=== PATIENT | male | born 1970 | race Caucasian/White ===

== ENCOUNTER 2016-09-13 16:35 | Inpatient (IN) | payer MEDICAID ==
--- NOTE | 2016-09-13 17:00 | ER Document Report ---
ED Medical Screen (RME) - General Stated Complaint: ABDOMINAL PAIN Time seen by provider: 17:00 Mode of Arrival: Ambulatory Information source: Patient Notes: 45-year-old male with a history of diverticulosis, diverticulitis with abscess, a history of percutaneous drainage in May with history of renal failure is here with acute similar abdominal pain for 3 days. He started on a liquid diet to try to relieve the mild pain but it is gotten severe.. He can't stand it anymore and is concerned there is another abscess, He was told that if it persists and keeps coming back to have to have abdominal surgery. I have consulted with the supervisory physician per [facility] Guidelines. Dr. Frazier for CT I have greeted and performed a rapid initial assessment of this patient. A comprehensive ED assessment, evaluation of the patient, analysis of test results , and completion of the medical decision making process will be conducted by additional ED providers. TRAVEL OUTSIDE OF THE [place] IN LAST 30 DAYS: No - Related Data Allergies/Adverse Reactions: amlodipine Allergy (Verified 06/06/16 17:08) tramadol HCl [From Ultram] Allergy (Verified 06/06/16 11:35) Past Medical History - Past Medical History Cardiac Medical History: Reports: Hx Hypertension GI Medical History: Reports: Hx Diverticulitis Musculoskeltal Medical History: Reports Hx Arthritis - Left hip was replaced due to degenerative joint disease in 2013 Psychiatric Medical History: Denies: Hx Depression Past Surgical History: Reports: Hx Orthopedic Surgery - Left hip replaced, Other - Colonoscopy - Immunizations Hx Diphtheria, Pertussis, Tetanus Vaccination: Yes Physical Exam - Vital signs Vitals: Temp Pulse Resp BP Pulse Ox 98.4 F 110 H 26 H 158/99 H 95 09/13/16 17:02 09/13/16 17:02 09/13/16 17:02 09/13/16 17:02 09/13/16 17:02 Course - Vital Signs Vital signs: Temp Pulse Resp BP Pulse Ox 98.4 F 110 H 26 H 158/99 H 95 09/13/16 17:02 09/13/16 17:02 09/13/16 17:02 09/13/16 17:02 09/13/16 17:02
[2016-09-13] MEDS ORDERED: MORPHINE SULFATE 10 MG/ML INJ IV ONE (17:03)
[2016-09-13] MEDS ORDERED: ONDANSETRON HCL INJ/PF 4 MG/2 ML SDV IV ONE (17:03)
[2016-09-13 18:03] LABS: ABSOLUTE BASOPHILS # (AUTO) 0.1 10^3/uL (0.0-0.2); ABSOLUTE LYMPHOCYTES (AUTO) 1.9 10^3/uL (0.5-4.7); ABSOLUTE MONOCYTES (AUTO) 1.5 10^3/uL (0.1-1.4); ABSOLUTE NEUT (AUTO) 13.5 10^3/uL (1.7-8.2); BASOPHILS % (AUTO) 0.7 % (0-2); EOSINOPHILS % (AUTO) 0.2 % (0-6); HEMOGLOBIN 15.7 g/dL (13.5-17.0); HGB HCT DIFFERENCE 2.1; LYMPHOCYTES % (AUTO) 10.9 % (13-45); MEAN CORPUSCULAR VOLUME 97 fl (80-97); MONOCYTES % (AUTO) 8.9 % (3-13); RED BLOOD COUNT 4.63 10^6/uL (4.35-5.55); SEGMENTED NEUTROPHILS % (AUTO) 79.3 % (42-78); WHITE BLOOD COUNT 17.1 10^3/uL (4.0-10.5)
[2016-09-13 18:16] LABS: ALANINE AMINOTRANSFERASE 60 U/L (21-72); ALKALINE PHOSPHATASE 102 U/L (38-126); ANION GAP 10 (5-19); ASPARTATE AMINO TRANSFERASE 41 U/L (17-59); BILIRUBIN,TOTAL 0.7 mg/dL (0.2-1.3); BLOOD UREA NITROGEN 14 mg/dL (7-20); CALCIUM 9.6 mg/dL (8.4-10.2); CARBON DIOXIDE 33 mmol/L (22-30); CHLORIDE 89 mmol/L (98-107); CREATININE RESULT 1.36 mg/dL (0.52-1.25); GLUCOSE 110 mg/dL (75-110); LIPASE 122.3 U/L (23-300); POTASSIUM 5.2 mmol/L (3.6-5.0)
[2016-09-13] MEDS ORDERED: NORMAL SALINE 1000 ML 1,000 ML IV ONE (18:17)
[2016-09-13] MEDS ORDERED: METRONIDAZOLE 500 MG/NS RTU 100 ML IV ONE (18:18)
[2016-09-13] MEDS ORDERED: LEVOFLOXACIN 750 MG/D5W RTU 150 ML IV ONE (18:18)
--- NOTE | 2016-09-13 18:44 | ER Document Report ---
ED General - General Chief Complaint: Abdominal Pain Stated Complaint: ABDOMINAL PAIN Mode of Arrival: Ambulatory Notes: Patient is a 45-year-old male with past medical history of recurrent sigmoid diverticulitis who presents with acute onset of left lower quadrant abdominal pain earlier this morning. He does describe the pain as a severe, constant pain. Nothing improves or worsens the pain. He notes an associated constipation. States this feels identical to his prior presentations of diverticulitis. He has not seen his primary care physician. He denies any associated vomiting but states he has been quite nauseated. TRAVEL OUTSIDE OF THE [place] IN LAST 30 DAYS: No - Related Data Allergies/Adverse Reactions: amlodipine Allergy (Verified 06/06/16 17:08) tramadol HCl [From Ultram] Allergy (Verified 06/06/16 11:35) Home Medications: Current Home Medications Hydrochlorothiazide [Hydrochlorothiazide] 25 mg PO DAILY 09/13/16 [History] Past Medical History - General Information source: Patient - Social History Smoking Status: Never Smoker Chew tobacco use (# tins/day): No Frequency of alcohol use: Occasional Drug Abuse: None Lives with: Spouse/Significant other Family History: Reviewed & Not Pertinent, Other - Crohn's disease. Colon cancer. Patient has suicidal ideation: No Patient has homicidal ideation: No - Past Medical History Cardiac Medical History: Reports: Hx Hypertension Renal/ Medical History: Denies: Hx Peritoneal Dialysis GI Medical History: Reports: Hx Diverticulitis Musculoskeltal Medical History: Reports Hx Arthritis - Left hip was replaced due to degenerative joint disease in 2013 Psychiatric Medical History: Denies: Hx Depression Past Surgical History: Reports: Hx Orthopedic Surgery - Left hip replaced, Other - Colonoscopy - Immunizations Hx Diphtheria, Pertussis, Tetanus Vaccination: Yes Review of Systems - Review of Systems Notes: Constitutional: Negative for fever. HENT: Negative for sore throat. Eyes: Negative for visual changes. Cardiovascular: Negative for chest pain. Respiratory: Negative for shortness of breath. Gastrointestinal: Positive for abdominal pain and constipation Genitourinary: Negative for dysuria. Musculoskeletal: Negative for back pain. Skin: Negative for rash. Neurological: Negative for headaches, weakness or numbness. 10 point ROS negative except as marked above and in HPI. Physical Exam - Vital signs Vitals: Temp Pulse Resp BP Pulse Ox 98.4 F 110 H 26 H 158/99 H 95 09/13/16 17:02 09/13/16 17:02 09/13/16 17:02 09/13/16 17:02 09/13/16 17:02 Interpretation: Hypertensive, Tachycardic, Tachypneic Notes: PHYSICAL EXAMINATION: GENERAL: Appears uncomfortable but in no acute distress HEAD: Atraumatic, normocephalic. EYES: Pupils equal round and reactive to light, extraocular movements intact, sclera anicteric, conjunctiva are normal. ENT: nares patent, oropharynx clear without exudates. Moist mucous membranes. NECK: Normal range of motion, supple without lymphadenopathy LUNGS: Breath sounds clear to auscultation bilaterally and equal. No wheezes rales or rhonchi. HEART: Regular tachycardia without murmurs ABDOMEN: Soft, focal left lower quadrant tenderness with voluntary guarding but no rebound. Bowel sounds are present EXTREMITIES: Normal range of motion, no pitting or edema. No cyanosis. NEUROLOGICAL: No focal neurological deficits. Moves all extremities spontaneously and on command. PSYCH: Normal mood, normal affect. SKIN: Warm, Dry, normal turgor, no rashes or lesions noted. Course - Re-evaluation Re-evalutation: 09/13/16 18:43 Patient presents with acute onset of left lower quadrant abdominal pain, consistent with his prior presentation of acute diverticulitis. CT scan does show a severe sigmoid colitis with a possible developing fluid collection although no drainable collection at this time. His laboratories do show leukocytosis. Exam reveals focal left lower quadrant abdominal tenderness without rebound. Patient does have some voluntary guarding. Initial vitals or tachycardia he does appear clinically dehydrated on exam. He has been started on IV fluids, IV levofloxacin, and IV metronidazole. Given that there is no surgical management at this time will admit to the hospitalist service for IV antibiotics and clinical monitoring. 09/13/16 19:33 Patient's pain is improved after receiving IV morphine. His heart rate has now normalized to 96. I discussed this case with our hospitalist Dr. Hunter Levin who is agreeable to admission at this time. - Vital Signs Vital signs: Temp Pulse Resp BP Pulse Ox 98.5 F 105 H 18 140/87 H 97 09/14/16 00:00 09/14/16 00:00 09/14/16 00:00 09/14/16 00:00 09/14/16 00:00 - Laboratory Result Diagrams: 09/13/16 17:43 09/13/16 17:43 Laboratory results interpreted by me: 09/13/16 02 17:43 17:43 WBC 17.1 H MCH 34.0 H Seg Neutrophils % 79.3 H Lymphocytes % 10.9 L Absolute Neutrophils 13.5 H Absolute Monocytes 1.5 H Sodium 132.0 L Potassium 5.2 H Chloride 89 L Carbon Dioxide 33 H Creatinine 1.36 H Est GFR (Non-Af Amer) 57 L - Diagnostic Test Radiology reviewed: Reports reviewed Discharge - Discharge Clinical Impression: Colitis Abdominal pain Qualifiers: Abdominal location: left lower quadrant Qualified Code(s): R10.32 - Left lower quadrant pain Disposition: ADMITTED INPATIENT Admitting Provider: [facility] Admitted: Telemetry
[2016-09-13] MEDS ORDERED: IPRATROPIUM/ALBUTEROL 0.5-2.5 MG/3 ML AMPUL NEB PRN (19:36)
[2016-09-13] MEDS ORDERED: ONDANSETRON HCL INJ/PF 4 MG/2 ML SDV IV PRN (19:36)
[2016-09-13] MEDS ORDERED: MAGNESIUM HYDROXIDE SUSP 30 ML UDCUP PO PRN (19:36)
[2016-09-13] MEDS ORDERED: ACETAMINOPHEN 325 MG TABLET PO PRN (19:36)
[2016-09-13] MEDS ORDERED: LEVOFLOXACIN 750 MG/D5W RTU 750 MG/150 ML RTUPB IV ONE (20:00)
[2016-09-13] MEDS ORDERED: METRONIDAZOLE 500 MG TABLET PO ONE (20:00)
[2016-09-13] MEDS: HYDROMORPHONE HCL INJ/PF 2 MG/ML AMPULE IV PRN ×2 (20:57→23:23)
[2016-09-13] MEDS: NORMAL SALINE 1000 ML 1,000 ML IV SCH (23:18)
[2016-09-13] MEDS: HEPARIN SOD (PORCINE) 5,000 UNIT/ML 1 ML SYRINGE SUBCUT SCH (23:19)
[2016-09-13] MEDS: METRONIDAZOLE 500 MG TABLET PO SCH (23:19)
[2016-09-13] MEDS ORDERED: ENALAPRILAT DIHYDRATE INJ/PF 1.25 MG/1 ML SDV IV PRN (23:24)
--- NOTE | 2016-09-14 03:58 | PDOC H&P ---
History of Present Illness Admission Date/PCP: 09/13/16 19:37 Patient complains of: Abdominal pain and constipation History of Present Illness: PIPE RESENDIZ IV is a 45 year old male with a past medical history of hypertension, obesity and recurrent diverticulitis. Who has been in his usual state of health until approximately 3 days ago noting to have constipation associated with abdominal pain and left lower quadrant which has remained persistent despite a clear liquid diet prompting him to seek evaluation emergency room where his found to have abdominal distention, leukocytosis and diverticulitis by CT without drainable abscess. Recent admission for the same in May 2016 was complicated by abscess with fistula requiring percutaneous drain. He had planned an elective partial colectomy but was lost to follow-up. Patient currently denies chest pain shortness of breath nausea vomiting. Past Medical History Cardiac Medical History: Reports: Hypertension GI Medical History: Reports: Diverticulitis Musculoskeltal Medical History: Reports: Arthritis - Left hip was replaced due to degenerative joint disease in 2013 Psychiatric Medical History: Denies: Depression Past Surgical History Past Surgical History: Reports: Orthopedic Surgery - Left hip replaced, Other - Colonoscopy Social History Information Source: Patient Lives with: Spouse/Significant other Smoking Status: Never Smoker Number of Years Smokin Last Time Smoked: 22 Frequency of Alcohol Use: Occasional Hx Recreational Drug Use: Yes Drugs: Marijuana Hx Prescription Drug Abuse: No - Advance Directive Resuscitation Status: Full Code Family History Family History: Other - Crohn's disease. Colon cancer. Parental Family History Reviewed: Yes Children Family History Reviewed: Yes Sibling(s) Family History Reviewed.: Yes Medication/Allergy Home Medications: Hydrochlorothiazide [Hydrochlorothiazide] 25 mg PO DAILY 09/13/16 Allergies/Adverse Reactions: amlodipine Allergy (Verified 06/06/16 17:08) tramadol HCl [From Ultram] Allergy (Verified 06/06/16 11:35) Review of Systems Constitutional: ABSENT: chills, fever(s), headache(s), weight gain, weight loss Eyes: ABSENT: visual disturbances Ears: ABSENT: hearing changes Cardiovascular: ABSENT: chest pain, dyspnea on exertion, edema, orthropnea, palpitations Respiratory: ABSENT: cough, hemoptysis Gastrointestinal: ABSENT: abdominal pain, constipation, diarrhea, hematemesis, hematochezia, nausea, vomiting Genitourinary: ABSENT: dysuria, hematuria Musculoskeletal: ABSENT: joint swelling Integumentary: ABSENT: rash, wounds Neurological: ABSENT: abnormal gait, abnormal speech, confusion, dizziness, focal weakness, syncope Psychiatric: ABSENT: anxiety, depression, homidical ideation, suicidal ideation Endocrine: ABSENT: cold intolerance, heat intolerance, polydipsia, polyuria Hematologic/Lymphatic: ABSENT: easy bleeding, easy bruising Physical Exam Vital Signs: Temp Pulse Resp BP Pulse Ox 98.5 F 101 H 18 140/87 H 97 09/14/16 00:00 09/14/16 02:00 09/14/16 00:00 09/14/16 00:00 09/14/16 00:00 Intake & Output 09/12/16 09/13/16 09/14/16 11:59 11:59 11:59 Weight 122.4 kg General appearance: PRESENT: cooperative, mild distress, obese Head exam: PRESENT: atraumatic, normocephalic Eye exam: PRESENT: conjunctiva pink, EOMI, PERRLA. ABSENT: scleral icterus Ear exam: PRESENT: normal external ear exam Mouth exam: PRESENT: moist, tongue midline Neck exam: ABSENT: carotid bruit, JVD, lymphadenopathy, thyromegaly Respiratory exam: PRESENT: clear to auscultation blair. ABSENT: rales, rhonchi, wheezes Cardiovascular exam: PRESENT: RRR. ABSENT: diastolic murmur, rubs, systolic murmur Pulses: PRESENT: normal dorsalis pedis pul Vascular exam: PRESENT: normal capillary refill GI/Abdominal exam: PRESENT: distended, firm, hyperactive bowel sounds, soft, tenderness. ABSENT: ascites, guarding, mass, Gallagher's sign, organolmegaly, rebound Rectal exam: PRESENT: deferred Extremities exam: PRESENT: full ROM. ABSENT: calf tenderness, clubbing, pedal edema Neurological exam: PRESENT: alert, awake, oriented to person, oriented to place , oriented to time, oriented to situation, CN II-XII grossly intact. ABSENT: motor sensory deficit Psychiatric exam: PRESENT: appropriate affect, normal mood. ABSENT: homicidal ideation, suicidal ideation Skin exam: PRESENT: dry, intact, warm. ABSENT: cyanosis, rash Results Impressions: Abdomen/Pelvis CT 09/13/16 17:04 IMPRESSION: 1. Marked sigmoid colitis. Differential includes infectious and inflammatory etiologies predominantly in a patient of this age. Diverticulitis is possible, however it is hard to define any discrete diverticula through the area. Associated mesenteric changes without definite drainable abscess currently. Assessment & Plan - Diagnosis (1) Diverticulitis Qualifiers: Diverticulitis site: large intestine Diverticulitis bleeding: without bleeding Diverticulitis complication: without perforation or abscess Qualified Code(s): K57.32 - Diverticulitis of large intestine without perforation or abscess without bleeding Is this a current diagnosis for this admission?: YesPlan: Admitted to monitored bed empiric antibiotics of Flagyl and Levaquin IV fluid challenge symptomatic management bowel rest and surgical consult given frequent recurrence. (2) Abdominal pain Qualifiers: Abdominal location: left lower quadrant Qualified Code(s): R10.32 - Left lower quadrant pain Is this a current diagnosis for this admission?: YesPlan: Secondary to #1 symptomatically management correction of the underlying cause (3) Morbid obesity with BMI of 45.0-49.9, adult Plan: Dietitian consult - Time Time Spent: 30 to 50 Minutes
[2016-09-14 04:54] LABS: ABSOLUTE BASOPHILS # (AUTO) 0.1 10^3/uL (0.0-0.2); ABSOLUTE EOSINOPHILS # (AUTO) 0.1 10^3/uL (0.0-0.6); ABSOLUTE LYMPHOCYTES (AUTO) 1.2 10^3/uL (0.5-4.7); ABSOLUTE MONOCYTES (AUTO) 1.1 10^3/uL (0.1-1.4); ABSOLUTE NEUT (AUTO) 13.2 10^3/uL (1.7-8.2); BASOPHILS % (AUTO) 0.4 % (0-2); EOSINOPHILS % (AUTO) 0.3 % (0-6); HEMATOCRIT 39.3 % (37.9-51.0); HGB HCT DIFFERENCE 1.2; LYMPHOCYTES % (AUTO) 7.8 % (13-45); MEAN CORPUSCULAR HEMOGLOBIN 33.7 pg (27.0-33.4); MEAN CORPUSCULAR HGB CONC 34.5 g/dL (32.0-36.0); MEAN CORPUSCULAR VOLUME 98 fl (80-97); MONOCYTES % (AUTO) 6.9 % (3-13); RED BLOOD COUNT 4.01 10^6/uL (4.35-5.55); RED CELL DISTRIBUTION WIDTH 13.8 % (11.5-14.0); SEGMENTED NEUTROPHILS % (AUTO) 84.6 % (42-78); WHITE BLOOD COUNT 15.6 10^3/uL (4.0-10.5)
[2016-09-14 05:08] LABS: ANION GAP 8 (5-19); BLOOD UREA NITROGEN 12 mg/dL (7-20); CALCIUM 8.4 mg/dL (8.4-10.2); CARBON DIOXIDE 28 mmol/L (22-30); CHLORIDE 94 mmol/L (98-107); CREATININE RESULT 1.19 mg/dL (0.52-1.25); GLUCOSE 123 mg/dL (75-110); POTASSIUM 4.6 mmol/L (3.6-5.0); SODIUM 129.9 mmol/L (137-145)
[2016-09-14] MEDS: METRONIDAZOLE 500 MG TABLET PO SCH ×3 (05:36→18:39)
[2016-09-14] MEDS: HYDROMORPHONE HCL INJ/PF 2 MG/ML AMPULE IV PRN ×5 (05:36→23:03)
[2016-09-14] MEDS: HEPARIN SOD (PORCINE) 5,000 UNIT/ML 1 ML SYRINGE SUBCUT SCH ×3 (05:37→22:51)
[2016-09-14] MEDS: NORMAL SALINE 1000 ML 1,000 ML IV SCH (05:37)
[2016-09-14 06:52] LABS: HEMOGLOBIN 13.5 g/dL (13.5-17.0)
[2016-09-14] MEDS: LEVOFLOXACIN 750 MG/D5W RTU 750 MG/150 ML RTUPB IV SCH (09:42)
--- NOTE | 2016-09-14 12:18 | PDOC PROGRESS REPORT ---
Subjective Progress Note for:: 09/14/16 Subjective:: Patient is feeling a little better. His flareup in 1 year. He has been hospitalized at least 4 times since 2012 for diverticular disease of the sigmoid colon with abscess area and this represents complicated sigmoid diverticulitis. In the past month patient underwent a with polypectomy [address] Catarino jay I patient's verbal report. There was scar tissue in sigmoid colon. Physical Exam Vital Signs: Temp Pulse Resp BP Pulse Ox 98.5 F 99 14 133/86 H 97 09/14/16 05:14 09/14/16 07:00 09/14/16 05:14 09/14/16 05:14 09/14/16 05:14 Intake & Output 09/13/16 09/14/16 09/15/16 06:59 06:59 06:59 Intake Total 1090 Output Total 700 Balance 390 Weight 122.4 kg General appearance: PRESENT: no acute distress GI/Abdominal exam: PRESENT: other - A right lower quadrant with mild guarding Results Laboratory Results: 09/14/16 04:31 09/14/16 04:31 09/14/16 09/14/16 04:31 04:31 WBC 15.6 H RBC 4.01 L Hgb 13.5 D Hct 39.3 MCV 98 H MCH 33.7 H MCHC 34.5 RDW 13.8 Plt Count 303 Seg Neutrophils % 84.6 H Lymphocytes % 7.8 L Monocytes % 6.9 Eosinophils % 0.3 Basophils % 0.4 Absolute Neutrophils 13.2 H Absolute Lymphocytes 1.2 Absolute Monocytes 1.1 Absolute Eosinophils 0.1 Absolute Basophils 0.1 Sodium 129.9 L Potassium 4.6 Chloride 94 L Carbon Dioxide 28 Anion Gap 8 BUN 12 Creatinine 1.19 Est GFR ( Amer) > 60 Est GFR (Non-Af Amer) > 60 Glucose 123 H Calcium 8.4 Impressions: Abdomen/Pelvis CT 09/13/16 17:04 IMPRESSION: 1. Marked sigmoid colitis. Differential includes infectious and inflammatory etiologies predominantly in a patient of this age. Diverticulitis is possible, however it is hard to define any discrete diverticula through the area. Associated mesenteric changes without definite drainable abscess currently. Assessment & Plan - Diagnosis (1) Diverticular disease of intestine with perforation and abscess Is this a current diagnosis for this admission?: YesPlan: 1. Clinical stabilization in patient with recurrent, complicated sigmoid diverticulitis. 2. Recommend continue intravenous antibiotics, and bowel rest 3. Patient deserves interval ignored colectomy, ideally one stage procedure, with primary anastomosis. The ideal timing would be this current flareup subside. Hopefully we can discharge patient home , keeping him on clear liquids until a surgery date is established. 4. Explained the above the patient. I believe he understands and agrees proceed.
--- NOTE | 2016-09-14 15:25 | PDOC PROGRESS REPORT ---
Subjective Progress Note for:: 09/14/16 Subjective:: Patient is seen on morning rounds. He is presently resting comfortably in bed. He states when the pain medicine starts to our office pain returns. Is mostly across his lower abdomen on both sides. He denies any fever or chills presently. He denies any headache, chest pain, or dizziness. He has a shortness of breath, dyspnea or cough. He denies any other complaints at the present time. He states this is his second admission for diverticulitis. He states he is ready to do something about it at this time. His last colonoscopy was 2 months ago. He is to seen by Dr. Cowan, general surgeon, was recommended surgery after this bout of diverticulitis has resolved. Mr. Avelar states he is agreeable to this. Physical Exam Vital Signs: Temp Pulse Resp BP Pulse Ox 98.5 F 107 H 14 133/86 H 97 09/14/16 05:14 09/14/16 14:00 09/14/16 05:14 09/14/16 05:14 09/14/16 05:14 Intake & Output 09/13/16 09/14/16 09/15/16 06:59 06:59 06:59 Intake Total 1090 800 Output Total 700 600 Balance 390 200 Weight 122.4 kg General appearance: PRESENT: no acute distress, morbidly obese, well-developed, well-nourished Head exam: PRESENT: atraumatic, normocephalic Eye exam: PRESENT: conjunctiva pink, EOMI, PERRLA. ABSENT: scleral icterus Ear exam: PRESENT: normal external ear exam Mouth exam: PRESENT: moist, tongue midline Neck exam: ABSENT: carotid bruit, JVD, lymphadenopathy, thyromegaly Respiratory exam: PRESENT: clear to auscultation blair. ABSENT: rales, rhonchi, wheezes Cardiovascular exam: PRESENT: RRR. ABSENT: diastolic murmur, rubs, systolic murmur Pulses: PRESENT: normal dorsalis pedis pul Vascular exam: PRESENT: normal capillary refill GI/Abdominal exam: PRESENT: hyperactive bowel sounds, soft, tenderness Rectal exam: PRESENT: deferred Extremities exam: PRESENT: full ROM. ABSENT: calf tenderness, clubbing, pedal edema Neurological exam: PRESENT: alert, awake, oriented to person, oriented to place , oriented to time, oriented to situation, CN II-XII grossly intact. ABSENT: motor sensory deficit Psychiatric exam: PRESENT: appropriate affect, normal mood. ABSENT: homicidal ideation, suicidal ideation Skin exam: PRESENT: dry, intact, warm. ABSENT: cyanosis, rash Results Laboratory Results: 09/14/16 04:31 09/14/16 04:31 09/14/16 09/14/16 04:31 04:31 WBC 15.6 H RBC 4.01 L Hgb 13.5 D Hct 39.3 MCV 98 H MCH 33.7 H MCHC 34.5 RDW 13.8 Plt Count 303 Seg Neutrophils % 84.6 H Lymphocytes % 7.8 L Monocytes % 6.9 Eosinophils % 0.3 Basophils % 0.4 Absolute Neutrophils 13.2 H Absolute Lymphocytes 1.2 Absolute Monocytes 1.1 Absolute Eosinophils 0.1 Absolute Basophils 0.1 Sodium 129.9 L Potassium 4.6 Chloride 94 L Carbon Dioxide 28 Anion Gap 8 BUN 12 Creatinine 1.19 Est GFR ( Amer) > 60 Est GFR (Non-Af Amer) > 60 Glucose 123 H Calcium 8.4 Impressions: Abdomen/Pelvis CT 09/13/16 17:04 IMPRESSION: 1. Marked sigmoid colitis. Differential includes infectious and inflammatory etiologies predominantly in a patient of this age. Diverticulitis is possible, however it is hard to define any discrete diverticula through the area. Associated mesenteric changes without definite drainable abscess currently. Assessment & Plan - Diagnosis (1) Diverticulitis Qualifiers: Diverticulitis site: large intestine Diverticulitis bleeding: without bleeding Diverticulitis complication: without perforation or abscess Qualified Code(s): K57.32 - Diverticulitis of large intestine without perforation or abscess without bleeding Is this a current diagnosis for this admission?: YesPlan: Continue broad-spectrum antibiotics and pain medicine. Will keep nothing by mouth except for ice chips for now. (2) Abdominal pain Qualifiers: Abdominal location: left lower quadrant Qualified Code(s): R10.32 - Left lower quadrant pain Is this a current diagnosis for this admission?: YesPlan: Continue when necessary Dilaudid. IV fluids and bowel rest. (3) Hypertension Qualifiers: Hypertension type: essential hypertension Qualified Code(s): I10 - Essential (primary) hypertension Is this a current diagnosis for this admission?: YesPlan: Presently normotensive on current medications. (4) Morbid obesity with BMI of 45.0-49.9, adult Is this a current diagnosis for this admission?: YesPlan: Counseled on need for weight reduction - Time Time Spent with patient: 25-34 minutes Critical Time spent with patient: 15-24 minutes Medications reviewed and adjusted accordingly: Yes Anticipated discharge: Home - Inpatient Certification Based on my medical assessment, after consideration of the patient's comorbidities, presenting symptoms, or acuity I expect that the services needed warrant INPATIENT care.: Yes I certify that my determination is in accordance with my understanding of Medicare's requirements for reasonable and necessary INPATIENT services [42 CFR 412.3e].: Yes
[2016-09-14] MEDS ORDERED: MAGNESIUM HYDROXIDE SUSP 30 ML UDCUP PO ONE (19:45)
[2016-09-14] MEDS ORDERED: BISACODYL 10 MG SUPP.RECT PR ONE (20:00)
[2016-09-15] MEDS: HYDROMORPHONE HCL INJ/PF 2 MG/ML AMPULE IV PRN ×3 (01:25→09:10)
[2016-09-15] MEDS: HEPARIN SOD (PORCINE) 5,000 UNIT/ML 1 ML SYRINGE SUBCUT SCH (05:51)
[2016-09-15] MEDS: METRONIDAZOLE 500 MG TABLET PO SCH ×2 (05:55)
[2016-09-15 06:09] LABS: ABSOLUTE BASOPHILS # (AUTO) 0.1 10^3/uL (0.0-0.2); ABSOLUTE MONOCYTES (AUTO) 0.8 10^3/uL (0.1-1.4); ABSOLUTE NEUT (AUTO) 17.6 10^3/uL (1.7-8.2); BASOPHILS % (AUTO) 0.3 % (0-2); EOSINOPHILS % (AUTO) 0.2 % (0-6); HEMATOCRIT 40.9 % (37.9-51.0); HEMOGLOBIN 13.6 g/dL (13.5-17.0); HGB HCT DIFFERENCE -0.1; LYMPHOCYTES % (AUTO) 5.1 % (13-45); MEAN CORPUSCULAR HEMOGLOBIN 33.1 pg (27.0-33.4); MEAN CORPUSCULAR HGB CONC 33.3 g/dL (32.0-36.0); MEAN CORPUSCULAR VOLUME 100 fl (80-97); RED BLOOD COUNT 4.11 10^6/uL (4.35-5.55); RED CELL DISTRIBUTION WIDTH 13.7 % (11.5-14.0); SEGMENTED NEUTROPHILS % (AUTO) 90.4 % (42-78); WHITE BLOOD COUNT 19.5 10^3/uL (4.0-10.5)
[2016-09-15 06:28] LABS: ANION GAP 11 (5-19); BLOOD UREA NITROGEN 11 mg/dL (7-20); CALCIUM 8.7 mg/dL (8.4-10.2); CARBON DIOXIDE 24 mmol/L (22-30); CHLORIDE 96 mmol/L (98-107); CREATININE RESULT 1.27 mg/dL (0.52-1.25); GLUCOSE 101 mg/dL (75-110); POTASSIUM 4.9 mmol/L (3.6-5.0); SODIUM 130.7 mmol/L (137-145)
[2016-09-15] MEDS: LEVOFLOXACIN 750 MG/D5W RTU 750 MG/150 ML RTUPB IV SCH (09:10)
[2016-09-15] MEDS ORDERED: LIDOCAINE 2% INJ-PF (20 MG/ML) 10 ML AMPUL ONE (09:22)
[2016-09-15] MEDS ORDERED: METOCLOPRAMIDE HCL INJ/PF 10 MG/2 ML SDV ONE (09:22)
[2016-09-15] MEDS ORDERED: GLYCOPYRROLATE INJ 0.4 MG/2 ML VIAL ONE (09:22)
[2016-09-15] MEDS ORDERED: ONDANSETRON HCL INJ/PF 4 MG/2 ML SDV ONE (09:22)
[2016-09-15] MEDS ORDERED: SUCCINYLCHOLINE CHLORIDE INJ 200 MG/10 ML VIAL ONE (09:22)
[2016-09-15] MEDS ORDERED: PHENYLEPHRINE HCL INJ/PF 10 MG/1 ML SDV ONE (09:22)
[2016-09-15] MEDS ORDERED: NORMAL SALINE 1000 ML 1,000 ML IV PRN ×2 (09:47→12:56)
--- NOTE | 2016-09-15 11:38 | PDOC PROGRESS REPORT ---
Subjective Progress Note for:: 09/15/16 Subjective:: Patient is complaining of more abdominal pain. He is having more tachycardia, low-grade fever. He is still on intravenous antibiotics and IV fluids. He is voiding. He has the sensation of needing to pass gas. Physical Exam Vital Signs: Temp Pulse Resp BP Pulse Ox 98.4 F 115 H 19 113/78 96 09/15/16 07:47 09/15/16 07:47 09/15/16 07:47 09/15/16 07:47 09/15/16 07:47 Intake & Output 09/14/16 09/15/16 09/16/16 06:59 06:59 06:59 Intake Total 1090 2750 Output Total 700 600 Balance 390 2150 Weight 122.4 kg 122.4 kg General appearance: PRESENT: mild distress GI/Abdominal exam: PRESENT: tenderness - The abdomen is more distended, and diffusely tender with to moderate tympany. There is guarding particularly in the lower quadrants with localized pain to the suprapubic area. Results Laboratory Results: 09/15/16 05:50 09/15/16 05:50 09/15/16 09/15/16 05:50 05:50 WBC 19.5 H RBC 4.11 L Hgb 13.6 Hct 40.9 MCV 100 H MCH 33.1 MCHC 33.3 RDW 13.7 Plt Count 334 Seg Neutrophils % 90.4 H Lymphocytes % 5.1 L Monocytes % 4.0 Eosinophils % 0.2 Basophils % 0.3 Absolute Neutrophils 17.6 H Absolute Lymphocytes 1.0 Absolute Monocytes 0.8 Absolute Eosinophils 0.0 Absolute Basophils 0.1 Sodium 130.7 L Potassium 4.9 Chloride 96 L Carbon Dioxide 24 Anion Gap 11 BUN 11 Creatinine 1.27 H Est GFR ( Amer) > 60 Est GFR (Non-Af Amer) > 60 Glucose 101 Calcium 8.7 Impressions: Abdomen/Pelvis CT 09/13/16 17:04 IMPRESSION: 1. Marked sigmoid colitis. Differential includes infectious and inflammatory etiologies predominantly in a patient of this age. Diverticulitis is possible, however it is hard to define any discrete diverticula through the area. Associated mesenteric changes without definite drainable abscess currently. Assessment & Plan - Diagnosis (1) Diverticular disease of intestine with perforation and abscess Is this a current diagnosis for this admission?: YesPlan: 1. The patient's clinical condition has deteriorated. He is failing medical management, and at this time has peritoneal signs. Believe the patient needs to be explored using an open approach, exploratory laparotomy, probable sigmoid colectomy, possible colostomy. Patient understands the need for emergent surgery. Please contact his family. He understands he will be ill after this and may require intensive care unit. 2. We'll keep the patient nothing by mouth, increase IV fluids, and plan for surgery later today
[2016-09-15] MEDS ORDERED: BUPIVACAINE INJ/PF LIPOSOME/PF 266 MG/20 ML SDV ONE (11:41)
[2016-09-15] MEDS ORDERED: BUPIVACAINE HCL 0.25% /EPINEPHRINE INJ/PF 30 ML SDV ONE (11:41)
[2016-09-15] MEDS ORDERED: METRONIDAZOLE 500 MG/NS RTU 100 ML IV ONE (12:00)
[2016-09-15] MEDS ORDERED: MIDAZOLAM 2 MG/2 ML INJ ONE (12:08)
[2016-09-15] MEDS ORDERED: FENTANYL CITRATE INJ/PF 250 MCG/5 ML AMPULE ONE (12:08)
[2016-09-15] MEDS ORDERED: PROPOFOL INJ 200 MG/20 ML VIAL IV ONE (12:09)
[2016-09-15] MEDS ORDERED: ACETAMINOPHEN 100 ML IV ONE (12:09)
[2016-09-15] MEDS ORDERED: MORPHINE SULFATE 10 MG/ML INJ ONE ×2 (12:09→14:22)
--- NOTE | 2016-09-15 13:08 | PDOC PROGRESS REPORT ---
Subjective Progress Note for:: 09/15/16 Subjective:: Patient is seen on morning rounds. He is having more pain in the lower abdomen, particularly left lower abdominal quadrant and his abdomen is more distended. He is passing gas, but has not had a bowel movement in 6 days. He denies any nausea or vomiting. He denies any chest pain, shortness of breath or dyspnea. He denies any musculoskeletal complaints. Physical Exam Vital Signs: Temp Pulse Resp BP Pulse Ox 98.4 F 113 H 19 113/78 95 09/15/16 12:28 09/15/16 12:28 09/15/16 12:28 09/15/16 12:28 09/15/16 12:28 Intake & Output 09/14/16 09/15/16 09/16/16 06:59 06:59 06:59 Intake Total 1090 2750 Output Total 700 600 Balance 390 2150 Weight 122.4 kg 122.4 kg General appearance: PRESENT: no acute distress, well-developed, well-nourished Head exam: PRESENT: atraumatic, normocephalic Eye exam: PRESENT: conjunctiva pink, EOMI, PERRLA. ABSENT: scleral icterus Ear exam: PRESENT: normal external ear exam Mouth exam: PRESENT: moist, tongue midline Neck exam: ABSENT: carotid bruit, JVD, lymphadenopathy, thyromegaly Respiratory exam: PRESENT: clear to auscultation blair. ABSENT: rales, rhonchi, wheezes Cardiovascular exam: PRESENT: RRR. ABSENT: diastolic murmur, rubs, systolic murmur Pulses: PRESENT: normal dorsalis pedis pul Vascular exam: PRESENT: normal capillary refill GI/Abdominal exam: PRESENT: normal bowel sounds, soft. ABSENT: distended, guarding, mass, organolmegaly, rebound, tenderness Rectal exam: PRESENT: deferred Extremities exam: PRESENT: full ROM. ABSENT: calf tenderness, clubbing, pedal edema Neurological exam: PRESENT: alert, awake, oriented to person, oriented to place , oriented to time, oriented to situation, CN II-XII grossly intact. ABSENT: motor sensory deficit Psychiatric exam: PRESENT: anxious Skin exam: PRESENT: dry, intact, warm. ABSENT: cyanosis, rash Results Laboratory Results: 09/15/16 05:50 09/15/16 05:50 09/15/16 09/15/16 05:50 05:50 WBC 19.5 H RBC 4.11 L Hgb 13.6 Hct 40.9 MCV 100 H MCH 33.1 MCHC 33.3 RDW 13.7 Plt Count 334 Seg Neutrophils % 90.4 H Lymphocytes % 5.1 L Monocytes % 4.0 Eosinophils % 0.2 Basophils % 0.3 Absolute Neutrophils 17.6 H Absolute Lymphocytes 1.0 Absolute Monocytes 0.8 Absolute Eosinophils 0.0 Absolute Basophils 0.1 Sodium 130.7 L Potassium 4.9 Chloride 96 L Carbon Dioxide 24 Anion Gap 11 BUN 11 Creatinine 1.27 H Est GFR ( Amer) > 60 Est GFR (Non-Af Amer) > 60 Glucose 101 Calcium 8.7 Impressions: Abdomen/Pelvis CT 09/13/16 17:04 IMPRESSION: 1. Marked sigmoid colitis. Differential includes infectious and inflammatory etiologies predominantly in a patient of this age. Diverticulitis is possible, however it is hard to define any discrete diverticula through the area. Associated mesenteric changes without definite drainable abscess currently. Assessment & Plan - Diagnosis (1) Diverticulitis Qualifiers: Diverticulitis site: large intestine Diverticulitis bleeding: without bleeding Diverticulitis complication: without perforation or abscess Qualified Code(s): K57.32 - Diverticulitis of large intestine without perforation or abscess without bleeding Is this a current diagnosis for this admission?: YesPlan: Continue broad-spectrum antibiotics and pain medicine. Change Flagyl to IV Will keep nothing by mouth. Await surgeon's input. (2) Abdominal pain Qualifiers: Abdominal location: left lower quadrant Qualified Code(s): R10.32 - Left lower quadrant pain Is this a current diagnosis for this admission?: YesPlan: Continue when necessary Dilaudid. IV fluids and bowel rest. (3) Hypertension Qualifiers: Hypertension type: essential hypertension Qualified Code(s): I10 - Essential (primary) hypertension Is this a current diagnosis for this admission?: YesPlan: Presently normotensive. Will hold HCTZ (4) Morbid obesity with BMI of 45.0-49.9, adult Is this a current diagnosis for this admission?: YesPlan: Counseled on need for weight reduction - Time Time Spent with patient: 25-34 minutes Critical Time spent with patient: 15-24 minutes
[2016-09-15] MEDS ORDERED: DIPHENHYDRAMINE HCL 50 MG/ML VIAL IV PRN (14:37)
[2016-09-15] MEDS ORDERED: MEPERIDINE HCL/PF INJ 25 MG/1 ML DISP.SYRIN IV PRN (14:37)
[2016-09-15] MEDS ORDERED: FENTANYL CITRATE INJ/PF 100 MCG/2 ML AMPUL IV PRN ×3 (14:37)
[2016-09-15] MEDS ORDERED: PROMETHAZINE HCL INJ 25 MG/1 ML VIAL IV PRN ×2 (14:37)
[2016-09-15] MEDS ORDERED: OXYCODONE-ACETAMINOPHEN 5-325 MG TABLET PO PRN ×2 (14:37)
[2016-09-15] MEDS ORDERED: MORPHINE SULFATE 10 MG/ML INJ IV PRN (14:37)
--- NOTE | 2016-09-15 15:55 | Operative Report ---
Operative Report DATE OF SURGERY: 09/15/16 PREOPERATIVE DIAGNOSIS: Peritonitis due to perforation of obstructing sigmoid colon diverticular disease POSTOPERATIVE DIAGNOSIS: Same with purlulent peritonitis OPERATION: 1. Focused ultrasound of the left neck and ultrasound directed insertion of triple-lumen central venous access catheter. 2. Exploratory laparotomy washout of peritoneal cavity. 3. Standard left hemicolectomy incorporating distal sigmoid colon and upper rectum. 4. Diverting end versus colostomy. 5. Mobilization of splenic flexure. 6. Drainage of pelvis. 7. Extremely difficult modifier SURGEON: ROBERTO COWAN [employer] PROJECT MANAGER: TRACI ROSENBERG ANESTHESIA: GA TISSUE REMOVED OR ALTERED: Extended left colon all the way down to the upper rectum COMPLICATIONS: None ESTIMATED BLOOD LOSS: 600 mL INTRAOPERATIVE FINDINGS: See below PROCEDURE: The patient was seen in the preoperative holding area where he was consulted on the planned procedure. His was present at bedside and she in conjunction with the both agreed to proceed with the planned exploration, colectomy , possible colostomy as discussed by Dr. Cowan. She was taken to the operating room were general anesthesia was induced. A Sierra catheter was inserted. Placed with the legs in the stirrups position, bed extended. He called our attention to the left neck. The left neck was prepped and draped in sterile fashion. Using the Seldinger technique, with ultrasound as a guide, a triple-lumen central venous access catheter was threaded into the left internal jugular vein without difficulty. There was excellent blood flow through all 3 l lumens ; Catheters flushed with heparinized saline and secured to skin with 2-0 silk suture 2 Biopatch applied and sterile dressing applied. The abdomen was prepped and draped sterile fashion. A timeout was conducted. Abdomen was opened in a standard midline incision above and below the umbilicus. Sharp entry in the peritoneal cavity revealed a significant amount of purulent peritoneal fluid. Proximately 20 minutes irrigating out and suctioning out all of the peritoneal fluid which we can access which was significant again it was several liters worth of contaminated intraperitoneal fluid. She has significant third spacing, and inflammatory peel between the and the deep pelvis. Nasogastric tube was confirmed to be in good position. The falciform ligament was not taken. It was left in situ. Bookwalter retractor was established. The findings were significant for a massive clinically Biobonded rectosigmoid colon stuck to the deep pelvis. The left colon was dilated as was the transverse colon consistent with obstruction. We began mobilizing the left colon along the white line of Toldt. The level of dissection was taken cephalad to the splenic flexure which was taken down under direct visualization and tension with LigaSure and electrocautery. A suitable site for transection of the transverse colon which was less dilated than the obstructed left colon. Reason for taking the colon at this level with the ease the facilitation of the dissection. The gastrocolic omentum was taken off of the transverse colon to the left of the middle colic pedicle. The transverse colon was divided with a single firing of the JACOB 55 stapler. We then sewed down the distal transverse meso colon as well as the left mesocolon under direct visualization using a combination of blunt and electrocautery and LigaSure dissection. Inflammatory process started at the sigmoid colon and extended down into the true pelvis. The of the dissection of the sigmoid colon laterally was done bluntly. The retroperitoneum was fibrotic and we did not attempt to find the ureter as the colon swept off of the fibrotic rather smoothly. At no time did the patient have any hematuria. He was oliguric. The remaining pedicles of the left mesial colon were taken down. We now divided the left colon to sigmoid colon so as to facilitate further dissection involving removal of the true rectosigmoid colon. Again this was done in order to get into the peritoneal cavity which was distended as a result of edema, and dilated colon and small bowel. The distal left colon was divided with the JACOB 55 stapler and passed off to pathology as specimen one. Now spent the next hour and a half removing the rectosigmoid colon. This was using blunt dissection, suction dissection as well as LigaSure device. Again we stayed right on the colonic mass which was very thickened fibrotic and chronically diseased. At no point did I feel we were dissecting into tumor. Eventually we able to take down the rectosigmoid mesial colon, and other lateral attachments until we had the specimen suspended by the upper rectum. See the tenia running together confirming the upper rectum. A suitable site for transection of the upper rectum was chosen, and using a single firing of the contour alert, the upper rectum was divided. The rectum at this point was fairly smooth and minimally edematous diseased. Rectum was passed off to pathology after photographing it along with the left colon. A 2-0 Prolene sutures placed in the staple line of the Latham's stump wrap we now irrigated peritoneal cavity out multiple times with roughly 4 L warm saline. We checked for bleeding and there was none. Further mobilization of the transverse colon taking off the omentum in preparation for the colostomy was performed. A large Maxwell drain was placed in the pelvis and brought out through the anterior abdominal wall in the left side. The colostomy by bringing the fascia together transiently, eating a circular hole in the skin just above the umbilicus into the left of midline. Plug of fatty tissue removed electrocautery. Fascia was divided longitudinally and the rectus muscle split longitudinally. There was no bleeding. The transverse colon was brought up as a colostomy without tension. Again the colon was dilated because of the obstruction. It was no perforation. Midline wound was closed with 2 double-stranded #1 PDS sutures. Ostomy was now matured by opening up portion of the staple line, and we with 4-0 Vicryl suture. I was careful to digitalize the ostomy and it was patent pink healthy not under tension and the fascial defect was felt to be of appropriate size. The appliance was applied. Midline wound approximated with domenic and gauze placed in between the domenic. As of the technical difficulty of this operation, prolonged time required to perform it, the difficult extreme modifiers used. The patient was taken to the intensive care unit in guarded condition, intubated The physician doctor's assistant, Ms. Rosenberg, provided assistance during this case by: Assisting retracting tissue, instillation of local anesthesia and closure of skin incisions.
[2016-09-15] MEDS ORDERED: PHARMACY COMMUNICATION ORDER MC NR (16:30)
[2016-09-15] MEDS ORDERED: ACETAMINOPHEN 650 MG SUPP.RECT PR PRN (16:39)
[2016-09-15] MEDS: PROPOFOL 100 ML IV PRN ×4 (16:50→22:16)
[2016-09-15 17:32] LABS: ARTERIAL BLOOD BASE EXCESS -4.8 mmol/L
[2016-09-15] MEDS: NORMAL SALINE 1000 ML 1,000 ML IV PRN (17:49)
[2016-09-15] MEDS: IMIPENEM/CILASTATIN SODIUM 500 MG in NORMAL SALINE 100 ML IV SCH ×2 (17:51→23:02)
[2016-09-15] MEDS ORDERED: NOREPINEPHRINE BITARTRATE INJ/PF 4 MG/4 ML SDV IV ONE (17:54)
[2016-09-15] MEDS ORDERED: METRONIDAZOLE 500 MG/NS RTU 100 ML IV SCH ×2 (18:00)
[2016-09-15] MEDS ORDERED: HALOPERIDOL LACTATE INJ 5 MG/1 ML VIAL IV PRN (18:30)
[2016-09-15] MEDS ORDERED: MIDAZOLAM HCL 100 ML IV PRN (18:57)
[2016-09-15] MEDS ORDERED: NORMAL SALINE INJ/PF 0.9% 10 ML SDV IV PRN (18:58)
[2016-09-15] MEDS ORDERED: DEXTROSE 5%-WATER 250 ML with NOREPINEPHRINE BITARTRATE 4 MG IV PRN ×2 (18:58)
[2016-09-15] MEDS ORDERED: DEXTROSE 5%-WATER 250 ML with PHENYLEPHRINE HCL 40 MG IV PRN ×2 (18:59)
[2016-09-15 19:21] LABS: HEMATOCRIT 38.8 % (37.9-51.0); HEMOGLOBIN 12.8 g/dL (13.5-17.0); HGB HCT DIFFERENCE -0.4; MEAN CORPUSCULAR HEMOGLOBIN 33.1 pg (27.0-33.4); MEAN CORPUSCULAR VOLUME 100 fl (80-97); RED BLOOD COUNT 3.87 10^6/uL (4.35-5.55); RED CELL DISTRIBUTION WIDTH 13.9 % (11.5-14.0)
[2016-09-15 19:33] LABS: ANION GAP 8 (5-19); BLOOD UREA NITROGEN 9 mg/dL (7-20); CALCIUM 7.3 mg/dL (8.4-10.2); CARBON DIOXIDE 22 mmol/L (22-30); CHLORIDE 100 mmol/L (98-107); CREATININE RESULT 1.13 mg/dL (0.52-1.25); GLUCOSE 107 mg/dL (75-110); POTASSIUM 5.5 mmol/L (3.6-5.0); SODIUM 129.7 mmol/L (137-145)
[2016-09-15 19:43] LABS: BAND NEUTROPHILS % (MANUAL) 11 % (3-5); BASOPHILS % (MANUAL) 0 % (0-2); EOSINOPHILS % (MANUAL) 0 % (0-6); LYMPHOCYTES % (MANUAL) 3 % (13-45); TOTAL CELLS COUNTED 100
[2016-09-15 19:51] LABS: PLATELET CLUMPS PRESENT; POLYCHROMASIA SLIGHT; TOXIC GRANULATION SLIGHT
[2016-09-15] MEDS: FENTANYL CITRATE INJ/PF 100 MCG/2 ML AMPUL IV PRN (19:58)
[2016-09-15] MEDS ORDERED: NORMAL SALINE 1000 ML 2,000 ML IV ONE (20:30)
[2016-09-15] MEDS: IPRATROPIUM/ALBUTEROL 0.5-2.5 MG/3 ML AMPUL NEB SCH (20:40)
[2016-09-15 20:42] LABS: FOLATE 7.57 ng/mL (>2.76)
[2016-09-15] MEDS: ALBUMIN HUMAN 50 ML IV SCH ×4 (20:46→23:48)
[2016-09-15] MEDS ORDERED: FENTANYL 25 MCG/HR PATCH.TD72 TD SCH (21:00)
[2016-09-15] MEDS: PANTOPRAZOLE SODIUM 40 MG VIAL IV SCH (21:00)
[2016-09-15] MEDS: MIDAZOLAM HCL 100 ML IV PRN (21:01)
[2016-09-15] MEDS ORDERED: LUBIPROSTONE 24 MCG CAPSULE PO SCH (22:00)
--- NOTE | 2016-09-15 22:11 | PDOC PROGRESS REPORT ---
Subjective Progress Note for:: 09/15/16 Subjective:: Patient underwent emergent partial colectomy of the rectum and sigmoid today for peritonitis due to perforation of the obstructing sigmoid colon diverticular disease. Patient was found to have purulent Peritonitis surgically. Patient was returned to the ICU intubated. Physical Exam Vital Signs: Temp Pulse Resp BP Pulse Ox 98.8 F 82 16 97/81 L 100 09/15/16 20:00 09/15/16 20:40 09/15/16 20:40 09/15/16 19:37 09/15/16 20:40 Intake & Output 09/14/16 09/15/16 09/16/16 06:59 06:59 06:59 Intake Total 1090 2750 88857 Output Total 700 600 12135 Balance 390 2150 5400 Weight 122.4 kg 122.4 kg 136.6 kg Exam: General: Intubated, paralyzed HEENT: AT/NC, PERRL, oropharynx reveals ET tube, pink, no scleral icterus, no conjunctival injection Neck: No JVD, trachea midline Chest: Clear to auscultation bilaterally, no wheezes rhonchi or rales CV: Regular rate and rhythm, normal S1 and S2, no murmur, rub, or gallop Abdomen: Firm, midline incision, fresh ostomy left lower quadrant, Extremities: No cyanosis, clubbing or edema Results Laboratory Results: 09/15/16 18:49 09/15/16 18:49 09/15/16 09/15/16 09/15/16 05:50 05:50 17:05 WBC 19.5 H RBC 4.11 L Hgb 13.6 Hct 40.9 MCV 100 H MCH 33.1 MCHC 33.3 RDW 13.7 Plt Count 334 Seg Neutrophils % 90.4 H Lymphocytes % 5.1 L Monocytes % 4.0 Eosinophils % 0.2 Basophils % 0.3 Absolute Neutrophils 17.6 H Absolute Lymphocytes 1.0 Absolute Monocytes 0.8 Absolute Eosinophils 0.0 Absolute Basophils 0.1 Retic Count (auto) Absolute Retic Carbonic Acid 1.80 H HCO3/H2CO3 Ratio 13:1 ABG pH 7.22 L ABG pCO2 59.8 H ABG pO2 72.1 L ABG HCO3 23.9 ABG O2 Saturation 91.0 L ABG Base Excess -4.8 FiO2 40% Sodium 130.7 L Potassium 4.9 Chloride 96 L Carbon Dioxide 24 Anion Gap 11 BUN 11 Creatinine 1.27 H Est GFR ( Amer) > 60 Est GFR (Non-Af Amer) > 60 Glucose 101 Calcium 8.7 Magnesium Iron TIBC % Saturation Ferritin Vitamin B12 Folate Blood Type Antibody Screen 09/15/16 09/15/16 09/15/16 17:36 18:49 18:49 WBC 24.0 H RBC 3.87 L Hgb 12.8 L Hct 38.8 MCV 100 H MCH 33.1 MCHC 33.0 RDW 13.9 Plt Count 403 Seg Neutrophils % Not Reportable Lymphocytes % Not Reportable Monocytes % Not Reportable Eosinophils % Not Reportable Basophils % Not Reportable Absolute Neutrophils Not Reportable Absolute Lymphocytes Not Reportable Absolute Monocytes Not Reportable Absolute Eosinophils Not Reportable Absolute Basophils Not Reportable Retic Count (auto) 1.92 Absolute Retic 0.074 Carbonic Acid HCO3/H2CO3 Ratio ABG pH ABG pCO2 ABG pO2 ABG HCO3 ABG O2 Saturation ABG Base Excess FiO2 Sodium 129.7 L Potassium 5.5 H Chloride 100 Carbon Dioxide 22 Anion Gap 8 BUN 9 Creatinine 1.13 Est GFR ( Amer) > 60 Est GFR (Non-Af Amer) > 60 Glucose 107 Calcium 7.3 L Magnesium 1.8 Iron 12.6 L TIBC 192 L % Saturation 7 Ferritin 235.00 Vitamin B12 382.0 Folate 7.57 Blood Type Antibody Screen 09/15/16 19:13 WBC RBC Hgb Hct MCV MCH MCHC RDW Plt Count Seg Neutrophils % Lymphocytes % Monocytes % Eosinophils % Basophils % Absolute Neutrophils Absolute Lymphocytes Absolute Monocytes Absolute Eosinophils Absolute Basophils Retic Count (auto) Absolute Retic Carbonic Acid HCO3/H2CO3 Ratio ABG pH ABG pCO2 ABG pO2 ABG HCO3 ABG O2 Saturation ABG Base Excess FiO2 Sodium Potassium Chloride Carbon Dioxide Anion Gap BUN Creatinine Est GFR ( Amer) Est GFR (Non-Af Amer) Glucose Calcium Magnesium Iron TIBC % Saturation Ferritin Vitamin B12 Folate Blood Type A POSITIVE Antibody Screen NEGATIVE Impressions: Abdomen/Pelvis CT 09/13/16 17:04 IMPRESSION: 1. Marked sigmoid colitis. Differential includes infectious and inflammatory etiologies predominantly in a patient of this age. Diverticulitis is possible, however it is hard to define any discrete diverticula through the area. Associated mesenteric changes without definite drainable abscess currently. Chest X-Ray 09/15/16 00:00 IMPRESSION: SATISFACTORY PLACEMENT LINES/TUBES. NO ACUTE RADIOGRAPHIC FINDING IN THE CHEST. Assessment & Plan - Diagnosis (1) Septic shock Is this a current diagnosis for this admission?: YesPlan: Have given patient additional 2 L bolus. Patient required 6 L of IV fluid in the in the OR. Have initiated patient on Levophed and attempt to maintain map greater than 65. CVP has been ordered every 4. Patient is making adequate urine output. Will also give albumin. Will add Rob-Synephrine if unable to maintain map greater than 65. Patient currently on imipenem for his purulent peritonitis. (2) Anemia Qualifiers: Anemia type: unspecified type Qualified Code(s): D64.9 - Anemia, unspecified Is this a current diagnosis for this admission?: YesPlan: Obtain iron studies and B-12 and type and screen patient. (3) Peritonitis Is this a current diagnosis for this admission?: Yes (4) Hyponatremia Is this a current diagnosis for this admission?: YesPlan: Likely secondary to intravascular volume depletion plus minus pain (5) Acute respiratory failure following trauma and surgery Is this a current diagnosis for this admission?: YesPlan: We'll consult pulmonary medicine for ventilator management. Will obtain a stat ABG and adjust patient's ventilator settings. Add nebulized treatments. (6) Diverticular disease of intestine with perforation and abscess Is this a current diagnosis for this admission?: YesPlan: Concern for possible underlying inflammatory bowel disease. Patient is anemic, has had transaminitis previously, and very early joint replacement. Will send an IBD panel. (7) Morbid obesity with BMI of 45.0-49.9, adult Is this a current diagnosis for this admission?: Yes (8) Sigmoid diverticulitis Is this a current diagnosis for this admission?: Yes - Time Critical Time spent with patient: 35 or more minutes Medications reviewed and adjusted accordingly: Yes
[2016-09-15] MEDS ORDERED: CALCIUM GLUCONATE 1000 MG/10 ML INJ IV ONE (22:15)
[2016-09-16] MEDS: PROPOFOL 100 ML IV PRN ×9 (00:31→22:08)
[2016-09-16] MEDS: FENTANYL CITRATE INJ/PF 100 MCG/2 ML AMPUL IV PRN ×4 (01:40→17:20)
[2016-09-16] MEDS: NORMAL SALINE 1000 ML 1,000 ML IV PRN ×4 (01:41→17:24)
[2016-09-16] MEDS: IPRATROPIUM/ALBUTEROL 0.5-2.5 MG/3 ML AMPUL NEB SCH ×4 (02:32→19:45)
[2016-09-16] MEDS ORDERED: DEXTROSE 5%-WATER 250 ML with NOREPINEPHRINE BITARTRATE 4 MG IV PRN ×2 (03:22)
[2016-09-16] MEDS ORDERED: MIDAZOLAM HCL 100 ML IV PRN (03:24)
[2016-09-16] MEDS: IMIPENEM/CILASTATIN SODIUM 500 MG in NORMAL SALINE 100 ML IV SCH ×4 (05:11→23:55)
[2016-09-16 06:28] LABS: ARTERIAL BLOOD BASE EXCESS -6.8 mmol/L; ARTERIAL BLOOD O2 SATURATION 96.5 % (94-98); HEMATOCRIT 30.7 % (37.9-51.0); HGB HCT DIFFERENCE 1.1; MEAN CORPUSCULAR HGB CONC 34.5 g/dL (32.0-36.0); MEAN CORPUSCULAR VOLUME 99 fl (80-97); RED BLOOD COUNT 3.11 10^6/uL (4.35-5.55); RED CELL DISTRIBUTION WIDTH 13.7 % (11.5-14.0); WHITE BLOOD COUNT 16.5 10^3/uL (4.0-10.5)
[2016-09-16 06:34] LABS: PROTHROMBIN TIME 16.7 SEC (11.4-15.4)
[2016-09-16 06:35] LABS: PARTIAL THROMBOPLASTIN TIME 32.3 SEC (23.5-35.8)
[2016-09-16 06:37] LABS: HEMOGLOBIN 10.6 g/dL (13.5-17.0)
[2016-09-16 06:54] LABS: BLOOD UREA NITROGEN 7 mg/dL (7-20); CREATININE RESULT 1.05 mg/dL (0.52-1.25); GLUCOSE 131 mg/dL (75-110); MAGNESIUM 1.5 mg/dL (1.6-2.3); PHOSPHORUS 2.6 mg/dL (2.5-4.5); TRIGLYCERIDES 228 mg/dL (<150)
[2016-09-16 07:01] LABS: PREALBUMIN 5.3 mg/dL (17.6-36.0)
[2016-09-16 07:14] LABS: ANION GAP 5 (5-19); CARBON DIOXIDE 22 mmol/L (22-30); CHLORIDE 103 mmol/L (98-107); POTASSIUM 4.7 mmol/L (3.6-5.0); SODIUM 129.5 mmol/L (137-145)
[2016-09-16 07:17] LABS: BAND NEUTROPHILS % (MANUAL) 4 % (3-5); BASOPHILS % (MANUAL) 0 % (0-2); EOSINOPHILS % (MANUAL) 0 % (0-6); LYMPHOCYTES % (MANUAL) 5 % (13-45); POLYCHROMASIA SLIGHT; TOTAL CELLS COUNTED 100; TOXIC GRANULATION SLIGHT
[2016-09-16 07:19] LABS: CALCIUM 6.9 mg/dL (8.4-10.2)
[2016-09-16] MEDS ORDERED: MAGNESIUM SULFATE/D5W 100 ML IV ONE (08:30)
[2016-09-16] MEDS ORDERED: FUROSEMIDE INJ/PF 20 MG/2 ML SDV IV PRN (08:39)
[2016-09-16] MEDS ORDERED: HYDROMORPHONE HCL INJ/PF 2 MG/ML AMPULE IV PRN (08:44)
[2016-09-16] MEDS: PANTOPRAZOLE SODIUM 40 MG VIAL IV SCH ×2 (09:05→22:08)
[2016-09-16] MEDS: ALBUMIN HUMAN 50 ML IV SCH ×4 (09:28→12:47)
--- NOTE | 2016-09-16 10:13 | PDOC PROGRESS REPORT ---
Subjective Subjective:: Patient is intubated and sedated. Nursing denies nausea, vomiting, flatus, BM. Patient is on Levophed, weaned down to a rate of 2mcg/min. Physical Exam Vital Signs: Temp Pulse Resp BP Pulse Ox 99.0 F 98 15 112/70 98 09/16/16 08:00 09/16/16 08:00 09/16/16 08:00 09/16/16 08:00 09/16/16 08:00 Intake & Output 09/15/16 09/16/16 09/17/16 06:59 06:59 06:59 Intake Total 2750 14697 Output Total 600 49650 60 Balance 2150 9220 -60 Weight 122.4 kg 137.3 kg General appearance: PRESENT: other - Intubated sedated, ET tube, NG tube. Head exam: PRESENT: normocephalic Respiratory exam: PRESENT: clear to auscultation blair Cardiovascular exam: PRESENT: RRR GI/Abdominal exam: PRESENT: distended - Mild distention, soft, tenderness - Nontender to palpation, but intubated and sedated., other - Midline incision with domenic. Ostomy healthy pink. No gas or flatus. NG tube with scant gastric. NAE drain with serosanguineous.. ABSENT: firm, guarding, rebound, rigid Neurological exam: PRESENT: other - Intubated, sedated Skin exam: ABSENT: jaundice Results Laboratory Results: 09/16/16 06:17 09/16/16 06:17 09/15/16 09/15/16 09/15/16 17:05 17:36 18:49 WBC 24.0 H RBC 3.87 L Hgb 12.8 L Hct 38.8 MCV 100 H MCH 33.1 MCHC 33.0 RDW 13.9 Plt Count 403 Seg Neutrophils % Not Reportable Lymphocytes % Not Reportable Monocytes % Not Reportable Eosinophils % Not Reportable Basophils % Not Reportable Absolute Neutrophils Not Reportable Absolute Lymphocytes Not Reportable Absolute Monocytes Not Reportable Absolute Eosinophils Not Reportable Absolute Basophils Not Reportable Retic Count (auto) 1.92 Absolute Retic 0.074 Carbonic Acid 1.80 H HCO3/H2CO3 Ratio 13:1 ABG pH 7.22 L ABG pCO2 59.8 H ABG pO2 72.1 L ABG HCO3 23.9 ABG O2 Saturation 91.0 L ABG Base Excess -4.8 FiO2 40% Sodium Potassium Chloride Carbon Dioxide Anion Gap BUN Creatinine Est GFR ( Amer) Est GFR (Non-Af Amer) Glucose Calcium Phosphorus Magnesium 1.8 Iron TIBC % Saturation Ferritin Albumin Prealbumin Triglycerides Vitamin B12 Folate Blood Type Antibody Screen 09/15/16 09/15/16 09/16/16 18:49 19:13 06:17 WBC RBC Hgb Hct MCV MCH MCHC RDW Plt Count Seg Neutrophils % Lymphocytes % Monocytes % Eosinophils % Basophils % Absolute Neutrophils Absolute Lymphocytes Absolute Monocytes Absolute Eosinophils Absolute Basophils Retic Count (auto) Absolute Retic Carbonic Acid 1.01 L HCO3/H2CO3 Ratio 17:1 ABG pH 7.35 ABG pCO2 33.5 L ABG pO2 89.5 ABG HCO3 18.0 L ABG O2 Saturation 96.5 ABG Base Excess -6.8 FiO2 30% Sodium 129.7 L Potassium 5.5 H Chloride 100 Carbon Dioxide 22 Anion Gap 8 BUN 9 Creatinine 1.13 Est GFR ( Amer) > 60 Est GFR (Non-Af Amer) > 60 Glucose 107 Calcium 7.3 L Phosphorus Magnesium Iron 12.6 L TIBC 192 L % Saturation 7 Ferritin 235.00 Albumin Prealbumin Triglycerides Vitamin B12 382.0 Folate 7.57 Blood Type A POSITIVE Antibody Screen NEGATIVE 09/16/16 09/16/16 09/16/16 06:17 06:17 06:17 WBC 16.5 H RBC 3.11 L Hgb 10.6 L D Hct 30.7 L MCV 99 H MCH 34.0 H MCHC 34.5 RDW 13.7 Plt Count 321 Seg Neutrophils % Not Reportable Lymphocytes % Not Reportable Monocytes % Not Reportable Eosinophils % Not Reportable Basophils % Not Reportable Absolute Neutrophils Not Reportable Absolute Lymphocytes Not Reportable Absolute Monocytes Not Reportable Absolute Eosinophils Not Reportable Absolute Basophils Not Reportable Retic Count (auto) Absolute Retic Carbonic Acid HCO3/H2CO3 Ratio ABG pH ABG pCO2 ABG pO2 ABG HCO3 ABG O2 Saturation ABG Base Excess FiO2 Sodium 129.5 L Potassium 4.7 Chloride 103 Carbon Dioxide 22 Anion Gap 5 BUN 7 Creatinine 1.05 Est GFR ( Amer) > 60 Est GFR (Non-Af Amer) > 60 Glucose 131 H Calcium 6.9 L* Phosphorus 2.6 Magnesium 1.5 L Iron TIBC % Saturation Ferritin Albumin 1.7 L Prealbumin 5.3 L Triglycerides 228 H Vitamin B12 Folate Blood Type Antibody Screen Impressions: Abdomen/Pelvis CT 09/13/16 17:04 IMPRESSION: 1. Marked sigmoid colitis. Differential includes infectious and inflammatory etiologies predominantly in a patient of this age. Diverticulitis is possible, however it is hard to define any discrete diverticula through the area. Associated mesenteric changes without definite drainable abscess currently. Chest X-Ray 09/16/16 06:00 IMPRESSION: No significant interval change. Visualized lung craven remain clear. Other findings as noted above Assessment & Plan - Diagnosis (1) Acute respiratory failure following trauma and surgery Is this a current diagnosis for this admission?: Yes (2) Peritonitis Is this a current diagnosis for this admission?: Yes (3) Diverticular disease of intestine with perforation and abscess Is this a current diagnosis for this admission?: YesPlan: Reviewed chest x-ray images and report. Defer to pulmonology and hospitalist for vent management. Lungs are clear, chest x-ray looks okay. Still on a very small dose of pressor, hopefully wean today, defer to pulmonary/ critical care and hospitalist. Agree with continuing heparin, SCDs, IV antibiotics, IV Protonix. Continue NG tube to low intermittent suction. Continue NAE drains to closed bulb suction. Ordered 1 g magnesium rider. Labs in a.m. (4) Morbid obesity with BMI of 45.0-49.9, adult Is this a current diagnosis for this admission?: Yes (5) Hypertension Qualifiers: Hypertension type: essential hypertension Qualified Code(s): I10 - Essential (primary) hypertension Is this a current diagnosis for this admission?: Yes
--- NOTE | 2016-09-16 11:44 | PDOC CONSULTATION ---
Consultation Consult Date: 09/16/16 Attending physician:: RUPERTO BERNARDO Consult reason:: resp failure/sepsis History of Present Illness Admission Date/PCP: 09/13/16 19:37 History of Present Illness: All information from chart as patient intubatedPIPE RESENDIZ IV is a 45 year old male with a past medical history of hypertension, obesity and recurrent diverticulitis. Who has been in his usual state of health until approximately 3 days ago noting to have constipation associated with abdominal pain and left lower quadrant which has remained persistent despite a clear liquid diet prompting him to seek evaluation emergency room where his found to have abdominal distention, leukocytosis and diverticulitis by CT without drainable abscess. Recent admission for the same in May 2016 was complicated by abscess with fistula requiring percutaneous drain. He had planned an elective partial colectomy but was lost to follow-up. Patient currently denies chest pain shortness of breath nausea vomiting.He was evaluated by surgery and subsequently underwent surgical interventions.He is currently intubated,with vaspressor agent and antibiotics. Past Medical History Cardiac Medical History: Reports: Hypertension GI Medical History: Reports: Diverticulitis Musculoskeltal Medical History: Reports: Arthritis - Left hip was replaced due to degenerative joint disease in 2013 Psychiatric Medical History: Denies: Depression Past Surgical History Past Surgical History: Reports: Orthopedic Surgery - Left hip replaced, Other - Colonoscopy Social History Information Source[facility] Lives with: Spouse/Significant other Smoking Status: Former Smoker Number of Years Smokin Last Time Smoked: 22 Frequency of Alcohol Use: Occasional Hx Recreational Drug Use: Yes Drugs: Marijuana Hx Prescription Drug Abuse: No - Advance Directive Resuscitation Status: Full Code Family History Family History: Other - Crohn's disease. Colon cancer. Parental Family History Reviewed: No Children Family History Reviewed: No Sibling(s) Family History Reviewed.: Yes - chron's dx Medication/Allergy Home Medications: Hydrochlorothiazide [Hydrodiuril 25 mg Tablet] 25 mg PO DAILY 09/14/16 Allergies/Adverse Reactions: amlodipine Allergy (Verified 06/06/16 17:08) tramadol HCl [From Ultram] Allergy (Verified 06/06/16 11:35) Review of Systems ROS unobtainable: Due to endotracheal tube Physical Exam Vital Signs: Temp Pulse Resp BP Pulse Ox 99.0 F 98 15 112/70 98 09/16/16 08:00 09/16/16 08:00 09/16/16 08:00 09/16/16 08:00 09/16/16 08:00 Intake & Output 09/15/16 09/16/16 09/17/16 06:59 06:59 06:59 Intake Total 2750 22968 Output Total 600 22072 60 Balance 2150 9220 -60 Weight 122.4 kg 137.3 kg General appearance: PRESENT: no acute distress, disheveled, well-developed, well -nourished Head exam: PRESENT: atraumatic, normocephalic Eye exam: PRESENT: conjunctiva pale Mouth exam: PRESENT: moist, neck supple, tongue midline, other - ET tube in place Neck exam: ABSENT: carotid bruit, JVD, lymphadenopathy, thyromegaly Respiratory exam: PRESENT: decreased breath sounds, prolonged expiratory phas, rhonchi, symmetrical, unlabored Cardiovascular exam: PRESENT: RRR, +S1, +S2 Pulses: PRESENT: normal radial pulses GI/Abdominal exam: PRESENT: other - Status post surgery Rectal exam: PRESENT: deferred Gentrourinary exam: PRESENT: indwelling catheter Skin exam: PRESENT: dry, intact, warm Results Laboratory Results: 09/16/16 06:17 09/16/16 06:17 09/15/16 09/15/16 09/15/16 17:05 17:36 18:49 WBC 24.0 H RBC 3.87 L Hgb 12.8 L Hct 38.8 MCV 100 H MCH 33.1 MCHC 33.0 RDW 13.9 Plt Count 403 Seg Neutrophils % Not Reportable Lymphocytes % Not Reportable Monocytes % Not Reportable Eosinophils % Not Reportable Basophils % Not Reportable Absolute Neutrophils Not Reportable Absolute Lymphocytes Not Reportable Absolute Monocytes Not Reportable Absolute Eosinophils Not Reportable Absolute Basophils Not Reportable Retic Count (auto) 1.92 Absolute Retic 0.074 Carbonic Acid 1.80 H HCO3/H2CO3 Ratio 13:1 ABG pH 7.22 L ABG pCO2 59.8 H ABG pO2 72.1 L ABG HCO3 23.9 ABG O2 Saturation 91.0 L ABG Base Excess -4.8 FiO2 40% Sodium Potassium Chloride Carbon Dioxide Anion Gap BUN Creatinine Est GFR ( Amer) Est GFR (Non-Af Amer) Glucose Calcium Phosphorus Magnesium 1.8 Iron TIBC % Saturation Ferritin Albumin Prealbumin Triglycerides Vitamin B12 Folate Blood Type Antibody Screen 09/15/16 09/15/16 09/16/16 18:49 19:13 06:17 WBC RBC Hgb Hct MCV MCH MCHC RDW Plt Count Seg Neutrophils % Lymphocytes % Monocytes % Eosinophils % Basophils % Absolute Neutrophils Absolute Lymphocytes Absolute Monocytes Absolute Eosinophils Absolute Basophils Retic Count (auto) Absolute Retic Carbonic Acid 1.01 L HCO3/H2CO3 Ratio 17:1 ABG pH 7.35 ABG pCO2 33.5 L ABG pO2 89.5 ABG HCO3 18.0 L ABG O2 Saturation 96.5 ABG Base Excess -6.8 FiO2 30% Sodium 129.7 L Potassium 5.5 H Chloride 100 Carbon Dioxide 22 Anion Gap 8 BUN 9 Creatinine 1.13 Est GFR ( Amer) > 60 Est GFR (Non-Af Amer) > 60 Glucose 107 Calcium 7.3 L Phosphorus Magnesium Iron 12.6 L TIBC 192 L % Saturation 7 Ferritin 235.00 Albumin Prealbumin Triglycerides Vitamin B12 382.0 Folate 7.57 Blood Type A POSITIVE Antibody Screen NEGATIVE 09/16/16 09/16/16 09/16/16 06:17 06:17 06:17 WBC 16.5 H RBC 3.11 L Hgb 10.6 L D Hct 30.7 L MCV 99 H MCH 34.0 H MCHC 34.5 RDW 13.7 Plt Count 321 Seg Neutrophils % Not Reportable Lymphocytes % Not Reportable Monocytes % Not Reportable Eosinophils % Not Reportable Basophils % Not Reportable Absolute Neutrophils Not Reportable Absolute Lymphocytes Not Reportable Absolute Monocytes Not Reportable Absolute Eosinophils Not Reportable Absolute Basophils Not Reportable Retic Count (auto) Absolute Retic Carbonic Acid HCO3/H2CO3 Ratio ABG pH ABG pCO2 ABG pO2 ABG HCO3 ABG O2 Saturation ABG Base Excess FiO2 Sodium 129.5 L Potassium 4.7 Chloride 103 Carbon Dioxide 22 Anion Gap 5 BUN 7 Creatinine 1.05 Est GFR ( Amer) > 60 Est GFR (Non-Af Amer) > 60 Glucose 131 H Calcium 6.9 L* Phosphorus 2.6 Magnesium 1.5 L Iron TIBC % Saturation Ferritin Albumin 1.7 L Prealbumin 5.3 L Triglycerides 228 H Vitamin B12 Folate Blood Type Antibody Screen Impressions: Abdomen/Pelvis CT 09/13/16 17:04 IMPRESSION: 1. Marked sigmoid colitis. Differential includes infectious and inflammatory etiologies predominantly in a patient of this age. Diverticulitis is possible, however it is hard to define any discrete diverticula through the area. Associated mesenteric changes without definite drainable abscess currently. Chest X-Ray 09/16/16 06:00 IMPRESSION: No significant interval change. Visualized lung craven remain clear. Other findings as noted above Assessment & Plan - Diagnosis (1) Acute respiratory failure following trauma and surgery Is this a current diagnosis for this admission?: YesPlan: Labs- All tests 24 hr 09/15/16 09/16/16 17:05 06:17 ABG pH 7.22 L 7.35 ABG pCO2 59.8 H 33.5 L ABG pO2 72.1 L 89.5 FiO2 40% 30% Chest x-ray appears to be normal continue supportive care (2) Hyponatremia Is this a current diagnosis for this admission?: YesPlan: Patient is not receiving any free water hopefully this will correct will follow closely (3) Septic shock Is this a current diagnosis for this admission?: YesPlan: Currently using vasopressor agent - Time Critical Time spent with patient: 35 or more minutes - 55 minutes
[2016-09-16 13:14] LABS: ARTERIAL BLOOD O2 SATURATION 95.8 % (94-98)
[2016-09-16] MEDS: HEPARIN SOD (PORCINE) 5,000 UNIT/ML 1 ML SYRINGE SUBCUT SCH ×2 (13:16→22:09)
[2016-09-16] MEDS: MIDAZOLAM HCL 100 ML IV PRN (14:24)
[2016-09-16 15:02] LABS: PATH REVIEW PATHOLOGIST REVIEWED
--- NOTE | 2016-09-16 15:04 | PDOC PROGRESS REPORT ---
Subjective Progress Note for:: 09/16/16 Subjective:: The patient was seen earlier today on rounds. The patient was seen in the company of his mother and sister. The patient's urine output is fallen off a little this morning. The patient has had good pressure and is now down to 2 mics of Levophed. Mildly tachycardic. Does not appear to be in pain. The patient is currently on pressure support 14 with a PEEP of a FiO2 of 30. Physical Exam Vital Signs: Temp Pulse Resp BP Pulse Ox 100.1 F 108 H 26 H 122/56 L 92 09/16/16 12:00 09/16/16 14:00 09/16/16 14:00 09/16/16 14:38 09/16/16 14:38 Intake & Output 09/14/16 09/15/16 09/16/16 23:59 23:59 23:59 Intake Total 3840 85465 4620 Output Total 1300 04898 660 Balance 2540 5075 3960 Weight 122.4 kg 136.6 kg 137.3 kg General appearance: PRESENT: no acute distress, well-developed, other - Evidence of mild third spacing edema Head exam: PRESENT: atraumatic, normocephalic Eye exam: PRESENT: conjunctiva pink, EOMI, PERRLA. ABSENT: scleral icterus Ear exam: PRESENT: normal external ear exam Mouth exam: PRESENT: moist, other - ET tube in place with Kwan Neck exam: ABSENT: carotid bruit, JVD, lymphadenopathy, thyromegaly, tracheal deviation Respiratory exam: PRESENT: decreased breath sounds, symmetrical, other - Mechanical. ABSENT: rales, rhonchi, tachypnea, unlabored, wheezes Cardiovascular exam: PRESENT: RRR. ABSENT: diastolic murmur, rubs, systolic murmur Pulses: PRESENT: normal dorsalis pedis pul Vascular exam: PRESENT: normal capillary refill GI/Abdominal exam: PRESENT: hypoactive bowel sounds, other - Postsurgical. ABSENT: distended, organolmegaly, tenderness Rectal exam: PRESENT: deferred Extremities exam: ABSENT: calf tenderness, clubbing Neurological exam: PRESENT: other - Intubated, sedated Psychiatric exam: ABSENT: homicidal ideation, suicidal ideation Skin exam: PRESENT: dry, intact, warm. ABSENT: cyanosis, rash Results Laboratory Results: 09/16/16 06:17 09/16/16 06:17 09/15/16 09/15/16 09/15/16 17:05 17:36 18:49 WBC 24.0 H RBC 3.87 L Hgb 12.8 L Hct 38.8 MCV 100 H MCH 33.1 MCHC 33.0 RDW 13.9 Plt Count 403 Seg Neutrophils % Not Reportable Lymphocytes % Not Reportable Monocytes % Not Reportable Eosinophils % Not Reportable Basophils % Not Reportable Absolute Neutrophils Not Reportable Absolute Lymphocytes Not Reportable Absolute Monocytes Not Reportable Absolute Eosinophils Not Reportable Absolute Basophils Not Reportable Retic Count (auto) 1.92 Absolute Retic 0.074 Carbonic Acid 1.80 H HCO3/H2CO3 Ratio 13:1 ABG pH 7.22 L ABG pCO2 59.8 H ABG pO2 72.1 L ABG HCO3 23.9 ABG O2 Saturation 91.0 L ABG Base Excess -4.8 FiO2 40% Sodium Potassium Chloride Carbon Dioxide Anion Gap BUN Creatinine Est GFR ( Amer) Est GFR (Non-Af Amer) Glucose Calcium Phosphorus Magnesium 1.8 Iron TIBC % Saturation Ferritin Albumin Prealbumin Triglycerides Vitamin B12 Folate Blood Type Antibody Screen 09/15/16 09/15/16 09/16/16 18:49 19:13 06:17 WBC RBC Hgb Hct MCV MCH MCHC RDW Plt Count Seg Neutrophils % Lymphocytes % Monocytes % Eosinophils % Basophils % Absolute Neutrophils Absolute Lymphocytes Absolute Monocytes Absolute Eosinophils Absolute Basophils Retic Count (auto) Absolute Retic Carbonic Acid 1.01 L HCO3/H2CO3 Ratio 17:1 ABG pH 7.35 ABG pCO2 33.5 L ABG pO2 89.5 ABG HCO3 18.0 L ABG O2 Saturation 96.5 ABG Base Excess -6.8 FiO2 30% Sodium 129.7 L Potassium 5.5 H Chloride 100 Carbon Dioxide 22 Anion Gap 8 BUN 9 Creatinine 1.13 Est GFR ( Amer) > 60 Est GFR (Non-Af Amer) > 60 Glucose 107 Calcium 7.3 L Phosphorus Magnesium Iron 12.6 L TIBC 192 L % Saturation 7 Ferritin 235.00 Albumin Prealbumin Triglycerides Vitamin B12 382.0 Folate 7.57 Blood Type A POSITIVE Antibody Screen NEGATIVE 09/16/16 09/16/16 09/16/16 06:17 06:17 06:17 WBC 16.5 H RBC 3.11 L Hgb 10.6 L D Hct 30.7 L MCV 99 H MCH 34.0 H MCHC 34.5 RDW 13.7 Plt Count 321 Seg Neutrophils % Not Reportable Lymphocytes % Not Reportable Monocytes % Not Reportable Eosinophils % Not Reportable Basophils % Not Reportable Absolute Neutrophils Not Reportable Absolute Lymphocytes Not Reportable Absolute Monocytes Not Reportable Absolute Eosinophils Not Reportable Absolute Basophils Not Reportable Retic Count (auto) Absolute Retic Carbonic Acid HCO3/H2CO3 Ratio ABG pH ABG pCO2 ABG pO2 ABG HCO3 ABG O2 Saturation ABG Base Excess FiO2 Sodium 129.5 L Potassium 4.7 Chloride 103 Carbon Dioxide 22 Anion Gap 5 BUN 7 Creatinine 1.05 Est GFR ( Amer) > 60 Est GFR (Non-Af Amer) > 60 Glucose 131 H Calcium 6.9 L* Phosphorus 2.6 Magnesium 1.5 L Iron TIBC % Saturation Ferritin Albumin 1.7 L Prealbumin 5.3 L Triglycerides 228 H Vitamin B12 Folate Blood Type Antibody Screen 09/16/16 13:01 WBC RBC Hgb Hct MCV MCH MCHC RDW Plt Count Seg Neutrophils % Lymphocytes % Monocytes % Eosinophils % Basophils % Absolute Neutrophils Absolute Lymphocytes Absolute Monocytes Absolute Eosinophils Absolute Basophils Retic Count (auto) Absolute Retic Carbonic Acid 1.08 HCO3/H2CO3 Ratio 20:1 ABG pH 7.41 ABG pCO2 35.9 ABG pO2 78.2 L ABG HCO3 22.2 ABG O2 Saturation 95.8 ABG Base Excess -2.0 FiO2 30% Sodium Potassium Chloride Carbon Dioxide Anion Gap BUN Creatinine Est GFR ( Amer) Est GFR (Non-Af Amer) Glucose Calcium Phosphorus Magnesium Iron TIBC % Saturation Ferritin Albumin Prealbumin Triglycerides Vitamin B12 Folate Blood Type Antibody Screen Impressions: Abdomen/Pelvis CT 09/13/16 17:04 IMPRESSION: 1. Marked sigmoid colitis. Differential includes infectious and inflammatory etiologies predominantly in a patient of this age. Diverticulitis is possible, however it is hard to define any discrete diverticula through the area. Associated mesenteric changes without definite drainable abscess currently. Chest X-Ray 09/16/16 06:00 IMPRESSION: No significant interval change. Visualized lung craven remain clear. Other findings as noted above Assessment & Plan - Diagnosis (1) Diverticular disease of intestine with perforation and abscess Is this a current diagnosis for this admission?: YesPlan: Will continue antibiotic coverage. Do appreciate surgery's input with this. Will await ileostomy output. 09/13/16 19:36 Physician [CONS] Routine 09/15/16 18:00 Imipenem/Cilastatin Sodium [Primaxin Inj 500 mg Vial] 500 mg Normal Saline [ NaCl 0.9% 100 ml IV Soln] 100 ml IV Q6 09/16/16 06:00 INFLAMMATORY BOWEL DISEASE-IBD IN AM (1) (2) Peritonitis Is this a current diagnosis for this admission?: Yes (3) Septic shock Is this a current diagnosis for this admission?: YesPlan: The patient is only on 2 mics of Levophed at the moment. Will continue to monitor closely. (4) Acute respiratory failure following trauma and surgery Is this a current diagnosis for this admission?: YesPlan: Do appreciate pulmonology's input with this. (5) Hyponatremia Is this a current diagnosis for this admission?: YesPlan: The patient appears third spaced most likely from hypoalbuminemia. Will give albumin and Lasix follow. Will back off his IV fluids (6) Hypertension Qualifiers: Hypertension type: essential hypertension Qualified Code(s): I10 - Essential (primary) hypertension Is this a current diagnosis for this admission?: YesPlan: Currently hypotensive. (7) Malnutrition Is this a current diagnosis for this admission?: YesPlan: The patient's albumin is very low. Will replace electrolytes as needed. (8) Iron deficiency anemia Qualifiers: Iron deficiency anemia type: unspecified iron deficiency Qualified Code(s): D50.9 - Iron deficiency anemia, unspecified Is this a current diagnosis for this admission?: YesPlan: This appears to be ongoing. Will monitor hemoglobin. Currently awaiting serologies for inflammatory bowel disease. (9) Diverticulitis Qualifiers: Diverticulitis site: large intestine Diverticulitis bleeding: without bleeding Diverticulitis complication: without perforation or abscess Qualified Code(s): K57.32 - Diverticulitis of large intestine without perforation or abscess without bleeding Is this a current diagnosis for this admission?: Yes (10) Morbid obesity with BMI of 45.0-49.9, adult Is this a current diagnosis for this admission?: Yes - Time Critical Time spent with patient: 35 or more minutes Medications reviewed and adjusted accordingly: Yes Within: within 72 hours Disposition: The patient is a full code. Pending patient's symptomatology and diagnostic findings will reevaluate in the a.m.
[2016-09-17] MEDS: MIDAZOLAM HCL 100 ML IV PRN (00:07)
[2016-09-17] MEDS: PROPOFOL 100 ML IV PRN ×4 (00:07→07:58)
[2016-09-17] MEDS: IPRATROPIUM/ALBUTEROL 0.5-2.5 MG/3 ML AMPUL NEB SCH ×4 (02:16→20:01)
[2016-09-17] MEDS: FENTANYL CITRATE INJ/PF 100 MCG/2 ML AMPUL IV PRN ×3 (02:35→12:54)
[2016-09-17] MEDS: NORMAL SALINE 1000 ML 1,000 ML IV PRN ×3 (03:42→22:44)
[2016-09-17] MEDS: IMIPENEM/CILASTATIN SODIUM 500 MG in NORMAL SALINE 100 ML IV SCH (05:19)
[2016-09-17] MEDS: HEPARIN SOD (PORCINE) 5,000 UNIT/ML 1 ML SYRINGE SUBCUT SCH ×3 (05:20→22:22)
[2016-09-17 06:22] LABS: ABSOLUTE BASOPHILS # (AUTO) 0.1 10^3/uL (0.0-0.2); ABSOLUTE EOSINOPHILS # (AUTO) 0.2 10^3/uL (0.0-0.6); ABSOLUTE NEUT (AUTO) 11.1 10^3/uL (1.7-8.2); BASOPHILS % (AUTO) 0.6 % (0-2); EOSINOPHILS % (AUTO) 1.8 % (0-6); HEMATOCRIT 26.9 % (37.9-51.0); HEMOGLOBIN 9.1 g/dL (13.5-17.0); HGB HCT DIFFERENCE 0.4; LYMPHOCYTES % (AUTO) 7.4 % (13-45); MEAN CORPUSCULAR HEMOGLOBIN 33.4 pg (27.0-33.4); MEAN CORPUSCULAR HGB CONC 33.7 g/dL (32.0-36.0); MEAN CORPUSCULAR VOLUME 99 fl (80-97); MONOCYTES % (AUTO) 7.2 % (3-13); RED BLOOD COUNT 2.72 10^6/uL (4.35-5.55); RED CELL DISTRIBUTION WIDTH 13.7 % (11.5-14.0); WHITE BLOOD COUNT 13.4 10^3/uL (4.0-10.5)
[2016-09-17 06:23] LABS: ARTERIAL BLOOD BASE EXCESS -1.1 mmol/L; ARTERIAL BLOOD O2 SATURATION 96.7 % (94-98)
[2016-09-17 06:41] LABS: ALANINE AMINOTRANSFERASE 27 U/L (21-72); ALBUMIN 2.3 g/dL (3.5-5.0); ALKALINE PHOSPHATASE 44 U/L (38-126); ANION GAP 7 (5-19); ASPARTATE AMINO TRANSFERASE 25 U/L (17-59); BILIRUBIN,TOTAL 0.4 mg/dL (0.2-1.3); BLOOD UREA NITROGEN 6 mg/dL (7-20); CALCIUM 7.6 mg/dL (8.4-10.2); CARBON DIOXIDE 23 mmol/L (22-30); CHLORIDE 103 mmol/L (98-107); CREATININE RESULT 1.04 mg/dL (0.52-1.25); GLUCOSE 106 mg/dL (75-110); PHOSPHORUS 2.5 mg/dL (2.5-4.5); POTASSIUM 3.9 mmol/L (3.6-5.0); TOTAL PROTEIN 4.2 g/dL (6.3-8.2)
[2016-09-17] MEDS ORDERED: DEXAMETHASONE SOD PHOS INJ 10 MG/1 ML VIAL IV PRN (10:03)
[2016-09-17] MEDS: PANTOPRAZOLE SODIUM 40 MG VIAL IV SCH ×2 (10:12→22:22)
[2016-09-17] MEDS ORDERED: ALBUTEROL SULFATE 0.083% NEB 2.5 MG/3 ML AMPUL NEB ONE (11:07)
--- NOTE | 2016-09-17 11:29 | PDOC PROGRESS REPORT ---
Subjective Progress Note for:: 09/17/16 Subjective:: Intubated but arousable responds to commands Physical Exam Vital Signs: Temp Pulse Resp BP Pulse Ox 98.6 F 88 16 91/61 L 98 09/17/16 08:00 09/17/16 02:16 09/17/16 02:16 09/17/16 05:54 09/17/16 06:00 Intake & Output 09/16/16 09/17/16 09/18/16 06:59 06:59 06:59 Intake Total 69556 4370 Output Total 93056 1970 300 Balance 9220 2400 -300 Weight 137.3 kg 137.8 kg General appearance: PRESENT: no acute distress, disheveled, obese Head exam: PRESENT: atraumatic, normocephalic Eye exam: PRESENT: conjunctiva pale, EOMI Mouth exam: PRESENT: moist, neck supple, tongue midline, other - ET tube in place Neck exam: ABSENT: carotid bruit, JVD, lymphadenopathy, thyromegaly Respiratory exam: PRESENT: decreased breath sounds, prolonged expiratory phas, rhonchi, symmetrical, unlabored, wheezes Cardiovascular exam: PRESENT: RRR, +S1, +S2 Pulses: PRESENT: normal radial pulses GI/Abdominal exam: PRESENT: other - Scant bowel sounds status post surgery dressing dry and intact Rectal exam: PRESENT: deferred Gentrourinary exam: PRESENT: indwelling catheter Neurological exam: PRESENT: awake Skin exam: PRESENT: dry, intact, warm Results Laboratory Results: 09/17/16 06:10 09/17/16 06:10 09/15/16 09/15/16 09/16/16 17:36 18:49 13:01 WBC 24.0 H RBC 3.87 L Hgb 12.8 L Hct 38.8 MCV 100 H MCH 33.1 MCHC 33.0 RDW 13.9 Plt Count 403 Seg Neutrophils % Lymphocytes % Monocytes % Eosinophils % Basophils % Absolute Neutrophils Absolute Lymphocytes Absolute Monocytes Absolute Eosinophils Absolute Basophils Retic Count (auto) 1.92 Absolute Retic 0.074 Carbonic Acid 1.08 HCO3/H2CO3 Ratio 20:1 ABG pH 7.41 ABG pCO2 35.9 ABG pO2 78.2 L ABG HCO3 22.2 ABG O2 Saturation 95.8 ABG Base Excess -2.0 FiO2 30% Sodium Potassium Chloride Carbon Dioxide Anion Gap BUN Creatinine Est GFR ( Amer) Est GFR (Non-Af Amer) Glucose Calcium Phosphorus Magnesium Transferrin 142 L Total Bilirubin AST ALT Alkaline Phosphatase Total Protein Albumin 09/17/16 09/17/16 09/17/16 06:10 06:10 06:10 WBC 13.4 H RBC 2.72 L Hgb 9.1 L Hct 26.9 L MCV 99 H MCH 33.4 MCHC 33.7 RDW 13.7 Plt Count 322 Seg Neutrophils % 83.0 H Lymphocytes % 7.4 L Monocytes % 7.2 Eosinophils % 1.8 Basophils % 0.6 Absolute Neutrophils 11.1 H Absolute Lymphocytes 1.0 Absolute Monocytes 1.0 Absolute Eosinophils 0.2 Absolute Basophils 0.1 Retic Count (auto) Absolute Retic Carbonic Acid 1.14 HCO3/H2CO3 Ratio 20:1 ABG pH 7.41 ABG pCO2 37.8 ABG pO2 86.2 ABG HCO3 23.4 ABG O2 Saturation 96.7 ABG Base Excess -1.1 FiO2 30% Sodium 133.0 L Potassium 3.9 Chloride 103 Carbon Dioxide 23 Anion Gap 7 BUN 6 L Creatinine 1.04 Est GFR ( Amer) > 60 Est GFR (Non-Af Amer) > 60 Glucose 106 Calcium 7.6 L Phosphorus 2.5 Magnesium 2.0 Transferrin Total Bilirubin 0.4 AST 25 ALT 27 Alkaline Phosphatase 44 Total Protein 4.2 L Albumin 2.3 L Impressions: Abdomen/Pelvis CT 09/13/16 17:04 IMPRESSION: 1. Marked sigmoid colitis. Differential includes infectious and inflammatory etiologies predominantly in a patient of this age. Diverticulitis is possible, however it is hard to define any discrete diverticula through the area. Associated mesenteric changes without definite drainable abscess currently. Chest X-Ray 09/16/16 06:00 IMPRESSION: No significant interval change. Visualized lung rcaven remain clear. Other findings as noted above Assessment & Plan - Diagnosis (1) Acute respiratory failure following trauma and surgery Is this a current diagnosis for this admission?: YesPlan: Minute volume, FiO2, respiratory rate, airway pressures suggest successful extubation will proceed with extubation (2) Hyponatremia Is this a current diagnosis for this admission?: YesPlan: Improving (3) Septic shock Is this a current diagnosis for this admission?: YesPlan: Longer requiring vasopressor agents - Time Time Spent with patient: 35 or more minutes - 50 minutes extubation
[2016-09-17] MEDS ORDERED: AMINO ACIDS 5%/D25W 1,000 ML IV PRN (11:55)
[2016-09-17] MEDS ORDERED: DEXTROSE 10%-WATER 1,000 ML IV PRN (11:55)
[2016-09-17] MEDS ORDERED: DEXTROSE 50%-WATER SYRINGE 25 GM/50 ML DOSE IV PRN (11:55)
[2016-09-17] MEDS ORDERED: DEXTROSE 50%-WATER SYRINGE 12.5 GM/25 ML DOSE IV PRN (11:55)
[2016-09-17] MEDS ORDERED: DEXTROSE 40% GEL 15 GM TUBE PO PRN (11:55)
[2016-09-17] MEDS ORDERED: GLUCAGON,HUMAN RECOMB 1 MG INJ IM PRN (11:55)
[2016-09-17] MEDS ORDERED: DEXTROSE 40% GEL 15 GM TUBE X 2 PO PRN (11:55)
[2016-09-17] MEDS ORDERED: INSULIN REG, HUMAN 100 UNIT/ML 3 ML VIAL (PYX) SUBCUT PRN (11:55)
--- NOTE | 2016-09-17 12:42 | PDOC PROGRESS REPORT ---
Subjective Subjective:: Patient was seen at around 11:30 AM. He had been extubated about an hour since then. He was breathing normally, talking and even singing with 100% oxygen saturations, although he was reporting he was having trouble breathing. Good urine output. significant other is present at bedside. She reports that he does not have diagnosed sleep apnea but he does snore. Denies nausea, vomiting. No stool or flatus in the ostomy bag. Physical Exam Vital Signs: Temp Pulse Resp BP Pulse Ox 98.6 F 108 H 18 115/80 100 09/17/16 10:00 09/17/16 11:17 09/17/16 11:17 09/17/16 10:00 09/17/16 11:17 Intake & Output 09/16/16 09/17/16 09/18/16 06:59 06:59 06:59 Intake Total 51669 4370 Output Total 42323 1970 500 Balance 9220 2400 -500 Weight 137.3 kg 137.8 kg General appearance: PRESENT: no acute distress, morbidly obese Head exam: PRESENT: normocephalic Eye exam: PRESENT: EOMI Mouth exam: PRESENT: tongue midline GI/Abdominal exam: PRESENT: distended, soft. ABSENT: guarding, rebound, tenderness - Old dressing is removed. Packing is removed. Dressing is placed. Drains with serosanguineous. Neurological exam: PRESENT: alert, oriented to situation Skin exam: ABSENT: jaundice Results Laboratory Results: 09/17/16 06:10 09/17/16 06:10 09/15/16 09/15/16 09/16/16 17:36 18:49 13:01 WBC 24.0 H RBC 3.87 L Hgb 12.8 L Hct 38.8 MCV 100 H MCH 33.1 MCHC 33.0 RDW 13.9 Plt Count 403 Seg Neutrophils % Lymphocytes % Monocytes % Eosinophils % Basophils % Absolute Neutrophils Absolute Lymphocytes Absolute Monocytes Absolute Eosinophils Absolute Basophils Retic Count (auto) 1.92 Absolute Retic 0.074 Carbonic Acid 1.08 HCO3/H2CO3 Ratio 20:1 ABG pH 7.41 ABG pCO2 35.9 ABG pO2 78.2 L ABG HCO3 22.2 ABG O2 Saturation 95.8 ABG Base Excess -2.0 FiO2 30% Sodium Potassium Chloride Carbon Dioxide Anion Gap BUN Creatinine Est GFR ( Amer) Est GFR (Non-Af Amer) Glucose Calcium Phosphorus Magnesium Transferrin 142 L Total Bilirubin AST ALT Alkaline Phosphatase Total Protein Albumin 09/17/16 09/17/16 09/17/16 06:10 06:10 06:10 WBC 13.4 H RBC 2.72 L Hgb 9.1 L Hct 26.9 L MCV 99 H MCH 33.4 MCHC 33.7 RDW 13.7 Plt Count 322 Seg Neutrophils % 83.0 H Lymphocytes % 7.4 L Monocytes % 7.2 Eosinophils % 1.8 Basophils % 0.6 Absolute Neutrophils 11.1 H Absolute Lymphocytes 1.0 Absolute Monocytes 1.0 Absolute Eosinophils 0.2 Absolute Basophils 0.1 Retic Count (auto) Absolute Retic Carbonic Acid 1.14 HCO3/H2CO3 Ratio 20:1 ABG pH 7.41 ABG pCO2 37.8 ABG pO2 86.2 ABG HCO3 23.4 ABG O2 Saturation 96.7 ABG Base Excess -1.1 FiO2 30% Sodium 133.0 L Potassium 3.9 Chloride 103 Carbon Dioxide 23 Anion Gap 7 BUN 6 L Creatinine 1.04 Est GFR ( Amer) > 60 Est GFR (Non-Af Amer) > 60 Glucose 106 Calcium 7.6 L Phosphorus 2.5 Magnesium 2.0 Transferrin Total Bilirubin 0.4 AST 25 ALT 27 Alkaline Phosphatase 44 Total Protein 4.2 L Albumin 2.3 L Impressions: Abdomen/Pelvis CT 09/13/16 17:04 IMPRESSION: 1. Marked sigmoid colitis. Differential includes infectious and inflammatory etiologies predominantly in a patient of this age. Diverticulitis is possible, however it is hard to define any discrete diverticula through the area. Associated mesenteric changes without definite drainable abscess currently. Chest X-Ray 09/16/16 06:00 IMPRESSION: No significant interval change. Visualized lung craven remain clear. Other findings as noted above Assessment & Plan - Diagnosis (1) Acute respiratory failure following trauma and surgery Is this a current diagnosis for this admission?: Yes (2) Peritonitis Is this a current diagnosis for this admission?: Yes (3) Diverticular disease of intestine with perforation and abscess Is this a current diagnosis for this admission?: YesPlan: Just weaned off and. Seems to be going well. Continuing heparin, SCDs, IV antibiotics, IV Protonix. No bowel function yet. Ostomy is healthy, but only has bowel sweat in bag. Continue NG tube to low intermittent suction. Continue NAE drains to closed bulb suction. (4) Morbid obesity with BMI of 45.0-49.9, adult Is this a current diagnosis for this admission?: Yes (5) Hypertension Qualifiers: Hypertension type: essential hypertension Qualified Code(s): I10 - Essential (primary) hypertension Is this a current diagnosis for this admission?: Yes
[2016-09-17] MEDS: PIPERACILLIN SODIUM/TAZOBACTAM 4.5 GM in NORMAL SALINE 100 ML IV SCH ×3 (12:54→23:25)
[2016-09-17] MEDS ORDERED: LORAZEPAM INJ 2 MG/1 ML VIAL IV PRN (14:00)
[2016-09-17] MEDS ORDERED: IPRATROPIUM/ALBUTEROL 0.5-2.5 MG/3 ML AMPUL NEB SCH (14:00)
[2016-09-17] MEDS ORDERED: LORAZEPAM INJ 2 MG/1 ML VIAL IV ONE (14:00)
[2016-09-17] MEDS: HYDROMORPHONE HCL INJ/PF 2 MG/ML AMPULE IV PRN ×3 (14:16→20:17)
--- NOTE | 2016-09-17 16:34 | PDOC PROGRESS REPORT ---
Subjective Progress Note for:: 09/17/16 Subjective:: The patient was seen earlier today on rounds. The patient was seen in conjunction with pulmonology.. The patient's urine output is fallen off a little this morning. The patient has been off Levophed for about 16 hours. Mildly tachycardic. Does not appear to be in pain. The patient did well on pressure support. The patient was extubated and has tolerated it without issue. Given the patient's poor albumin and limited intake in recent bowel surgery will proceed with TPN and lipids. Physical Exam Vital Signs: Temp Pulse Resp BP Pulse Ox 98.2 F 103 H 18 161/80 H 90 L 09/17/16 16:00 09/17/16 16:00 09/17/16 16:00 09/17/16 16:00 09/17/16 16:00 Intake & Output 09/15/16 09/16/16 09/17/16 23:59 23:59 23:59 Intake Total 21540 6890 2100 Output Total 95656 1735 2775 Balance 5075 5155 -675 Weight 136.6 kg 137.3 kg 137.8 kg General appearance: PRESENT: no acute distress, well-developed, other - Evidence of mild third spacing edema Head exam: PRESENT: atraumatic, normocephalic Eye exam: PRESENT: conjunctiva pink, EOMI, PERRLA. ABSENT: scleral icterus Ear exam: PRESENT: normal external ear exam Mouth exam: PRESENT: moist, other - ET tube in place with Kwan Neck exam: ABSENT: carotid bruit, JVD, lymphadenopathy, thyromegaly, tracheal deviation Respiratory exam: PRESENT: decreased breath sounds, symmetrical, other - Mechanical. ABSENT: rales, rhonchi, tachypnea, unlabored, wheezes Cardiovascular exam: PRESENT: RRR. ABSENT: diastolic murmur, rubs, systolic murmur Pulses: PRESENT: normal dorsalis pedis pul Vascular exam: PRESENT: normal capillary refill GI/Abdominal exam: PRESENT: hypoactive bowel sounds, other - Postsurgical. ABSENT: distended, organolmegaly, tenderness Rectal exam: PRESENT: deferred Extremities exam: ABSENT: calf tenderness, clubbing Neurological exam: PRESENT: other - Intubated, sedated Psychiatric exam: ABSENT: homicidal ideation, suicidal ideation Skin exam: PRESENT: dry, intact, warm. ABSENT: cyanosis, rash Results Laboratory Results: 09/17/16 06:10 09/17/16 06:10 09/15/16 09/17/16 09/17/16 17:36 06:10 06:10 WBC 13.4 H RBC 2.72 L Hgb 9.1 L Hct 26.9 L MCV 99 H MCH 33.4 MCHC 33.7 RDW 13.7 Plt Count 322 Seg Neutrophils % 83.0 H Lymphocytes % 7.4 L Monocytes % 7.2 Eosinophils % 1.8 Basophils % 0.6 Absolute Neutrophils 11.1 H Absolute Lymphocytes 1.0 Absolute Monocytes 1.0 Absolute Eosinophils 0.2 Absolute Basophils 0.1 Carbonic Acid 1.14 HCO3/H2CO3 Ratio 20:1 ABG pH 7.41 ABG pCO2 37.8 ABG pO2 86.2 ABG HCO3 23.4 ABG O2 Saturation 96.7 ABG Base Excess -1.1 FiO2 30% Sodium Potassium Chloride Carbon Dioxide Anion Gap BUN Creatinine Est GFR ( Amer) Est GFR (Non-Af Amer) Glucose Calcium Phosphorus Magnesium Transferrin 142 L Total Bilirubin AST ALT Alkaline Phosphatase Total Protein Albumin 09/17/16 06:10 WBC RBC Hgb Hct MCV MCH MCHC RDW Plt Count Seg Neutrophils % Lymphocytes % Monocytes % Eosinophils % Basophils % Absolute Neutrophils Absolute Lymphocytes Absolute Monocytes Absolute Eosinophils Absolute Basophils Carbonic Acid HCO3/H2CO3 Ratio ABG pH ABG pCO2 ABG pO2 ABG HCO3 ABG O2 Saturation ABG Base Excess FiO2 Sodium 133.0 L Potassium 3.9 Chloride 103 Carbon Dioxide 23 Anion Gap 7 BUN 6 L Creatinine 1.04 Est GFR ( Amer) > 60 Est GFR (Non-Af Amer) > 60 Glucose 106 Calcium 7.6 L Phosphorus 2.5 Magnesium 2.0 Transferrin Total Bilirubin 0.4 AST 25 ALT 27 Alkaline Phosphatase 44 Total Protein 4.2 L Albumin 2.3 L 09/15/16 22:53 Tracheal Aspirate Gram Stain - Final Impressions: Abdomen/Pelvis CT 09/13/16 17:04 IMPRESSION: 1. Marked sigmoid colitis. Differential includes infectious and inflammatory etiologies predominantly in a patient of this age. Diverticulitis is possible, however it is hard to define any discrete diverticula through the area. Associated mesenteric changes without definite drainable abscess currently. Chest X-Ray 09/16/16 06:00 IMPRESSION: No significant interval change. Visualized lung craven remain clear. Other findings as noted above Assessment & Plan - Diagnosis (1) Diverticular disease of intestine with perforation and abscess Is this a current diagnosis for this admission?: YesPlan: Will continue antibiotic coverage. Do appreciate surgery's input with this. Will await ileostomy output. Did transition coverage to Zosyn. 09/13/16 19:36 Physician [CONS] Routine 09/16/16 06:00 INFLAMMATORY BOWEL DISEASE-IBD IN AM (1) (2) Peritonitis Is this a current diagnosis for this admission?: Yes (3) Septic shock Is this a current diagnosis for this admission?: YesPlan: Much improved white count is down no evidence of bandemia patient is no longer requiring pressors. (4) Acute respiratory failure following trauma and surgery Is this a current diagnosis for this admission?: YesPlan: Do appreciate pulmonology's input with this. Is now extubated (5) Hyponatremia Is this a current diagnosis for this admission?: YesPlan: Slowly improving (6) Hypertension Qualifiers: Hypertension type: essential hypertension Qualified Code(s): I10 - Essential (primary) hypertension Is this a current diagnosis for this admission?: YesPlan: BPs are much improved (7) Malnutrition Is this a current diagnosis for this admission?: YesPlan: The patient's albumin is very low. Will replace electrolytes as needed. Will proceed with TPN and lipids (8) Iron deficiency anemia Qualifiers: Iron deficiency anemia type: unspecified iron deficiency Qualified Code(s): D50.9 - Iron deficiency anemia, unspecified Is this a current diagnosis for this admission?: YesPlan: This appears to be ongoing. Will monitor hemoglobin. Currently awaiting serologies for inflammatory bowel disease. (9) Diverticulitis Qualifiers: Diverticulitis site: large intestine Diverticulitis bleeding: without bleeding Diverticulitis complication: without perforation or abscess Qualified Code(s): K57.32 - Diverticulitis of large intestine without perforation or abscess without bleeding Is this a current diagnosis for this admission?: Yes (10) Morbid obesity with BMI of 45.0-49.9, adult Is this a current diagnosis for this admission?: Yes - Time Critical Time spent with patient: 25-34 minutes Medications reviewed and adjusted accordingly: Yes
[2016-09-17] MEDS: AMINO ACIDS 5%/D25W 1,000 ML IV PRN (17:57)
[2016-09-17] MEDS ORDERED: DEXTROSE 25% IV PRN (18:00)
[2016-09-17] MEDS ORDERED: AMINO ACIDS IV PRN (18:00)
[2016-09-17] MEDS ORDERED: FAT EMULSIONS 250 ML IV SCH (18:00)
[2016-09-18] MEDS: IPRATROPIUM/ALBUTEROL 0.5-2.5 MG/3 ML AMPUL NEB SCH ×4 (01:50→19:50)
[2016-09-18] MEDS: HYDROMORPHONE HCL INJ/PF 2 MG/ML AMPULE IV PRN ×4 (04:08→16:46)
[2016-09-18 05:09] LABS: ABSOLUTE BASOPHILS # (AUTO) 0.1 10^3/uL (0.0-0.2); ABSOLUTE LYMPHOCYTES (AUTO) 0.9 10^3/uL (0.5-4.7); ABSOLUTE NEUT (AUTO) 14.9 10^3/uL (1.7-8.2); ARTERIAL BLOOD O2 SATURATION 95.3 % (94-98); BASOPHILS % (AUTO) 0.3 % (0-2); HEMATOCRIT 28.8 % (37.9-51.0); HEMOGLOBIN 9.9 g/dL (13.5-17.0); HGB HCT DIFFERENCE 0.9; LYMPHOCYTES % (AUTO) 5.5 % (13-45); MEAN CORPUSCULAR HEMOGLOBIN 34.1 pg (27.0-33.4); MEAN CORPUSCULAR HGB CONC 34.4 g/dL (32.0-36.0); MEAN CORPUSCULAR VOLUME 99 fl (80-97); MONOCYTES % (AUTO) 5.8 % (3-13); RED BLOOD COUNT 2.91 10^6/uL (4.35-5.55); RED CELL DISTRIBUTION WIDTH 14.2 % (11.5-14.0); SEGMENTED NEUTROPHILS % (AUTO) 88.4 % (42-78); WHITE BLOOD COUNT 16.9 10^3/uL (4.0-10.5)
[2016-09-18 05:21] LABS: ALANINE AMINOTRANSFERASE 23 U/L (21-72); ALBUMIN 2.8 g/dL (3.5-5.0); ALKALINE PHOSPHATASE 59 U/L (38-126); ANION GAP 9 (5-19); ASPARTATE AMINO TRANSFERASE 29 U/L (17-59); BILIRUBIN,TOTAL 0.4 mg/dL (0.2-1.3); BLOOD UREA NITROGEN 10 mg/dL (7-20); CALCIUM 8.2 mg/dL (8.4-10.2); CARBON DIOXIDE 25 mmol/L (22-30); CHLORIDE 107 mmol/L (98-107); GLUCOSE 174 mg/dL (75-110); MAGNESIUM 2.4 mg/dL (1.6-2.3); PHOSPHORUS 2.1 mg/dL (2.5-4.5); POTASSIUM 4.4 mmol/L (3.6-5.0); SODIUM 140.7 mmol/L (137-145); TOTAL PROTEIN 5.2 g/dL (6.3-8.2); TRIGLYCERIDES 191 mg/dL (<150)
[2016-09-18 05:30] LABS: PREALBUMIN 5.8 mg/dL (17.6-36.0)
[2016-09-18] MEDS: HEPARIN SOD (PORCINE) 5,000 UNIT/ML 1 ML SYRINGE SUBCUT SCH ×3 (05:41→21:08)
[2016-09-18] MEDS: PIPERACILLIN SODIUM/TAZOBACTAM 4.5 GM in NORMAL SALINE 100 ML IV SCH ×4 (05:41→23:45)
--- NOTE | 2016-09-18 09:09 | PDOC PROGRESS REPORT ---
Subjective Progress Note for:: 09/18/16 Subjective:: stable letharic Physical Exam Vital Signs: Temp Pulse Resp BP Pulse Ox 98.2 F 91 18 147/97 H 93 09/18/16 04:00 09/18/16 08:00 09/18/16 08:00 09/18/16 06:03 09/18/16 08:00 Intake & Output 09/17/16 09/18/16 09/19/16 06:59 06:59 06:59 Intake Total 4370 3663 Output Total 1970 3585 Balance 2400 78 Weight 137.8 kg 140.8 kg General appearance: PRESENT: no acute distress, disheveled, obese Head exam: PRESENT: normocephalic Eye exam: PRESENT: conjunctiva pale, EOMI Mouth exam: PRESENT: moist, neck supple, tongue midline Neck exam: ABSENT: carotid bruit, JVD, lymphadenopathy, thyromegaly Respiratory exam: PRESENT: decreased breath sounds, prolonged expiratory phas, rhonchi, symmetrical, unlabored Cardiovascular exam: PRESENT: RRR, +S1 Musculoskeletal exam: PRESENT: normal inspection Neurological exam: PRESENT: awake Skin exam: PRESENT: dry, intact, warm Results Laboratory Results: 09/18/16 05:00 09/18/16 05:00 09/18/16 09/18/16 09/18/16 05:00 05:00 05:00 WBC 16.9 H RBC 2.91 L Hgb 9.9 L Hct 28.8 L MCV 99 H MCH 34.1 H MCHC 34.4 RDW 14.2 H Plt Count 381 Seg Neutrophils % 88.4 H Lymphocytes % 5.5 L Monocytes % 5.8 Eosinophils % 0.0 Basophils % 0.3 Absolute Neutrophils 14.9 H Absolute Lymphocytes 0.9 Absolute Monocytes 1.0 Absolute Eosinophils 0.0 Absolute Basophils 0.1 Carbonic Acid 1.35 HCO3/H2CO3 Ratio 19:1 ABG pH 7.39 ABG pCO2 45.0 ABG pO2 78.0 L ABG HCO3 26.3 H ABG O2 Saturation 95.3 ABG Base Excess 1.0 FiO2 2 L Sodium 140.7 Potassium 4.4 Chloride 107 Carbon Dioxide 25 Anion Gap 9 BUN 10 Creatinine 0.90 Est GFR ( Amer) > 60 Est GFR (Non-Af Amer) > 60 Glucose 174 H Calcium 8.2 L Phosphorus 2.1 L Magnesium 2.4 H Total Bilirubin 0.4 AST 29 ALT 23 Alkaline Phosphatase 59 Total Protein 5.2 L Albumin 2.8 L Prealbumin 5.8 L Triglycerides 191 H 09/15/16 22:53 Tracheal Aspirate Gram Stain - Final 09/15/16 22:53 Tracheal Aspirate Sputum Culture - Final NORMAL TERRENCE Impressions: Abdomen/Pelvis CT 09/13/16 17:04 IMPRESSION: 1. Marked sigmoid colitis. Differential includes infectious and inflammatory etiologies predominantly in a patient of this age. Diverticulitis is possible, however it is hard to define any discrete diverticula through the area. Associated mesenteric changes without definite drainable abscess currently. Chest X-Ray 09/18/16 06:00 IMPRESSION: Stable chest status post extubation. Assessment & Plan - Diagnosis (1) Acute respiratory failure following trauma and surgery Is this a current diagnosis for this admission?: YesPlan: 24 s/p extubation stable (2) Hyponatremia Is this a current diagnosis for this admission?: No (3) Septic shock Is this a current diagnosis for this admission?: YesPlan: Longer requiring vasopressor agents - Time Critical Time spent with patient: 35 or more minutes
[2016-09-18] MEDS: PANTOPRAZOLE SODIUM 40 MG VIAL IV SCH (10:25)
[2016-09-18] MEDS: NORMAL SALINE 1000 ML 1,000 ML IV PRN (14:21)
[2016-09-18] MEDS ORDERED: NORMAL SALINE 1000 ML 1,000 ML IV PRN (15:38)
--- NOTE | 2016-09-18 15:40 | PDOC PROGRESS REPORT ---
Subjective Progress Note for:: 09/18/16 Subjective:: The patient was seen earlier today on rounds. The patient was extubated yesterday has tolerated this well. The patient's initial agitation has resolved. The patient's only complaint is his Sierra catheter and his thirst. There've been no reported episodes of vomiting nor diarrhea. No tremors. The patient has had good urine output. Currently awaiting surgery's input. Physical Exam Vital Signs: Temp Pulse Resp BP Pulse Ox 98.8 F 94 16 162/99 H 92 09/18/16 12:00 09/18/16 14:00 09/18/16 14:00 09/18/16 14:00 09/18/16 14:00 Intake & Output 09/16/16 09/17/16 09/18/16 23:59 23:59 23:59 Intake Total 6890 3590 2173 Output Total 1735 3795 1300 Balance 5155 -205 873 Weight 137.3 kg 137.8 kg 140.8 kg General appearance: PRESENT: no acute distress, cooperative, obese, well- developed Head exam: PRESENT: atraumatic, normocephalic Eye exam: PRESENT: conjunctiva pink, EOMI, PERRLA. ABSENT: scleral icterus Ear exam: PRESENT: normal external ear exam Mouth exam: PRESENT: moist, tongue midline Neck exam: ABSENT: carotid bruit, JVD, lymphadenopathy, thyromegaly Respiratory exam: PRESENT: clear to auscultation blair. ABSENT: rales, rhonchi, wheezes Cardiovascular exam: PRESENT: RRR. ABSENT: diastolic murmur, rubs, systolic murmur Pulses: PRESENT: normal dorsalis pedis pul Vascular exam: PRESENT: normal capillary refill GI/Abdominal exam: PRESENT: firm, soft, other - Postsurgical. ABSENT: distended , guarding, mass, organolmegaly, rebound, tenderness Rectal exam: PRESENT: deferred Extremities exam: PRESENT: full ROM. ABSENT: calf tenderness, clubbing, pedal edema Neurological exam: PRESENT: alert - A little delayed, awake, oriented to person , oriented to place, oriented to time, oriented to situation, CN II-XII grossly intact. ABSENT: motor sensory deficit Psychiatric exam: PRESENT: normal mood, unusual affect. ABSENT: homicidal ideation, suicidal ideation Skin exam: PRESENT: dry, intact, warm. ABSENT: cyanosis, rash Results Laboratory Results: 09/18/16 05:00 09/18/16 05:00 09/18/16 09/18/16 09/18/16 05:00 05:00 05:00 WBC 16.9 H RBC 2.91 L Hgb 9.9 L Hct 28.8 L MCV 99 H MCH 34.1 H MCHC 34.4 RDW 14.2 H Plt Count 381 Seg Neutrophils % 88.4 H Lymphocytes % 5.5 L Monocytes % 5.8 Eosinophils % 0.0 Basophils % 0.3 Absolute Neutrophils 14.9 H Absolute Lymphocytes 0.9 Absolute Monocytes 1.0 Absolute Eosinophils 0.0 Absolute Basophils 0.1 Carbonic Acid 1.35 HCO3/H2CO3 Ratio 19:1 ABG pH 7.39 ABG pCO2 45.0 ABG pO2 78.0 L ABG HCO3 26.3 H ABG O2 Saturation 95.3 ABG Base Excess 1.0 FiO2 2 L Sodium 140.7 Potassium 4.4 Chloride 107 Carbon Dioxide 25 Anion Gap 9 BUN 10 Creatinine 0.90 Est GFR ( Amer) > 60 Est GFR (Non-Af Amer) > 60 Glucose 174 H Calcium 8.2 L Phosphorus 2.1 L Magnesium 2.4 H Total Bilirubin 0.4 AST 29 ALT 23 Alkaline Phosphatase 59 Total Protein 5.2 L Albumin 2.8 L Prealbumin 5.8 L Triglycerides 191 H 09/15/16 22:53 Tracheal Aspirate Gram Stain - Final 09/15/16 22:53 Tracheal Aspirate Sputum Culture - Final NORMAL TERRENCE Impressions: Abdomen/Pelvis CT 09/13/16 17:04 IMPRESSION: 1. Marked sigmoid colitis. Differential includes infectious and inflammatory etiologies predominantly in a patient of this age. Diverticulitis is possible, however it is hard to define any discrete diverticula through the area. Associated mesenteric changes without definite drainable abscess currently. Chest X-Ray 09/18/16 06:00 IMPRESSION: Stable chest status post extubation. Assessment & Plan - Diagnosis (1) Diverticular disease of intestine with perforation and abscess Is this a current diagnosis for this admission?: YesPlan: Will continue antibiotic coverage. Do appreciate surgery's input with this. Ralls test her ileostomy output. Did transition coverage to Zosyn. 09/13/16 19:36 Physician [CONS] Routine 09/16/16 06:00 INFLAMMATORY BOWEL DISEASE-IBD IN AM (1) (2) Peritonitis Is this a current diagnosis for this admission?: Yes (3) Septic shock Is this a current diagnosis for this admission?: YesPlan: Much improved white count is down no evidence of bandemia patient is no longer requiring pressors. (4) Acute respiratory failure following trauma and surgery Is this a current diagnosis for this admission?: YesPlan: Do appreciate pulmonology's input with this. Is now extubated (5) Hyponatremia Is this a current diagnosis for this admission?: NoPlan: Slowly improving (6) Hypertension Qualifiers: Hypertension type: essential hypertension Qualified Code(s): I10 - Essential (primary) hypertension Is this a current diagnosis for this admission?: YesPlan: BPs are much improved (7) Malnutrition Is this a current diagnosis for this admission?: YesPlan: The patient's albumin is very low. Will replace electrolytes as needed. Continue TPN and lipids (8) Iron deficiency anemia Qualifiers: Iron deficiency anemia type: unspecified iron deficiency Qualified Code(s): D50.9 - Iron deficiency anemia, unspecified Is this a current diagnosis for this admission?: YesPlan: This appears to be ongoing. Will monitor hemoglobin. Current serologies are negative however reliability of this could be question. Patient will need to follow-up with GI in outpatient basis do recommend Promeths serologies. (9) Diverticulitis Qualifiers: Diverticulitis site: large intestine Diverticulitis bleeding: without bleeding Diverticulitis complication: without perforation or abscess Qualified Code(s): K57.32 - Diverticulitis of large intestine without perforation or abscess without bleeding Is this a current diagnosis for this admission?: Yes (10) Morbid obesity with BMI of 45.0-49.9, adult Is this a current diagnosis for this admission?: Yes - Time Time Spent with patient: 25-34 minutes Medications reviewed and adjusted accordingly: Yes Disposition: The patient can be downgraded to IMCU bed was clear by surgery.
[2016-09-18] MEDS: ONDANSETRON HCL INJ/PF 4 MG/2 ML SDV IV PRN ×2 (16:50→23:55)
--- NOTE | 2016-09-18 18:00 | PDOC PROGRESS REPORT ---
Subjective Progress Note for:: 09/18/16 Subjective:: Tolerated extubation; pain controlled; off pressors; still in ICU, Physical Exam Vital Signs: Temp Pulse Resp BP Pulse Ox 97.6 F 93 16 138/89 H 97 09/18/16 16:00 09/18/16 16:00 09/18/16 16:00 09/18/16 16:00 09/18/16 16:00 Intake & Output 09/17/16 09/18/16 09/19/16 06:59 06:59 06:59 Intake Total 4370 3663 Output Total 1970 3585 925 Balance 2400 78 -925 Weight 137.8 kg 140.8 kg General appearance: PRESENT: mild distress GI/Abdominal exam: PRESENT: other - dressing covered; minimal drainage; Ostomy pink, some edema; digitalized with lubricated index finger thru fascia into peritoneal cavity; Results Laboratory Results: 09/18/16 05:00 09/18/16 05:00 09/18/16 09/18/16 09/18/16 05:00 05:00 05:00 WBC 16.9 H RBC 2.91 L Hgb 9.9 L Hct 28.8 L MCV 99 H MCH 34.1 H MCHC 34.4 RDW 14.2 H Plt Count 381 Seg Neutrophils % 88.4 H Lymphocytes % 5.5 L Monocytes % 5.8 Eosinophils % 0.0 Basophils % 0.3 Absolute Neutrophils 14.9 H Absolute Lymphocytes 0.9 Absolute Monocytes 1.0 Absolute Eosinophils 0.0 Absolute Basophils 0.1 Carbonic Acid 1.35 HCO3/H2CO3 Ratio 19:1 ABG pH 7.39 ABG pCO2 45.0 ABG pO2 78.0 L ABG HCO3 26.3 H ABG O2 Saturation 95.3 ABG Base Excess 1.0 FiO2 2 L Sodium 140.7 Potassium 4.4 Chloride 107 Carbon Dioxide 25 Anion Gap 9 BUN 10 Creatinine 0.90 Est GFR ( Amer) > 60 Est GFR (Non-Af Amer) > 60 Glucose 174 H Calcium 8.2 L Phosphorus 2.1 L Magnesium 2.4 H Total Bilirubin 0.4 AST 29 ALT 23 Alkaline Phosphatase 59 Total Protein 5.2 L Albumin 2.8 L Prealbumin 5.8 L Triglycerides 191 H 09/15/16 22:53 Tracheal Aspirate Gram Stain - Final 09/15/16 22:53 Tracheal Aspirate Sputum Culture - Final NORMAL TERRENCE Impressions: Abdomen/Pelvis CT 09/13/16 17:04 IMPRESSION: 1. Marked sigmoid colitis. Differential includes infectious and inflammatory etiologies predominantly in a patient of this age. Diverticulitis is possible, however it is hard to define any discrete diverticula through the area. Associated mesenteric changes without definite drainable abscess currently. Chest X-Ray 09/18/16 06:00 IMPRESSION: Stable chest status post extubation. Assessment & Plan - Diagnosis (1) Diverticular disease of intestine with perforation and abscess Is this a current diagnosis for this admission?: YesPlan: 1. Doing well 5 days post ex lap, colectomy, colostomy 2. Plan: Start Ice chips OOB to chair with PT eval. and treat D/C wong in am Reansfer to floor in am Continue IV ABX; possibly d/c drainin am
--- NOTE | 2016-09-18 18:43 | Progress Note ---
Provider Note Provider Note: I was notified by nursing staff the patient has become acutely encephalopathic and hypoxic. He was extubated yesterday after postoperative respiratory failure. Patient is noted to have increasing leukocytosis over the past 48 hours. I will obtain a stat ABG, head CT, CTA of chest, urinalysis, blood culture. Continue Zosyn.
[2016-09-18 19:49] LABS: ARTERIAL BLOOD BASE EXCESS 2.6 mmol/L; ARTERIAL BLOOD O2 SATURATION 92.9 % (94-98)
[2016-09-18] MEDS: AMINO ACIDS 5%/D25W 1,000 ML IV PRN (19:54)
[2016-09-18 20:41] LABS: APPEARANCE,URINE CLEAR; BILIRUBIN,URINE NEGATIVE (NEGATIVE); GLUCOSE, URINE NEGATIVE (NEGATIVE); KETONES,URINE NEGATIVE (NEGATIVE); LEUKOCYTE ESTERASE,URINE NEGATIVE (NEGATIVE); NITRITE,URINE NEGATIVE (NEGATIVE); PROTEIN,URINE NEGATIVE (NEGATIVE); URINE SPECIFIC GRAVITY 1.013; UROBILINOGEN,URINE NEGATIVE mg/dL (<2.0)
[2016-09-18] MEDS: FENTANYL CITRATE INJ/PF 100 MCG/2 ML AMPUL IV PRN (23:45)
[2016-09-19] MEDS ORDERED: VANCOMYCIN HCL 0 MG in DEXTROSE 5%-WATER 250 ML IV NR (00:15)
[2016-09-19] MEDS ORDERED: AZTREONAM 2 GM in DEXTROSE 5%-WATER 100 ML IV SCH (01:00)
[2016-09-19] MEDS ORDERED: AZTREONAM INJ 1 GM VIAL IV SCH (01:00)
[2016-09-19] MEDS ORDERED: VANCOMYCIN HCL INJ 1000 MG VIAL ONE (01:33)
[2016-09-19] MEDS ORDERED: VANCOMYCIN HCL INJ 1000 MG VIAL IV SCH (02:00)
[2016-09-19] MEDS ORDERED: VANCOMYCIN HCL 2,000 MG in DEXTROSE 5%-WATER 500 ML IV ONE (02:00)
[2016-09-19] MEDS: IPRATROPIUM/ALBUTEROL 0.5-2.5 MG/3 ML AMPUL NEB SCH ×2 (02:10→08:27)
[2016-09-19] MEDS: HYDROMORPHONE HCL INJ/PF 2 MG/ML AMPULE IV PRN ×2 (02:11→04:30)
[2016-09-19] MEDS ORDERED: AZTREONAM INJ 1 GM VIAL ONE ×2 (03:28→03:37)
[2016-09-19] MEDS: PIPERACILLIN SODIUM/TAZOBACTAM 4.5 GM in NORMAL SALINE 100 ML IV SCH ×3 (05:07→18:44)
[2016-09-19] MEDS: HEPARIN SOD (PORCINE) 5,000 UNIT/ML 1 ML SYRINGE SUBCUT SCH ×3 (05:08→22:34)
[2016-09-19 06:05] LABS: ALBUMIN 2.8 g/dL (3.5-5.0); ALKALINE PHOSPHATASE 68 U/L (38-126); ASPARTATE AMINO TRANSFERASE 47 U/L (17-59); BILIRUBIN,TOTAL 0.4 mg/dL (0.2-1.3); BLOOD UREA NITROGEN 14 mg/dL (7-20); CALCIUM 8.4 mg/dL (8.4-10.2); CARBON DIOXIDE 28 mmol/L (22-30); CHLORIDE 102 mmol/L (98-107); CREATININE RESULT 0.92 mg/dL (0.52-1.25); GLUCOSE 175 mg/dL (75-110); PHOSPHORUS 2.3 mg/dL (2.5-4.5); POTASSIUM 4.1 mmol/L (3.6-5.0); TOTAL PROTEIN 5.3 g/dL (6.3-8.2)
[2016-09-19 06:06] LABS: ALANINE AMINOTRANSFERASE 27 U/L (21-72); ANION GAP 7 (5-19)
[2016-09-19 06:07] LABS: HEMATOCRIT 28.7 % (37.9-51.0); HEMOGLOBIN 9.8 g/dL (13.5-17.0); HGB HCT DIFFERENCE 0.7; MEAN CORPUSCULAR HEMOGLOBIN 33.6 pg (27.0-33.4); MEAN CORPUSCULAR HGB CONC 34.2 g/dL (32.0-36.0); MEAN CORPUSCULAR VOLUME 99 fl (80-97); RED BLOOD COUNT 2.92 10^6/uL (4.35-5.55); RED CELL DISTRIBUTION WIDTH 14.2 % (11.5-14.0); WHITE BLOOD COUNT 17.2 10^3/uL (4.0-10.5)
[2016-09-19 06:12] LABS: PREALBUMIN 11.3 mg/dL (17.6-36.0)
[2016-09-19 06:20] LABS: BASOPHILS % (MANUAL) 0 % (0-2); EOSINOPHILS % (MANUAL) 0 % (0-6); LYMPHOCYTES % (MANUAL) 12 % (13-45); TOTAL CELLS COUNTED 100
[2016-09-19 06:21] LABS: TOXIC GRANULATION SLIGHT; TOXIC VACUOLATION PRESENT
[2016-09-19 06:22] LABS: ANISOCYTOSIS SLIGHT
[2016-09-19] MEDS: KETOROLAC TROMETHAMINE INJ/PF 30 MG/1 ML SDV IV PRN ×3 (08:02→22:35)
[2016-09-19] MEDS ORDERED: ALBUTEROL SULFATE 0.083% NEB 2.5 MG/3 ML AMPUL NEB PRN (09:07)
--- NOTE | 2016-09-19 10:25 | PDOC PROGRESS REPORT ---
Subjective Progress Note for:: 09/19/16 Physical Exam Vital Signs: Temp Pulse Resp BP Pulse Ox 98.0 F 99 18 147/106 H 99 09/19/16 08:00 09/19/16 09:08 09/19/16 09:08 09/19/16 08:00 09/19/16 09:08 Intake & Output 09/18/16 09/19/16 09/20/16 06:59 06:59 06:59 Intake Total 3663 3501 Output Total 3585 3415 240 Balance 78 86 -240 Weight 140.8 kg 141.1 kg GI/Abdominal exam: PRESENT: other - soft abdomen krunal drain serous Results Laboratory Results: 09/19/16 05:37 09/19/16 05:37 09/18/16 09/18/16 09/19/16 19:35 20:21 05:37 WBC RBC Hgb Hct MCV MCH MCHC RDW Plt Count Seg Neutrophils % Lymphocytes % Monocytes % Eosinophils % Basophils % Absolute Neutrophils Absolute Lymphocytes Absolute Monocytes Absolute Eosinophils Absolute Basophils Carbonic Acid 1.29 HCO3/H2CO3 Ratio 21:1 ABG pH 7.42 ABG pCO2 42.9 ABG pO2 64.2 L ABG HCO3 27.4 H ABG O2 Saturation 92.9 L ABG Base Excess 2.6 FiO2 2L Sodium 137.0 Potassium 4.1 Chloride 102 Carbon Dioxide 28 Anion Gap 7 BUN 14 Creatinine 0.92 Est GFR ( Amer) > 60 Est GFR (Non-Af Amer) > 60 Glucose 175 H Calcium 8.4 Phosphorus 2.3 L Total Bilirubin 0.4 AST 47 ALT 27 Alkaline Phosphatase 68 Total Protein 5.3 L Albumin 2.8 L Prealbumin 11.3 L Urine Color YELLOW Urine Appearance CLEAR Urine pH 6.0 Ur Specific [place] 1.013 Urine Protein NEGATIVE Urine Glucose (UA) NEGATIVE Urine Ketones NEGATIVE Urine Blood NEGATIVE Urine Nitrite NEGATIVE Ur Leukocyte Esterase NEGATIVE Urine WBC (Auto) 0 Urine RBC (Auto) 0 09/19/16 05:37 WBC 17.2 H RBC 2.92 L Hgb 9.8 L Hct 28.7 L MCV 99 H MCH 33.6 H MCHC 34.2 RDW 14.2 H Plt Count 489 H Seg Neutrophils % Not Reportable Lymphocytes % Not Reportable Monocytes % Not Reportable Eosinophils % Not Reportable Basophils % Not Reportable Absolute Neutrophils Not Reportable Absolute Lymphocytes Not Reportable Absolute Monocytes Not Reportable Absolute Eosinophils Not Reportable Absolute Basophils Not Reportable Carbonic Acid HCO3/H2CO3 Ratio ABG pH ABG pCO2 ABG pO2 ABG HCO3 ABG O2 Saturation ABG Base Excess FiO2 Sodium Potassium Chloride Carbon Dioxide Anion Gap BUN Creatinine Est GFR ( Amer) Est GFR (Non-Af Amer) Glucose Calcium Phosphorus Total Bilirubin AST ALT Alkaline Phosphatase Total Protein Albumin Prealbumin Urine Color Urine Appearance Urine pH Ur Specific [place] Urine Protein Urine Glucose (UA) Urine Ketones Urine Blood Urine Nitrite Ur Leukocyte Esterase Urine WBC (Auto) Urine RBC (Auto) 09/13/16 21:20 Blood Blood Culture - Final NO GROWTH IN 5 DAYS 09/15/16 22:53 Tracheal Aspirate Gram Stain - Final 09/15/16 22:53 Tracheal Aspirate Sputum Culture - Final NORMAL TERRENCE Impressions: Abdomen/Pelvis CT 09/13/16 17:04 IMPRESSION: 1. Marked sigmoid colitis. Differential includes infectious and inflammatory etiologies predominantly in a patient of this age. Diverticulitis is possible, however it is hard to define any discrete diverticula through the area. Associated mesenteric changes without definite drainable abscess currently. Chest/Abdomen CTA 09/18/16 00:00 IMPRESSION: Consolidation is present in both lower lobes, greater on the right. Small pleural effusions are present bilaterally, left greater than right. NO PULMONARY EMBOLI. Small amounts of free air and mesenteric stranding are noted in the upper abdomen, correlate with surgical history. Head CT 09/18/16 00:00 IMPRESSION: No acute intracranial findings. Chest X-Ray 09/18/16 06:00 IMPRESSION: Stable chest status post extubation. Assessment & Plan - Plan Summary Plan Summary: s/p colectomy with colostomy Transfer to floor Ambulate po clear liquids
[2016-09-19] MEDS: VANCOMYCIN HCL 1,500 MG in DEXTROSE 5%-WATER 250 ML IV SCH ×2 (11:17→18:44)
[2016-09-19 13:08] LABS: ANION GAP 10 (5-19); BLOOD UREA NITROGEN 14 mg/dL (7-20); CALCIUM 8.4 mg/dL (8.4-10.2); CARBON DIOXIDE 26 mmol/L (22-30); CHLORIDE 101 mmol/L (98-107); CREATININE RESULT 0.95 mg/dL (0.52-1.25); GLUCOSE 118 mg/dL (75-110); SODIUM 136.7 mmol/L (137-145)
[2016-09-19] MEDS ORDERED: NORMAL SALINE FOR INHALATION 5 ML VIAL.NEB ONE (14:00)
[2016-09-19 14:33] LABS: HEMATOCRIT 28.4 % (37.9-51.0); HEMOGLOBIN 9.9 g/dL (13.5-17.0); HGB HCT DIFFERENCE 1.3; MEAN CORPUSCULAR HEMOGLOBIN 34.3 pg (27.0-33.4); MEAN CORPUSCULAR HGB CONC 34.8 g/dL (32.0-36.0); MEAN CORPUSCULAR VOLUME 99 fl (80-97); RED BLOOD COUNT 2.88 10^6/uL (4.35-5.55); RED CELL DISTRIBUTION WIDTH 14.3 % (11.5-14.0); WHITE BLOOD COUNT 15.9 10^3/uL (4.0-10.5)
[2016-09-19 14:53] LABS: BASOPHILS % (MANUAL) 0 % (0-2); EOSINOPHILS % (MANUAL) 1 % (0-6); HYPOCHROMASIA SLIGHT; LYMPHOCYTES % (MANUAL) 11 % (13-45); NUCLEATED RED BLOOD CELLS 1 /100 WBC (0); POLYCHROMASIA SLIGHT; TOTAL CELLS COUNTED 100; TOXIC GRANULATION 1+
[2016-09-19] MEDS ORDERED: HYDRALAZINE HCL INJ/PF 20 MG/1 ML SDV IV PRN (15:20)
--- NOTE | 2016-09-19 15:45 | PDOC PROGRESS REPORT ---
Subjective Progress Note for:: 09/19/16 Subjective:: The patient was seen earlier today on rounds. The patient was extubated on and had been tolerating this well. However on the evening of 2016 the patient became hypoxic encephalopathic and tachypnea. After evaluation appear the patient does have a bilateral lower lobe pneumonia consistent with VAP. Vancomycin was added in addition to nebs and incentive spirometry and flutter valve. The patient's initial agitation has resolved and today the patient appears to be in a cognitive baseline. The patient's Sierra has been discontinued. There've been no reported episodes of vomiting. No tremors. The patient has had good urine output. The patient has been cleared for downgraded by surgery. Physical Exam Vital Signs: Temp Pulse Resp BP Pulse Ox 98.3 F 94 20 170/112 H 96 09/19/16 12:00 09/19/16 12:00 09/19/16 12:00 09/19/16 13:59 09/19/16 13:59 Intake & Output 09/17/16 09/18/16 09/19/16 23:59 23:59 23:59 Intake Total 3590 4084 1710 Output Total 3795 2805 2520 Balance -205 1279 -810 Weight 137.8 kg 140.8 kg 141.1 kg General appearance: PRESENT: no acute distress, cooperative, obese, well- developed Head exam: PRESENT: atraumatic, normocephalic Eye exam: PRESENT: conjunctiva pink, EOMI, PERRLA. ABSENT: scleral icterus Ear exam: PRESENT: normal external ear exam Mouth exam: PRESENT: moist, tongue midline Neck exam: ABSENT: carotid bruit, JVD, lymphadenopathy, thyromegaly Respiratory exam: PRESENT: clear to auscultation blair. ABSENT: rales, rhonchi, wheezes Cardiovascular exam: PRESENT: RRR. ABSENT: diastolic murmur, rubs, systolic murmur Pulses: PRESENT: normal dorsalis pedis pul Vascular exam: PRESENT: normal capillary refill GI/Abdominal exam: PRESENT: firm, soft, other - Postsurgical. ABSENT: distended , guarding, mass, organolmegaly, rebound, tenderness Rectal exam: PRESENT: deferred Extremities exam: PRESENT: full ROM. ABSENT: calf tenderness, clubbing, pedal edema Neurological exam: PRESENT: alert - A little delayed, awake, oriented to person , oriented to place, oriented to time, oriented to situation, CN II-XII grossly intact. ABSENT: motor sensory deficit Psychiatric exam: PRESENT: normal mood, unusual affect. ABSENT: homicidal ideation, suicidal ideation Skin exam: PRESENT: dry, intact, warm. ABSENT: cyanosis, rash Results Laboratory Results: 09/19/16 14:00 09/19/16 11:20 09/18/16 09/18/16 09/19/16 19:35 20:21 05:37 WBC RBC Hgb Hct MCV MCH MCHC RDW Plt Count Seg Neutrophils % Lymphocytes % Monocytes % Eosinophils % Basophils % Absolute Neutrophils Absolute Lymphocytes Absolute Monocytes Absolute Eosinophils Absolute Basophils Carbonic Acid 1.29 HCO3/H2CO3 Ratio 21:1 ABG pH 7.42 ABG pCO2 42.9 ABG pO2 64.2 L ABG HCO3 27.4 H ABG O2 Saturation 92.9 L ABG Base Excess 2.6 FiO2 2L Sodium 137.0 Potassium 4.1 Chloride 102 Carbon Dioxide 28 Anion Gap 7 BUN 14 Creatinine 0.92 Est GFR ( Amer) > 60 Est GFR (Non-Af Amer) > 60 Glucose 175 H Calcium 8.4 Phosphorus 2.3 L Total Bilirubin 0.4 AST 47 ALT 27 Alkaline Phosphatase 68 Total Protein 5.3 L Albumin 2.8 L Prealbumin 11.3 L Urine Color YELLOW Urine Appearance CLEAR Urine pH 6.0 Ur Specific [place] 1.013 Urine Protein NEGATIVE Urine Glucose (UA) NEGATIVE Urine Ketones NEGATIVE Urine Blood NEGATIVE Urine Nitrite NEGATIVE Ur Leukocyte Esterase NEGATIVE Urine WBC (Auto) 0 Urine RBC (Auto) 0 09/19/16 09/19/16 09/19/16 05:37 11:20 14:00 WBC 17.2 H 15.9 H RBC 2.92 L 2.88 L Hgb 9.8 L 9.9 L Hct 28.7 L 28.4 L MCV 99 H 99 H MCH 33.6 H 34.3 H MCHC 34.2 34.8 RDW 14.2 H 14.3 H Plt Count 489 H 486 H Seg Neutrophils % Not Reportable Not Reportable Lymphocytes % Not Reportable Not Reportable Monocytes % Not Reportable Not Reportable Eosinophils % Not Reportable Not Reportable Basophils % Not Reportable Not Reportable Absolute Neutrophils Not Reportable Not Reportable Absolute Lymphocytes Not Reportable Not Reportable Absolute Monocytes Not Reportable Not Reportable Absolute Eosinophils Not Reportable Not Reportable Absolute Basophils Not Reportable Not Reportable Carbonic Acid HCO3/H2CO3 Ratio ABG pH ABG pCO2 ABG pO2 ABG HCO3 ABG O2 Saturation ABG Base Excess FiO2 Sodium 136.7 L Potassium 4.0 Chloride 101 Carbon Dioxide 26 Anion Gap 10 BUN 14 Creatinine 0.95 Est GFR ( Amer) > 60 Est GFR (Non-Af Amer) > 60 Glucose 118 H Calcium 8.4 Phosphorus Total Bilirubin AST ALT Alkaline Phosphatase Total Protein Albumin Prealbumin Urine Color Urine Appearance Urine pH Ur Specific [place] Urine Protein Urine Glucose (UA) Urine Ketones Urine Blood Urine Nitrite Ur Leukocyte Esterase Urine WBC (Auto) Urine RBC (Auto) 09/13/16 21:20 Blood Blood Culture - Final NO GROWTH IN 5 DAYS Impressions: Abdomen/Pelvis CT 09/13/16 17:04 IMPRESSION: 1. Marked sigmoid colitis. Differential includes infectious and inflammatory etiologies predominantly in a patient of this age. Diverticulitis is possible, however it is hard to define any discrete diverticula through the area. Associated mesenteric changes without definite drainable abscess currently. Chest/Abdomen CTA 09/18/16 00:00 IMPRESSION: Consolidation is present in both lower lobes, greater on the right. Small pleural effusions are present bilaterally, left greater than right. NO PULMONARY EMBOLI. Small amounts of free air and mesenteric stranding are noted in the upper abdomen, correlate with surgical history. Head CT 09/18/16 00:00 IMPRESSION: No acute intracranial findings. Chest X-Ray 09/18/16 06:00 IMPRESSION: Stable chest status post extubation. Assessment & Plan - Diagnosis (1) Diverticular disease of intestine with perforation and abscess Is this a current diagnosis for this admission?: YesPlan: Do appreciate surgery's input with this. Will monitor ostomy output. Will continue Zosyn. (2) Peritonitis Is this a current diagnosis for this admission?: Yes (3) Septic shock Is this a current diagnosis for this admission?: YesPlan: The patient is no longer requiring pressors no evidence of bandemia white count waxes and wanes. (4) Acute respiratory failure following trauma and surgery Is this a current diagnosis for this admission?: YesPlan: Do appreciate pulmonary's input with this. The patient is now estimated. (5) Hyponatremia Is this a current diagnosis for this admission?: NoPlan: Improved (6) Hypertension Qualifiers: Hypertension type: essential hypertension Qualified Code(s): I10 - Essential (primary) hypertension Is this a current diagnosis for this admission?: YesPlan: Even the patient's nothing by mouth status will add IV blood pressure medications. (7) Malnutrition Is this a current diagnosis for this admission?: YesPlan: The patient's albumin is very low. Will replace electrolytes as needed. Continue TPN and lipids (8) Iron deficiency anemia Qualifiers: Iron deficiency anemia type: unspecified iron deficiency Qualified Code(s): D50.9 - Iron deficiency anemia, unspecified Is this a current diagnosis for this admission?: YesPlan: This appears to be ongoing. Will monitor hemoglobin. Current serologies are negative however reliability of this could be question. Patient will need to follow-up with GI in outpatient basis do recommend [facility] serologies. (9) Diverticulitis Qualifiers: Diverticulitis site: large intestine Diverticulitis bleeding: without bleeding Diverticulitis complication: without perforation or abscess Qualified Code(s): K57.32 - Diverticulitis of large intestine without perforation or abscess without bleeding Is this a current diagnosis for this admission?: Yes (10) Morbid obesity with BMI of 45.0-49.9, adult Is this a current diagnosis for this admission?: Yes - Time Time Spent with patient: 25-34 minutes Medications reviewed and adjusted accordingly: Yes
[2016-09-20] MEDS: AMINO ACIDS 5%/D25W 1,000 ML IV PRN ×2 (00:19→23:59)
[2016-09-20] MEDS: NORMAL SALINE 1000 ML 1,000 ML IV PRN (00:24)
[2016-09-20] MEDS: PIPERACILLIN SODIUM/TAZOBACTAM 4.5 GM in NORMAL SALINE 100 ML IV SCH ×4 (00:31→17:29)
[2016-09-20] MEDS: VANCOMYCIN HCL 1,500 MG in DEXTROSE 5%-WATER 250 ML IV SCH ×2 (03:16→11:22)
[2016-09-20] MEDS: KETOROLAC TROMETHAMINE INJ/PF 30 MG/1 ML SDV IV PRN ×4 (04:25→23:56)
[2016-09-20] MEDS: HEPARIN SOD (PORCINE) 5,000 UNIT/ML 1 ML SYRINGE SUBCUT SCH ×3 (06:17→21:57)
[2016-09-20 07:15] LABS: ARTERIAL BLOOD BASE EXCESS 4.7 mmol/L; ARTERIAL BLOOD O2 SATURATION 96.5 % (94-98)
--- NOTE | 2016-09-20 09:11 | PDOC PROGRESS REPORT ---
Subjective Progress Note for:: 09/20/16 Subjective:: The patient was seen earlier today on rounds. Denies any nausea, vomiting, shortness of breath, or chest pain. The patient overall is feeling better everyday and pain is improved. The patient was extubated on 09/17/2016 and had been tolerating this well. However on the evening of 09/18/2016 the patient became hypoxic encephalopathic and tachypnea. After evaluation appear the patient does have a bilateral lower lobe pneumonia consistent with VAP. Vancomycin was added in addition to nebs and incentive spirometry and flutter valve. The patient's initial agitation has resolved and the patient appears to be in a cognitive baseline. The patient 's Sierra has been discontinued. There've been no reported episodes of vomiting. No tremors. The patient has had good urine output. Physical Exam Vital Signs: Temp Pulse Resp BP Pulse Ox 97.9 F 87 14 153/90 H 96 09/20/16 07:23 09/20/16 07:23 09/20/16 07:23 09/20/16 07:23 09/20/16 07:23 Intake & Output 09/18/16 09/19/16 09/20/16 23:59 23:59 23:59 Intake Total 4084 3554 915 Output Total 2805 5580 1505 Balance 1279 -2025 -590 Weight 140.8 kg 141.1 kg General appearance: PRESENT: no acute distress, cooperative, obese, well- developed Head exam: PRESENT: atraumatic, normocephalic Eye exam: PRESENT: conjunctiva pink, EOMI, PERRLA. ABSENT: scleral icterus Ear exam: PRESENT: normal external ear exam Mouth exam: PRESENT: moist, tongue midline Neck exam: ABSENT: carotid bruit, JVD, lymphadenopathy, thyromegaly Respiratory exam: PRESENT: clear to auscultation blair. ABSENT: rales, rhonchi, wheezes Cardiovascular exam: PRESENT: RRR. ABSENT: diastolic murmur, rubs, systolic murmur Pulses: PRESENT: normal dorsalis pedis pul Vascular exam: PRESENT: normal capillary refill GI/Abdominal exam: PRESENT: firm, soft, other - Postsurgical. ABSENT: distended , guarding, mass, organolmegaly, rebound, tenderness Rectal exam: PRESENT: deferred Extremities exam: PRESENT: full ROM. ABSENT: calf tenderness, clubbing, pedal edema Neurological exam: PRESENT: alert - A little delayed, awake, oriented to person , oriented to place, oriented to time, oriented to situation, CN II-XII grossly intact. ABSENT: motor sensory deficit Psychiatric exam: PRESENT: normal mood, unusual affect. ABSENT: homicidal ideation, suicidal ideation Skin exam: PRESENT: dry, intact, warm. ABSENT: cyanosis, rash Results Laboratory Results: 09/19/16 14:00 09/19/16 11:20 09/19/16 09/19/16 09/20/16 11:20 14:00 05:35 WBC 15.9 H RBC 2.88 L Hgb 9.9 L Hct 28.4 L MCV 99 H MCH 34.3 H MCHC 34.8 RDW 14.3 H Plt Count 486 H Seg Neutrophils % Not Reportable Lymphocytes % Not Reportable Monocytes % Not Reportable Eosinophils % Not Reportable Basophils % Not Reportable Absolute Neutrophils Not Reportable Absolute Lymphocytes Not Reportable Absolute Monocytes Not Reportable Absolute Eosinophils Not Reportable Absolute Basophils Not Reportable Carbonic Acid 1.20 HCO3/H2CO3 Ratio 23:1 ABG pH 7.47 H ABG pCO2 39.9 ABG pO2 80.2 ABG HCO3 28.6 H ABG O2 Saturation 96.5 ABG Base Excess 4.7 FiO2 2L Sodium 136.7 L Potassium 4.0 Chloride 101 Carbon Dioxide 26 Anion Gap 10 BUN 14 Creatinine 0.95 Est GFR ( Amer) > 60 Est GFR (Non-Af Amer) > 60 Glucose 118 H Calcium 8.4 Impressions: Abdomen/Pelvis CT 09/13/16 17:04 IMPRESSION: 1. Marked sigmoid colitis. Differential includes infectious and inflammatory etiologies predominantly in a patient of this age. Diverticulitis is possible, however it is hard to define any discrete diverticula through the area. Associated mesenteric changes without definite drainable abscess currently. Chest/Abdomen CTA 09/18/16 00:00 IMPRESSION: Consolidation is present in both lower lobes, greater on the right. Small pleural effusions are present bilaterally, left greater than right. NO PULMONARY EMBOLI. Small amounts of free air and mesenteric stranding are noted in the upper abdomen, correlate with surgical history. Head CT 09/18/16 00:00 IMPRESSION: No acute intracranial findings. Assessment & Plan - Diagnosis (1) Diverticular disease of intestine with perforation and abscess Is this a current diagnosis for this admission?: YesPlan: Do appreciate surgery's input with this. Will monitor ostomy output. Will continue Zosyn. (2) Peritonitis Is this a current diagnosis for this admission?: Yes (3) Septic shock Is this a current diagnosis for this admission?: YesPlan: The patient is no longer requiring pressors no evidence of bandemia white count waxes and wanes. (4) Acute respiratory failure following trauma and surgery Is this a current diagnosis for this admission?: YesPlan: Do appreciate pulmonary's input with this. The patient is now on room air (5) Hyponatremia Is this a current diagnosis for this admission?: NoPlan: Improved (6) Hypertension Qualifiers: Hypertension type: essential hypertension Qualified Code(s): I10 - Essential (primary) hypertension Is this a current diagnosis for this admission?: YesPlan: Even the patient's nothing by mouth status will continue IV blood pressure medications. (7) Malnutrition Is this a current diagnosis for this admission?: YesPlan: The patient's albumin is very low. Will replace electrolytes as needed. Continue TPN and lipids (8) Iron deficiency anemia Qualifiers: Iron deficiency anemia type: unspecified iron deficiency Qualified Code(s): D50.9 - Iron deficiency anemia, unspecified Is this a current diagnosis for this admission?: YesPlan: This appears to be ongoing. Will monitor hemoglobin. Current serologies are negative however reliability of this could be question. Patient will need to follow-up with GI in outpatient basis do recommend [facility] serologies. (9) Diverticulitis Qualifiers: Diverticulitis site: large intestine Diverticulitis bleeding: without bleeding Diverticulitis complication: without perforation or abscess Qualified Code(s): K57.32 - Diverticulitis of large intestine without perforation or abscess without bleeding Is this a current diagnosis for this admission?: Yes (10) Morbid obesity with BMI of 45.0-49.9, adult Is this a current diagnosis for this admission?: Yes - Time Time Spent with patient: 25-34 minutes Medications reviewed and adjusted accordingly: Yes
[2016-09-20 11:13] LABS: PHOSPHORUS 3.8 mg/dL (2.5-4.5)
[2016-09-20 11:20] LABS: PREALBUMIN 15.9 mg/dL (17.6-36.0)
[2016-09-20 12:51] LABS: ABSOLUTE BASOPHILS # (AUTO) 0.1 10^3/uL (0.0-0.2); ABSOLUTE EOSINOPHILS # (AUTO) 0.5 10^3/uL (0.0-0.6); ABSOLUTE LYMPHOCYTES (AUTO) 1.4 10^3/uL (0.5-4.7); ABSOLUTE MONOCYTES (AUTO) 1.1 10^3/uL (0.1-1.4); ABSOLUTE NEUT (AUTO) 11.4 10^3/uL (1.7-8.2); EOSINOPHILS % (AUTO) 3.6 % (0-6); HEMOGLOBIN 10.4 g/dL (13.5-17.0); HGB HCT DIFFERENCE 1.2; LYMPHOCYTES % (AUTO) 9.8 % (13-45); MEAN CORPUSCULAR HEMOGLOBIN 33.9 pg (27.0-33.4); MEAN CORPUSCULAR HGB CONC 34.7 g/dL (32.0-36.0); MEAN CORPUSCULAR VOLUME 98 fl (80-97); MONOCYTES % (AUTO) 7.4 % (3-13); RED BLOOD COUNT 3.07 10^6/uL (4.35-5.55); RED CELL DISTRIBUTION WIDTH 14.1 % (11.5-14.0); SEGMENTED NEUTROPHILS % (AUTO) 78.2 % (42-78); WHITE BLOOD COUNT 14.5 10^3/uL (4.0-10.5)
--- NOTE | 2016-09-20 13:16 | PDOC PROGRESS REPORT ---
Subjective Progress Note for:: 09/20/16 Physical Exam Vital Signs: Temp Pulse Resp BP Pulse Ox 98 F 88 20 172/93 H 94 09/20/16 11:57 09/20/16 12:59 09/20/16 12:59 09/20/16 11:57 09/20/16 12:59 Intake & Output 09/19/16 09/20/16 09/21/16 06:59 06:59 06:59 Intake Total 3501 6569 Output Total 3417 5836 80 Balance 86 -3016 -80 Weight 141.1 kg 130.2 kg Results Laboratory Results: 09/20/16 12:35 09/19/16 11:20 09/19/16 09/19/16 09/20/16 11:20 14:00 05:35 WBC 15.9 H RBC 2.88 L Hgb 9.9 L Hct 28.4 L MCV 99 H MCH 34.3 H MCHC 34.8 RDW 14.3 H Plt Count 486 H Seg Neutrophils % Not Reportable Lymphocytes % Not Reportable Monocytes % Not Reportable Eosinophils % Not Reportable Basophils % Not Reportable Absolute Neutrophils Not Reportable Absolute Lymphocytes Not Reportable Absolute Monocytes Not Reportable Absolute Eosinophils Not Reportable Absolute Basophils Not Reportable Carbonic Acid 1.20 HCO3/H2CO3 Ratio 23:1 ABG pH 7.47 H ABG pCO2 39.9 ABG pO2 80.2 ABG HCO3 28.6 H ABG O2 Saturation 96.5 ABG Base Excess 4.7 FiO2 2L Sodium 136.7 L Potassium 4.0 Chloride 101 Carbon Dioxide 26 Anion Gap 10 BUN 14 Creatinine 0.95 Est GFR ( Amer) > 60 Est GFR (Non-Af Amer) > 60 Glucose 118 H Calcium 8.4 Phosphorus Prealbumin 09/20/16 09/20/16 10:05 12:35 WBC 14.5 H RBC 3.07 L Hgb 10.4 L Hct 30.0 L MCV 98 H MCH 33.9 H MCHC 34.7 RDW 14.1 H Plt Count 537 H Seg Neutrophils % 78.2 H Lymphocytes % 9.8 L Monocytes % 7.4 Eosinophils % 3.6 Basophils % 1.0 Absolute Neutrophils 11.4 H Absolute Lymphocytes 1.4 Absolute Monocytes 1.1 Absolute Eosinophils 0.5 Absolute Basophils 0.1 Carbonic Acid HCO3/H2CO3 Ratio ABG pH ABG pCO2 ABG pO2 ABG HCO3 ABG O2 Saturation ABG Base Excess FiO2 Sodium Potassium Chloride Carbon Dioxide Anion Gap BUN Creatinine Est GFR ( Amer) Est GFR (Non-Af Amer) Glucose Calcium Phosphorus 3.8 Prealbumin 15.9 L 09/18/16 20:21 Catheterized Urine Urine Culture - Final NO GROWTH 2 DAYS Impressions: Abdomen/Pelvis CT 09/13/16 17:04 IMPRESSION: 1. Marked sigmoid colitis. Differential includes infectious and inflammatory etiologies predominantly in a patient of this age. Diverticulitis is possible, however it is hard to define any discrete diverticula through the area. Associated mesenteric changes without definite drainable abscess currently. Chest/Abdomen CTA 09/18/16 00:00 IMPRESSION: Consolidation is present in both lower lobes, greater on the right. Small pleural effusions are present bilaterally, left greater than right. NO PULMONARY EMBOLI. Small amounts of free air and mesenteric stranding are noted in the upper abdomen, correlate with surgical history. Head CT 09/18/16 00:00 IMPRESSION: No acute intracranial findings. Chest X-Ray 09/20/16 06:00 IMPRESSION: Stable chest. No significant change. Assessment & Plan - Plan Summary Plan Summary: Stable Weaning plan.
[2016-09-20] MEDS: ONDANSETRON HCL INJ/PF 4 MG/2 ML SDV IV PRN (17:29)
[2016-09-21] MEDS: ONDANSETRON HCL INJ/PF 4 MG/2 ML SDV IV PRN ×2 (00:13→06:38)
[2016-09-21] MEDS: PIPERACILLIN SODIUM/TAZOBACTAM 4.5 GM in NORMAL SALINE 100 ML IV SCH ×4 (00:18→17:05)
[2016-09-21] MEDS: NORMAL SALINE 1000 ML 1,000 ML IV PRN (05:00)
[2016-09-21] MEDS: HEPARIN SOD (PORCINE) 5,000 UNIT/ML 1 ML SYRINGE SUBCUT SCH ×3 (06:00→22:09)
[2016-09-21] MEDS: KETOROLAC TROMETHAMINE INJ/PF 30 MG/1 ML SDV IV PRN ×2 (06:39→17:05)
[2016-09-21 06:58] LABS: ABSOLUTE BASOPHILS # (AUTO) 0.1 10^3/uL (0.0-0.2); ABSOLUTE EOSINOPHILS # (AUTO) 0.7 10^3/uL (0.0-0.6); ABSOLUTE LYMPHOCYTES (AUTO) 1.7 10^3/uL (0.5-4.7); ABSOLUTE MONOCYTES (AUTO) 1.3 10^3/uL (0.1-1.4); ABSOLUTE NEUT (AUTO) 12.4 10^3/uL (1.7-8.2); BASOPHILS % (AUTO) 0.5 % (0-2); EOSINOPHILS % (AUTO) 4.3 % (0-6); HEMATOCRIT 30.4 % (37.9-51.0); HEMOGLOBIN 10.3 g/dL (13.5-17.0); HGB HCT DIFFERENCE 0.5; LYMPHOCYTES % (AUTO) 10.4 % (13-45); MEAN CORPUSCULAR HGB CONC 33.9 g/dL (32.0-36.0); MEAN CORPUSCULAR VOLUME 97 fl (80-97); MONOCYTES % (AUTO) 7.8 % (3-13); RED BLOOD COUNT 3.12 10^6/uL (4.35-5.55); RED CELL DISTRIBUTION WIDTH 14.3 % (11.5-14.0)
[2016-09-21 07:08] LABS: ANION GAP 10 (5-19); BLOOD UREA NITROGEN 17 mg/dL (7-20); CALCIUM 8.8 mg/dL (8.4-10.2); CARBON DIOXIDE 29 mmol/L (22-30); CHLORIDE 101 mmol/L (98-107); CREATININE RESULT 1.23 mg/dL (0.52-1.25); GLUCOSE 116 mg/dL (75-110); POTASSIUM 4.3 mmol/L (3.6-5.0)
--- NOTE | 2016-09-21 08:24 | PDOC PROGRESS REPORT ---
Subjective Progress Note for:: 09/21/16 Subjective:: The patient was seen earlier today on rounds. Denies any nausea, vomiting, shortness of breath, or chest pain. The patient is now producing sputum. The patient overall is feeling better everyday and pain is improved. The patient was extubated on 09/17/2016 and had been tolerating this well. However on the evening of 09/18/2016 the patient became hypoxic encephalopathic and tachypnea. After evaluation appear the patient does have a bilateral lower lobe pneumonia consistent with VAP. Vancomycin was added in addition to nebs and incentive spirometry and flutter valve. The patient's initial agitation has resolved and the patient appears to be in a cognitive baseline. The patient 's [place] has been discontinued. There've been no reported episodes of vomiting. No tremors. The patient has had good urine output. Physical Exam Vital Signs: Temp Pulse Resp BP Pulse Ox 97.8 F 84 18 146/92 H 98 09/21/16 04:00 09/21/16 07:00 09/21/16 04:00 09/21/16 04:00 09/21/16 04:00 Intake & Output 09/19/16 09/20/16 09/21/16 23:59 23:59 23:59 Intake Total 3554 4641 1440 Output Total 5580 2505 550 Balance -2025 2135 890 Weight 141.1 kg 130.2 kg 132.2 kg General appearance: PRESENT: no acute distress, cooperative, obese, well- developed Head exam: PRESENT: atraumatic, normocephalic Eye exam: PRESENT: conjunctiva pink, EOMI, PERRLA. ABSENT: scleral icterus Ear exam: PRESENT: normal external ear exam Mouth exam: PRESENT: moist, tongue midline Neck exam: ABSENT: carotid bruit, JVD, lymphadenopathy, thyromegaly Respiratory exam: PRESENT: clear to auscultation blair. ABSENT: rales, rhonchi, wheezes Cardiovascular exam: PRESENT: RRR. ABSENT: diastolic murmur, rubs, systolic murmur Pulses: PRESENT: normal dorsalis pedis pul Vascular exam: PRESENT: normal capillary refill GI/Abdominal exam: PRESENT: firm, soft, other - Postsurgical. ABSENT: distended , guarding, mass, organolmegaly, rebound, tenderness Rectal exam: PRESENT: deferred Extremities exam: PRESENT: full ROM. ABSENT: calf tenderness, clubbing, pedal edema Neurological exam: PRESENT: alert - A little delayed, awake, oriented to person , oriented to place, oriented to time, oriented to situation, CN II-XII grossly intact. ABSENT: motor sensory deficit Psychiatric exam: PRESENT: normal mood, unusual affect. ABSENT: homicidal ideation, suicidal ideation Skin exam: PRESENT: dry, intact, warm. ABSENT: cyanosis, rash Results Laboratory Results: 09/21/16 06:40 09/21/16 06:40 09/20/16 09/20/16 09/21/16 10:05 12:35 06:40 WBC 14.5 H 16.0 H RBC 3.07 L 3.12 L Hgb 10.4 L 10.3 L Hct 30.0 L 30.4 L MCV 98 H 97 MCH 33.9 H 33.0 MCHC 34.7 33.9 RDW 14.1 H 14.3 H Plt Count 537 H 629 H Seg Neutrophils % 78.2 H 77.0 Lymphocytes % 9.8 L 10.4 L Monocytes % 7.4 7.8 Eosinophils % 3.6 4.3 Basophils % 1.0 0.5 Absolute Neutrophils 11.4 H 12.4 H Absolute Lymphocytes 1.4 1.7 Absolute Monocytes 1.1 1.3 Absolute Eosinophils 0.5 0.7 H Absolute Basophils 0.1 0.1 Sodium Potassium Chloride Carbon Dioxide Anion Gap BUN Creatinine Est GFR ( Amer) Est GFR (Non-Af Amer) Glucose Calcium Phosphorus 3.8 Prealbumin 15.9 L 09/21/16 06:40 WBC RBC Hgb Hct MCV MCH MCHC RDW Plt Count Seg Neutrophils % Lymphocytes % Monocytes % Eosinophils % Basophils % Absolute Neutrophils Absolute Lymphocytes Absolute Monocytes Absolute Eosinophils Absolute Basophils Sodium 140.0 Potassium 4.3 Chloride 101 Carbon Dioxide 29 Anion Gap 10 BUN 17 Creatinine 1.23 Est GFR ( Amer) > 60 Est GFR (Non-Af Amer) > 60 Glucose 116 H Calcium 8.8 Phosphorus Prealbumin 09/15/16 21:15 Blood Blood Culture - Final NO GROWTH IN 5 DAYS 09/15/16 18:49 Blood Blood Culture - Final NO GROWTH IN 5 DAYS 09/18/16 20:21 Catheterized Urine Urine Culture - Final NO GROWTH 2 DAYS Impressions: Abdomen/Pelvis CT 09/13/16 17:04 IMPRESSION: 1. Marked sigmoid colitis. Differential includes infectious and inflammatory etiologies predominantly in a patient of this age. Diverticulitis is possible, however it is hard to define any discrete diverticula through the area. Associated mesenteric changes without definite drainable abscess currently. Chest/Abdomen CTA 09/18/16 00:00 IMPRESSION: Consolidation is present in both lower lobes, greater on the right. Small pleural effusions are present bilaterally, left greater than right. NO PULMONARY EMBOLI. Small amounts of free air and mesenteric stranding are noted in the upper abdomen, correlate with surgical history. Head CT 09/18/16 00:00 IMPRESSION: No acute intracranial findings. Chest X-Ray 09/20/16 06:00 IMPRESSION: Stable chest. No significant change. Assessment & Plan - Diagnosis (1) Diverticular disease of intestine with perforation and abscess Is this a current diagnosis for this admission?: YesPlan: Do appreciate surgery's input with this. Will monitor ostomy output. Will continue Zosyn. (2) Peritonitis Is this a current diagnosis for this admission?: YesPlan: Advance diet per surgery (3) Septic shock Is this a current diagnosis for this admission?: YesPlan: The patient is no longer requiring pressors no evidence of bandemia white count waxes and wanes. (4) Ventilator associated pneumonia Is this a current diagnosis for this admission?: YesPlan: Will continue broad spectrum coverage and flutter. Will repeat chest x-ray and follow. (5) Acute respiratory failure following trauma and surgery Is this a current diagnosis for this admission?: YesPlan: Do appreciate pulmonary's input with this. The patient is now on room air (6) Hyponatremia Is this a current diagnosis for this admission?: No (7) Hypertension Qualifiers: Hypertension type: essential hypertension Qualified Code(s): I10 - Essential (primary) hypertension Is this a current diagnosis for this admission?: Yes (8) Malnutrition Is this a current diagnosis for this admission?: Yes (9) Iron deficiency anemia Qualifiers: Iron deficiency anemia type: unspecified iron deficiency Qualified Code(s): D50.9 - Iron deficiency anemia, unspecified Is this a current diagnosis for this admission?: Yes (10) Diverticulitis Qualifiers: Diverticulitis site: large intestine Diverticulitis bleeding: without bleeding Diverticulitis complication: without perforation or abscess Qualified Code(s): K57.32 - Diverticulitis of large intestine without perforation or abscess without bleeding Is this a current diagnosis for this admission?: Yes (11) Morbid obesity with BMI of 45.0-49.9, adult Is this a current diagnosis for this admission?: Yes - Time Time Spent with patient: 25-34 minutes Medications reviewed and adjusted accordingly: Yes
[2016-09-21] MEDS: VANCOMYCIN HCL 1,500 MG in DEXTROSE 5%-WATER 250 ML IV SCH ×2 (09:54→22:09)
--- NOTE | 2016-09-21 14:10 | PDOC PROGRESS REPORT ---
Subjective Progress Note for:: 09/21/16 Subjective:: Pain minimal Physical Exam Vital Signs: Temp Pulse Resp BP Pulse Ox 97.8 F 81 16 174/97 H 96 09/21/16 11:28 09/21/16 12:31 09/21/16 12:31 09/21/16 11:28 09/21/16 12:31 Intake & Output 09/20/16 09/21/16 09/22/16 06:59 06:59 06:59 Intake Total 2879 5166 Output Total 5883 1630 Balance -3016 3536 Weight 130.2 kg 132.2 kg GI/Abdominal exam: PRESENT: other - Abdomen - soft colostomy - functioning well wound is clean Results Laboratory Results: 09/21/16 06:40 09/21/16 06:40 09/21/16 09/21/16 06:40 06:40 WBC 16.0 H RBC 3.12 L Hgb 10.3 L Hct 30.4 L MCV 97 MCH 33.0 MCHC 33.9 RDW 14.3 H Plt Count 629 H Seg Neutrophils % 77.0 Lymphocytes % 10.4 L Monocytes % 7.8 Eosinophils % 4.3 Basophils % 0.5 Absolute Neutrophils 12.4 H Absolute Lymphocytes 1.7 Absolute Monocytes 1.3 Absolute Eosinophils 0.7 H Absolute Basophils 0.1 Sodium 140.0 Potassium 4.3 Chloride 101 Carbon Dioxide 29 Anion Gap 10 BUN 17 Creatinine 1.23 Est GFR ( Amer) > 60 Est GFR (Non-Af Amer) > 60 Glucose 116 H Calcium 8.8 09/15/16 21:15 Blood Blood Culture - Final NO GROWTH IN 5 DAYS 09/15/16 18:49 Blood Blood Culture - Final NO GROWTH IN 5 DAYS 09/18/16 20:21 Catheterized Urine Urine Culture - Final NO GROWTH 2 DAYS Impressions: Abdomen/Pelvis CT 09/13/16 17:04 IMPRESSION: 1. Marked sigmoid colitis. Differential includes infectious and inflammatory etiologies predominantly in a patient of this age. Diverticulitis is possible, however it is hard to define any discrete diverticula through the area. Associated mesenteric changes without definite drainable abscess currently. Chest/Abdomen CTA 09/18/16 00:00 IMPRESSION: Consolidation is present in both lower lobes, greater on the right. Small pleural effusions are present bilaterally, left greater than right. NO PULMONARY EMBOLI. Small amounts of free air and mesenteric stranding are noted in the upper abdomen, correlate with surgical history. Head CT 09/18/16 00:00 IMPRESSION: No acute intracranial findings. Chest X-Ray 09/21/16 00:00 IMPRESSION: NO SIGNIFICANT RADIOGRAPHIC FINDING IN THE CHEST. Assessment & Plan - Plan Summary Plan Summary: s/p left colon resection with Hartmanns / colostomy for perf diverticulitis Ileus resoving Advance diet Possible DC tomorrow.
[2016-09-22] MEDS: PIPERACILLIN SODIUM/TAZOBACTAM 4.5 GM in NORMAL SALINE 100 ML IV SCH ×4 (00:15→17:03)
[2016-09-22] MEDS: ONDANSETRON HCL INJ/PF 4 MG/2 ML SDV IV PRN (00:15)
[2016-09-22] MEDS: KETOROLAC TROMETHAMINE INJ/PF 30 MG/1 ML SDV IV PRN (00:15)
[2016-09-22] MEDS: HEPARIN SOD (PORCINE) 5,000 UNIT/ML 1 ML SYRINGE SUBCUT SCH ×3 (05:42→22:42)
[2016-09-22 06:49] LABS: ABSOLUTE BASOPHILS # (AUTO) 0.1 10^3/uL (0.0-0.2); ABSOLUTE EOSINOPHILS # (AUTO) 0.7 10^3/uL (0.0-0.6); ABSOLUTE LYMPHOCYTES (AUTO) 1.6 10^3/uL (0.5-4.7); ABSOLUTE MONOCYTES (AUTO) 0.9 10^3/uL (0.1-1.4); ABSOLUTE NEUT (AUTO) 10.3 10^3/uL (1.7-8.2); BASOPHILS % (AUTO) 0.8 % (0-2); EOSINOPHILS % (AUTO) 4.9 % (0-6); HEMATOCRIT 29.8 % (37.9-51.0); HEMOGLOBIN 10.4 g/dL (13.5-17.0); HGB HCT DIFFERENCE 1.4; LYMPHOCYTES % (AUTO) 11.8 % (13-45); MEAN CORPUSCULAR HEMOGLOBIN 34.1 pg (27.0-33.4); MEAN CORPUSCULAR HGB CONC 34.8 g/dL (32.0-36.0); MEAN CORPUSCULAR VOLUME 98 fl (80-97); MONOCYTES % (AUTO) 6.8 % (3-13); RED BLOOD COUNT 3.04 10^6/uL (4.35-5.55); RED CELL DISTRIBUTION WIDTH 14.3 % (11.5-14.0); SEGMENTED NEUTROPHILS % (AUTO) 75.7 % (42-78); WHITE BLOOD COUNT 13.6 10^3/uL (4.0-10.5)
[2016-09-22 07:19] LABS: ALANINE AMINOTRANSFERASE 42 U/L (21-72); ALBUMIN 2.9 g/dL (3.5-5.0); ALKALINE PHOSPHATASE 86 U/L (38-126); ANION GAP 9 (5-19); ASPARTATE AMINO TRANSFERASE 54 U/L (17-59); BILIRUBIN,TOTAL 0.4 mg/dL (0.2-1.3); BLOOD UREA NITROGEN 19 mg/dL (7-20); CALCIUM 8.5 mg/dL (8.4-10.2); CARBON DIOXIDE 26 mmol/L (22-30); CHLORIDE 102 mmol/L (98-107); CREATININE RESULT 1.52 mg/dL (0.52-1.25); GLUCOSE 79 mg/dL (75-110); POTASSIUM 4.7 mmol/L (3.6-5.0); SODIUM 137.1 mmol/L (137-145); TOTAL PROTEIN 5.7 g/dL (6.3-8.2)
[2016-09-22 08:02] LABS: PROTHROMBIN TIME 13.4 SEC (11.4-15.4)
[2016-09-22] MEDS ORDERED: ALBUTEROL SULFATE 0.083% NEB 2.5 MG/3 ML AMPUL NEB PRN (08:43)
[2016-09-22] MEDS ORDERED: NORMAL SALINE 1000 ML 1,000 ML IV PRN (08:45)
--- NOTE | 2016-09-22 09:24 | PDOC PROGRESS REPORT ---
Subjective Progress Note for:: 09/22/16 Subjective:: The patient was seen earlier today on rounds. Denies any nausea, vomiting, shortness of breath, or chest pain. The patient is out of bed to the bedside chair. He has ambulated in the ball. Diet was advanced at he has tolerated eggs thus far. The patient overall is feeling better everyday and pain is improved. The patient was extubated on 09/17/2016 and had been tolerating this well. However on the evening of 09/18/2016 the patient became hypoxic encephalopathic and tachypnea. After evaluation appear the patient does have a bilateral lower lobe pneumonia consistent with VAP. Vancomycin was added in addition to nebs and incentive spirometry and flutter valve. The patient's initial agitation has resolved and the patient appears to be in a cognitive baseline. The patient 's [place] has been discontinued. There've been no reported episodes of vomiting. No tremors. The patient has had good urine output. Repeat chest x- ray shows improvement. Creatinine has risen therefore will hold VAnc and obtain trough. Will hydrate. Physical Exam Vital Signs: Temp Pulse Resp BP Pulse Ox 97.9 F 84 16 137/87 H 97 09/22/16 07:08 09/22/16 07:08 09/22/16 07:08 09/22/16 07:08 09/22/16 07:08 Intake & Output 09/20/16 09/21/16 09/22/16 23:59 23:59 23:59 Intake Total 4641 3840 992 Output Total 2505 2505 810 Balance 2136 1335 182 Weight 130.2 kg 132.2 kg 125.7 kg General appearance: PRESENT: no acute distress, cooperative, obese, well- developed Head exam: PRESENT: atraumatic, normocephalic Eye exam: PRESENT: conjunctiva pink, EOMI, PERRLA. ABSENT: scleral icterus Ear exam: PRESENT: normal external ear exam Mouth exam: PRESENT: moist, tongue midline Neck exam: ABSENT: carotid bruit, JVD, lymphadenopathy, thyromegaly Respiratory exam: PRESENT: clear to auscultation blair. ABSENT: rales, rhonchi, wheezes Cardiovascular exam: PRESENT: RRR. ABSENT: diastolic murmur, rubs, systolic murmur Pulses: PRESENT: normal dorsalis pedis pul Vascular exam: PRESENT: normal capillary refill GI/Abdominal exam: PRESENT: firm, soft, other - Postsurgical. ABSENT: distended , guarding, mass, organolmegaly, rebound, tenderness Rectal exam: PRESENT: deferred Extremities exam: PRESENT: full ROM. ABSENT: calf tenderness, clubbing, pedal edema Neurological exam: PRESENT: alert - A little delayed, awake, oriented to person , oriented to place, oriented to time, oriented to situation, CN II-XII grossly intact. ABSENT: motor sensory deficit Psychiatric exam: PRESENT: normal mood, unusual affect. ABSENT: homicidal ideation, suicidal ideation Skin exam: PRESENT: dry, intact, warm. ABSENT: cyanosis, rash Results Laboratory Results: 09/22/16 05:50 09/22/16 05:57 09/22/16 09/22/16 09/22/16 05:50 05:57 05:57 WBC 13.6 H RBC 3.04 L Hgb 10.4 L Hct 29.8 L MCV 98 H MCH 34.1 H MCHC 34.8 RDW 14.3 H Plt Count 604 H Seg Neutrophils % 75.7 Lymphocytes % 11.8 L Monocytes % 6.8 Eosinophils % 4.9 Basophils % 0.8 Absolute Neutrophils 10.3 H Absolute Lymphocytes 1.6 Absolute Monocytes 0.9 Absolute Eosinophils 0.7 H Absolute Basophils 0.1 Sodium 137.1 Potassium 4.7 Chloride 102 Carbon Dioxide 26 Anion Gap 9 BUN 19 Creatinine 1.52 H Est GFR ( Amer) > 60 Est GFR (Non-Af Amer) 50 L Glucose 79 Calcium 8.5 Magnesium 2.2 Total Bilirubin 0.4 AST 54 ALT 42 Alkaline Phosphatase 86 Total Protein 5.7 L Albumin 2.9 L Impressions: Abdomen/Pelvis CT 09/13/16 17:04 IMPRESSION: 1. Marked sigmoid colitis. Differential includes infectious and inflammatory etiologies predominantly in a patient of this age. Diverticulitis is possible, however it is hard to define any discrete diverticula through the area. Associated mesenteric changes without definite drainable abscess currently. Chest/Abdomen CTA 09/18/16 00:00 IMPRESSION: Consolidation is present in both lower lobes, greater on the right. Small pleural effusions are present bilaterally, left greater than right. NO PULMONARY EMBOLI. Small amounts of free air and mesenteric stranding are noted in the upper abdomen, correlate with surgical history. Head CT 09/18/16 00:00 IMPRESSION: No acute intracranial findings. Chest X-Ray 09/21/16 00:00 IMPRESSION: NO SIGNIFICANT RADIOGRAPHIC FINDING IN THE CHEST. Assessment & Plan - Diagnosis (1) Diverticular disease of intestine with perforation and abscess Is this a current diagnosis for this admission?: YesPlan: Do appreciate surgery's input with this. Will monitor ostomy output. Will continue Zosyn. Diet advanced per surgery. (2) Peritonitis Is this a current diagnosis for this admission?: YesPlan: Advance diet per surgery (3) Septic shock Is this a current diagnosis for this admission?: YesPlan: Resolved. (4) Ventilator associated pneumonia Is this a current diagnosis for this admission?: YesPlan: Repeat chest Xray is improved. Continue pulmonary toilet. On Zosyn. Will obtain Vanc trough and will hold for now due to elevated Cr. (5) Acute respiratory failure following trauma and surgery Is this a current diagnosis for this admission?: YesPlan: Do appreciate pulmonary's input with this. The patient is now on room air (6) Hyponatremia Is this a current diagnosis for this admission?: NoPlan: Improved (7) Hypertension Qualifiers: Hypertension type: essential hypertension Qualified Code(s): I10 - Essential (primary) hypertension Is this a current diagnosis for this admission?: YesPlan: Will transition to oral meds. (8) Malnutrition Is this a current diagnosis for this admission?: YesPlan: Discontinue TPN/Lipids and advance diet as tolerated. (9) Iron deficiency anemia Qualifiers: Iron deficiency anemia type: unspecified iron deficiency Qualified Code(s): D50.9 - Iron deficiency anemia, unspecified Is this a current diagnosis for this admission?: YesPlan: This appears to be ongoing. Will monitor hemoglobin. Current serologies are negative however reliability of this could be question. Patient will need to follow-up with GI in outpatient basis do recommend [facility] serologies. (10) Diverticulitis Qualifiers: Diverticulitis site: large intestine Diverticulitis bleeding: without bleeding Diverticulitis complication: without perforation or abscess Qualified Code(s): K57.32 - Diverticulitis of large intestine without perforation or abscess without bleeding Is this a current diagnosis for this admission?: YesPlan: Will consult nutrition. (11) Morbid obesity with BMI of 45.0-49.9, adult Is this a current diagnosis for this admission?: Yes - Time Time Spent with patient: 35 or more minutes Medications reviewed and adjusted accordingly: Yes Anticipated discharge: Home Within: within 24 hours, within 48 hours
[2016-09-22] MEDS: HYDROCODONE/ACETAMINOPHEN 7.5-325 MG TABLET PO PRN ×2 (09:30→18:35)
[2016-09-22] MEDS: ATENOLOL 50 MG TABLET PO SCH ×2 (09:58→22:42)
[2016-09-22] MEDS ORDERED: FAT EMULSIONS 250 ML IV SCH (10:00)
--- NOTE | 2016-09-22 11:15 | PDOC PROGRESS REPORT ---
Subjective Subjective:: No nausea or vomiting. Tolerating diet. Stool in bag. Physical Exam Vital Signs: Temp Pulse Resp BP Pulse Ox 97.9 F 84 16 137/87 H 97 09/22/16 07:08 09/22/16 07:08 09/22/16 07:08 09/22/16 07:08 09/22/16 07:08 Intake & Output 09/21/16 09/22/16 09/23/16 06:59 06:59 06:59 Intake Total 5131 3392 Output Total 1636 3132 Balance 3536 627 Weight 132.2 kg 125.7 kg General appearance: PRESENT: no acute distress Head exam: PRESENT: normocephalic Eye exam: PRESENT: EOMI GI/Abdominal exam: PRESENT: soft, other - Ostomy healthy pink with stool in the bag. NAE with serosanguineous. Midline incision loosely closed with domenic. Dressing changed. No evidence of infection.. ABSENT: distended, tenderness Neurological exam: PRESENT: alert, oriented to situation Psychiatric exam: PRESENT: appropriate affect, normal mood Skin exam: ABSENT: jaundice Results Laboratory Results: 09/22/16 05:50 09/22/16 05:57 09/22/16 09/22/16 09/22/16 05:50 05:57 05:57 WBC 13.6 H RBC 3.04 L Hgb 10.4 L Hct 29.8 L MCV 98 H MCH 34.1 H MCHC 34.8 RDW 14.3 H Plt Count 604 H Seg Neutrophils % 75.7 Lymphocytes % 11.8 L Monocytes % 6.8 Eosinophils % 4.9 Basophils % 0.8 Absolute Neutrophils 10.3 H Absolute Lymphocytes 1.6 Absolute Monocytes 0.9 Absolute Eosinophils 0.7 H Absolute Basophils 0.1 Sodium 137.1 Potassium 4.7 Chloride 102 Carbon Dioxide 26 Anion Gap 9 BUN 19 Creatinine 1.52 H Est GFR ( Amer) > 60 Est GFR (Non-Af Amer) 50 L Glucose 79 Calcium 8.5 Magnesium 2.2 Total Bilirubin 0.4 AST 54 ALT 42 Alkaline Phosphatase 86 Total Protein 5.7 L Albumin 2.9 L Impressions: Abdomen/Pelvis CT 09/13/16 17:04 IMPRESSION: 1. Marked sigmoid colitis. Differential includes infectious and inflammatory etiologies predominantly in a patient of this age. Diverticulitis is possible, however it is hard to define any discrete diverticula through the area. Associated mesenteric changes without definite drainable abscess currently. Chest/Abdomen CTA 09/18/16 00:00 IMPRESSION: Consolidation is present in both lower lobes, greater on the right. Small pleural effusions are present bilaterally, left greater than right. NO PULMONARY EMBOLI. Small amounts of free air and mesenteric stranding are noted in the upper abdomen, correlate with surgical history. Head CT 09/18/16 00:00 IMPRESSION: No acute intracranial findings. Chest X-Ray 09/21/16 00:00 IMPRESSION: NO SIGNIFICANT RADIOGRAPHIC FINDING IN THE CHEST. Assessment & Plan - Diagnosis (1) Acute respiratory failure following trauma and surgery Is this a current diagnosis for this admission?: Yes (2) Peritonitis Is this a current diagnosis for this admission?: Yes (3) Diverticular disease of intestine with perforation and abscess Is this a current diagnosis for this admission?: YesPlan: Just started soft diet this morning, seems to be doing okay with it. Needs ostomy teaching and home health care for ostomy supplies and care. (4) Morbid obesity with BMI of 45.0-49.9, adult Is this a current diagnosis for this admission?: Yes (5) Hypertension Qualifiers: Hypertension type: essential hypertension Qualified Code(s): I10 - Essential (primary) hypertension Is this a current diagnosis for this admission?: Yes
[2016-09-22] MEDS: ONDANSETRON 4 MG TAB.RAPDIS PO PRN (18:34)
[2016-09-23] MEDS: PIPERACILLIN SODIUM/TAZOBACTAM 4.5 GM in NORMAL SALINE 100 ML IV SCH ×3 (00:08→12:03)
[2016-09-23] MEDS: HYDROCODONE/ACETAMINOPHEN 7.5-325 MG TABLET PO PRN ×2 (00:08→10:28)
[2016-09-23] MEDS: HEPARIN SOD (PORCINE) 5,000 UNIT/ML 1 ML SYRINGE SUBCUT SCH ×2 (05:37→13:56)
[2016-09-23 07:21] LABS: HEMATOCRIT 29.6 % (37.9-51.0); HEMOGLOBIN 10.2 g/dL (13.5-17.0); MEAN CORPUSCULAR HEMOGLOBIN 33.6 pg (27.0-33.4); MEAN CORPUSCULAR HGB CONC 34.6 g/dL (32.0-36.0); MEAN CORPUSCULAR VOLUME 97 fl (80-97); RED BLOOD COUNT 3.04 10^6/uL (4.35-5.55); WHITE BLOOD COUNT 15.8 10^3/uL (4.0-10.5)
[2016-09-23 07:39] LABS: ANION GAP 13 (5-19); BLOOD UREA NITROGEN 20 mg/dL (7-20); CALCIUM 8.8 mg/dL (8.4-10.2); CARBON DIOXIDE 21 mmol/L (22-30); CHLORIDE 103 mmol/L (98-107); CREATININE RESULT 1.52 mg/dL (0.52-1.25); GLUCOSE 59 mg/dL (75-110); MAGNESIUM 2.3 mg/dL (1.6-2.3); POTASSIUM 4.9 mmol/L (3.6-5.0); SODIUM 136.8 mmol/L (137-145)
[2016-09-23] MEDS: ATENOLOL 50 MG TABLET PO SCH (10:26)
[2016-09-23] MEDS: ONDANSETRON 4 MG TAB.RAPDIS PO PRN (10:29)
[2016-09-23 12:25] VITALS: BP 142/91
--- NOTE | 2016-09-23 13:23 | DISCHARGE SUMMARY E ---
Discharge Summary NAME: PIPE RESENDIZ : 1970 AGE: 45Y ADMITTED: 09/13/2016 DISCHARGED: 09/23/2016 HOSPITAL COURSE: The patient is status post sigmoid colectomy with diverting colostomy. He is ready for discharge and is being seen concomitantly by the nurse practitioner at the medicine service. He is alert and appropriate, tolerating a regular diet. He has had instruction regarding his ostomy management. His wound is clean. I have examined the wound and Steri-Strips were removed and domeinc remained in place. There is no evidence of purulent drainage. He has a Quan-Zapien drain in place, which I suggest should remain there for several more days and can be removed in outpatient followup. He will wash his wound frequently with soap and water and keep it covered with dry gauze. Otherwise, he *------* contact the surgery service at any time should he have any questions or problems and will be seen in followup in approximately [address] Cowan. DICTATING PHYSICIAN: LORELEI CROOKS M.D. [id number] PHY#: [id number] ID: [id number] JOB#: [id number] ACCT: [id number] cc:Gabrielle CANTU M.D. >
--- NOTE | 2016-09-23 16:23 | PDOC DISCHARGE SUMMARY ---
General - Admit/Disc Date/PCP Admission Date/Primary Care Provider: 09/13/16 19:37 Discharge Date: 09/23/16 - Discharge Diagnosis (1) Diverticulitis Is this a current diagnosis for this admission?: YesSummary: Patient underwent emergent exploratory laparotomy and O2/[address] Cowan where he was found to have peritonitis requiring washout and then a left hemicolectomy with diverting colostomy (2) Abdominal pain Is this a current diagnosis for this admission?: YesSummary: Result (3) Hypertension Is this a current diagnosis for this admission?: Yes (4) Morbid obesity with BMI of 45.0-49.9, adult Is this a current diagnosis for this admission?: Yes (5) Diverticular disease of intestine with perforation and abscess Is this a current diagnosis for this admission?: YesSummary: Patient is now 8 days postop. He has local superficial dehiscence of the incision domenic are intact. He'll follow-up in the surgery clinic. (6) Hyponatremia Is this a current diagnosis for this admission?: NoSummary: Resolved secondary to dehydration and HCTZ (7) Morbid exogenous obesity Is this a current diagnosis for this admission?: YesSummary: BMI 44 discussed need for dietary modifications and exercise (8) Essential (primary) hypertension Is this a current diagnosis for this admission?: YesSummary: Continue current meds at discharge - Additional Information Resuscitation Status: Full Code Discharge Diet: Regular Discharge Activity: Activity As Tolerated, Balance Activity w/Rest, Slowly Increase Activity Home Medications: Atenolol [Tenormin 50 mg Tablet] 25 mg PO Q12 #60 tablet 09/23/16 Hydrocodone/Acetaminophen [[place] 7.5-325 mg Tablet] 1 tab PO Q4HP PRN #30 tablet 09/23/16 History of Present Illness History of Present Illness: PIPE RESENDIZ IV is a 45 year old male with past medical history of hypertension, morbid obesity and recurrent diverticulitis. He had been in his usual state of health until approximately 3 days prior to admission when he was noting increased abdominal pain in the left lower quadrant and constipation. Patient presented to [facility] on 09/13 with increasing pain in the left lower quadrant. He had a recent admission in May which was complicated by abscess with fistula of diverticulitis requiring a percutaneous drain. He had plan on elective partial colectomy as an outpatient but was lost to follow-up due to loss of his healthcare insurance. Hospital Course Hospital Course: Patient was referred to the hospitalist service he was started on IV antibiotics and pain medication. General surgery was consulted. Dr. Cowan saw the patient in consult. Following day patient was seen on rounds, have abdominal distention and increasing pain. Surgery was notified, Dr. Cowan saw the patient and felt patient needs to be taken urgently to the operating room. Patient agrees. He was taken to the or and underwent an emergent exploratory laparotomy with washout of peritoneal abscess and a left hemicolectomy with diverting colostomy by Dr. Cowan. He was transferred to the intensive care unit from the OR he was maintained on ventilator overnight. Dr. Almodovar was consult and for ventilator management. Patient was finally able to be extubated 2 days later. He was transferred back to telemetry unit where he gradually increased his activity. His colostomy began functioning and he had progression of his diet. He did have some minor local wound dehiscence of superficial fat wound care is managed by the surgerialist. Today his pain has been well controlled. He and his been educated on colostomy care by the nursing staff. He has been weaned off oxygen. His vitals are stable. His pain is been well controlled. He is tolerating a regular diet. He is seen by Dr. Pandya from general surgery today. Encouraged patient to shower 2 times daily at home and cover the wound with dry sterile dressings. He'll follow-up with Dr. Cowan in the surgery clinic within 1 week. Physical Exam Vital Signs: Temp Pulse Resp BP Pulse Ox 98.0 F 72 18 142/91 H 100 09/23/16 13:54 09/23/16 13:54 09/23/16 13:54 09/23/16 13:54 09/23/16 13:54 Intake & Output 09/22/16 09/23/16 09/24/16 06:59 06:59 06:59 Intake Total 3392 3362 Output Total 2765 2250 90 Balance 627 1112 -90 Weight 125.7 kg General appearance: PRESENT: no acute distress, morbidly obese, well-developed Head exam: PRESENT: atraumatic, normocephalic Eye exam: PRESENT: conjunctiva pink, EOMI, PERRLA. ABSENT: scleral icterus Ear exam: PRESENT: normal external ear exam Mouth exam: PRESENT: moist, tongue midline Neck exam: ABSENT: carotid bruit, JVD, lymphadenopathy, thyromegaly Respiratory exam: PRESENT: clear to auscultation blair. ABSENT: rales, rhonchi, wheezes Cardiovascular exam: PRESENT: RRR. ABSENT: diastolic murmur, rubs, systolic murmur Pulses: PRESENT: normal dorsalis pedis pul Vascular exam: PRESENT: normal capillary refill GI/Abdominal exam: PRESENT: soft, tenderness, other - Colostomy patent, abdominal incision midline with small superficial dehiscence between domenic of the superficial fat. Wound is otherwise clean and granulating well. Rectal exam: PRESENT: deferred Extremities exam: PRESENT: calf tenderness Neurological exam: PRESENT: alert, awake, oriented to person, oriented to place , oriented to time, oriented to situation, CN II-XII grossly intact. ABSENT: motor sensory deficit Psychiatric exam: PRESENT: appropriate affect, normal mood. ABSENT: homicidal ideation, suicidal ideation Skin exam: PRESENT: dry, intact, warm. ABSENT: cyanosis, rash Results Laboratory Results: 09/23/16 06:24 09/23/16 06:24 09/23/16 09/23/16 06:24 06:24 WBC 15.8 H RBC 3.04 L Hgb 10.2 L Hct 29.6 L MCV 97 MCH 33.6 H MCHC 34.6 RDW 14.0 Plt Count 687 H Sodium 136.8 L Potassium 4.9 Chloride 103 Carbon Dioxide 21 L Anion Gap 13 BUN 20 Creatinine 1.52 H Est GFR ( Amer) > 60 Est GFR (Non-Af Amer) 50 L Glucose 59 L Calcium 8.8 Magnesium 2.3 09/18/16 20:05 Blood Blood Culture - Final Staphylococcus Epidermidis Impressions: Abdomen/Pelvis CT 09/13/16 17:04 IMPRESSION: 1. Marked sigmoid colitis. Differential includes infectious and inflammatory etiologies predominantly in a patient of this age. Diverticulitis is possible, however it is hard to define any discrete diverticula through the area. Associated mesenteric changes without definite drainable abscess currently. Chest/Abdomen CTA 09/18/16 00:00 IMPRESSION: Consolidation is present in both lower lobes, greater on the right. Small pleural effusions are present bilaterally, left greater than right. NO PULMONARY EMBOLI. Small amounts of free air and mesenteric stranding are noted in the upper abdomen, correlate with surgical history. Head CT 09/18/16 00:00 IMPRESSION: No acute intracranial findings. Chest X-Ray 09/21/16 00:00 IMPRESSION: NO SIGNIFICANT RADIOGRAPHIC FINDING IN THE CHEST. Qualifiers PATEINT BEING DISCHARGED WITH ANY OF THE FOLLOWING DIAGNOSIS?: No Plan Discharge Plan: Discharge home with Time Spent: Less than 30 Minutes
== END 2016-09-23 14:52 | disposition home or self-care (01) | DRG 329 ==
LOC: ER 16:35 → EH 19:37 → 5 22:05 → ICU 09-15 16:05 → 5 09-19 23:42
PROVIDERS: ADMIT Internal Medicine; ATTEND Internal Medicine
PROC: 0D1L0Z4 Bypass Transverse Colon to Cutaneous, Open Approach (ICD-10-PCS; 2016-09-15)
PROC: 0W9F30Z Drainage of Abdominal Wall with Drainage Device, Percutaneous Approach (ICD-10-PCS; 2016-09-15)
PROC: 3E1M38Z Irrigation of Peritoneal Cavity using Irrigating Substance, Percutaneous Approach (ICD-10-PCS; 2016-09-15)
PROC: 02HV33Z Insertion of Infusion Device into Superior Vena Cava, Percutaneous Approach (ICD-10-PCS; 2016-09-15)
PROC: B548ZZA Ultrasonography of Superior Vena Cava, Guidance (ICD-10-PCS; 2016-09-15)
PROC: 5A1945Z Respiratory Ventilation, 24-96 Consecutive Hours (ICD-10-PCS; 2016-09-15)
PROC: 0DTG0ZZ Resection of Left Large Intestine, Open Approach (ICD-10-PCS; principal; 2016-09-15 12:15)
DX: K57.20 Diverticulitis of large intestine with perforation and abscess without bleeding (principal); A41.9 Sepsis, unspecified organism; R65.21 Severe sepsis with septic shock; J95.821 Acute postprocedural respiratory failure; G93.40 Encephalopathy, unspecified; E87.1 Hypo-osmolality and hyponatremia; E46 Unspecified protein-calorie malnutrition; T81.31XA Disruption of external operation (surgical) wound, not elsewhere classified, initial encounter; J95.851 Ventilator associated pneumonia; Z68.41 Body mass index [BMI] 40.0-44.9, adult; Y83.8 Other surgical procedures as the cause of abnormal reaction of the patient, or of later complication, without mention of misadventure at the time of the procedure; I10 Essential (primary) hypertension; K59.00 Constipation, unspecified; Z96.642 Presence of left artificial hip joint; E66.01 Morbid (severe) obesity due to excess calories; D50.9 Iron deficiency anemia, unspecified; Z86.010 Personal history of colon polyps; Z80.0 Family history of malignant neoplasm of digestive organs; Z87.891 Personal history of nicotine dependence; Z79.899 Other long term (current) drug therapy
CPT/HCPCS: 00790; 36415; 36600; 70450; 71010; 71020; 71275; 74176; 80048; 80053; 80202; 81001; 82040; 82607; 82728; 82746; 82803; 82962; 83540; 83550; 83605; 83690; 83735; 84100; 84134; 84466; 84478; 85025; 85027; 85045; 85610; 85730; 86256; 86592; 86850; 86900; 86901; 87040; 87070; 87077; 87086; 87186; 87205; 88307; 94002; 94003; 94667; 94668; 94799; 96374; 96375; 99285; C9290; J0131; J0330; J0360; J0610; J0743; J1100; J1170; J1630; J1642; J1644; J1885; J1940; J1956; J2060; J2250; J2270; J2370; J2405; J2543; J2704; J2765; J3010; J3370; J3475; J3490; J7030; J7060; J7620; P9047; S0119; S0164

== ENCOUNTER 2016-11-03 11:42 | Emergency (ER) | payer MEDICAID ==
[2016-11-03] MEDS ORDERED: IPRATROPIUM/ALBUTEROL 0.5-2.5 MG/3 ML AMPUL NEB ONE (12:02)
--- NOTE | 2016-11-03 12:04 | ER Document Report ---
ED Respiratory Problem - General Mode of Arrival: Medic Information source: Patient TRAVEL OUTSIDE OF THE [place] IN LAST 30 DAYS: No - HPI Patient complains to provider of: Short of breath Onset: This morning Context: Recent surgery - Partial Colonic Resection 6 weeks ago secondary to diverticulitis Associated symptoms: Other - see notes above <MINNIE ALLEN - Last Filed: 11/03/16 12:16> <JOSE RICHARD - Last Filed: 11/03/16 18:58> - General Chief Complaint: Shortness Of Breath Stated Complaint: SHORTNESS OF BREATH Notes: 45 year old male with history of a recent colonic resection (6 weeks ago) secondary to diverticulitis presents to the ED via EMS complaining of shortness of breath that started this morning at 0100. Patient reports he woke up with shortness of breath, but reports that it wasn't as bad as it currently is. Patient states that he was having to breath "twice" in rapid succession in order to catch his breath at 0100, but states that it has gotten progressively worse since. Patient reports a mild cough and explains that he is trying to control because of the recent abdominal surgery. Patient denies any calf swelling or tenderness. (MINNIE ALLNE) - Related Data Allergies/Adverse Reactions: amlodipine Allergy (Verified 06/06/16 17:08) hydromorphone [From Dilaudid] Allergy (Verified 11/03/16 13:06) tramadol [From Ultram] Allergy (Verified 11/03/16 13:06) tramadol HCl [From Ultram] Allergy (Verified 06/06/16 11:35) Home Medications: Current Home Medications Atenolol [Tenormin 50 mg Tablet] 50 mg PO Q12 11/03/16 [History] Past Medical History - General Information source: Patient - Social History Smoking Status: Unknown if Ever Smoked Family History: Other - Crohn's disease. Colon cancer. - Past Medical History Cardiac Medical History: Reports: Hx Hypertension Pulmonary Medical History: Renal/ Medical History: Denies: Hx Peritoneal Dialysis GI Medical History: Reports: Hx Diverticulitis Musculoskeltal Medical History: Reports Hx Arthritis - Left hip was replaced due to degenerative joint disease in 2013 Psychiatric Medical History: Denies: Hx Depression Traumatic Medical History: Past Surgical History: Reports: Hx Abdominal Surgery - partial resection of colon; September 2016, Hx Orthopedic Surgery - Left hip replaced, Other - Colonoscopy - Immunizations Hx Diphtheria, Pertussis, Tetanus Vaccination: Yes <MINNIE ALLEN - Last Filed: 11/03/16 12:16> Review of Systems - Review of Systems Constitutional: No symptoms reported EENT: No symptoms reported Cardiovascular: No symptoms reported Respiratory: See HPI, Cough, Short of breath Gastrointestinal: No symptoms reported Genitourinary: No symptoms reported Male Genitourinary: No symptoms reported Musculoskeletal: No symptoms reported. denies: Leg swelling - denies calf swelling or tenderness Skin: No symptoms reported Hematologic/Lymphatic: No symptoms reported Neurological/Psychological: No symptoms reported -: Yes All other systems reviewed and negative <MINNIE ALLEN - Last Filed: 11/03/16 12:16> Physical Exam <MINNIE ALLEN - Last Filed: 11/03/16 12:16> - Vital signs Interpretation: Hypertensive, Tachypneic <JOSE RICHARD - Last Filed: 11/03/16 18:58> - Vital signs Vitals: Resp 24 H 11/03/16 12:18 - Notes Notes: Physical Exam: GENERAL: VS as per nursing doc. Well-appearing, well-nourished and in mild respiratory distress with tachypnea noted, rate 24 HEAD: Atraumatic, normocephalic. EYES: Pupils equal round and reactive to light, extraocular movements intact, sclera anicteric, no conjunctival injection or discharge. ENT: Nares patent, oropharynx clear without exudates. Moist mucous membranes. NECK: Normal range of motion, supple without lymphadenopathy. No JVD. No Carotid Bruits. LUNGS: Breath sounds clear to auscultation bilaterally and equal but diminished significantly. No wheezes rales or rhonchi. HEART: Normal S1S2. Regular rate and rhythm without murmurs. Equal peripheral pulses. ABDOMEN: Soft, non-tender. Colostomy noted left lower quadrant. Well-healing midline incision with some granulated areas but no evidence of infection EXTREMITIES: Normal range of motion. No calf tenderness. Negative Homans. No edema. NEUROLOGICAL: Cranial nerves grossly intact. Normal speech. Normal sensory and motor exams. PSYCH: Normal mood, normal affect. SKIN: Warm, dry, no cyanosis, no splinter hemorrhages. Cap refill < 2 sec. (JOSE RICHARD) Course <MINNIE ALLEN - Last Filed: 11/03/16 12:16> - Laboratory Result Diagrams: 11/03/16 12:46 11/03/16 12:46 - EKG Interpretation by Me EKG shows normal: Sinus rhythm Rate: Normal Rhythm: NSR <JOSE RICHARD - Last Filed: 11/03/16 18:58> - Re-evaluation Re-evalutation: 11/03/16 16:40 Patient is feeling much better overall. He feels the breathing treatment helped him significantly. On recheck still not very good air movement but no wheezing. He is now speaking in long sentences which she was unable to do previously. ABG is still pending. CT scan of the chest was negative for PE. 11/03/16 18:53 On reexam the patient states he feels at baseline. He has been up. Clinically he acts like he has bronchospasm though I'm not noticing the wheezing. As he has improved back to baseline without other cause, we will give him an albuterol MDI here and have him use at home as well as a course of steroids to start tomorrow. He understands warning signs to watch for. Blood pressure is elevated but poorly controlled at home. He reports 180 systolic is not uncommon but I have recommended he get follow-up with his primary care physician for further treatment. (JOSE RICHARD) - Vital Signs Vital signs: Temp Pulse Resp BP Pulse Ox 18 180/98 H 98 11/03/16 17:01 11/03/16 17:01 11/03/16 17:01 - Laboratory Laboratory results interpreted by me: 11/03/16 11/03/16 12:46 12:46 RBC 3.64 L Hgb 12.2 L Hct 36.1 L MCV 99 H RDW 15.9 H Potassium 5.2 H BUN 21 H AST 63 H - EKG Interpretation by Me Additional EKG results interpreted by me: 11/03/16 12:15 No evidence of ischemia, normal QRS (JOSE RICHARD) Discharge <MINNIE ALLEN - Last Filed: 11/03/16 12:16> <JOSE RICHARD - Last Filed: 11/03/16 18:58> - Discharge Clinical Impression: Dyspnea Condition: Good Disposition: HOME, SELF-CARE Instructions: Dyspnea, Nonspecific ([facility]) Additional Instructions: Use the inhaler, albuterol MDI 2 puffs every 6 hours while awake, then as needed after improving. Start the steroid, prednisone tomorrow and complete the course. Please follow-up with your care physician regarding the elevated blood pressure to get better control. Prescriptions: Prednisone [Deltasone 20 mg Tablet] 2 tab PO DAILY 5 Days Forms: Elevated Blood Pressure Scribe Attestation: 11/03/16 18:56 I personally performed the services described in the documentation, reviewed and edited the documentation which was dictated to the scribe in my presence, and it accurately records my words and actions. (JOSE RICHARD) Scribe Documentation - Scribe Written by Se:: Se Villaseñor, 11/03/2016 1231 acting as scribe for :: Fortunato <MINNIE ALLEN - Last Filed: 11/03/16 12:16>
[2016-11-03 12:58] LABS: ABSOLUTE BASOPHILS # (AUTO) 0.1 10^3/uL (0.0-0.2); ABSOLUTE EOSINOPHILS # (AUTO) 0.3 10^3/uL (0.0-0.6); ABSOLUTE LYMPHOCYTES (AUTO) 1.4 10^3/uL (0.5-4.7); ABSOLUTE MONOCYTES (AUTO) 0.7 10^3/uL (0.1-1.4); ABSOLUTE NEUT (AUTO) 6.8 10^3/uL (1.7-8.2); BASOPHILS % (AUTO) 1.3 % (0-2); EOSINOPHILS % (AUTO) 2.8 % (0-6); HEMATOCRIT 36.1 % (37.9-51.0); HEMOGLOBIN 12.2 g/dL (13.5-17.0); HGB HCT DIFFERENCE 0.5; MEAN CORPUSCULAR HEMOGLOBIN 33.4 pg (27.0-33.4); MEAN CORPUSCULAR HGB CONC 33.7 g/dL (32.0-36.0); MEAN CORPUSCULAR VOLUME 99 fl (80-97); MONOCYTES % (AUTO) 7.1 % (3-13); RED BLOOD COUNT 3.64 10^6/uL (4.35-5.55); RED CELL DISTRIBUTION WIDTH 15.9 % (11.5-14.0); SEGMENTED NEUTROPHILS % (AUTO) 73.8 % (42-78); WHITE BLOOD COUNT 9.2 10^3/uL (4.0-10.5)
[2016-11-03 13:24] LABS: ALANINE AMINOTRANSFERASE 51 U/L (21-72); ALBUMIN 4.7 g/dL (3.5-5.0); ALKALINE PHOSPHATASE 102 U/L (38-126); ANION GAP 12 (5-19); ASPARTATE AMINO TRANSFERASE 63 U/L (17-59); BILIRUBIN,DIRECT 0.3 mg/dL (0.0-0.4); BILIRUBIN,TOTAL 0.6 mg/dL (0.2-1.3); BLOOD UREA NITROGEN 21 mg/dL (7-20); CALCIUM 9.9 mg/dL (8.4-10.2); CARBON DIOXIDE 27 mmol/L (22-30); CHLORIDE 104 mmol/L (98-107); CREATININE RESULT 1.01 mg/dL (0.52-1.25); GLUCOSE 101 mg/dL (75-110); POTASSIUM 5.2 mmol/L (3.6-5.0); SODIUM 142.7 mmol/L (137-145); TOTAL PROTEIN 7.9 g/dL (6.3-8.2)
--- NOTE | 2016-11-03 13:27 | EKG REPORT ---
SEVERITY:- NORMAL ECG - SINUS RHYTHM : Confirmed by: Misbah Underwood MD 03-Nov-2016 13:26:39
[2016-11-03] MEDS ORDERED: METHYLPREDNISOLONE INJ 125 MG/2 ML SDV IV ONE (16:41)
[2016-11-03] MEDS ORDERED: ALBUTEROL SULFATE HFA (90 MCG/PUFF) 8 GM MDI (1 MDI/ER DISP) IH ONE (19:02)
[2016-11-03 19:24] VITALS: BP 198/90
== END 2016-11-03 19:00 | disposition home or self-care (01) ==
LOC: ER 11:42
DX: R06.00 Dyspnea, unspecified (principal); R06.02 Shortness of breath; Z79.899 Other long term (current) drug therapy
CPT/HCPCS: 93005; 99285; 36415; 85025; 80053; 84484; 71010; 71275; 93010; 36600; J2930; J3490; J7620

== ENCOUNTER 2017-02-18 11:22 | Day surgery (SDC) | payer MEDICAID ==
[2017-02-11 09:49] LABS: HEMATOCRIT 43.7 % (37.9-51.0); HEMOGLOBIN 14.6 g/dL (13.5-17.0); HGB HCT DIFFERENCE 0.1; MEAN CORPUSCULAR HEMOGLOBIN 32.3 pg (27.0-33.4); MEAN CORPUSCULAR HGB CONC 33.5 g/dL (32.0-36.0); MEAN CORPUSCULAR VOLUME 96 fl (80-97); RED BLOOD COUNT 4.54 10^6/uL (4.35-5.55); RED CELL DISTRIBUTION WIDTH 15.6 % (11.5-14.0); WHITE BLOOD COUNT 6.5 10^3/uL (4.0-10.5)
[2017-02-11 10:30] LABS: ANION GAP 15 (5-19); BLOOD UREA NITROGEN 22 mg/dL (7-20); CALCIUM 9.4 mg/dL (8.4-10.2); CARBON DIOXIDE 24 mmol/L (22-30); CHLORIDE 102 mmol/L (98-107); CREATININE RESULT 1.29 mg/dL (0.52-1.25); GLUCOSE 103 mg/dL (75-110); POTASSIUM 5.4 mmol/L (3.6-5.0); SODIUM 141.3 mmol/L (137-145)
--- NOTE | 2017-02-11 12:03 | EKG REPORT ---
SEVERITY:- NORMAL ECG - SINUS RHYTHM : Confirmed by: Mirtha Paniagua MD 11-Feb-2017 12:03:03
[~2017-02-18 11:22] MED LIST: ACETAMINOPHEN 325 MG TABLET PO PRN; LACTATED RINGERS 1000 ML IV PRN; LIDOCAINE 0.5% INJ-PF (5 MG/ML) 50 ML SDV SUBCUT PRN
[2017-02-18] MEDS ORDERED: MIDAZOLAM 2 MG/2 ML INJ ONE (13:39)
[2017-02-18] MEDS ORDERED: PROPOFOL INJ 200 MG/20 ML VIAL IV ONE ×2 (13:40→15:05)
[2017-02-18] MEDS ORDERED: MORPHINE SULFATE 10 MG/ML INJ IV PRN (15:15)
[2017-02-18] MEDS ORDERED: DIPHENHYDRAMINE HCL 50 MG/ML VIAL IV PRN (15:15)
[2017-02-18] MEDS ORDERED: ONDANSETRON HCL INJ/PF 4 MG/2 ML SDV IV PRN (15:15)
[2017-02-18] MEDS ORDERED: PROMETHAZINE HCL INJ 25 MG/1 ML VIAL IV PRN ×2 (15:15)
[2017-02-18] MEDS ORDERED: OXYCODONE-ACETAMINOPHEN 5-325 MG TABLET PO PRN ×2 (15:15)
[2017-02-18] MEDS ORDERED: MEPERIDINE HCL/PF INJ 25 MG/1 ML DISP.SYRIN IV PRN (15:15)
[2017-02-18] MEDS ORDERED: FENTANYL CITRATE INJ/PF 100 MCG/2 ML AMPUL IV PRN ×3 (15:15)
--- NOTE | 2017-02-18 15:18 | Operative Report ---
Operative Report DATE OF SURGERY: 02/18/17 PREOPERATIVE DIAGNOSIS: Status post sigmoid colectomy, colostomy, and Latham's procedure for complicated diverticulitis POSTOPERATIVE DIAGNOSIS: Same with internal hemorrhoids;. Mild diversion proctitis OPERATION: 1. Colonoscopy through descending colostomy to cecum. 2. Flexible endoscopic evaluation of the Marlyn stump-anorectal canal TISSUE REMOVED OR ALTERED: None COMPLICATIONS: None ESTIMATED BLOOD LOSS: None INTRAOPERATIVE FINDINGS: See below PROCEDURE: Obtaining informed consent the patient was taken from the preoperative holding area to the main endoscopy suite where monitoring devices were attached to the patient. Plan and surgical timeout were conducted The patient was placed in the supine position. Appropriate level of sedation achieved. Appliance bag removed from descending colostomy. The colostomy was pink, and visualized with index finger and found to have no evidence of stenosis although there was a sharp curve to the colon just at the level of the fascia. The flexible pediatric colonoscope was advanced all the way to the cecum. Remarkably this is a very short: With only about 50 cm of the colonoscope advanced to achieve visualization of the appendiceal orifice, and achieved transillumination anterior abdominal wall in the right lower quadrant confirming cecal intubation. The bowel prep was fair. There was still a moderate amount of liquid yellow stool The scope was withdrawn to lengthen the colon checked the mucosa carefully. There is no evidence of tumor stricture bleeding or polyp. In addition there was no evidence of residual diverticular disease. The scope was withdrawn to the ostomy and the ostomy appliance bag reestablished We now placed the patient in the left lateral decubitus position. Rectal exam was performed. There was no visible or palpable anorectal pathology The flexible adult colonoscope was advanced through the anorectal canal to the staple line which is approximately 21 cm from anal verge. Staple line was intact. There was some inspissated mucus but otherwise no findings. The scope was withdrawn to the anus. No other pathology seen. Patient tolerated procedure well. Patient will be an appropriate candidate for surveillance colonoscopy in 10 years. Arrangements will be made for planned colostomy takedown in the future.
[2017-02-18 17:13] VITALS: BP 160/87
== END 2017-02-18 17:00 | disposition home or self-care (01) ==
LOC: END 11:22
PROVIDERS: ATTEND Surgery
PROC: 0DJD8ZZ Inspection of Lower Intestinal Tract, Via Natural or Artificial Opening Endoscopic (ICD-10-PCS; principal; 2017-02-18 13:30)
DX: K57.32 Diverticulitis of large intestine without perforation or abscess without bleeding (principal); K64.8 Other hemorrhoids; M19.90 Unspecified osteoarthritis, unspecified site; I10 Essential (primary) hypertension; K62.89 Other specified diseases of anus and rectum; E66.9 Obesity, unspecified; Z87.891 Personal history of nicotine dependence; Z88.5 Allergy status to narcotic agent; Z79.1 Long term (current) use of non-steroidal anti-inflammatories (NSAID)
CPT/HCPCS: 45378; 44388; 93005; 36415 ×2; 84132; 85027; 80048; 93010; J2250; J2704; 810

== ENCOUNTER 2018-03-10 13:21 | Emergency (ER) | payer SELFPAY ==
[2018-03-10] MEDS ORDERED: ONDANSETRON HCL INJ/PF 4 MG/2 ML SDV IV ONE (13:34)
[2018-03-10] MEDS ORDERED: NORMAL SALINE 1000 ML 1,000 ML IV ONE (13:34)
[2018-03-10] MEDS ORDERED: IPRATROPIUM/ALBUTEROL 0.5-2.5 MG/3 ML AMPUL NEB ONE (13:36)
--- NOTE | 2018-03-10 13:37 | ER Document Report ---
ED Medical Screen (RME) - General Chief Complaint: Abdominal Pain Stated Complaint: ABDOMINAL PAIN Time Seen by Provider: 03/10/18 13:33 Notes: 47 years old male with a history of left sided colostomy bag, due to diverticulitis as well as colon resection in the past. Was having some upper respiratory tract infection was coughing and wheezing on and off and develop sharp pain over the mid abdominal region and therefore presented to the ED. No fever but chilling on and off. Denies any nausea vomiting diarrhea. Denies any dysuria or frequency but small amount of urine. On examination obesity colostomy back in position but swelling around the colostomy bag noted. Lungs-expiratory rhonchi as well the lower lung base. TRAVEL OUTSIDE OF THE [place] IN LAST 30 DAYS: No - Related Data Allergies/Adverse Reactions: amlodipine Allergy (Verified 02/18/17 11:46) hydromorphone [From Dilaudid] Allergy (Verified 02/18/17 11:46) tramadol [From Ultram] Allergy (Verified 02/18/17 11:46) tramadol HCl [From Ultram] Allergy (Verified 02/18/17 11:46) Past Medical History - Past Medical History Cardiac Medical History: Reports: Hx Hypertension Denies: Hx Coronary Artery Disease, Hx Heart Attack Pulmonary Medical History: Denies: Hx Asthma, Hx Bronchitis, Hx COPD, Hx Pneumonia Neurological Medical History: Reports: Hx Seizures - x1 at age 19. Denies: Hx Cerebrovascular Accident Renal/ Medical History: Denies: Hx Peritoneal Dialysis GI Medical History: Reports: Hx Diverticulitis Musculoskeltal Medical History: Reports Hx Arthritis - DJD Psychiatric Medical History: Denies: Hx Depression Traumatic Medical History: Past Surgical History: Reports: Hx Abdominal Surgery - partial resection of colon; September 2016, Hx Orthopedic Surgery - Left hip replaced, Other - Colonoscopy - Immunizations Hx Diphtheria, Pertussis, Tetanus Vaccination: - UNSURE Physical Exam - Vital signs Vitals: Temp Pulse Resp BP Pulse Ox 98.6 F 107 H 18 187/110 H 94 03/10/18 13:26 03/10/18 13:26 03/10/18 13:26 03/10/18 13:03/10/18 13:26 Course - Vital Signs Vital signs: Temp Pulse Resp BP Pulse Ox 98.6 F 107 H 18 187/110 H 94 03/10/18 13:26 03/10/18 13:26 03/10/18 13:26 03/10/18 13:26 03/10/18 13:26
[2018-03-10] MEDS ORDERED: FENTANYL CITRATE INJ/PF 100 MCG/2 ML AMPUL IV ONE ×2 (14:03→14:45)
[2018-03-10 14:46] LABS: ABSOLUTE BASOPHILS # (AUTO) 0.1 10^3/uL (0.0-0.2); ABSOLUTE EOSINOPHILS # (AUTO) 0.1 10^3/uL (0.0-0.6); ABSOLUTE LYMPHOCYTES (AUTO) 1.6 10^3/uL (0.5-4.7); ABSOLUTE MONOCYTES (AUTO) 0.7 10^3/uL (0.1-1.4); ABSOLUTE NEUT (AUTO) 7.8 10^3/uL (1.7-8.2); BASOPHILS % (AUTO) 0.7 % (0-2); EOSINOPHILS % (AUTO) 1.4 % (0-6); HEMATOCRIT 45.7 % (37.9-51.0); HEMOGLOBIN 15.9 g/dL (13.5-17.0); LYMPHOCYTES % (AUTO) 15.8 % (13-45); MEAN CORPUSCULAR HEMOGLOBIN 35.5 pg (27.0-33.4); MEAN CORPUSCULAR HGB CONC 34.9 g/dL (32.0-36.0); MEAN CORPUSCULAR VOLUME 102 fl (80-97); MONOCYTES % (AUTO) 6.5 % (3-13); PLATELET COUNT 251 10^3/uL (150-450); RED BLOOD COUNT 4.49 10^6/uL (4.35-5.55); RED CELL DISTRIBUTION WIDTH 15.7 % (11.5-14.0); SEGMENTED NEUTROPHILS % (AUTO) 75.6 % (42-78); TOTAL CELLS COUNTED % (AUTO) 100 %; WHITE BLOOD COUNT 10.3 10^3/uL (4.0-10.5)
[2018-03-10] MEDS ORDERED: FENTANYL CITRATE INJ/PF 100 MCG/2 ML AMPUL ONE (14:58)
[2018-03-10 15:20] LABS: ALANINE AMINOTRANSFERASE 36 U/L (21-72); ALBUMIN 4.4 g/dL (3.5-5.0); ALKALINE PHOSPHATASE 94 U/L (38-126); ANION GAP 16 (5-19); ASPARTATE AMINO TRANSFERASE 109 U/L (17-59); BILIRUBIN,DIRECT 0.5 mg/dL (0.0-0.4); BILIRUBIN,TOTAL 0.5 mg/dL (0.2-1.3); BLOOD UREA NITROGEN 10 mg/dL (7-20); CALCIUM 9.1 mg/dL (8.4-10.2); CARBON DIOXIDE 29 mmol/L (22-30); CHLORIDE 92 mmol/L (98-107); GLUCOSE 90 mg/dL (75-110); LIPASE 435.6 U/L (23-300); SODIUM 137.4 mmol/L (137-145); TOTAL PROTEIN 8.5 g/dL (6.3-8.2)
[2018-03-10 15:51] LABS: APPEARANCE,URINE SLIGHTLY-CLOUDY; BILIRUBIN,URINE NEGATIVE (NEGATIVE); COLOR,URINE YELLOW; GLUCOSE, URINE NEGATIVE (NEGATIVE); KETONES,URINE NEGATIVE (NEGATIVE); LEUKOCYTE ESTERASE,URINE NEGATIVE (NEGATIVE); NITRITE,URINE NEGATIVE (NEGATIVE); PROTEIN,URINE 100 mg/dL (NEGATIVE); URINE SPECIFIC GRAVITY 1.013
[2018-03-10] MEDS ORDERED: MORPHINE SULFATE 10 MG/ML INJ IV ONE (16:27)
--- NOTE | 2018-03-10 16:33 | ER Document Report ---
ED GI/ - General Chief Complaint: Abdominal Pain Stated Complaint: ABDOMINAL PAIN Time Seen by Provider: 03/10/18 13:33 Notes: Patient is complaining of severe abdominal pains. It began about 3 days ago in the suprapubic region of the abdomen. Patient has had a history of diverticulitis about a year and a half ago requiring surgery and the pain on that occasion was in the same location as this pain today. Patient has a colostomy. He says he noticed it enlarging about a month ago and saw his primary care physician who told him it looked like he was beginning to develop a hernia. Patient says that he coughed yesterday and felt a "pop" in the mid abdomen region and since then, his pain is increased significantly and the size of the colostomy site has enlarged as well. Patient says he is vomited each morning for the last 3 days. Has also noticed he is having urinary frequency at night for the last 3 nights. TRAVEL OUTSIDE OF THE [place] IN LAST 30 DAYS: No - Related Data Allergies/Adverse Reactions: amlodipine Allergy (Verified 02/18/17 11:46) hydromorphone [From Dilaudid] Allergy (Verified 02/18/17 11:46) tramadol [From Ultram] Allergy (Verified 02/18/17 11:46) tramadol HCl [From Ultram] Allergy (Verified 02/18/17 11:46) Past Medical History - Social History Smoking Status: Current Every Day Smoker Family History: Reviewed & Not Pertinent, Other - Crohn's disease. Colon cancer. Patient has suicidal ideation: No Patient has homicidal ideation: No - Past Medical History Cardiac Medical History: Reports: Hx Hypertension Pulmonary Medical History: Neurological Medical History: Reports: Hx Seizures - x1 at age 19 Endocrine Medical History: Denies: Hx Diabetes Mellitus Type 1, Hx Diabetes Mellitus Type 2 GI Medical History: Reports: Hx Diverticulitis Musculoskeletal Medical History: Reports Hx Arthritis - DJD Traumatic Medical History: Past Surgical History: Reports: Hx Abdominal Surgery - partial resection of colon; September 2016, colostomy, Hx Orthopedic Surgery - Left hip replaced, Other - Colonoscopy - Immunizations Hx Diphtheria, Pertussis, Tetanus Vaccination: - UNSURE Review of Systems - Review of Systems Notes: REVIEW OF SYSTEMS: CONSTITUTIONAL : Denies fever. EENT: Denies eye, ear, nose or mouth or throat pain or other symptoms. CARDIOVASCULAR: Denies chest pain. RESPIRATORY: Denies cough, chest congestion, or shortness of breath. GASTROINTESTINAL: See HPI. GENITOURINARY: Has urinary frequency but denies difficulty or painful urinating , blood in urine. MUSCULOSKELETAL: Denies back or neck pain. Denies joint pain or swelling. SKIN: Denies rash or skin lesions. NEUROLOGICAL: Denies LOC or altered mental status. Denies headache. Denies sensory loss or motor deficits. ALL OTHER SYSTEMS REVIEWED AND NEGATIVE. Physical Exam - Vital signs Vitals: Temp Pulse Resp BP Pulse Ox 98.6 F 107 H 18 187/110 H 94 03/10/18 13:26 03/10/18 13:26 03/10/18 13:26 03/10/18 13:26 03/10/18 13:26 Interpretation: Hypertensive - Mild, Tachycardic - Notes Notes: PHYSICAL EXAMINATION: GENERAL: Well-appearing, appears to be in pain. HEAD: Atraumatic, normocephalic. EYES: Pupils equal round and reactive to light, extraocular movements intact. ENT: oropharynx clear without exudates. Moist mucous membranes. NECK: Normal range of motion, supple. LUNGS: Breath sounds clear and equal bilaterally. HEART: Regular rate and rhythm without murmurs. ABDOMEN: Colostomy in the left lower quadrant of the abdomen which appears to be functioning normally. Patient's obesity makes it difficult to properly evaluate and assess the intra-abdominal situation. BACK: No tenderness throughout entire back. EXTREMITIES: Normal range of motion without pain. NEUROLOGICAL: Normal speech, normal gait. Normal sensory, motor, and reflex exams. Awake, alert, and oriented x3. Cranial nerves normal. PSYCH: Normal mood, normal affect. SKIN: Warm, dry, no rashes. Course - Re-evaluation Re-evalutation: 03/10/18 18:43 Dr. Claudio, surgeon production planning supervisor, was contacted and asked to evaluate the patient. He did come and examined the patient and reviewed the CT scan and said the patient has a parastomal hernia that does not require any surgical intervention at this time. He recommended the patient follow-up in their office to schedule for a reversing procedure of his colostomy. - Vital Signs Vital signs: Temp Pulse Resp BP Pulse Ox 98.8 F 107 H 18 156/115 H 94 03/10/18 18:27 03/10/18 13:26 03/10/18 18:27 03/10/18 18:27 03/10/18 18:27 - Laboratory Result Diagrams: 03/10/18 14:02 03/10/18 14:02 Laboratory results interpreted by me: 03/10/18 03/10/18 03/10/18 14:02 14:02 15:25 MCV 102 H MCH 35.5 H RDW 15.7 H Chloride 92 L Direct Bilirubin 0.5 H AST 109 H Total Protein 8.5 H Lipase 435.6 H Urine Protein 100 H Urine Urobilinogen 2.0 H - Diagnostic Test Radiology reviewed: Image reviewed, Reports reviewed - CT scan of the abdomen reveals no acute process or obstruction or blockage. Patient has gas pattern suggestive of hernia in the parastomal area. Discharge - Discharge Clinical Impression: Parastomal hernia Qualifiers: Obstruction and gangrene presence: without obstruction or gangrene Qualified Code(s): K43.5 - Parastomal hernia without obstruction or gangrene Condition: Stable Additional Instructions: Hernia You have a hernia. A hernia forms at a weak spot in the abdominal wall. Bowel slips out of the abdominal cavity into the weak spot. Hernias tend to occur in the groin (especially in males), the fold of the thigh, the naval, or at a surgical scar. Surgical repair of the defect is usually necessary. The problem tends to get worse. It's important that you follow up as recommended. For now, you should avoid straining, heavy lifting, and vigorous exercise. Complications occur if the hernia becomes tightly stuck. You should come back immediately if the area becomes increasingly painful, swollen, or discolored, or if you develop abdominal pain and vomiting. ABDOMINAL PAIN: There are many causes of abdominal pain. Pain can mean a serious problem requiring surgery (such as appendicitis). It can also be an innocent problem that goes away on its own (such as a viral infection). Often, time must pass to determine the cause of pain. The physician does not feel that hospitalization is necessary, at present. Things may change within the next 24 hours. Call the doctor or come back for re- examination if any problems occur, such as: (1) Pain that becomes more severe, steady, or becomes concentrated in one specific area. Also, pain that is more severe with movement or coughing. (2) Vomiting that persists or becomes more frequent. (3) Blood in the vomitus, urine, or bowel movements. Blood in the stool may have a tarry or black appearance. (4) Shaking chills or fever greater than 100 degrees F. (5) The abdomen becomes more distended or swollen. (6) Bowel movements cease. (7) Failure to improve as expected. NORMAL EXAM AND WORKUP: At this time, except for a hernia around your colostomy, your examination and workup show no significant abnormality. No significant abnormal physical findings are noted. All laboratory, EKG, and imaging (x-ray, CT scans, ultrasound) studies that were ordered show no significant abnormality. Although your examination and all studies that were ordered showed no significant abnormal finding, there are no examinations and no studies that are 100% accurate. There is always the possibility that some abnormality could exist and not be detected with physical examination or within the limits and capabilities of laboratory and other studies. You should return or follow up as you were instructed on your visit today for further evaluation if your symptoms do not resolve. PAIN MEDICATION INJECTION: You have received an injection of a pain medication. You should experience significant pain relief within 45 minutes. This drug is a narcotic - - it will impair your judgement, slow your reaction time and make you sleepy ( as well as relieve your pain). Narcotics also can cause nausea. You should not drive, work with machinery, or perform any task requiring mental alertness until all effects of the medication are gone -- six to eight hours. Do not take any alcohol, or sedatives, and do not take any other medication without checking with your physician. ANTINAUSEA MEDICATION: You have been given a medication to suppress nausea and vomiting. This type of medication can be given as a shot, pill, or suppository. It will usually last for many hours. Pills and shots usually last six to eight hours, suppositories last about 12 hours. For the typical illness, only one or two doses of the medication may be necessary. Mild lightheadedness may occur. This type of medicine can cause drowsiness. Do not drive or operate dangerous machinery while under its influence. Do not mix with alcohol. See your doctor at once if you have muscle spasms or tightness, or uncontrollable motions (particularly of the neck, mouth, or jaw). Persistent vomiting or severe lightheadedness should also be evaluated by the physician. ORAL NARCOTIC MEDICATION: You have been given a prescription for pain control. This medication is a narcotic. It's best taken with food, as nausea can result if taken on an empty stomach. Don't operate machinery or drive within six hours of taking this medication. Do not combine this medicine with alcohol, or with any medication which can cause sedation (such as cold tablets or sleeping pills) unless you get permission from the physician. Narcotics tend to cause constipation. If possible, drink plenty of fluids and eat a diet high in fiber and fruits. FOLLOW-UP CARE: If you have been referred to a physician for follow-up care, call the physician s office for an appointment as you were instructed or within the next two days. If you experience worsening or a significant change in your symptoms, notify the physician immediately or return to the Emergency Department at any time for re-evaluation. Follow-up at the surgeon's office to see if you can schedule to have your hernia repaired and your colostomy reversed. Prescriptions: Hydromorphone HCl [Dilaudid 2 mg Tablet] 2 mg PO Q4HP PRN #20 tablet PRN Reason:
--- NOTE | 2018-03-10 16:41 | RADIOLOGY REPORT (SQ) ---
EXAM DESCRIPTION: CT ABD/PELVIS WITH IV ONLY COMPLETED DATE/TIME: 03/10/2018 4:27 pm REASON FOR STUDY: Acute abdominal pain COMPARISON: 2015. TECHNIQUE: CT scan of the abdomen and pelvis performed using helical scanning technique with dynamic intravenous contrast injection. No oral contrast. Images reviewed with lung, soft tissue, and bone windows. Reconstructed coronal and sagittal MPR images reviewed. Delayed images for evaluation of the urinary system also acquired. All images stored on PACS. All CT scanners at this facility use dose modulation, iterative reconstruction, and/or weight based d osing when appropriate to reduce radiation dose to as low as reasonably achievable (ALARA). [facility]: Dose Right [facility]: CareDose [facility]: Dose Right [facility]: Teradose 4D [facility]: Cardiovascular Systems CONTRAST TYPE AND DOSE: contrast/concentration: Isovue 350.00 mg/ml; Total Contrast Delivered: 100.0 ml; Total Saline Delivered: 50.0 ml RENAL FUNCTION: Creatinine 1.1 RADIATION DOSE: CT Rad equipment meets quality standard of care and radiation dose reduction techniq ues were employed. CTDIvol: 20.8 - 21.1 mGy. DLP: 2198 mGy-cm.. LIMITATIONS: None. FINDINGS: LOWER CHEST: No significant findings. No nodules or infiltrates. LIVER: Diffuse steatosis. SPLEEN: Normal size. No focal lesions. PANCREAS: No masses. No significant calcifications. No adjacent inflammation or peripancreatic fluid collections. Pancreatic duct not dilated. GALLBLADDER: No identified stones by CT criteria. No inflammatory changes to suggest cholecystitis. ADRENAL GLANDS: No significant masses or asymmetry. RIGHT KIDNEY AND URETER: No solid masses. No significant calcification. No hydronephrosis or hydroure ter. LEFT KIDNEY AND URETER: No solid masses. No significant calcification. No hydronephrosis or hydrouret er. AORTA AND VESSELS: No aneurysm. No dissection. Renal arteries, SMA, celiac without stenosis. RETROPERITONEUM: No retroperitoneal adenopathy, hemorrhage or masses. BOWEL AND PERITONEAL CAVITY: Status post distal colectomy with left lower quadrant ostomy. Numerous small bowel loops are herniated through the ostomy defect. No mechanical bowel obstruction or inflam matory changes. No visualize rectal mass. No ascites or abnormal gas. . APPENDIX: Normal. PELVIS: Mildly limited by streak artifact related to a left hip replacement. No gross mass or fluid. Relatively empty bladder. ABDOMINAL WALL: As above. Small fat containing supraumbilical hernia also noted. No drainable fluid collections or soft tissue mass in the abdominal wall. BONES: No significant or acute findings. OTHER: No other significant finding. IMPRESSION: 1. No acute or suspicious abdominopelvic abnormality appreciated. Postoperative changes as discussed. TECHNICAL DOCUMENTATION: JOB ID: [id number] Quality ID # [id number]: Final reports with documentation of one or more dose reduction techniques (e.g., Au tomated exposure control, adjustment of the mA and/or kV according to patient size, use of iterative reconstruction technique) 2010 [employer]- All Rights Reserved Reading location - IP/workstation name: [email or web address]
--- NOTE | 2018-03-10 17:42 | PDOC CONSULTATION ---
Consultation Consult Date: 03/10/18 Consult reason:: Parastomal hernia History of Present Illness History of Present Illness: PIPE RESENDIZ IV is a 47 year old male seen in consultation at the request of the emergency room physicians. There is a 47-year-old male who is approximately 1 year status post Latham's procedure for perforated diverticulitis. The patient reports increasing amounts of pain and bulging around his colostomy site. The patient denies nausea, vomiting, fevers, chills , dizziness, orthostasis, chest pain, shortness of breath. Pain is sharp and stabbing. It is situated around his colostomy site and is midline scar. He does report a bulge that is worsening. Nothing makes his pain better. Movement and lifting make his pain worse. Past Medical History Cardiac Medical History: Reports: Hypertension Denies: Coronary Artery Disease, Myocardial Infarction Pulmonary Medical History: Denies: Asthma, Bronchitis, Chronic Obstructive Pulmonary Disease (COPD), Pneumonia Neurological Medical History: Reports: Seizures - x1 at age 19 Endocrine Medical History: Denies: Diabetes Mellitus Type 1, Diabetes Mellitus Type 2 GI Medical History: Reports: Diverticulitis Musculoskeltal Medical History: Reports: Arthritis - DJD Psychiatric Medical History: Denies: Depression Hematology: Denies: Anemia Past Surgical History Past Surgical History: Reports: Orthopedic Surgery - Left hip replaced, Other - Colonoscopy, Latham's procedure Social History Smoking Status: Current Every Day Smoker Frequency of Alcohol Use: Occasional Hx Recreational Drug Use: Yes Drugs: Marijuana Hx Prescription Drug Abuse: No Family History Family History: Reviewed & Not Pertinent, Other - Crohn's disease. Colon cancer. Parental Family History Reviewed: Yes Children Family History Reviewed: Yes Sibling(s) Family History Reviewed.: Yes Medication/Allergy Home Medications: Atenolol [Tenormin 50 mg Tablet] 50 mg PO Q12 11/03/16 Allergies/Adverse Reactions: amlodipine Allergy (Verified 02/18/17 11:46) hydromorphone [From Dilaudid] Allergy (Verified 02/18/17 11:46) tramadol [From Ultram] Allergy (Verified 02/18/17 11:46) tramadol HCl [From Ultram] Allergy (Verified 02/18/17 11:46) Review of Systems Constitutional: ABSENT: anorexia, chills, fatigue, fever(s), headache(s) Eyes: ABSENT: visual disturbances Ears: ABSENT: hearing changes Nose, Mouth, and Throat: ABSENT: sore throat Cardiovascular: ABSENT: chest pain, dyspnea on exertion Respiratory: ABSENT: cough, dyspnea Gastrointestinal: PRESENT: abdominal pain. ABSENT: constipation, diarrhea, heartburn, melena, nausea Musculoskeletal: ABSENT: back pain, deformity Integumentary: PRESENT: rash - Parastomal Neurological: ABSENT: abnormal movements, abnormal speech, confusion, convulsions, dizziness, memory loss, numbness Psychiatric: PRESENT: anxiety, depression. ABSENT: hallucinations Endocrine: ABSENT: cold intolerance, heat intolerance Hematologic/Lymphatic: ABSENT: easy bleeding, easy bruising Physical Exam Vital Signs: Temp Pulse Resp BP Pulse Ox 98.6 F 107 H 18 187/110 H 94 03/10/18 13:26 03/10/18 13:26 03/10/18 13:26 03/10/18 13:26 03/10/18 13:26 Intake & Output 03/09/18 03/10/18 03/11/18 06:59 06:59 06:59 Weight 121 kg General appearance: PRESENT: no acute distress Head exam: PRESENT: atraumatic, normocephalic Eye exam: PRESENT: EOMI, PERRLA. ABSENT: scleral icterus Mouth exam: ABSENT: neck supple Neck exam: ABSENT: lymphadenopathy, meningismus, tenderness, thyromegaly, tracheal deviation Respiratory exam: PRESENT: clear to auscultation blair. ABSENT: chest wall tenderness, rales, rhonchi Cardiovascular exam: PRESENT: RRR Pulses: PRESENT: normal radial pulses Vascular exam: PRESENT: normal capillary refill. ABSENT: pallor GI/Abdominal exam: PRESENT: hernia - Parastomal, soft, tenderness - Mild. ABSENT: guarding Rectal exam: PRESENT: deferred Extremities exam: ABSENT: clubbing Musculoskeletal exam: ABSENT: deformity, tenderness Neurological exam: PRESENT: alert, awake, oriented to person, oriented to place , oriented to time, oriented to situation, CN II-XII grossly intact. ABSENT: motor sensory deficit Psychiatric exam: PRESENT: anxious Focused psych exam: ABSENT: delusional Skin exam: ABSENT: cyanosis, erythema, jaundice Results Laboratory Results: 03/10/18 14:02 03/10/18 14:02 03/10/18 03/10/18 03/10/18 14:02 14:02 15:25 WBC 10.3 RBC 4.49 Hgb 15.9 Hct 45.7 MCV 102 H MCH 35.5 H MCHC 34.9 RDW 15.7 H Plt Count 251 Seg Neutrophils % 75.6 Lymphocytes % 15.8 Monocytes % 6.5 Eosinophils % 1.4 Basophils % 0.7 Absolute Neutrophils 7.8 Absolute Lymphocytes 1.6 Absolute Monocytes 0.7 Absolute Eosinophils 0.1 Absolute Basophils 0.1 Sodium 137.4 Potassium 4.0 Chloride 92 L Carbon Dioxide 29 Anion Gap 16 BUN 10 Creatinine 1.10 Est GFR ( Amer) > 60 Est GFR (Non-Af Amer) > 60 Glucose 90 Calcium 9.1 Total Bilirubin 0.5 AST 109 H ALT 36 Alkaline Phosphatase 94 Total Protein 8.5 H Albumin 4.4 Lipase 435.6 H Urine Color YELLOW Urine Appearance SLIGHTLY-CLOUDY Urine pH 6.0 Ur Specific [place] 1.013 Urine Protein 100 H Urine Glucose (UA) NEGATIVE Urine Ketones NEGATIVE Urine Blood NEGATIVE Urine Nitrite NEGATIVE Ur Leukocyte Esterase NEGATIVE Urine WBC (Auto) 1 Urine RBC (Auto) 0 Impressions: Abdomen/Pelvis CT 03/10/18 13:34 IMPRESSION: 1. No acute or suspicious abdominopelvic abnormality appreciated. Postoperative changes as discussed. Assessment & Plan - Diagnosis (1) Parastomal hernia Qualifiers: Obstruction and gangrene presence: without obstruction or gangrene Qualified Code(s): K43.5 - Parastomal hernia without obstruction or gangrene Is this a current diagnosis for this admission?: Yes - Plan Summary Plan Summary: There is a 47-year-old male 1 year status post Latham's procedure. The patient has an enlarging parastomal hernia. It has been present for many months. The patient reports that it is enlarging, and his pain is worsening. The patient underwent colonoscopy last year by Dr. Cowan. I will have the patient return to the office, so that colostomy reversal with parastomal hernia repair can be scheduled. The patient has no evidence of acute abdomen, obstruction, or strangulation. I recommend outpatient follow-up for the patient. The patient is in agreement with the treatment plan. Disposition per the emergency room physician.
[2018-03-10 18:28] VITALS: BP 156/115
== END 2018-03-10 19:16 | disposition home or self-care (01) ==
LOC: ER 13:21
DX: K43.5 Parastomal hernia without obstruction or gangrene (principal); R10.9 Unspecified abdominal pain; R05 Cough; R35.0 Frequency of micturition; R00.0 Tachycardia, unspecified; I10 Essential (primary) hypertension; Z93.3 Colostomy status; F17.200 Nicotine dependence, unspecified, uncomplicated
CPT/HCPCS: 99285; 96374; 96375; 36415; 83690; 85025; 80053; 81001; 74177; J3010; J2270; J2405; J7030

== ENCOUNTER 2018-05-31 12:47 | Emergency (ER) | payer SELFPAY ==
[2018-05-31] MEDS ORDERED: ONDANSETRON HCL INJ/PF 4 MG/2 ML SDV IV ONE (13:38)
[2018-05-31] MEDS ORDERED: NORMAL SALINE 1000 ML 1,000 ML IV ONE ×3 (13:38→16:07)
--- NOTE | 2018-05-31 13:40 | ER Document Report ---
ED Medical Screen (RME) - General Chief Complaint: Abdominal Pain Stated Complaint: ABDOMINAL PAIN Time Seen by Provider: 05/31/18 13:36 Mode of Arrival: Wheelchair Information source: Patient Notes: Patient is a 47-year-old male who presents to the emergency permit with chief complaint of abdominal pain. Patient reports over the last 4 days he has been having increasing pain to his abdomen, he describes it as a generalized pain. He has associated nausea with vomiting. He reports that he has had bright red blood in his vomit. He states that he has an ostomy that was placed [address] Cowan. Patient reports that he currently has multiple hernias in his abdomen he states these are getting worse. He reports 2 days ago he went on a drinking binge and drank between 1 and 2 pints of liquor, he states he has had bright red blood in his ostomy. Patient also reports increased in his fatigue lately and dizziness. Exam: Abdomen large, round, tender, ostomy noted to left lower quadrant. I have greeted and performed a rapid initial assessment of this patient. A comprehensive ED assessment and evaluation of the patient, analysis of test results and completion of the medical decision making process will be conducted by additional ED providers. Dictation of this chart was performed using voice recognition software; therefore, there may be some unintended grammatical errors. TRAVEL OUTSIDE OF THE [place] IN LAST 30 DAYS: No - Related Data Allergies/Adverse Reactions: amlodipine Allergy (Verified 05/31/18 12:48) hydromorphone [From Dilaudid] Allergy (Verified 05/31/18 12:48) tramadol [From Ultram] Allergy (Verified 05/31/18 12:48) tramadol HCl [From Ultram] Allergy (Verified 05/31/18 12:48) Past Medical History - Past Medical History Cardiac Medical History: Reports: Hx Hypertension Denies: Hx Coronary Artery Disease, Hx Heart Attack Pulmonary Medical History: Denies: Hx Asthma, Hx Bronchitis, Hx COPD, Hx Pneumonia Neurological Medical History: Reports: Hx Seizures - x1 at age 19. Denies: Hx Cerebrovascular Accident Endocrine Medical History: Denies: Hx Diabetes Mellitus Type 1, Hx Diabetes Mellitus Type 2 Renal/ Medical History: Denies: Hx Peritoneal Dialysis GI Medical History: Reports: Hx Diverticulitis Musculoskeltal Medical History: Reports Hx Arthritis - DJD Psychiatric Medical History: Denies: Hx Depression Traumatic Medical History: Past Surgical History: Reports: Hx Abdominal Surgery - partial resection of colon; September 2016, colostomy, Hx Orthopedic Surgery - Left hip replaced, Other - Colonoscopy - Immunizations Hx Diphtheria, Pertussis, Tetanus Vaccination: - UNSURE Physical Exam - Vital signs Vitals: Temp Pulse Resp BP Pulse Ox 97.8 F 105 H 18 147/86 H 96 05/31/18 12:49 05/31/18 12:49 05/31/18 12:49 05/31/18 12:49 05/31/18 12:49 Course - Vital Signs Vital signs: Temp Pulse Resp BP Pulse Ox 97.8 F 105 H 18 147/86 H 96 05/31/18 12:49 05/31/18 12:49 05/31/18 12:49 05/31/18 12:49 05/31/18 12:49
[2018-05-31] MEDS ORDERED: DICYCLOMINE HCL INJ 20 MG/2 ML AMPULE IM ONE (14:59)
[2018-05-31] MEDS ORDERED: MORPHINE SULFATE 10 MG/ML INJ IV ONE ×2 (14:59→17:45)
[2018-05-31] MEDS ORDERED: PANTOPRAZOLE SODIUM 40 MG VIAL IV ONE (15:01)
--- NOTE | 2018-05-31 15:24 | ER Document Report ---
ED General - General Chief Complaint: Abdominal Pain Stated Complaint: ABDOMINAL PAIN Time Seen by Provider: 05/31/18 13:36 Mode of Arrival: Wheelchair TRAVEL OUTSIDE OF THE [place] IN LAST 30 DAYS: No - HPI Patient complains to provider of: Abdominal pain Notes: Patient coming in for evaluation of abdominal pain. Patient states abdominal pain ongoing for the last 4 days. Patient was seen by triage provider note is provided below Patient is a 47-year-old male who presents to the emergency permit with chief complaint of abdominal pain. Patient reports over the last 4 days he has been having increasing pain to his abdomen, he describes it as a generalized pain. He has associated nausea with vomiting. He reports that he has had bright red blood in his vomit. He states that he has an ostomy that was placed [address] Cowan. Patient reports that he currently has multiple hernias in his abdomen he states these are getting worse. He reports 2 days ago he went on a drinking binge and drank between 1 and 2 pints of liquor, he states he has had bright red blood in his ostomy. Patient also reports increased in his fatigue lately and dizziness. Patient states he recently has been binge drinking because of social events states that him and his have complicated relationship increase in stress patient states his been drinking between 1-2 pints of liquor. Patient also states during this time having abdominal pain is unable to eat any food. Patient states once he takes to 3 bites of food he feels very sick to the stomach nauseous however does state that he has been able to drink his alcohol. Patient has a history of diverticulitis requiring diverting colostomy due to the diverticulitis infection. Patient states the does not have any follow-up with primary care physician does not see the surgical care clinic. Patient states he did have possibly some blood in the ostomy this morning also along with one time of vomiting small amount of blood. Patient does have a history of hernias along the ostomy sites and surgical sites patient denies any decrease in his ostomy output. Patient otherwise is resting comfortably talking complete sentences. No signs of any obvious distress. - Related Data Allergies/Adverse Reactions: amlodipine Allergy (Verified 05/31/18 12:48) hydromorphone [From Dilaudid] Allergy (Verified 05/31/18 12:48) tramadol [From Ultram] Allergy (Verified 05/31/18 12:48) tramadol HCl [From Ultram] Allergy (Verified 05/31/18 12:48) Past Medical History - General Information source: Patient - Social History Smoking Status: Former Smoker Frequency of alcohol use: Heavy Drug Abuse: None Family History: Reviewed & Not Pertinent, Other - Crohn's disease. Colon cancer. Patient has suicidal ideation: No Patient has homicidal ideation: No - Past Medical History Cardiac Medical History: Reports: Hx Hypertension Denies: Hx Coronary Artery Disease, Hx Heart Attack Pulmonary Medical History: Denies: Hx Asthma, Hx Bronchitis, Hx COPD, Hx Pneumonia Neurological Medical History: Reports: Hx Seizures - x1 at age 19. Denies: Hx Cerebrovascular Accident Endocrine Medical History: Denies: Hx Diabetes Mellitus Type 1, Hx Diabetes Mellitus Type 2 Renal/ Medical History: Denies: Hx Peritoneal Dialysis GI Medical History: Reports: Hx Diverticulitis Musculoskeletal Medical History: Reports Hx Arthritis - DJD Psychiatric Medical History: Denies: Hx Depression Traumatic Medical History: Past Surgical History: Reports: Hx Abdominal Surgery - partial resection of colon; September 2016, colostomy, Hx Orthopedic Surgery - Left hip replaced, Other - Colonoscopy - Immunizations Hx Diphtheria, Pertussis, Tetanus Vaccination: - UNSURE Review of Systems - Review of Systems Constitutional: No symptoms reported EENT: No symptoms reported Cardiovascular: No symptoms reported Respiratory: No symptoms reported Gastrointestinal: Abdominal pain Genitourinary: No symptoms reported Male Genitourinary: No symptoms reported Musculoskeletal: No symptoms reported Skin: No symptoms reported Hematologic/Lymphatic: No symptoms reported Neurological/Psychological: No symptoms reported -: Yes All other systems reviewed and negative Physical Exam - Vital signs Vitals: Temp Pulse Resp BP Pulse Ox 97.8 F 105 H 18 147/86 H 96 05/31/18 12:49 05/31/18 12:49 05/31/18 12:49 05/31/18 12:49 05/31/18 12:49 Interpretation: Normal - General General appearance: Appears well, Alert - HEENT Head: Normocephalic, Atraumatic Eyes: Normal Pupils: PERRL - Respiratory Respiratory status: No respiratory distress Chest status: Nontender Breath sounds: Normal Chest palpation: Normal - Cardiovascular Rhythm: Regular Heart sounds: Normal auscultation Murmur: No - Abdominal Inspection: Obese. No: Normal - Multiple surgical scars are healing along with a small abrasion to the right side of the umbilicus Distension: No distension Bowel sounds: Normal Tenderness: Tender - Diffuse tenderness with moderate pain around palpation of the ostomy site colostomy bag is in place there was to be some leaking of stool which is light brown around the ostomy wafer. Organomegaly: No organomegaly - Back Back: Normal, Nontender - Extremities General upper extremity: Normal inspection, Nontender, Normal color, Normal ROM , Normal temperature General lower extremity: Normal inspection, Nontender, Normal color, Normal ROM , Normal temperature, Normal weight bearing. No: Jacki's sign - Neurological Neuro grossly intact: Yes Cognition: Normal Orientation: AAOx4 [place] Coma Scale Eye Opening: Spontaneous [place] Coma Scale Verbal: Oriented [place] Coma Scale Motor: Obeys Commands [place] Coma Scale Total: 15 Speech: Normal Motor strength normal: LUE, RUE, LLE, RLE Sensory: Normal - Psychological Associated symptoms: Normal affect, Normal mood - Skin Skin Temperature: Warm Skin Moisture: Dry Skin Color: Normal Course - Re-evaluation Re-evalutation: 06/01/18 00:11 Hyponatremia this is been present in the patient in the past. More likely related to his recent alcohol drinking. Patient's abdominal CAT scan shows a hernia around the stomach site containing loops of bowel with no signs of obstruction. No signs of acute inflammation of the pancreas on the CAT scan despite slight elevation in the patient's lipase. Patient able tolerate p.o. here. Patient was evaluated by social sciences professor and multiple resources given to the patient is a does not have at this time are appropriate follow-up care since having his ostomy placed. No new acute criteria at this time that I see the meet admission patient tolerating p.o. pain was to be otherwise controlled. Patient will be discharged home follow-up with resources - Vital Signs Vital signs: Temp Pulse Resp BP Pulse Ox 97.8 F 105 H 10 L 132/91 H 92 05/31/18 12:49 05/31/18 12:49 05/31/18 19:01 05/31/18 19:00 05/31/18 19:01 - Laboratory Result Diagrams: 05/31/18 15:09 05/31/18 15:09 Laboratory results interpreted by me: 05/31/18 05/31/18 05/31/18 15:09 15:09 17:11 WBC 11.2 H RBC 3.53 L Hgb 12.7 L Hct 36.1 L MCV 102 H MCH 35.9 H RDW 15.0 H Seg Neutrophils % 78.6 H Lymphocytes % 11.7 L Absolute Neutrophils 8.8 H Sodium 129.3 L Chloride 80 L Carbon Dioxide 34 H Creatinine 1.30 H Est GFR (Non-Af Amer) 59 L Glucose 113 H Calcium 11.2 H Direct Bilirubin 0.5 H AST 100 H Alkaline Phosphatase 154 H Lipase 993.1 H Urine Protein 100 H Urine Ketones 20 H Urine Bilirubin MODERATE H Urine Urobilinogen 4.0 H Discharge - Discharge Clinical Impression: Hernia at colostomy site, Nausea Abdominal pain Qualifiers: Abdominal location: generalized Qualified Code(s): R10.84 - Generalized abdominal pain Disposition: HOME, SELF-CARE Instructions: Abdominal Pain ([facility]), Gastritis ([facility]) Additional Instructions: CAT scan today of your abdomen does not show any signs of any surgical pathology. The do contain bowel within the hernia sac around the colostomy site however this is chronic and there is no signs of obstruction. Your laboratory studies do show signs of increased alcohol use more likely some of the pain that you are experiencing is related to alcoholic gastritis. I would highly recommend sticking to a clear liquid diet for the next 24 hours then advancing to starchy foods. It is very important that you wean yourself from your alcohol consumption. I would also recommend taking the Prilosec as prescribed he may take the Ultram as needed for pain and the Reglan as needed for any nausea. Please follow-up with the resources that social sciences professor gave you return to the ER for any worsening of symptoms. Prescriptions: Metoclopramide HCl [Reglan] 5 mg PO Q6 #30 tablet Morphine Sulfate [Morphine Ir 15 Mg Tablet] 15 mg PO TID #15 tablet Omeprazole 20 mg PO DAILY #30 capsule.
[2018-05-31 15:51] LABS: ALANINE AMINOTRANSFERASE 61 U/L (21-72); ALBUMIN 3.6 g/dL (3.5-5.0); ALKALINE PHOSPHATASE 154 U/L (38-126); ANION GAP 15 (5-19); ASPARTATE AMINO TRANSFERASE 100 U/L (17-59); BILIRUBIN,DIRECT 0.5 mg/dL (0.0-0.4); BILIRUBIN,TOTAL 0.9 mg/dL (0.2-1.3); BLOOD UREA NITROGEN 18 mg/dL (7-20); CALCIUM 11.2 mg/dL (8.4-10.2); CARBON DIOXIDE 34 mmol/L (22-30); CHLORIDE 80 mmol/L (98-107); GLUCOSE 113 mg/dL (75-110); LIPASE 993.1 U/L (23-300); POTASSIUM 3.7 mmol/L (3.6-5.0); SODIUM 129.3 mmol/L (137-145); TOTAL PROTEIN 6.8 g/dL (6.3-8.2)
[2018-05-31 15:58] LABS: ABSOLUTE BASOPHILS # (AUTO) 0.1 10^3/uL (0.0-0.2); ABSOLUTE EOSINOPHILS # (AUTO) 0.1 10^3/uL (0.0-0.6); ABSOLUTE LYMPHOCYTES (AUTO) 1.3 10^3/uL (0.5-4.7); ABSOLUTE MONOCYTES (AUTO) 0.9 10^3/uL (0.1-1.4); ABSOLUTE NEUT (AUTO) 8.8 10^3/uL (1.7-8.2); BASOPHILS % (AUTO) 0.8 % (0-2); EOSINOPHILS % (AUTO) 1.2 % (0-6); HEMATOCRIT 36.1 % (37.9-51.0); HEMOGLOBIN 12.7 g/dL (13.5-17.0); LYMPHOCYTES % (AUTO) 11.7 % (13-45); MEAN CORPUSCULAR HEMOGLOBIN 35.9 pg (27.0-33.4); MEAN CORPUSCULAR HGB CONC 35.1 g/dL (32.0-36.0); MEAN CORPUSCULAR VOLUME 102 fl (80-97); MONOCYTES % (AUTO) 7.7 % (3-13); PLATELET COUNT 230 10^3/uL (150-450); RED BLOOD COUNT 3.53 10^6/uL (4.35-5.55); SEGMENTED NEUTROPHILS % (AUTO) 78.6 % (42-78); TOTAL CELLS COUNTED % (AUTO) 100 %; WHITE BLOOD COUNT 11.2 10^3/uL (4.0-10.5)
--- NOTE | 2018-05-31 17:25 | RADIOLOGY REPORT (SQ) ---
EXAM DESCRIPTION: CT ABD/PELVIS WITH IV ONLY COMPLETED DATE/TIME: 05/31/2018 5:01 pm REASON FOR STUDY: abd pain COMPARISON: 09/13/2016 TECHNIQUE: CT scan of the abdomen and pelvis performed using helical scanning technique with dynamic intravenous contrast injection. No oral contrast. Images reviewed with lung, soft tissue, and bone windows. Reconstructed coronal and sagittal MPR images reviewed. Delayed images for evaluation of the urinary system also acquired. All images stored on PACS. All CT scanners at this facility use dose modulation, iterative reconstruction, and/or weight based d osing when appropriate to reduce radiation dose to as low as reasonably achievable (ALARA). [facility]: Dose Right [facility]: CareDose [facility]: Dose Right [facility]: Teradose 4D [facility]: [employer] CONTRAST TYPE AND DOSE: contrast/concentration: Isovue 350.00 mg/ml; Total Contrast Delivered: 100.0 ml; Total Saline Delivered: 72.0 ml RENAL FUNCTION: Creatinine 1.3 RADIATION DOSE: CT Rad equipment meets quality standard of care and radiation dose reduction techniq ues were employed. CTDIvol: 20.8 - 21.1 mGy. DLP: 3630 mGy-cm.. LIMITATIONS: None. FINDINGS: LOWER CHEST: No significant findings. No nodules or infiltrates. LIVER: Enlarged liver with marked fatty infiltration. SPLEEN: Normal size. No focal lesions. PANCREAS: No masses. No significant calcifications. No adjacent inflammation or peripancreatic fluid collections. Pancreatic duct not dilated. GALLBLADDER: No identified stones by CT criteria. No inflammatory changes to suggest cholecystitis. ADRENAL GLANDS: No significant masses or asymmetry. RIGHT KIDNEY AND URETER: No solid masses. No significant calcifications. No hydronephrosis or hyd roureter. LEFT KIDNEY AND URETER: No solid masses. No significant calcifications. No hydronephrosis or hydr oureter. AORTA AND VESSELS: No aneurysm. No dissection. Renal arteries, SMA, celiac without stenosis. RETROPERITONEUM: No retroperitoneal adenopathy, hemorrhage or masses. BOWEL AND PERITONEAL CAVITY: No masses or inflammatory changes. No free fluid or peritoneal masses. APPENDIX: Not visualized. PELVIS: No mass. No free fluid. Normal bladder. ABDOMINAL WALL: No masses. No hernias. BONES: No significant or acute findings. OTHER: No other significant finding. IMPRESSION: Marked fatty infiltration of the liver. Left lower quadrant abdominal wall hernia containing nonobstructed bowel. TECHNICAL DOCUMENTATION: JOB ID: [id number] Quality ID # [id number]: Final reports with documentation of one or more dose reduction techniques (e.g., Au tomated exposure control, adjustment of the mA and/or kV according to patient size, use of iterative reconstruction technique) 2010 [employer]- All Rights Reserved Reading location - IP/workstation name: [email or web address]
[2018-05-31 17:45] LABS: APPEARANCE,URINE CLOUDY; BILIRUBIN,URINE MODERATE (NEGATIVE); COLOR,URINE AMBER; GLUCOSE, URINE NEGATIVE (NEGATIVE); KETONES,URINE 20 mg/dL (NEGATIVE); LEUKOCYTE ESTERASE,URINE NEGATIVE (NEGATIVE); NITRITE,URINE NEGATIVE (NEGATIVE); PROTEIN,URINE 100 mg/dL (NEGATIVE); URINE SPECIFIC GRAVITY 1.023
[2018-05-31] MEDS ORDERED: METOCLOPRAMIDE HCL INJ/PF 10 MG/2 ML SDV IV ONE (17:45)
[2018-05-31 17:58] LABS: URINE AMPHETAMINES SCREEN NEGATIVE; URINE BARBITURATES SCREEN NEGATIVE; URINE BENZODIAZEPINES SCREEN NEGATIVE; URINE COCAINE SCREEN NEGATIVE; URINE MARIJUANA (THC) SCREEN UNCONFIRMED POSITIVE; URINE METHADONE SCREEN NEGATIVE; URINE PHENCYCLIDINE SCREEN NEGATIVE
[2018-05-31 19:19] VITALS: BP 132/91
== END 2018-05-31 19:28 | disposition home or self-care (01) ==
LOC: ER 12:47
DX: K43.5 Parastomal hernia without obstruction or gangrene (principal); R10.84 Generalized abdominal pain; R11.2 Nausea with vomiting, unspecified; R53.83 Other fatigue; R42 Dizziness and giddiness; Z87.891 Personal history of nicotine dependence; I10 Essential (primary) hypertension
CPT/HCPCS: 96376; 99284; 96372; 96361; 96374; 96375; 86900; 86901; 36415; 86850; 80307 ×2; 83605; 83690; 85025; 80053; 81001; 74177; J0500; J2765; J2270; S0164; J2405; J7030

== ENCOUNTER 2018-06-11 14:15 | Emergency (ER) | payer SELFPAY ==
--- NOTE | 2018-06-11 16:00 | RADIOLOGY REPORT (SQ) ---
EXAM DESCRIPTION: ACUTE ABDOMEN SERIES COMPLETED DATE/TIME: 06/11/2018 3:36 pm REASON FOR STUDY: abdominal pain, query obstructive pattern COMPARISON: None. NUMBER OF VIEWS: Three views. TECHNIQUE: Frontal chest, supine abdomen and upright/decubitus abdomen radiographic images acquired. LIMITATIONS: None. FINDINGS: CHEST: Lungs clear of infiltrates. FREE AIR: None. No abnormal gas collections. BOWEL GAS PATTERN: Nonobstructive pattern. No dilated loops or air fluid levels. CALCIFICATIONS: No suspicious calcifications. HARDWARE: None in the abdomen. SOFT TISSUES: No gross mass or suggestion of organomegaly. BONES: No acute fracture. No worrisome bone lesions. OTHER: No other significant finding. IMPRESSION: NO RADIOGRAPHIC EVIDENCE FOR ACUTE ABDOMINAL DISEASE. TECHNICAL DOCUMENTATION: JOB ID: [id number] [employer]- All Rights Reserved Reading location - IP/workstation name: [email or web address]
[2018-06-11 16:07] LABS: ABSOLUTE BASOPHILS # (AUTO) 0.1 10^3/uL (0.0-0.2); ABSOLUTE EOSINOPHILS # (AUTO) 0.5 10^3/uL (0.0-0.6); ABSOLUTE LYMPHOCYTES (AUTO) 1.2 10^3/uL (0.5-4.7); ABSOLUTE MONOCYTES (AUTO) 1.1 10^3/uL (0.1-1.4); BASOPHILS % (AUTO) 0.8 % (0-2); EOSINOPHILS % (AUTO) 3.1 % (0-6); HEMOGLOBIN 11.7 g/dL (13.5-17.0); LYMPHOCYTES % (AUTO) 8.4 % (13-45); MEAN CORPUSCULAR HEMOGLOBIN 35.9 pg (27.0-33.4); MEAN CORPUSCULAR HGB CONC 34.5 g/dL (32.0-36.0); MEAN CORPUSCULAR VOLUME 104 fl (80-97); MONOCYTES % (AUTO) 7.2 % (3-13); PLATELET COUNT 210 10^3/uL (150-450); RED BLOOD COUNT 3.26 10^6/uL (4.35-5.55); RED CELL DISTRIBUTION WIDTH 15.7 % (11.5-14.0); SEGMENTED NEUTROPHILS % (AUTO) 80.5 % (42-78); TOTAL CELLS COUNTED % (AUTO) 100 %; WHITE BLOOD COUNT 14.9 10^3/uL (4.0-10.5)
[2018-06-11 16:10] LABS: APPEARANCE,URINE CLEAR; BILIRUBIN,URINE NEGATIVE (NEGATIVE); COLOR,URINE YELLOW; GLUCOSE, URINE NEGATIVE (NEGATIVE); KETONES,URINE NEGATIVE (NEGATIVE); LEUKOCYTE ESTERASE,URINE NEGATIVE (NEGATIVE); NITRITE,URINE NEGATIVE (NEGATIVE); PROTEIN,URINE NEGATIVE (NEGATIVE); URINE SPECIFIC GRAVITY 1.009; UROBILINOGEN,URINE NEGATIVE mg/dL (<2.0)
[2018-06-11] MEDS ORDERED: MORPHINE SULFATE 10 MG/ML INJ IV ONE (16:38)
[2018-06-11 16:46] LABS: ALANINE AMINOTRANSFERASE 33 U/L (21-72); ALBUMIN 3.3 g/dL (3.5-5.0); ALKALINE PHOSPHATASE 220 U/L (38-126); ANION GAP 8 (5-19); ASPARTATE AMINO TRANSFERASE 137 U/L (17-59); BILIRUBIN,DIRECT 0.6 mg/dL (0.0-0.4); BILIRUBIN,TOTAL 0.9 mg/dL (0.2-1.3); BLOOD UREA NITROGEN 13 mg/dL (7-20); CARBON DIOXIDE 37 mmol/L (22-30); CHLORIDE 87 mmol/L (98-107); GLUCOSE 96 mg/dL (75-110); POTASSIUM 3.6 mmol/L (3.6-5.0); SODIUM 132.4 mmol/L (137-145); TOTAL PROTEIN 6.7 g/dL (6.3-8.2)
[2018-06-11 16:58] LABS: NT PRO BNP 194 pg/mL (<125)
[2018-06-11 17:02] LABS: LIPASE 2660.8 U/L (23-300); TROPONIN I < 0.012 ng/mL
--- NOTE | 2018-06-11 18:49 | ER Document Report ---
ED General - General Chief Complaint: Abdominal Pain Stated Complaint: ABDOMINAL PAIN Time Seen by Provider: 06/11/18 14:31 Mode of Arrival: Ambulatory Information source: Patient, Relative TRAVEL OUTSIDE OF THE [place] IN LAST 30 DAYS: No - HPI Patient complains to provider of: Abdominal pain Onset: Other - 47-year-old man with a complex past medical history including complicated diverticulitis which involved a bowel resection and ostomy creation , he subsequently lost his insurance and was unable to obtain normal follow-up thereafter, he is been dealing with several hernias since that time which have worsened increasingly. He has been seen in the past by Dr. Cowan who noted that he would be able to undergo reanastomosis but that it would take time and that he would need to improve his physical health prior to. He notes that he has had persistent pain in his abdomen intermittently over the last several months at the sites of his hernias the most prominent one being at the site of his stoma. He is continued to have ostomy output however. He ran out of ostomy bags yesterday and was uncertain what to do so presented to the emergency room today. He denies fevers or chills, denies emesis, does endorse a slight change in his ostomy output consistency to a more runny. - Related Data Allergies/Adverse Reactions: amlodipine Allergy (Verified 05/31/18 12:48) hydromorphone [From Dilaudid] Allergy (Verified 05/31/18 12:48) tramadol [From Ultram] Allergy (Verified 05/31/18 12:48) tramadol HCl [From Ultram] Allergy (Verified 05/31/18 12:48) Past Medical History - General Information source: Patient, Parent, Relative - Social History Smoking Status: Current Every Day Smoker Frequency of alcohol use: Occasional Drug Abuse: None Family History: Reviewed & Not Pertinent, Other - Crohn's disease. Colon cancer. Patient has suicidal ideation: No Patient has homicidal ideation: No - Past Medical History Cardiac Medical History: Reports: Hx Hypertension Denies: Hx Coronary Artery Disease, Hx Heart Attack Pulmonary Medical History: Denies: Hx Asthma, Hx Bronchitis, Hx COPD, Hx Pneumonia Neurological Medical History: Reports: Hx Seizures - x1 at age 19. Denies: Hx Cerebrovascular Accident Endocrine Medical History: Denies: Hx Diabetes Mellitus Type 1, Hx Diabetes Mellitus Type 2 Renal/ Medical History: Denies: Hx Peritoneal Dialysis GI Medical History: Reports: Hx Diverticulitis Musculoskeletal Medical History: Reports Hx Arthritis - DJD Psychiatric Medical History: Denies: Hx Depression Traumatic Medical History: Past Surgical History: Reports: Hx Abdominal Surgery - partial resection of colon; September 2016, colostomy, Hx Orthopedic Surgery - Left hip replaced, Other - Colonoscopy - Immunizations Hx Diphtheria, Pertussis, Tetanus Vaccination: - UNSURE Review of Systems - Review of Systems -: Yes All other systems reviewed and negative Physical Exam - Vital signs Vitals: Resp Pulse Ox 14 99 06/11/18 14:25 06/11/18 14:25 - General General appearance: Appears well In distress: None - HEENT Head: Normocephalic Eyes: Normal Conjunctiva: Normal Cornea: Normal Extraocular movements intact: Yes Eyelashes: Normal Pupils: PERRL Anterior chamber: Normal Fundascopic: Normal Nerve palsy: Yes Visual craven normal: Yes - Respiratory Respiratory status: No respiratory distress Chest status: Nontender Breath sounds: Normal Chest palpation: Normal - Cardiovascular Rhythm: Regular Heart sounds: Normal auscultation Murmur: No - Abdominal Inspection: Obese, Other - There is a pink cyrus stoma in the left lower quadrant , a well-healed midline incision scar extending from just above the umbilicus to the belt line Distension: No distension Bowel sounds: Normal Tenderness: Nontender Organomegaly: No organomegaly - Back Back: Normal - Extremities General upper extremity: Normal inspection, Nontender, Normal ROM, Normal strength General lower extremity: Normal inspection, Nontender, Normal ROM, Normal strength - Neurological Neuro grossly intact: Yes Cognition: Normal Orientation: AAOx4 [place] Coma Scale Eye Opening: Spontaneous [place] Coma Scale Verbal: Oriented [place] Coma Scale Motor: Obeys Commands [place] Coma Scale Total: 15 Speech: Normal Cranial nerves: Normal Motor strength normal: LUE, RUE, LLE, RLE - Psychological Associated symptoms: Normal affect Course - Re-evaluation Re-evalutation: This 47-year-old man has a complaint of running out of ostomy bags in the setting of parastomal hernias and multiple abdominal wall hernias. He has had intermittent pain but nothing acutely changed recently. He has been unable to obtain follow-up with Dr. Cowan. On examination he is in no obvious distress and his abdominal examination is reassuring. He has no obvious tenderness though he does have multiple abdominal wall hernias the most prominent being a parastomal hernia on the left side. All hernias are reducible, the patient has been able to eat and drink recently. He adamantly denies any alcohol use of late and states that the last time that he was here there was a misunderstanding related to this. We will obtain broad labs of this gentleman including abdominal series. Abdominal x-ray does not demonstrate any acute obstructive process and the patient is able tolerate p.o. at this time he was given a single dose of narcotic pain medication in the emergency department. He does have an elevated lipase and a modestly elevated leukocytosis which is probably a result of demargination because of his emotional reaction lip of his father and in the room. I did speak to him about appropriate follow-up care, he has had what sounds like decreased p.o. intake of late because of his feeling of malaise. He does have an elevated lipase which is been elevated in the past though more prominent today. However the patient does have a benign abdominal exam and is able tolerate p.o. thus I believe fulminant pancreatitis is less likely. I spoke to Dr. Cowan on the phone in regard to this patient's care he notes that he would benefit likely from an abdominal binder to help with his hernias, he did offer to see this patient in clinic in the coming week and that he would help in obtaining follow-up appropriately for him. I spoke to the patient at length about this and his family are comfortable with this plan at this time he has been given a ostomy bag as he came in without went on, he also is going to have an extra one given to him in hand. He is been given strict return precautions however as he may have developing pancreatitis. He his and his father were in agreement the course of action at the time of discharge, he was well-appearing able tolerate p.o. with normal vital signs. His hernias remained reducible. He was in his abdominal binder at the time of discharge. - Vital Signs Vital signs: Temp Pulse Resp BP Pulse Ox 98.5 F 12 130/82 H 97 06/11/18 14:48 06/11/18 18:01 06/11/18 18:01 06/11/18 18:01 - Laboratory Result Diagrams: 06/11/18 15:53 06/11/18 15:53 Laboratory results interpreted by me: 06/11/18 06/11/18 06/11/18 15:53 15:53 15:53 WBC 14.9 H RBC 3.26 L Hgb 11.7 L Hct 34.0 L MCV 104 H MCH 35.9 H RDW 15.7 H Seg Neutrophils % 80.5 H Lymphocytes % 8.4 L Absolute Neutrophils 12.0 H Sodium 132.4 L Chloride 87 L Carbon Dioxide 37 H Creatinine 1.26 H Direct Bilirubin 0.6 H AST 137 H Alkaline Phosphatase 220 H NT-Pro-B Natriuret Pep 194 H Albumin 3.3 L Lipase 2660.8 H Discharge - Discharge Clinical Impression: Elevated lipase, Hernia Parastomal hernia Qualifiers: Obstruction and gangrene presence: without obstruction or gangrene Qualified Code(s): K43.5 - Parastomal hernia without obstruction or gangrene Condition: Good Disposition: HOME, SELF-CARE Instructions: Hernia ([facility]) Additional Instructions: You were seen today in the emergency department for your abdominal pain in your hernias. You had an evaluation including a physical exam, he had an ostomy bag replaced. You had labs drawn. If you have worsening abdominal pain or fever she should return immediately to the emergency room. It is possible that she could have a worsening problem related to your bowels. Use the abdominal binder that we have given to you to help hold your hernias in place. Schedule an appointment with Dr. Cowan next week. Use stool softeners including MiraLAX and Colace to help soften your stool. Make sure that you are drinking a lot of water to help hydrate yourself.
[2018-06-11 18:59] VITALS: BP 130/82
== END 2018-06-11 19:43 | disposition home or self-care (01) ==
LOC: ER 14:15
DX: K43.5 Parastomal hernia without obstruction or gangrene (principal); K43.9 Ventral hernia without obstruction or gangrene; R74.8 Abnormal levels of other serum enzymes; R19.4 Change in bowel habit; D72.829 Elevated white blood cell count, unspecified; R53.81 Other malaise; I10 Essential (primary) hypertension; F17.200 Nicotine dependence, unspecified, uncomplicated; Z87.19 Personal history of other diseases of the digestive system; Z93.3 Colostomy status; Z90.49 Acquired absence of other specified parts of digestive tract; Z88.8 Allergy status to other drugs, medicaments and biological substances; Z88.5 Allergy status to narcotic agent
CPT/HCPCS: 99284; 96374; 36415; 83690; 85025; 80053; 81001; 84484; 83880; 74022; J2270

== ENCOUNTER 2018-08-27 10:41 | Inpatient (IN) | payer MEDICAID ==
[2018-08-27] MEDS ORDERED: LIDOCAINE 1% INJ (10 MG/ML) 10 ML MDV INJ ONE (11:13)
[2018-08-27] MEDS ORDERED: ALBUTEROL SULFATE 0.083% NEB 2.5 MG/3 ML AMPUL NEB ONE ×2 (11:13→13:41)
[2018-08-27] MEDS ORDERED: MORPHINE SULFATE 10 MG/ML INJ IV ONE ×3 (11:18→21:00)
[2018-08-27] MEDS ORDERED: ONDANSETRON HCL INJ/PF 4 MG/2 ML SDV IV ONE (11:18)
[2018-08-27 11:32] LABS: ABSOLUTE BASOPHILS # (AUTO) 0.1 10^3/uL (0.0-0.2); ABSOLUTE MONOCYTES (AUTO) 1.9 10^3/uL (0.1-1.4); ABSOLUTE NEUT (AUTO) 17.5 10^3/uL (1.7-8.2); BASOPHILS % (AUTO) 0.5 % (0-2); EOSINOPHILS % (AUTO) 0.1 % (0-6); HEMATOCRIT 41.2 % (37.9-51.0); HEMOGLOBIN 13.9 g/dL (13.5-17.0); LYMPHOCYTES % (AUTO) 9.5 % (13-45); MEAN CORPUSCULAR HEMOGLOBIN 37.8 pg (27.0-33.4); MEAN CORPUSCULAR HGB CONC 33.7 g/dL (32.0-36.0); MEAN CORPUSCULAR VOLUME 112 fl (80-97); MONOCYTES % (AUTO) 8.7 % (3-13); PLATELET COUNT 345 10^3/uL (150-450); RED BLOOD COUNT 3.67 10^6/uL (4.35-5.55); RED CELL DISTRIBUTION WIDTH 15.5 % (11.5-14.0); SEGMENTED NEUTROPHILS % (AUTO) 81.2 % (42-78); TOTAL CELLS COUNTED % (AUTO) 100 %; WHITE BLOOD COUNT 21.5 10^3/uL (4.0-10.5)
--- NOTE | 2018-08-27 11:37 | RADIOLOGY REPORT (SQ) ---
EXAM DESCRIPTION: CHEST SINGLE VIEW COMPLETED DATE/TIME: 08/27/2018 11:26 am REASON FOR STUDY: Wheezes, cough, congestion COMPARISON: 09/21/2016 EXAM PARAMETERS: NUMBER OF VIEWS: One view. TECHNIQUE: Single frontal radiographic view of the chest acquired. RADIATION DOSE: NA LIMITATIONS: None. FINDINGS: LUNGS AND PLEURA: There is right basilar airspace disease consistent with pneumonia. Lung craven are otherwise clear. No pneumothorax or effusion. MEDIASTINUM AND HILAR STRUCTURES: No masses. Contour normal. HEART AND VASCULAR STRUCTURES: Heart normal in size. Normal vasculature. BONES: No acute findings. HARDWARE: None in the chest. OTHER: No other significant finding. IMPRESSION: Right lower lobe infiltrate consistent with pneumonia. TECHNICAL DOCUMENTATION: JOB ID: [id number] [employer]- All Rights Reserved Reading location - IP/workstation name: [email or web address]
[2018-08-27] MEDS ORDERED: LEVOFLOXACIN 750 MG/D5W RTU 750 MG/150 ML RTUPB IV ONE (12:04)
[2018-08-27 12:06] LABS: ANISOCYTOSIS SLIGHT; PLATELET COMMENT ADEQUATE; POLYCHROMASIA SLIGHT
--- NOTE | 2018-08-27 12:24 | EKG REPORT ---
SEVERITY:- ABNORMAL ECG - SINUS TACHYCARDIA BORDERLINE PROLONGED QT INTERVAL : Confirmed by: Misbah Underwood MD 27-Aug-2018 12:24:21
[2018-08-27 12:47] LABS: ALANINE AMINOTRANSFERASE 21 U/L (21-72); ALBUMIN 3.8 g/dL (3.5-5.0); ALKALINE PHOSPHATASE 202 U/L (38-126); ANION GAP 14 (5-19); ASPARTATE AMINO TRANSFERASE 55 U/L (17-59); BILIRUBIN,DIRECT 0.7 mg/dL (0.0-0.4); BILIRUBIN,TOTAL 0.8 mg/dL (0.2-1.3); BLOOD UREA NITROGEN 14 mg/dL (7-20); CALCIUM 9.1 mg/dL (8.4-10.2); CARBON DIOXIDE 27 mmol/L (22-30); CHLORIDE 96 mmol/L (98-107); GLUCOSE 127 mg/dL (75-110); POTASSIUM 4.3 mmol/L (3.6-5.0); SODIUM 137.2 mmol/L (137-145); TOTAL PROTEIN 7.2 g/dL (6.3-8.2)
[2018-08-27 12:53] LABS: CREATINE KINASE < 20 U/L (55-170)
[2018-08-27 12:57] LABS: VENOUS BLOOD BASE EXCESS 3.9 mmol/L; VENOUS BLOOD HCO3 30.3 mmol/L (20-32); VENOUS BLOOD PCO2 52.2 mmHg (35-63); VENOUS BLOOD PH 7.38 (7.30-7.42)
[2018-08-27 12:59] LABS: CREATINE KINASE MB 0.24 ng/mL (<4.55)
[2018-08-27 13:00] LABS: TROPONIN I < 0.012 ng/mL
[2018-08-27] MEDS ORDERED: BENZONATATE 100 MG CAPSULE PO ONE (13:41)
[2018-08-27 14:49] LABS: APPEARANCE,URINE SLIGHTLY-CLOUDY; BILIRUBIN,URINE SMALL (NEGATIVE); COLOR,URINE DARK YELLOW; GLUCOSE, URINE NEGATIVE (NEGATIVE); KETONES,URINE 20 mg/dL (NEGATIVE); LEUKOCYTE ESTERASE,URINE NEGATIVE (NEGATIVE); NITRITE,URINE NEGATIVE (NEGATIVE); PROTEIN,URINE 100 mg/dL (NEGATIVE); URINE SPECIFIC GRAVITY 1.026
--- NOTE | 2018-08-27 16:37 | ER Document Report ---
Entered by NATALIE PINO SCRIBE 08/27/18 1121 Acting as scribe for:GAMA NEWMAN MD ED General - General Chief Complaint: Breathing Difficulty Stated Complaint: DIFFICULTY BREATHING Time Seen by Provider: 08/27/18 11:02 Mode of Arrival: Ambulatory Information source: Patient Notes: Patient is a 47-year-old male with a colostomy bag and a history of diverticulit is presents to the emergency department complaining of shortness of breath onset this morning. Patient states he has had cold symptoms for approximately 4 days but this morning he developed shortness of breath, wheezing and a worsening cough. Patient states that his cough is productive with dark greenish brown sputum. Patient states he had 1 previous episode of wheezing a few years ago following surgery. Patient also complains of pain around his ostomy bag. Patient has a scheduled repair of his ostomy on 09/01/2018. Patient states that he did not receive the flu vaccine this year. TRAVEL OUTSIDE OF THE [place] IN LAST 30 DAYS: No - Related Data Allergies/Adverse Reactions: amlodipine Allergy (Verified 08/23/18 15:08) hydromorphone [From Dilaudid] Allergy (Verified 08/23/18 15:08) tramadol [From Ultram] Allergy (Verified 08/23/18 15:08) tramadol HCl [From Ultram] Allergy (Verified 08/23/18 15:08) Past Medical History - General Information source: Patient - Social History Smoking Status: Current Every Day Smoker Cigarette use (# per day): Yes Chew tobacco use (# tins/day): No Smoking Education Provided: No Family History: Reviewed & Not Pertinent, Other - Crohn's disease. Colon cancer. - Past Medical History Cardiac Medical History: Reports: Hx Hypertension Pulmonary Medical History: Neurological Medical History: Reports: Hx Seizures - x1 at age 19 GI Medical History: Reports: Hx Diverticulitis Musculoskeletal Medical History: Reports Hx Arthritis - DJD Traumatic Medical History: Past Surgical History: Reports: Hx Abdominal Surgery - partial resection of colon; September 2016, colostomy, Hx Bowel Surgery - COLOSTOMY, Hx Orthopedic Surgery - Left hip replaced, Other - Colonoscopy - Immunizations Hx Diphtheria, Pertussis, Tetanus Vaccination: - UNSURE Review of Systems - Review of Systems Constitutional: No symptoms reported EENT: No symptoms reported Cardiovascular: No symptoms reported Respiratory: See HPI, Cough, Short of breath Gastrointestinal: See HPI, Abdominal pain Genitourinary: No symptoms reported Male Genitourinary: No symptoms reported Musculoskeletal: No symptoms reported Skin: No symptoms reported Hematologic/Lymphatic: No symptoms reported Neurological/Psychological: No symptoms reported -: Yes All other systems reviewed and negative Physical Exam - Vital signs Vitals: Temp Resp Pulse Ox 98.7 F 18 94 08/27/18 10:47 08/27/18 10:47 08/27/18 10:47 - Notes Notes: GENERAL: Alert, interacts well. No acute distress. HEAD: Normocephalic, atraumatic. EYES: Pupils equal, round, and reactive to light. Extraocular movements intact. ENT: Oral mucosa moist, tongue midline. NECK: Full range of motion. Supple. Trachea midline. LUNGS: Inspiratory and expiratory wheezes. Rhonchi. Frequent coughing spasms. HEART: Regular rate and rhythm. No murmurs, gallops, or rubs. ABDOMEN: Soft, abdomen tender around the ostomy bag which is located in the LLQ. Distended. Bowel sounds present in all 4 quadrants. EXTREMITIES: Moves all 4 extremities spontaneously. No edema, radial and dorsalis pedis pulses 2/4 bilaterally. No cyanosis. NEUROLOGICAL: Alert and oriented x3. Normal speech. PSYCH: Normal affect, normal mood. SKIN: Warm, dry, normal turgor. No rashes or lesions noted. Course - Re-evaluation Re-evalutation: 08/27/18 14:12 After breathing treatments and magnesium, patient states his breathing is much better but he still does have diffuse wheezes and some rhonchi and frequent coughing. - Vital Signs Vital signs: Temp Pulse Resp BP Pulse Ox 98.7 F 13 168/94 H 94 08/27/18 10:47 08/27/18 12:01 08/27/18 12:01 08/27/18 12:01 - Laboratory Result Diagrams: 08/27/18 11:00 08/27/18 12:14 Laboratory results interpreted by me: 08/27/18 08/27/18 11:00 12:14 WBC 21.5 H RBC 3.67 L MCV 112 H MCH 37.8 H RDW 15.5 H Seg Neutrophils % 81.2 H Lymphocytes % 9.5 L Absolute Neutrophils 17.5 H Absolute Monocytes 1.9 H Chloride 96 L Glucose 127 H Direct Bilirubin 0.7 H Alkaline Phosphatase 202 H Creatine Kinase < 20 L - Diagnostic Test Radiology reviewed: Image reviewed, Reports reviewed - Right lower lobe infiltr ate - EKG Interpretation by Me EKG shows normal: Sinus rhythm, [place], ST-T Waves. 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 Ovalles Time consulted: 14:04 Consulted provider: will come to ER Critical Care Note - Critical Care Note Total time excluding time spent on procedures (mins): 40 Discharge - Discharge Clinical Impression: Hypoxemia, Bronchospasm with bronchitis, acute Pneumonia Qualifiers: Pneumonia type: due to unspecified organism Laterality: right Lung location: lower lobe of lung Qualified Code(s): J18.1 - Lobar pneumonia, unspecified organism Leukocytosis Qualifiers: Leukocytosis type: unspecified Qualified Code(s): D72.829 - Elevated white blood cell count, unspecified Condition: Stable Disposition: ADMITTED INPATIENT Admitting Provider: Hospitalist Unit Admitted: Telemetry Scribe Attestation: 08/27/18 12:08 I personally performed the services described in the documentation, reviewed and edited the documentation which was dictated to the scribe in my presence, and it accurately records my words and actions. I personally performed the services described in the documentation, reviewed and edited the documentation which was dictated to the scribe in my presence, and it accurately records my words and actions.
[2018-08-27] MEDS ORDERED: ACETAMINOPHEN 325 MG TABLET PO PRN (16:59)
[2018-08-27] MEDS ORDERED: NORMAL SALINE 1000 ML 1,000 ML IV PRN (16:59)
--- NOTE | 2018-08-27 17:15 | PDOC H&P ---
History of Present Illness Admission Date/PCP: none Patient complains of: shortness of breath History of Present Illness: PIPE RESENDIZ IV is a 47 year old male with PMH of diverticulitis s/p colectomy - presented to the Ed c/o SOB. states he hasn't been feeling well for a week or so and last night his breathing got really bad. states he woke up around 3 this morning and just couldn't breath and hence he had to come to the hospital. states he was having URI symptoms for a few days and thought it was just a cold and then this morning everything was worse. states he couldn't take a deep breath or do anything without getting dyspnea. states he has surgery scheduled next thursday to reverse his colostomy that he had placed about 2 years ago. denies chest pain, abdominal pain, n/v or dizziness. states he did smoke but quit >20 years ago. states he smoke 1ppd for 12 years. no one every told him that he has COPD. doesn't use any meds at home. states he drinks alcohol socially and denies illicit drugs. Past Medical History Cardiac Medical History: Reports: Hypertension Denies: Coronary Artery Disease, Myocardial Infarction Pulmonary Medical History: Denies: Asthma, Bronchitis, Chronic Obstructive Pulmonary Disease (COPD), Pneumonia Neurological Medical History: Reports: Seizures - x1 at age 19 Endocrine Medical History: Denies: Diabetes Mellitus Type 1, Diabetes Mellitus Type 2 GI Medical History: Reports: Diverticulitis Musculoskeltal Medical History: Reports: Arthritis - DJD Psychiatric Medical History: Denies: Dementia, Depression Hematology: Denies: Anemia Past Surgical History Past Surgical History: Reports: Orthopedic Surgery - Left hip replaced, Other - Colonoscopy Social History Smoking Status: Current Every Day Smoker Frequency of Alcohol Use: Occasional Hx Recreational Drug Use: No Drugs: Marijuana Hx Prescription Drug Abuse: No - Advance Directive Resuscitation Status: Full Code Family History Family History: Reviewed & Not Pertinent, Other - Crohn's disease. Colon cancer. Parental Family History Reviewed: Yes Children Family History Reviewed: Unknown Sibling(s) Family History Reviewed.: Unknown Medication/Allergy Home Medications: No Home Medications 08/23/18 Allergies/Adverse Reactions: amlodipine Allergy (Verified 08/23/18 15:08) hydromorphone [From Dilaudid] Allergy (Verified 08/23/18 15:08) tramadol [From Ultram] Allergy (Verified 08/23/18 15:08) tramadol HCl [From Ultram] Allergy (Verified 08/23/18 15:08) Review of Systems All systems: reviewed and no additional remarkable complaints except as stated Constitutional: PRESENT: chills. ABSENT: fever(s) Eyes: ABSENT: visual disturbances Ears: ABSENT: hearing changes Nose, Mouth, and Throat: ABSENT: headache(s), mouth pain Cardiovascular: ABSENT: chest pain, edema Respiratory: PRESENT: cough, dyspnea, sputum Gastrointestinal: ABSENT: abdominal pain, diarrhea, nausea, vomiting Integumentary: ABSENT: rash Neurological: ABSENT: focal weakness, syncope Hematologic/Lymphatic: ABSENT: easy bleeding Physical Exam Vital Signs: Temp Pulse Resp BP Pulse Ox 98.7 F 13 168/94 H 94 08/27/18 10:47 08/27/18 12:01 08/27/18 12:01 08/27/18 12:01 Intake & Output 08/26/18 08/27/18 08/28/18 06:59 06:59 06:59 Intake Total 150 Balance 150 Weight 245 lb General appearance: PRESENT: no acute distress, obese Head exam: PRESENT: atraumatic, normocephalic Eye exam: PRESENT: EOMI. ABSENT: conjunctival injection, scleral icterus Ear exam: PRESENT: normal external ear exam Mouth exam: PRESENT: dry mucosa, tongue midline Teeth exam: PRESENT: poor dentation Neck exam: ABSENT: tracheal deviation Respiratory exam: PRESENT: accessory muscle use, decreased breath sounds, rhonchi, symmetrical, wheezes. ABSENT: unlabored Cardiovascular exam: PRESENT: +S1, +S2 Pulses: PRESENT: +2 pedal pulses bilateral GI/Abdominal exam: PRESENT: normal bowel sounds, soft, other - colostomy bag noted. ABSENT: tenderness Extremities exam: ABSENT: joint swelling Neurological exam: PRESENT: alert, awake, oriented to person, oriented to place, oriented to time, oriented to situation, CN II-XII grossly intact Skin exam: PRESENT: dry, warm Results Laboratory Results: 08/27/18 11:00 08/27/18 12:14 08/27/18 08/27/18 08/27/18 11:00 11:00 11:00 WBC 21.5 H RBC 3.67 L Hgb 13.9 Hct 41.2 MCV 112 H MCH 37.8 H MCHC 33.7 RDW 15.5 H Plt Count 345 Seg Neutrophils % 81.2 H Lymphocytes % 9.5 L Monocytes % 8.7 Eosinophils % 0.1 Basophils % 0.5 Absolute Neutrophils 17.5 H Absolute Lymphocytes 2.0 Absolute Monocytes 1.9 H Absolute Eosinophils 0.0 Absolute Basophils 0.1 VBG pH 7.38 VBG pCO2 52.2 VBG HCO3 30.3 VBG Base Excess 3.9 Sodium Cancelled Potassium Cancelled Chloride Cancelled Carbon Dioxide Cancelled Anion Gap Cancelled BUN Cancelled Creatinine Cancelled Est GFR ( Amer) Cancelled Est GFR (Non-Af Amer) Cancelled Glucose Cancelled Lactic Acid Calcium Cancelled Total Bilirubin Cancelled AST Cancelled ALT Cancelled Alkaline Phosphatase Cancelled Total Protein Cancelled Albumin Cancelled Urine Color Urine Appearance Urine pH Ur Specific [place] Urine Protein Urine Glucose (UA) Urine Ketones Urine Blood Urine Nitrite Ur Leukocyte Esterase Urine WBC (Auto) Urine RBC (Auto) 08/27/18 08/27/18 08/27/18 11:44 12:14 14:21 WBC RBC Hgb Hct MCV MCH MCHC RDW Plt Count Seg Neutrophils % Lymphocytes % Monocytes % Eosinophils % Basophils % Absolute Neutrophils Absolute Lymphocytes Absolute Monocytes Absolute Eosinophils Absolute Basophils VBG pH VBG pCO2 VBG HCO3 VBG Base Excess Sodium 137.2 Potassium 4.3 Chloride 96 L Carbon Dioxide 27 Anion Gap 14 BUN 14 Creatinine 0.76 Est GFR ( Amer) > 60 Est GFR (Non-Af Amer) > 60 Glucose 127 H Lactic Acid 1.6 Calcium 9.1 Total Bilirubin 0.8 AST 55 ALT 21 Alkaline Phosphatase 202 H Total Protein 7.2 Albumin 3.8 Urine Color DARK YELLOW Urine Appearance SLIGHTLY-CLOUDY Urine pH 6.0 Ur Specific [place] 1.026 Urine Protein 100 H Urine Glucose (UA) NEGATIVE Urine Ketones 20 H Urine Blood NEGATIVE Urine Nitrite NEGATIVE Ur Leukocyte Esterase NEGATIVE Urine WBC (Auto) 1 Urine RBC (Auto) 20 08/27/18 08/27/18 08/27/18 11:00 11:00 12:14 Creatine Kinase Cancelled < 20 L CK-MB (CK-2) Cancelled Troponin I Cancelled 08/27/18 12:14 Creatine Kinase CK-MB (CK-2) 0.24 Troponin I < 0.012 Impressions: Chest X-Ray 08/27/18 11:13 IMPRESSION: Right lower lobe infiltrate consistent with pneumonia. Assessment & Plan - Diagnosis (1) Acute respiratory failure with hypoxia Is this a current diagnosis for this admission?: Yes (2) Sepsis Is this a current diagnosis for this admission?: Yes (3) Right lower lobe pneumonia Is this a current diagnosis for this admission?: Yes (4) History of diverticulitis Is this a current diagnosis for this admission?: Yes (5) H/O colectomy Is this a current diagnosis for this admission?: Yes (6) Dehydration Is this a current diagnosis for this admission?: Yes - Time Time Spent: Greater than 70 Minutes Anticipated discharge: Home with Homehealth - Inpatient Certification Medical Necessity: Need Close Monitoring Due to Risk of Patient Decompensation, Need For IV Fluids, Need For Continuous Telemetry Monitoring, Need for IV Antibiotics, Risk of Complication if Not Cared For in Hospital - Plan Summary Plan Summary: sepsis- 2/2 RLL pneumonia - likely CAP- will check Flu- c/w levaquin for now. neb treatments as needed and xopenex TID dehydration- poor oral intake last few days- will give some gentle hydration h/o colectomy- plan to have reversed on thursday but not sure if he will be able to keep his appointment. its with dr ames
[2018-08-27 19:22] LABS: A TYPE INFLUENZA AG NEGATIVE (NEGATIVE); B INFLUENZA AG NEGATIVE (NEGATIVE)
[2018-08-27] MEDS: LEVALBUTEROL HCL NEB 1.25 MG/3 ML AMPUL NEB SCH ×2 (19:43→23:27)
[2018-08-27] MEDS: GUAIFENESIN SYRP 200 MG/10 ML UDC PO PRN (20:08)
[2018-08-27] MEDS: FAMOTIDINE 20 MG TABLET PO SCH (21:03)
[2018-08-28] MEDS: LEVALBUTEROL HCL NEB 1.25 MG/3 ML AMPUL NEB SCH ×7 (01:49→23:58)
[2018-08-28 05:04] LABS: HEMATOCRIT 35.8 % (37.9-51.0); HEMOGLOBIN 12.4 g/dL (13.5-17.0); MEAN CORPUSCULAR HEMOGLOBIN 38.5 pg (27.0-33.4); MEAN CORPUSCULAR HGB CONC 34.6 g/dL (32.0-36.0); MEAN CORPUSCULAR VOLUME 111 fl (80-97); PLATELET COUNT 285 10^3/uL (150-450); RED BLOOD COUNT 3.21 10^6/uL (4.35-5.55); RED CELL DISTRIBUTION WIDTH 15.1 % (11.5-14.0)
[2018-08-28 05:27] LABS: ANION GAP 15 (5-19); BLOOD UREA NITROGEN 27 mg/dL (7-20); CALCIUM 8.8 mg/dL (8.4-10.2); CARBON DIOXIDE 26 mmol/L (22-30); CHLORIDE 93 mmol/L (98-107); GLUCOSE 147 mg/dL (75-110); POTASSIUM 4.4 mmol/L (3.6-5.0); SODIUM 133.5 mmol/L (137-145)
[2018-08-28 05:43] LABS: ABSOLUTE LYMPHOCYTES# (MANUAL) 1.5 10^3/uL (0.5-4.7); ABSOLUTE MONOCYTES # (MANUAL) 1.1 10^3/uL (0.1-1.4); ABSOLUTE NEUTROPHILS# (MANUAL) 18.5 10^3/uL (1.7-8.2); BASOPHILS % (MANUAL) 0 % (0-2); EOSINOPHILS % (MANUAL) 0 % (0-6); LYMPHOCYTES % (MANUAL) 7 % (13-45); MONOCYTES % (MANUAL) 5 % (3-13); POLYCHROMASIA 1+; SEGMENTED NEUTROPHILS % (MAN) 88 % (42-78); TOTAL CELLS COUNTED 100
[2018-08-28 05:44] LABS: ANISOCYTOSIS 1+; PLATELET COMMENT ADEQUATE
[2018-08-28] MEDS: KETOROLAC TROMETHAMINE INJ/PF 30 MG/1 ML SDV IV PRN ×2 (07:48→14:49)
--- NOTE | 2018-08-28 11:10 | PDOC PROGRESS REPORT ---
Subjective Progress Note for:: 08/28/18 Subjective:: spoke with him this morning- states he feels much better than yesterday. discussed about this ABx and changing it- he agrees. he has no acute complaints at this time. Reason For Visit: PNEUMONIA, SEPSIS Physical Exam Vital Signs: Temp Pulse Resp BP Pulse Ox 98.1 F 95 16 124/76 96 08/28/18 08:00 08/28/18 09:29 08/28/18 09:29 08/28/18 08:00 08/28/18 09:29 Intake & Output 08/27/18 08/28/18 08/29/18 06:59 06:59 06:59 Intake Total 1566 Output Total 420 Balance 1146 Weight 242 lb 8.136 oz General appearance: PRESENT: no acute distress Head exam: PRESENT: atraumatic, normocephalic Eye exam: PRESENT: EOMI. ABSENT: conjunctival injection, scleral icterus Ear exam: PRESENT: normal external ear exam Mouth exam: PRESENT: moist, tongue midline Neck exam: ABSENT: tracheal deviation Respiratory exam: PRESENT: decreased breath sounds - bilaterally as the bases, symmetrical, wheezes - inspiratory and expiratory Cardiovascular exam: PRESENT: +S1, +S2 Pulses: PRESENT: +2 pedal pulses bilateral GI/Abdominal exam: PRESENT: normal bowel sounds, soft. ABSENT: tenderness Extremities exam: ABSENT: pedal edema Neurological exam: PRESENT: alert, awake, oriented to person, oriented to place, oriented to time, oriented to situation, CN II-XII grossly intact Skin exam: PRESENT: dry, warm Results Laboratory Results: 08/28/18 03:55 08/28/18 03:55 08/27/18 08/27/18 08/27/18 11:00 11:00 11:00 WBC 21.5 H RBC 3.67 L Hgb 13.9 Hct 41.2 MCV 112 H MCH 37.8 H MCHC 33.7 RDW 15.5 H Plt Count 345 Seg Neutrophils % 81.2 H Lymphocytes % 9.5 L Monocytes % 8.7 Eosinophils % 0.1 Basophils % 0.5 Absolute Neutrophils 17.5 H Absolute Lymphocytes 2.0 Absolute Monocytes 1.9 H Absolute Eosinophils 0.0 Absolute Basophils 0.1 VBG pH 7.38 VBG pCO2 52.2 VBG HCO3 30.3 VBG Base Excess 3.9 Sodium Cancelled Potassium Cancelled Chloride Cancelled Carbon Dioxide Cancelled Anion Gap Cancelled BUN Cancelled Creatinine Cancelled Est GFR ( Amer) Cancelled Est GFR (Non-Af Amer) Cancelled Glucose Cancelled Lactic Acid Calcium Cancelled Total Bilirubin Cancelled AST Cancelled ALT Cancelled Alkaline Phosphatase Cancelled Total Protein Cancelled Albumin Cancelled Urine Color Urine Appearance Urine pH Ur Specific [place] Urine Protein Urine Glucose (UA) Urine Ketones Urine Blood Urine Nitrite Ur Leukocyte Esterase Urine WBC (Auto) Urine RBC (Auto) 08/27/18 08/27/18 08/27/18 11:44 12:14 14:21 WBC RBC Hgb Hct MCV MCH MCHC RDW Plt Count Seg Neutrophils % Lymphocytes % Monocytes % Eosinophils % Basophils % Absolute Neutrophils Absolute Lymphocytes Absolute Monocytes Absolute Eosinophils Absolute Basophils VBG pH VBG pCO2 VBG HCO3 VBG Base Excess Sodium 137.2 Potassium 4.3 Chloride 96 L Carbon Dioxide 27 Anion Gap 14 BUN 14 Creatinine 0.76 Est GFR ( Amer) > 60 Est GFR (Non-Af Amer) > 60 Glucose 127 H Lactic Acid 1.6 Calcium 9.1 Total Bilirubin 0.8 AST 55 ALT 21 Alkaline Phosphatase 202 H Total Protein 7.2 Albumin 3.8 Urine Color DARK YELLOW Urine Appearance SLIGHTLY-CLOUDY Urine pH 6.0 Ur Specific [place] 1.026 Urine Protein 100 H Urine Glucose (UA) NEGATIVE Urine Ketones 20 H Urine Blood NEGATIVE Urine Nitrite NEGATIVE Ur Leukocyte Esterase NEGATIVE Urine WBC (Auto) 1 Urine RBC (Auto) 20 08/28/18 08/28/18 03:55 03:55 WBC 21.0 H RBC 3.21 L Hgb 12.4 L Hct 35.8 L MCV 111 H MCH 38.5 H MCHC 34.6 RDW 15.1 H Plt Count 285 Seg Neutrophils % Not Reportable Lymphocytes % Not Reportable Monocytes % Not Reportable Eosinophils % Not Reportable Basophils % Not Reportable Absolute Neutrophils Not Reportable Absolute Lymphocytes Not Reportable Absolute Monocytes Not Reportable Absolute Eosinophils Not Reportable Absolute Basophils Not Reportable VBG pH VBG pCO2 VBG HCO3 VBG Base Excess Sodium 133.5 L Potassium 4.4 Chloride 93 L Carbon Dioxide 26 Anion Gap 15 BUN 27 H Creatinine 1.03 Est GFR ( Amer) > 60 Est GFR (Non-Af Amer) > 60 Glucose 147 H Lactic Acid Calcium 8.8 Total Bilirubin AST ALT Alkaline Phosphatase Total Protein Albumin Urine Color Urine Appearance Urine pH Ur Specific [place] Urine Protein Urine Glucose (UA) Urine Ketones Urine Blood Urine Nitrite Ur Leukocyte Esterase Urine WBC (Auto) Urine RBC (Auto) 08/27/18 08/27/18 08/27/18 11:00 11:00 12:14 Creatine Kinase Cancelled < 20 L CK-MB (CK-2) Cancelled Troponin I Cancelled 08/27/18 12:14 Creatine Kinase CK-MB (CK-2) 0.24 Troponin I < 0.012 Impressions: Chest X-Ray 08/27/18 11:13 IMPRESSION: Right lower lobe infiltrate consistent with pneumonia. Assessment & Plan - Diagnosis (1) Acute respiratory failure with hypoxia Is this a current diagnosis for this admission?: Yes (2) Sepsis Is this a current diagnosis for this admission?: Yes (3) Right lower lobe pneumonia Is this a current diagnosis for this admission?: Yes (4) History of diverticulitis Is this a current diagnosis for this admission?: Yes (5) H/O colectomy Is this a current diagnosis for this admission?: Yes (6) Dehydration Is this a current diagnosis for this admission?: Yes - Plan Summary Plan Summary: sepsis- 2/2 RLL pneumonia - likely CAP- on levaquin but WBC still elevated- will switch from levaquin to rocephin/azithro from today. Flu ordered but not done- will order AGAIN- neb treatments as needed and xopenex TID Acute respiratory failure w/ hypoxia- likely 2/2 PNA- will wean as tolerated to RA for SaO2 >92%. dehydration- poor oral intake last few days- c/w IV fluids h/o colectomy- plan to have reversed on thursday but not sure if he will be able to keep his appointment. its with dr ames
[2018-08-28] MEDS: FAMOTIDINE 20 MG TABLET PO SCH ×2 (11:27→21:09)
[2018-08-28] MEDS: ENOXAPARIN SODIUM INJ 40 MG/0.4 ML DISP.SYRIN SUBCUT SCH (11:28)
[2018-08-28] MEDS: GUAIFENESIN SYRP 200 MG/10 ML UDC PO PRN ×2 (11:32→22:47)
[2018-08-28] MEDS: NORMAL SALINE 1000 ML 1,000 ML IV PRN ×2 (11:37→23:15)
[2018-08-28] MEDS ORDERED: LEVOFLOXACIN 500 MG/D5W RTU 500 MG/100 ML RTUPB IV SCH (12:00)
[2018-08-28] MEDS ORDERED: NORMAL SALINE FOR INHALATION 5 ML VIAL.NEB ONE (12:42)
[2018-08-28] MEDS: AZITHROMYCIN 500 MG in DEXTROSE 5%-WATER 250 ML IV SCH (13:08)
[2018-08-28] MEDS: CEFTRIAXONE 1 GM/D5W RTU 1 GM/50 ML RTUPB IV SCH (14:42)
[2018-08-28 15:58] LABS: A TYPE INFLUENZA AG NEGATIVE (NEGATIVE); B INFLUENZA AG NEGATIVE (NEGATIVE)
[2018-08-28] MEDS: HYDROCODONE BIT/HOMATROPINE 5-1.5 MG TABLET PO PRN (21:42)
[2018-08-29 05:29] LABS: HEMATOCRIT 36.7 % (37.9-51.0); HEMOGLOBIN 12.6 g/dL (13.5-17.0); MEAN CORPUSCULAR HEMOGLOBIN 38.1 pg (27.0-33.4); MEAN CORPUSCULAR HGB CONC 34.3 g/dL (32.0-36.0); MEAN CORPUSCULAR VOLUME 111 fl (80-97); PLATELET COUNT 333 10^3/uL (150-450); RED CELL DISTRIBUTION WIDTH 15.1 % (11.5-14.0); WHITE BLOOD COUNT 20.1 10^3/uL (4.0-10.5)
[2018-08-29 06:05] LABS: ABSOLUTE LYMPHOCYTES# (MANUAL) 1.4 10^3/uL (0.5-4.7); ABSOLUTE MONOCYTES # (MANUAL) 1.4 10^3/uL (0.1-1.4); ABSOLUTE NEUTROPHILS# (MANUAL) 17.3 10^3/uL (1.7-8.2); BASOPHILS % (MANUAL) 0 % (0-2); EOSINOPHILS % (MANUAL) 0 % (0-6); LYMPHOCYTES % (MANUAL) 7 % (13-45); MONOCYTES % (MANUAL) 7 % (3-13); SEGMENTED NEUTROPHILS % (MAN) 86 % (42-78); TOTAL CELLS COUNTED 100
[2018-08-29 06:06] LABS: ANISOCYTOSIS 1+; PLATELET COMMENT ADEQUATE; POLYCHROMASIA 1+
[2018-08-29] MEDS: LEVALBUTEROL HCL NEB 1.25 MG/3 ML AMPUL NEB SCH ×2 (07:55→15:56)
[2018-08-29 09:13] LABS: ALANINE AMINOTRANSFERASE 34 U/L (21-72); ALBUMIN 3.2 g/dL (3.5-5.0); ALKALINE PHOSPHATASE 151 U/L (38-126); ANION GAP 12 (5-19); ASPARTATE AMINO TRANSFERASE 81 U/L (17-59); BILIRUBIN,DIRECT 0.3 mg/dL (0.0-0.4); BILIRUBIN,TOTAL 0.3 mg/dL (0.2-1.3); BLOOD UREA NITROGEN 37 mg/dL (7-20); CALCIUM 8.8 mg/dL (8.4-10.2); CARBON DIOXIDE 26 mmol/L (22-30); CHLORIDE 98 mmol/L (98-107); GLUCOSE 97 mg/dL (75-110); POTASSIUM 3.7 mmol/L (3.6-5.0); SODIUM 136.1 mmol/L (137-145); TOTAL PROTEIN 6.3 g/dL (6.3-8.2)
[2018-08-29] MEDS: NORMAL SALINE 1000 ML 1,000 ML IV PRN (09:20)
[2018-08-29] MEDS: FAMOTIDINE 20 MG TABLET PO SCH ×2 (09:21→21:22)
[2018-08-29] MEDS: CEFTRIAXONE 1 GM/D5W RTU 1 GM/50 ML RTUPB IV SCH (09:21)
[2018-08-29] MEDS: ENOXAPARIN SODIUM INJ 40 MG/0.4 ML DISP.SYRIN SUBCUT SCH (09:21)
[2018-08-29] MEDS: HYDROCODONE BIT/HOMATROPINE 5-1.5 MG TABLET PO PRN ×2 (09:27→18:41)
[2018-08-29] MEDS: AZITHROMYCIN 500 MG in DEXTROSE 5%-WATER 250 ML IV SCH (12:00)
[2018-08-29] MEDS: GUAIFENESIN SYRP 200 MG/10 ML UDC PO PRN ×3 (12:04→23:40)
--- NOTE | 2018-08-29 14:34 | PDOC PROGRESS REPORT ---
Subjective Progress Note for:: 08/29/18 Subjective:: Saw patient on rounds this afternoon. He is very sad and worried worried that his surgery will be canceled this Thursday due to his pneumonia. He tells me that he has been waiting for the surgery for 2 years and now he has this pneumonia and his surgeon might cancel it. I explained to him that it is important that he feels better before he goes to surgery and he understands this but is still sad. He states that his breathing is better but he still coughing. He denies chest pain, abdominal pain, nausea/vomiting or dizziness. Reason For Visit: PNEUMONIA, SEPSIS Physical Exam Vital Signs: Temp Pulse Resp BP Pulse Ox 97.9 F 85 19 156/86 H 98 08/29/18 12:04 08/29/18 12:04 08/29/18 12:04 08/29/18 12:04 08/29/18 12:04 Intake & Output 08/28/18 08/29/18 08/30/18 06:59 06:59 06:59 Intake Total 1566 4100 1300 Output Total 420 1420 Balance 1146 2680 1300 Weight 242 lb 8.136 oz 248 lb 7.375 oz General appearance: PRESENT: no acute distress Head exam: PRESENT: atraumatic, normocephalic Eye exam: PRESENT: EOMI. ABSENT: conjunctival injection, scleral icterus Ear exam: PRESENT: normal external ear exam Mouth exam: PRESENT: moist, tongue midline Neck exam: ABSENT: tracheal deviation Respiratory exam: PRESENT: decreased breath sounds - Bilaterally at the bases, rhonchi - Occasional, symmetrical, wheezes - Mostly inspiratory Cardiovascular exam: PRESENT: +S1, +S2 GI/Abdominal exam: PRESENT: normal bowel sounds, soft. ABSENT: tenderness Extremities exam: ABSENT: pedal edema Neurological exam: PRESENT: alert, awake, oriented to person, oriented to place, oriented to time, oriented to situation, CN II-XII grossly intact Skin exam: PRESENT: dry, warm Results Laboratory Results: 08/29/18 04:11 08/29/18 04:11 08/29/18 08/29/18 04:11 04:11 WBC 20.1 H RBC 3.30 L Hgb 12.6 L Hct 36.7 L MCV 111 H MCH 38.1 H MCHC 34.3 RDW 15.1 H Plt Count 333 Seg Neutrophils % Not Reportable Lymphocytes % Not Reportable Monocytes % Not Reportable Eosinophils % Not Reportable Basophils % Not Reportable Absolute Neutrophils Not Reportable Absolute Lymphocytes Not Reportable Absolute Monocytes Not Reportable Absolute Eosinophils Not Reportable Absolute Basophils Not Reportable Sodium 136.1 L Potassium 3.7 Chloride 98 Carbon Dioxide 26 Anion Gap 12 BUN 37 H Creatinine 1.26 H Est GFR ( Amer) > 60 Est GFR (Non-Af Amer) > 60 Glucose 97 Calcium 8.8 Total Bilirubin 0.3 AST 81 H ALT 34 Alkaline Phosphatase 151 H Total Protein 6.3 Albumin 3.2 L 08/27/18 08/27/18 08/27/18 11:00 11:00 12:14 Creatine Kinase Cancelled < 20 L CK-MB (CK-2) Cancelled Troponin I Cancelled 08/27/18 12:14 Creatine Kinase CK-MB (CK-2) 0.24 Troponin I < 0.012 Impressions: Chest X-Ray 08/27/18 11:13 IMPRESSION: Right lower lobe infiltrate consistent with pneumonia. Assessment & Plan - Diagnosis (1) Acute respiratory failure with hypoxia Is this a current diagnosis for this admission?: Yes (2) Sepsis Is this a current diagnosis for this admission?: Yes (3) Right lower lobe pneumonia Is this a current diagnosis for this admission?: Yes (4) History of diverticulitis Is this a current diagnosis for this admission?: Yes (5) H/O colectomy Is this a current diagnosis for this admission?: Yes (6) Dehydration Is this a current diagnosis for this admission?: Yes - Plan Summary Plan Summary: sepsis- 2/2 RLL pneumonia - likely CAP-antibiotics was switched from Levaquin to rocephin/azithro on 08/28/18. His WBC seems to be hanging in the 20,000 still without any change. Neb treatments as needed and xopenex TID. He still having a lot of cough-he is using Robitussin but is not helping-we will try Tussionex. Blood cultures are still pending. Will repeat chest x-ray for resolution in a few days Acute respiratory failure w/ hypoxia- likely 2/2 PNA-still requiring supplemental O2-will wean as tolerated to RA for SaO2 >92%. dehydration- poor oral intake last few days-I have stopped IV fluids at this time. I have encouraged p.o. intake. h/o colectomy- plan to have reversed on thursday but not sure if he will be ab le to keep his appointment. its with dr ames-he is depressed that he may not make a surgery-he has been waiting for the surgery for 2 years he tells me.
[2018-08-29] MEDS ORDERED: NA PHOS,M-B/NA PHOS,DI-BA (ADULT) 133 ML ENEMA PR ONE (16:00)
[2018-08-29] MEDS: KETOROLAC TROMETHAMINE INJ/PF 30 MG/1 ML SDV IV PRN (23:52)
[2018-08-30] MEDS: LEVALBUTEROL HCL NEB 1.25 MG/3 ML AMPUL NEB SCH ×4 (00:53→23:44)
[2018-08-30 05:29] LABS: ABSOLUTE BASOPHILS # (AUTO) 0.1 10^3/uL (0.0-0.2); ABSOLUTE EOSINOPHILS # (AUTO) 0.2 10^3/uL (0.0-0.6); ABSOLUTE LYMPHOCYTES (AUTO) 1.2 10^3/uL (0.5-4.7); ABSOLUTE MONOCYTES (AUTO) 1.3 10^3/uL (0.1-1.4); ABSOLUTE NEUT (AUTO) 12.1 10^3/uL (1.7-8.2); BASOPHILS % (AUTO) 0.4 % (0-2); EOSINOPHILS % (AUTO) 1.4 % (0-6); HEMATOCRIT 35.3 % (37.9-51.0); HEMOGLOBIN 12.1 g/dL (13.5-17.0); LYMPHOCYTES % (AUTO) 8.4 % (13-45); MEAN CORPUSCULAR HEMOGLOBIN 38.5 pg (27.0-33.4); MEAN CORPUSCULAR HGB CONC 34.3 g/dL (32.0-36.0); MEAN CORPUSCULAR VOLUME 112 fl (80-97); MONOCYTES % (AUTO) 8.9 % (3-13); PLATELET COUNT 286 10^3/uL (150-450); RED BLOOD COUNT 3.15 10^6/uL (4.35-5.55); RED CELL DISTRIBUTION WIDTH 15.1 % (11.5-14.0); SEGMENTED NEUTROPHILS % (AUTO) 80.9 % (42-78); TOTAL CELLS COUNTED % (AUTO) 100 %; WHITE BLOOD COUNT 14.9 10^3/uL (4.0-10.5)
[2018-08-30 05:54] LABS: ANION GAP 9 (5-19); BLOOD UREA NITROGEN 23 mg/dL (7-20); CALCIUM 8.8 mg/dL (8.4-10.2); CARBON DIOXIDE 29 mmol/L (22-30); CHLORIDE 100 mmol/L (98-107); GLUCOSE 122 mg/dL (75-110); POTASSIUM 4.4 mmol/L (3.6-5.0); SODIUM 137.8 mmol/L (137-145)
[2018-08-30] MEDS: ENOXAPARIN SODIUM INJ 40 MG/0.4 ML DISP.SYRIN SUBCUT SCH (09:50)
[2018-08-30] MEDS: CEFTRIAXONE 1 GM/D5W RTU 1 GM/50 ML RTUPB IV SCH (09:50)
[2018-08-30] MEDS: FAMOTIDINE 20 MG TABLET PO SCH ×2 (09:50→21:33)
[2018-08-30] MEDS: GUAIFENESIN SYRP 200 MG/10 ML UDC PO PRN ×2 (09:53→21:56)
[2018-08-30] MEDS: HYDROCODONE BIT/HOMATROPINE 5-1.5 MG TABLET PO PRN (09:53)
[2018-08-30] MEDS: AZITHROMYCIN 500 MG in DEXTROSE 5%-WATER 250 ML IV SCH (12:23)
--- NOTE | 2018-08-30 14:13 | PDOC PROGRESS REPORT ---
Subjective Progress Note for:: 08/30/18 Subjective:: spoke with patient this morning on rounds. he's doing well. he has no complaints at this time. states his cough is better but better. denies chest pain, abdominal pain, n/v or dizziness. still having some SOB with exertion Reason For Visit: PNEUMONIA, SEPSIS Physical Exam Vital Signs: Temp Pulse Resp BP Pulse Ox 98.1 F 82 18 163/89 H 96 08/30/18 07:29 08/30/18 08:20 08/30/18 08:20 08/30/18 07:29 08/30/18 08:20 Intake & Output 08/29/18 08/30/18 08/31/18 06:59 06:59 06:59 Intake Total 4100 4766 50 Output Total 1420 1200 Balance 2680 3566 50 Weight 248 lb 7.375 oz 246 lb 0.574 oz General appearance: PRESENT: no acute distress Head exam: PRESENT: atraumatic, normocephalic Eye exam: PRESENT: EOMI. ABSENT: conjunctival injection, scleral icterus Ear exam: PRESENT: normal external ear exam Mouth exam: PRESENT: moist, tongue midline Neck exam: ABSENT: tracheal deviation Respiratory exam: PRESENT: decreased breath sounds - bilatearl bases, rhonchi, symmetrical Pulses: PRESENT: +2 pedal pulses bilateral GI/Abdominal exam: PRESENT: normal bowel sounds, soft. ABSENT: tenderness Extremities exam: ABSENT: pedal edema Neurological exam: PRESENT: alert, awake, oriented to person, oriented to place, oriented to time, oriented to situation, CN II-XII grossly intact Skin exam: PRESENT: dry, warm Results Laboratory Results: 08/30/18 05:08 08/30/18 05:08 08/30/18 08/30/18 05:08 05:08 WBC 14.9 H RBC 3.15 L Hgb 12.1 L Hct 35.3 L MCV 112 H MCH 38.5 H MCHC 34.3 RDW 15.1 H Plt Count 286 Seg Neutrophils % 80.9 H Lymphocytes % 8.4 L Monocytes % 8.9 Eosinophils % 1.4 Basophils % 0.4 Absolute Neutrophils 12.1 H Absolute Lymphocytes 1.2 Absolute Monocytes 1.3 Absolute Eosinophils 0.2 Absolute Basophils 0.1 Sodium 137.8 Potassium 4.4 Chloride 100 Carbon Dioxide 29 Anion Gap 9 BUN 23 H Creatinine 1.01 Est GFR ( Amer) > 60 Est GFR (Non-Af Amer) > 60 Glucose 122 H Calcium 8.8 Magnesium 2.0 08/27/18 12:24 Sputum Gram Stain - Final 08/27/18 12:24 Sputum Sputum Culture - Final Haemophilus Influenzae Normal [place] 08/27/18 08/27/18 08/27/18 11:00 11:00 12:14 Creatine Kinase Cancelled < 20 L CK-MB (CK-2) Cancelled Troponin I Cancelled 08/27/18 12:14 Creatine Kinase CK-MB (CK-2) 0.24 Troponin I < 0.012 Impressions: Chest X-Ray 08/27/18 11:13 IMPRESSION: Right lower lobe infiltrate consistent with pneumonia. Assessment & Plan - Diagnosis (1) Acute respiratory failure with hypoxia Is this a current diagnosis for this admission?: Yes (2) Sepsis Is this a current diagnosis for this admission?: Yes (3) Right lower lobe pneumonia Is this a current diagnosis for this admission?: Yes (4) History of diverticulitis Is this a current diagnosis for this admission?: Yes (5) H/O colectomy Is this a current diagnosis for this admission?: Yes (6) Dehydration Is this a current diagnosis for this admission?: Yes - Plan Summary Plan Summary: sepsis- 2/2 RLL pneumonia - likely CAP-antibiotics was switched from Levaquin to rocephin/azithro on 08/28/18- continue for now. WBC finally trending down. Continue with neb treatments as needed and xopenex TID. I will add prednisone to help with any inflammation- 60mg daily burst dose for 5 days. He still having a lot of cough-he is using Robitussin but is not helping-we will try Tussionex. Blood cultures are still pending. Will repeat chest x-ray for resolution in a few days Acute respiratory failure w/ hypoxia- likely 2/2 PNA-still requiring supplemental O2-will wean as tolerated to RA for SaO2 >92%. he does have remote h/o tobacco - states he smoked 1ppd for 12 years but has quit many years now. ?COPD. dehydration- likelye 2/2 poor oral intake prior to admission -I have stopped IV fluids at this time. I have encouraged p.o. intake. h/o colectomy- he had reverse colectomy planned for 09/01/[address] colon- but he tells me it has been canceled. he's sad he wont get his surgery now. He has been waiting for the surgery for 2 years he tells me.
[2018-08-30] MEDS: PREDNISONE 20 MG TABLET PO SCH (15:12)
[2018-08-30] MEDS: KETOROLAC TROMETHAMINE INJ/PF 30 MG/1 ML SDV IV PRN (21:55)
[2018-08-31] MEDS: HYDRALAZINE HCL INJ/PF 20 MG/1 ML SDV IV PRN ×2 (01:24→17:20)
[2018-08-31] MEDS: GUAIFENESIN SYRP 200 MG/10 ML UDC PO PRN ×2 (03:52→23:56)
[2018-08-31] MEDS: KETOROLAC TROMETHAMINE INJ/PF 30 MG/1 ML SDV IV PRN ×3 (03:55→21:59)
[2018-08-31] MEDS ORDERED: HYDRALAZINE HCL 50 MG TABLET PO ONE (06:15)
[2018-08-31] MEDS: LEVALBUTEROL HCL NEB 1.25 MG/3 ML AMPUL NEB SCH ×3 (07:52→20:04)
[2018-08-31] MEDS: PREDNISONE 20 MG TABLET PO SCH (09:22)
[2018-08-31] MEDS: FAMOTIDINE 20 MG TABLET PO SCH ×2 (09:24→21:59)
[2018-08-31] MEDS: ENOXAPARIN SODIUM INJ 40 MG/0.4 ML DISP.SYRIN SUBCUT SCH (09:25)
[2018-08-31] MEDS: CEFTRIAXONE 1 GM/D5W RTU 1 GM/50 ML RTUPB IV SCH (09:25)
[2018-08-31] MEDS: AZITHROMYCIN 500 MG in DEXTROSE 5%-WATER 250 ML IV SCH (12:40)
[2018-08-31] MEDS ORDERED: LISINOPRIL 10 MG TABLET PO ONE (18:00)
[2018-08-31] MEDS ORDERED: LISINOPRIL 10 MG TABLET ONE (21:12)
[2018-08-31] MEDS: GUAIFENESIN 600 MG TABLET.SA PO SCH (21:59)
--- NOTE | 2018-08-31 23:14 | PDOC PROGRESS REPORT ---
Subjective Progress Note for:: 08/31/18 Subjective:: Still with some shortness of breath. Cough has improved somewhat. Reason For Visit: PNEUMONIA, SEPSIS Physical Exam Vital Signs: Temp Pulse Resp BP Pulse Ox 98.2 F 79 18 153/80 H 98 08/31/18 19:49 08/31/18 20:05 08/31/18 20:05 08/31/18 19:49 08/31/18 20:05 Intake & Output 08/30/18 08/31/18 09/01/18 06:59 06:59 06:59 Intake Total 4766 2903 1454 Output Total 1200 1250 1100 Balance 3566 1653 354 Weight 111.6 kg 112.6 kg General appearance: PRESENT: no acute distress, cooperative Respiratory exam: PRESENT: symmetrical, wheezes - Intermittent end expiratory wheezes. ABSENT: accessory muscle use, rales, rhonchi Cardiovascular exam: PRESENT: RRR, +S1, +S2 GI/Abdominal exam: PRESENT: normal bowel sounds, soft, other - Colostomy present. ABSENT: guarding, tenderness Extremities exam: ABSENT: pedal edema Neurological exam: PRESENT: alert, awake, oriented to person, oriented to place, oriented to time, oriented to situation, CN II-XII grossly intact Psychiatric exam: PRESENT: appropriate affect. ABSENT: agitated, anxious Focused psych exam: ABSENT: restlessness Results Laboratory Results: 08/30/18 05:08 08/30/18 05:08 08/27/18 08/27/18 08/27/18 11:00 11:00 12:14 Creatine Kinase Cancelled < 20 L CK-MB (CK-2) Cancelled Troponin I Cancelled 08/27/18 12:14 Creatine Kinase CK-MB (CK-2) 0.24 Troponin I < 0.012 Impressions: Chest X-Ray 08/27/18 11:13 IMPRESSION: Right lower lobe infiltrate consistent with pneumonia. Assessment & Plan - Diagnosis (1) Acute respiratory failure with hypoxia Is this a current diagnosis for this admission?: Yes Plan: Still requiring oxygen supplementation but improved. Continue nebulizer treatments and oxygen weaning. Continue to wean oxygen. (2) Leukocytosis Qualifiers: Leukocytosis type: unspecified Qualified Code(s): D72.829 - Elevated white blood cell count, unspecified Is this a current diagnosis for this admission?: Yes Plan: Significant improvement noted with change in antibiotic therapy. Continue to monitor CBC. (3) Pneumonia Qualifiers: Pneumonia type: due to Haemophilus influenzae Laterality: right Lung location: lower lobe of lung Qualified Code(s): J14 - Pneumonia due to Hemophilus influenzae Is this a current diagnosis for this admission?: Yes Plan: Continue current antibiotic therapy. Haemophilus influenza isolated from sputum . Will likely need multiple days post discharge for complete treatment. (4) Sepsis Is this a current diagnosis for this admission?: Yes Plan: Sepsis resolved. Most likely etiology was the Haemophilus influenza pneumonia. - Time Time Spent with patient: 15-24 minutes Medications reviewed and adjusted accordingly: Yes Anticipated discharge: Home
[2018-09-01] MEDS: LEVALBUTEROL HCL NEB 1.25 MG/3 ML AMPUL NEB SCH ×3 (01:46→13:37)
[2018-09-01] MEDS ORDERED: HYDROCHLOROTHIAZIDE 12.5 MG TABLET PO SCH (08:00)
[2018-09-01] MEDS: KETOROLAC TROMETHAMINE INJ/PF 30 MG/1 ML SDV IV PRN (08:32)
[2018-09-01] MEDS ORDERED: PREDNISONE 20 MG TABLET PO SCH (10:00)
[2018-09-01] MEDS ORDERED: LISINOPRIL 10 MG TABLET PO SCH (10:00)
[2018-09-01] MEDS: CEFTRIAXONE 1 GM/D5W RTU 1 GM/50 ML RTUPB IV SCH (10:17)
[2018-09-01] MEDS: FAMOTIDINE 20 MG TABLET PO SCH (10:18)
[2018-09-01] MEDS: GUAIFENESIN 600 MG TABLET.SA PO SCH (10:18)
[2018-09-01] MEDS: ENOXAPARIN SODIUM INJ 40 MG/0.4 ML DISP.SYRIN SUBCUT SCH (10:20)
[2018-09-01] MEDS: AZITHROMYCIN 500 MG in DEXTROSE 5%-WATER 250 ML IV SCH (13:59)
[2018-09-01] MEDS: HYDRALAZINE HCL INJ/PF 20 MG/1 ML SDV IV PRN (15:59)
[2018-09-01] MEDS: HYDROCODONE BIT/HOMATROPINE 5-1.5 MG TABLET PO PRN (16:08)
[2018-09-01 16:35] VITALS: BP 165/84
--- NOTE | 2018-09-01 21:51 | PDOC DISCHARGE SUMMARY ---
General - Admit/Disc Date/PCP Admission Date/Primary Care Provider: 08/27/18 17:33 Discharge Date: 09/01/18 - Discharge Diagnosis (1) Acute respiratory failure with hypoxia Is this a current diagnosis for this admission?: Yes Summary: Likely secondary to pneumonia. Resolved. Patient discharged on room air. (2) Leukocytosis Is this a current diagnosis for this admission?: Yes Summary: Significantly improved after antibiotic therapy. Should resolve completely over the next few days. (3) Pneumonia Is this a current diagnosis for this admission?: Yes Summary: Greatly improved. Complete antibiotic therapy as an outpatient with Ceftin and azithromycin. (4) Sepsis Is this a current diagnosis for this admission?: Yes Summary: Secondary to pneumonia. Sepsis resolved. - Additional Information Resuscitation Status: Full Code Discharge Diet: Regular Discharge Activity: Activity As Tolerated Prescriptions: Azithromycin [Zithromax] 250 mg PO DAILY 7 Days #7 tablet Cefuroxime Axetil [Ceftin 500 mg Tablet] 500 mg PO BID 14 Days #14 tablet Lisinopril [Prinivil 5 mg Tablet] 5 mg PO DAILY #30 tablet Prednisone [Deltasone 10 mg Tablet] 10 mg PO ASDIR PRN #21 tablet PRN Reason: Home Medications: Acetaminophen [Tylenol 325 mg Tablet] 650 mg PO Q4HP PRN tablet 09/01/18 Azithromycin [Zithromax] 250 mg PO DAILY 7 Days #7 tablet 09/01/18 Cefuroxime Axetil [Ceftin 500 mg Tablet] 500 mg PO BID 14 Days #14 tablet 09/01/18 Lisinopril [Prinivil 5 mg Tablet] 5 mg PO DAILY #30 tablet 09/01/18 Prednisone [Deltasone 10 mg Tablet] 10 mg PO ASDIR PRN #21 tablet 09/01/18 History of Present Illness Patient complains of: Difficulty breathing History of Present Illness: PIPE RESENDIZ IV is a 47 year old male who noted upper respiratory symptoms several days prior to admission. On the day of admission his breathing declined significantly. Unfortunately he was scheduled for surgery this week with Dr. Cowan. Assessment revealed pneumonia with markedly elevated white blood cell count. The patient was referred to the hospitalist service for admission. Hospital Course Hospital Course: The patient had a benign hospital course. Unfortunately it took several days for the antibiotics to make a noticeable difference. He was slowly weaned from his oxygen. His exercise capacity slowly improved. His shortness of breath resolved completely. Unfortunately he was scheduled for surgery this week. Dr. Cowan stop by and inform the patient that he would have to wait until his pneumonia had cleared completely. The patient is discharged with his antibiotics as noted above and he does not require home oxygen therapy. Physical Exam Vital Signs: Temp Pulse Resp BP Pulse Ox 97.3 F 84 18 165/84 H 94 09/01/18 16:33 09/01/18 16:33 09/01/18 16:33 09/01/18 16:33 09/01/18 16:33 Intake & Output 08/31/18 09/01/18 09/02/18 06:59 06:59 06:59 Intake Total 2903 1880 1139 Output Total 1250 1100 975 Balance 1653 780 164 Weight 112.6 kg General appearance: PRESENT: no acute distress Head exam: PRESENT: normocephalic Respiratory exam: PRESENT: symmetrical, unlabored. ABSENT: accessory muscle use, crackles, rales, rhonchi, wheezes Cardiovascular exam: PRESENT: RRR, +S1, +S2 GI/Abdominal exam: PRESENT: normal bowel sounds, soft, other - Colostomy in place with parastomal hernia. ABSENT: guarding, tenderness Extremities exam: ABSENT: calf tenderness, pedal edema Musculoskeletal exam: PRESENT: ambulatory Neurological exam: PRESENT: alert, awake, oriented to person, oriented to place, oriented to time, oriented to situation, CN II-XII grossly intact Psychiatric exam: PRESENT: appropriate affect, normal mood. ABSENT: agitated, anxious Focused psych exam: ABSENT: restlessness Results Laboratory Results: 08/30/18 05:08 08/30/18 05:08 08/27/18 13:50 Blood Blood Culture - Final NO GROWTH IN 5 DAYS 08/27/18 12:14 Blood Blood Culture - Final NO GROWTH IN 5 DAYS 08/27/18 08/27/18 08/27/18 11:00 11:00 12:14 Creatine Kinase Cancelled < 20 L CK-MB (CK-2) Cancelled Troponin I Cancelled 08/27/18 12:14 Creatine Kinase CK-MB (CK-2) 0.24 Troponin I < 0.012 Impressions: Chest X-Ray 08/27/18 11:13 IMPRESSION: Right lower lobe infiltrate consistent with pneumonia. Qualifiers - * PATIENT BEING DISCHARGED WITH ANY OF THE FOLLOWING DIAGNOSIS: No Plan Discharge Plan: Discharge to home. Follow-up with primary care for post hospital assessment as well as Dr. oCwan to reschedule surgery. Time Spent: Greater than 30 Minutes
== END 2018-09-01 18:29 | disposition home or self-care (01) | DRG 871 ==
LOC: ER 10:41 → EH 17:33 → 5 19:10
PROVIDERS: ADMIT Internal Medicine; ATTEND Internal Medicine
DX: A41.9 Sepsis, unspecified organism (principal); J14 Pneumonia due to Hemophilus influenzae; J96.01 Acute respiratory failure with hypoxia; K57.92 Diverticulitis of intestine, part unspecified, without perforation or abscess without bleeding; E86.0 Dehydration; I10 Essential (primary) hypertension; Z96.642 Presence of left artificial hip joint; Z93.3 Colostomy status; Z90.49 Acquired absence of other specified parts of digestive tract
CPT/HCPCS: 36415; 71045; 80048; 80053; 81001; 82550; 82553; 82803; 83605; 83735; 84484; 85025; 87040; 87070; 87205; 87804; 93005; 93010; 94640; 94799; 96365; 96366; 96375; 96376; 99291; J0360; J0456; J0696; J1650; J1885; J1956; J2270; J2405; J3490; J7030; J7060; J7512

== ENCOUNTER 2018-09-01 07:30 | Inpatient (IN) | payer MEDICAID ==
[2018-08-25 10:42] LABS: HEMATOCRIT 39.1 % (37.9-51.0); HEMOGLOBIN 13.5 g/dL (13.5-17.0); MEAN CORPUSCULAR HEMOGLOBIN 38.5 pg (27.0-33.4); MEAN CORPUSCULAR HGB CONC 34.6 g/dL (32.0-36.0); PLATELET COUNT 304 10^3/uL (150-450); RED CELL DISTRIBUTION WIDTH 15.4 % (11.5-14.0)
[2018-08-25 10:53] LABS: ANION GAP 13 (5-19); BLOOD UREA NITROGEN 10 mg/dL (7-20); CALCIUM 9.1 mg/dL (8.4-10.2); CARBON DIOXIDE 30 mmol/L (22-30); CHLORIDE 93 mmol/L (98-107); GLUCOSE 103 mg/dL (75-110)
[2018-08-26 15:17] LABS: MEAN CORPUSCULAR VOLUME 111 fl (80-97); WHITE BLOOD COUNT 20.8 10^3/uL (4.0-10.5)
[2018-09-24 11:25] LABS: ABSOLUTE BASOPHILS # (AUTO) 0.1 10^3/uL (0.0-0.2); ABSOLUTE EOSINOPHILS # (AUTO) 0.6 10^3/uL (0.0-0.6); ABSOLUTE LYMPHOCYTES (AUTO) 1.5 10^3/uL (0.5-4.7); ABSOLUTE MONOCYTES (AUTO) 0.8 10^3/uL (0.1-1.4); ABSOLUTE NEUT (AUTO) 7.2 10^3/uL (1.7-8.2); HEMATOCRIT 41.5 % (37.9-51.0); HEMOGLOBIN 14.5 g/dL (13.5-17.0); LYMPHOCYTES % (AUTO) 14.5 % (13-45); MEAN CORPUSCULAR HEMOGLOBIN 36.6 pg (27.0-33.4); MONOCYTES % (AUTO) 7.7 % (3-13); PLATELET COUNT 272 10^3/uL (150-450); RED BLOOD COUNT 3.96 10^6/uL (4.35-5.55); RED CELL DISTRIBUTION WIDTH 15.7 % (11.5-14.0); SEGMENTED NEUTROPHILS % (AUTO) 70.8 % (42-78); TOTAL CELLS COUNTED % (AUTO) 100 %; WHITE BLOOD COUNT 10.1 10^3/uL (4.0-10.5)
[2018-09-24 11:26] LABS: MEAN CORPUSCULAR VOLUME 105 fl (80-97)
[2018-09-24 11:34] LABS: ANION GAP 12 (5-19); BLOOD UREA NITROGEN 8 mg/dL (7-20); CALCIUM 10.1 mg/dL (8.4-10.2); CARBON DIOXIDE 33 mmol/L (22-30); CHLORIDE 96 mmol/L (98-107); GLUCOSE 101 mg/dL (75-110); POTASSIUM 5.1 mmol/L (3.6-5.0)
--- NOTE | 2018-09-24 11:36 | RADIOLOGY REPORT (SQ) ---
EXAM DESCRIPTION: CHEST PA/LATERAL COMPLETED DATE/TIME: 09/24/2018 10:52 am REASON FOR STUDY: PRE-OP COMPARISON: 08/27/2018 EXAM PARAMETERS: NUMBER OF VIEWS: two views TECHNIQUE: Digital Frontal and Lateral radiographic views of the chest acquired. RADIATION DOSE: NA LIMITATIONS: none FINDINGS: LUNGS AND PLEURA: No opacities, masses or pneumothorax. No pleural effusion. MEDIASTINUM AND HILAR STRUCTURES: No masses or contour abnormalities. HEART AND VASCULAR STRUCTURES: Heart normal size. No evidence for failure. BONES: No acute findings. HARDWARE: None in the chest. OTHER: No other significant finding. IMPRESSION: NO SIGNIFICANT RADIOGRAPHIC FINDING IN THE CHEST. TECHNICAL DOCUMENTATION: JOB ID: [id number] [employer]- All Rights Reserved Reading location - IP/workstation name: [email or web address]
[2018-09-29] MEDS ORDERED: LIDOCAINE 0.5% INJ-PF (5 MG/ML) 50 ML SDV SUBCUT PRN (05:00)
[2018-09-29] MEDS ORDERED: AMPICILLIN SODIUM/SULBACTAM NA 3 GM in NORMAL SALINE 100 ML IV PRN (05:00)
[2018-09-29] MEDS ORDERED: LACTATED RINGERS 1000 ML IV PRN (05:00)
[2018-09-29] MEDS ORDERED: PROPOFOL INJ 200 MG/20 ML VIAL IV ONE (06:52)
[2018-09-29] MEDS ORDERED: FENTANYL CITRATE INJ/PF 100 MCG/2 ML AMPUL ONE ×2 (06:52→07:08)
[2018-09-29] MEDS ORDERED: HYDROMORPHONE HCL INJ/PF 2 MG/ML AMPULE ONE (06:52)
[2018-09-29] MEDS ORDERED: ACETAMINOPHEN 1,000 MG/100 ML RTUPB IV ONE (06:52)
[2018-09-29] MEDS ORDERED: MIDAZOLAM 2 MG/2 ML INJ ONE ×2 (06:52→06:59)
[2018-09-29] MEDS ORDERED: LIDOCAINE 2% INJ (20 MG/ML) 20 ML MDV ONE (06:54)
[2018-09-29] MEDS ORDERED: ONDANSETRON HCL INJ/PF 4 MG/2 ML SDV ONE ×2 (06:59→14:59)
[2018-09-29] MEDS ORDERED: BUPIVACAINE HCL 0.25 % INJ/PF (2.5 MG/1 ML) 30 ML VIAL ONE (07:10)
[2018-09-29] MEDS ORDERED: FENTANYL CITRATE INJ/PF 250 MCG/5 ML AMPULE ONE (07:14)
[2018-09-29] MEDS ORDERED: MORPHINE SULFATE 10 MG/ML INJ ONE (07:26)
[2018-09-29] MEDS ORDERED: MEPERIDINE HCL/PF INJ 25 MG/1 ML DISP.SYRIN IV PRN (08:37)
[2018-09-29] MEDS ORDERED: ONDANSETRON HCL INJ/PF 4 MG/2 ML SDV IV PRN (08:37)
[2018-09-29] MEDS ORDERED: FENTANYL CITRATE INJ/PF 100 MCG/2 ML AMPUL IV PRN ×3 (08:37)
[2018-09-29] MEDS ORDERED: MORPHINE SULFATE 10 MG/ML INJ IV PRN ×2 (08:37→11:03)
[2018-09-29] MEDS ORDERED: PROMETHAZINE HCL INJ 25 MG/1 ML VIAL IV PRN (08:37)
[2018-09-29] MEDS ORDERED: DIPHENHYDRAMINE HCL 50 MG/ML VIAL IV PRN (08:37)
[2018-09-29] MEDS: BUPIVACAINE INJ/PF LIPOSOME/PF 266 MG/20 ML SDV ONE ×2 (09:30→10:40)
[2018-09-29] MEDS ORDERED: IPRATROPIUM/ALBUTEROL 0.5-2.5 MG/3 ML AMPUL NEB ONE (10:17)
[2018-09-29] MEDS ORDERED: GLUCAGON,HUMAN RECOMB 1 MG INJ SUBCUT PRN (11:03)
[2018-09-29] MEDS ORDERED: DEXTROSE 50%-WATER 25 GM/50 ML DISP.SYRIN IV PRN ×2 (11:03)
[2018-09-29] MEDS ORDERED: DEXTROSE 40% GEL 15 GM TUBE PO PRN ×2 (11:03)
[2018-09-29] MEDS ORDERED: DEXTROSE 5%-LACTATED RINGERS 1,000 ML IV PRN (11:03)
[2018-09-29] MEDS ORDERED: NALOXONE HCL INJ/PF 0.4 MG/1 ML SDV ONE (11:09)
--- NOTE | 2018-09-29 11:19 | Operative Report ---
Operative Report DATE OF SURGERY: 09/29/18 PREOPERATIVE DIAGNOSIS: 1. 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 2. Large parastomal hernia. 3. Morbid obesity POSTOPERATIVE DIAGNOSIS: Same with intra-abdominal lesions OPERATION: 1. Takedown of diverting colostomy. 2. Repair of parastomal hernia, with drain placement. 3: Colonic-upper rectal stapled anastomosis with 29 mm EEA stapler. 4. Drainage of pelvis SURGEON: ROBERTO COWAN 1ST PARTNER MARKETING MANAGER: TRACI RANGEL ANESTHESIA: GA TISSUE REMOVED OR ALTERED: Fragments of colostomy COMPLICATIONS: None none ESTIMATED BLOOD LOSS: 175 cc INTRAOPERATIVE FINDINGS: See below PROCEDURE: The patient was taken to the preop holding area to the main operating room where general anesthesia was induced. A Sierra catheter was inserted with return of clear yellow urine. A rectal exam was performed by Dr. Cowan; the anal rectal canal was dilated up to easily admit to adult fingers. There was some mucus but no residual stool. Anteriorly the patient was placed in lithotomy position. The colostomy appliance was removed, and the colostomy opening was closed with a running 2-0 Prolene suture. The abdominal wall and suprapubic area was clipped of hair, then prepped and draped in sterile fashion. Surgical plan and surgical timeout were conducted. We anesthetized the midline, and peristomal tissue with quarter percent Marcaine. The first portion of the procedure involved taking down the colostomy. This was done by excising the previous colostomy at the skin level with a #10 blade. Over the next 30 minutes we took down multiple adhesions, including the pseudo-sac surrounding the colostomy. There was a portion of the colostomy which was also up from the exit site, thereby gaining additional length to the descending colon. We took the level of dissection all the way down to the fascia, and beyond into the peritoneal cavity. We now opened the abdomen through a standard midline incision over the previous scar tissue slightly above and primarily below the umbilicus down to the suprapubic region. Entry into the peritoneal cavity was pristine and adhesions were dense but filmy and taken down smoothly with scissors and blunt dissection. We now used access to the peritoneal cavity to take down some more adhesions in the anterior abdominal wall in the left upper quadrant, and the descending colostomy. In reality the colostomy, now taken down and previously referred to as descending colon, was actually the distal transverse colon. There were dense adhesions between the greater omentum, transverse colon, and small bowel. We spent approximately 25 minutes mobilizing the stool transverse colon off the anterior abdominal wall. We now turned our attention to the true pelvis. Small bowel adhesions were taken down sharply. The Latham's pouch was identified immediately with the Prolene suture left from the initial operation. With gentle retraction anteriorly, we mobilized the rectal stump. This in fact was above the peritoneal reflection so we were relating the upper rectum. We stayed in midline, out of harm's way and did not pursue identification of either ureter. Dr. Cowan came down from below, dilated up the anorectal canal with a 25 and then a 29 obturator and advanced the obturator all the way up to the line of the Latham's pouch. The obturator was removed, an attempt at rigid sigmoidoscopy was performed but due to the anterior mentation of the mid to upper rectum, it was difficult to advance the sigmoidoscope all the way to the staple line. Nonetheless I was convinced there was no stool, or mucus impaction, no evidence of tumor stricture or polyps or diverticular disease. The sigmoidoscope was removed, and Dr. Cowan scrubbed back into the field We spent some more time mobilizing the small bowel loops adhesed to the left paracolic gutter, to ensure the colon could be brought down without tension. During this time the patient had a orogastric tube inserted. The manipulation of the small bowel was minimal at best. At this point we felt the colon could be brought down to the pelvis without tension. Blood supply remain very acceptable to both the mobilized colon and the rectal stump. We proceeded now with the anastomosis. We brought onto the field a pursestring autostapler, cleared some of the fatty tissue from around the stapled distal transverse colon, and deployed the toe pursestring stapling device. The device was removed, leaving the long suture in excellent position. We now splayed out the pineda-opening of the colon, and gently insinuated a 25, followed by 29 mm obturator. There was no tension, no tearing of the tissue, and we were satisfied that a 29 mm stapler would be satisfactory. Such a device was opened up on the field, and the anvil was used into the opening of the distal colon. The pursestring was secured satisfactorily, and some of the redundant fatty tissue surrounding the pursestring, particularly on the mesenteric side was sharply debrided with scissors. We tested the lay of the colon down to the pelvis and were satisfied that it come in contact very nicely with the rectal stump. Dr. Cowan went down below, repeated the dilation with the obturators of the rectal canal using a 25 and the 29 mm obturator. I now advanced the stapler up into position. With good approximation of the open staple line against the anterior side of the Latham's pouch staple line, we opened up the pin. Careful to keep surrounding fatty tissue away from the plane platform. We now brought the proximal colon down into position, snapped the 2 components and brought the anvil down to the appropriate degree of tension. The stapler was fired with a good snapping sound. After allowing it to sit for 20 seconds, the stapler was released, and the stapler and anvil together were brought out of the patient's anal rectal canal. Dr. Cowan inspected the donuts and there were 2, with the distal intact, but the proximal doughnut intact only by virtue of a staple. We went back to the patient, I inserted a rigid sigmoidoscope back up into the anorectal canal, while the customer care assistant occluded the descending colon proximally. The pelvis was full with water, and insufflation of the anorectal canal, and distal colon achieved. There was no evidence of air bubbles. We felt that the anastomosis was sound. Furthermore no rigid sigmoidoscopy, I could see the anastomosis circumferentially but I did not traverse it with the scope. The scope was now withdrawn, decompressing insufflated air. Dr. Cowan scrubbed back and checked the peritoneal cavity for any evidence of bleeding or bowel injury and there was none. We were satisfied with the layer of the colon in the lateral paracolic gutter. Large Maxwell drain was placed in the pelvis, through the anterior abdominal wall, trimmed and secured to skin with 2-0 Prolene suture We elected not to place a nasogastric tube. The adhesed omentum to the anterior abdominal wall along the superior aspect of the midline incision was taken down with electrocautery. Sponge and needle counts are correct. We now closed the colostomy defect with 2 single stranded 0 PDS sutures, in a vertical orientation, with nice approximation of the tissue, reinforcing the anterior side of the closure with redundant parastomal sac. We now closed the midline incision with 2 double-stranded #1 PDS sutures. A second Maxwell drain was placed in the subcutaneous space at the old ostomy site. Wounds closed with domenic, 40 cc of dilute Exparel deployed and subcutaneous tissue. Abdominal binder positioned in the place. Patient was extubated, taken to recovery room in stable condition. The physician customer care assistant, Ms. Hopkins, provided assistance during this case by: Assisting with retracting tissue, instillation of local anesthesia and closure of skin incisions.
[2018-09-29] MEDS: FENTANYL CITRATE INJ/PF 100 MCG/2 ML AMPUL ONE ×2 (11:45→11:50)
[2018-09-29] MEDS: ACETAMINOPHEN 1,000 MG/100 ML RTUPB IV SCH ×2 (12:58→18:50)
[2018-09-29] MEDS ORDERED: KETOROLAC TROMETHAMINE 60 MG/2 ML SDV ONE (14:59)
[2018-09-29] MEDS ORDERED: ROCURONIUM BROMIDE INJ 50 MG/5 ML VIAL IV ONE (14:59)
[2018-09-29] MEDS ORDERED: GLYCOPYRROLATE 1 MG/5 ML SYRINGE ONE (14:59)
[2018-09-29] MEDS ORDERED: NEOSTIGMINE METHYLSULFATE 10 MG/10 ML VIAL ONE (14:59)
[2018-09-29] MEDS ORDERED: PHENYLEPHRINE HCL INJ/PF 10 MG/1 ML SDV ONE (14:59)
[2018-09-29] MEDS ORDERED: DEXAMETHASONE SOD PHOSPHATE INJ 4 MG/1 ML VIAL ONE (14:59)
[2018-09-29] MEDS ORDERED: SUCCINYLCHOLINE CHLORIDE INJ 200 MG/10 ML VIAL ONE (14:59)
[2018-09-29] MEDS: AMPICILLIN SODIUM/SULBACTAM NA 3 GM in NORMAL SALINE 100 ML IV SCH ×2 (15:49→22:28)
[2018-09-29] MEDS: MORPHINE SULFATE 10 MG/ML INJ IV PRN ×3 (16:20→22:28)
[2018-09-29] MEDS ORDERED: ACETAMINOPHEN INJ/PF 1000 MG/100 ML SDV IV SCH (17:00)
[2018-09-29] MEDS ORDERED: KETOROLAC TROMETHAMINE INJ/PF 30 MG/1 ML SDV IV SCH (17:00)
[2018-09-29] MEDS: DEXTROSE 5%-LACTATED RINGERS 1,000 ML IV PRN (18:54)
[2018-09-30] MEDS: MORPHINE SULFATE 10 MG/ML INJ IV PRN ×5 (01:24→20:02)
[2018-09-30] MEDS: ACETAMINOPHEN 1,000 MG/100 ML RTUPB IV SCH ×5 (01:25→23:04)
[2018-09-30] MEDS: AMPICILLIN SODIUM/SULBACTAM NA 3 GM in NORMAL SALINE 100 ML IV SCH (06:16)
--- NOTE | 2018-09-30 09:06 | PDOC PROGRESS REPORT ---
Subjective Progress Note for:: 09/30/18 Subjective:: Patient complaining of abdominal pain; Sierra catheter still in; did not get up out of bed yesterday. Reason For Visit: COLOSTOMY TAKE DOWN AND REVERSAL Physical Exam Vital Signs: Temp Pulse Resp BP Pulse Ox 98.9 F 75 18 124/79 95 09/30/18 00:00 09/30/18 00:00 09/30/18 00:00 09/30/18 00:00 09/30/18 08:45 Pulse Oximeter Continuous Start: 09/29/18 13:15 Freq: RTQ4 Status: Active Protocol: Document 09/30/18 08:45 [facility] [place] (Rec: 09/30/18 08:54 [facility] [place] [id number]) Pulse Oximetry Assessment Oxygen Saturation (92-100) 95 Oxygen Flow Rate (L/min) 2 Oxygen Delivery Method Nasal Cannula Fraction of Inspired Oxygen (FIO2) 28 Equipment Usage Equipment in Use Continuous SpO2 Machine # [id number] Intake & Output 09/29/18 09/30/18 10/01/18 06:59 06:59 06:59 Intake Total 0 7447 100 Output Total 4300 60 Balance 0 3147 40 Weight 125 kg General appearance: PRESENT: no acute distress - Patient appears comfortable; oxygen nasal cannula in position; saturation 98%, other Head exam: PRESENT: normocephalic GI/Abdominal exam: PRESENT: other - Abdominal binder on; operative dressing still on; 2 drains with serous sanguinous discharge Results Laboratory Results: 09/24/18 10:43 09/29/18 06:12 Impressions: Chest X-Ray 09/24/18 00:00 IMPRESSION: NO SIGNIFICANT RADIOGRAPHIC FINDING IN THE CHEST. Assessment & Plan - Diagnosis (1) Status post colostomy takedown Is this a current diagnosis for this admission?: Yes Plan: ImPression: Patient is 1 day postoperative colostomy takedown, stapled colorectal anastomosis, with drain placement 2, doing well thus far Recommendations: 1. Discontinue Sierra catheter 2. Get patient trapeze for bed 3. Increase pulmonary toilet, ambulation, 4. Patient getting IV morphine; also getting IV Toradol and IV acetaminophen; will decrease frequency of morphine 5. We will keep on surgical sips for now.
[2018-09-30] MEDS: DEXTROSE 5%-LACTATED RINGERS 1,000 ML IV PRN ×2 (10:12→17:23)
[2018-10-01] MEDS: MORPHINE SULFATE 10 MG/ML INJ IV PRN ×4 (00:12→14:36)
[2018-10-01] MEDS: ACETAMINOPHEN 1,000 MG/100 ML RTUPB IV SCH ×3 (05:10→17:32)
[2018-10-01] MEDS: DEXTROSE 5%-LACTATED RINGERS 1,000 ML IV PRN ×2 (09:36→16:41)
--- NOTE | 2018-10-01 09:37 | PDOC PROGRESS REPORT ---
Subjective Progress Note for:: 10/01/18 Subjective:: c/o incisional pain, questionable flatus Reason For Visit: COLOSTOMY TAKE DOWN AND REVERSAL Physical Exam Vital Signs: Temp Pulse Resp BP Pulse Ox 98.2 F 81 16 153/94 H 96 10/01/18 08:00 10/01/18 08:00 10/01/18 08:00 10/01/18 08:00 10/01/18 08:00 Pulse Oximeter Continuous Start: 09/29/18 13:15 Freq: RTQ4 Status: Active Protocol: Document 10/01/18 04:00 [facility] (Rec: 10/01/18 05:14 [facility] [id number]) Pulse Oximetry Assessment Oxygen Saturation (92-100) 95 Oxygen Flow Rate (L/min) 2 Oxygen Delivery Method Nasal Cannula Fraction of Inspired Oxygen (FIO2) 28 Equipment Usage Equipment in Use Continuous SpO2 Machine # 13 Intake & Output 09/30/18 10/01/18 10/02/18 06:59 06:59 06:59 Intake Total 7447 1860 Output Total 4300 550 Balance 3147 1310 Weight 125 kg 128 kg General appearance: PRESENT: no acute distress Respiratory exam: PRESENT: clear to auscultation blair Cardiovascular exam: PRESENT: RRR GI/Abdominal exam: PRESENT: hypoactive bowel sounds, soft, tenderness - minimal along the incisions; midline and colostomy incisions are C/D/I Results Laboratory Results: 09/24/18 10:43 09/29/18 06:12 Impressions: Chest X-Ray 09/24/18 00:00 IMPRESSION: NO SIGNIFICANT RADIOGRAPHIC FINDING IN THE CHEST. Assessment & Plan - Plan Summary Plan Summary: A/ POD#2 after takedown colostomy VSS, AF PE unremarkable, incisions c/d/i NAE drains with > 30 mL output serosanguinus fluid P/ OOB/ up in chair Ambulation IS hourly Blood work tomorrow Continue IVF Start clear liquid diet
[2018-10-01 12:16] LABS: ABSOLUTE BASOPHILS # (AUTO) 0.1 10^3/uL (0.0-0.2); ABSOLUTE EOSINOPHILS # (AUTO) 0.1 10^3/uL (0.0-0.6); ABSOLUTE LYMPHOCYTES (AUTO) 1.3 10^3/uL (0.5-4.7); ABSOLUTE MONOCYTES (AUTO) 0.8 10^3/uL (0.1-1.4); BASOPHILS % (AUTO) 0.7 % (0-2); EOSINOPHILS % (AUTO) 1.2 % (0-6); HEMATOCRIT 36.6 % (37.9-51.0); HEMOGLOBIN 12.3 g/dL (13.5-17.0); LYMPHOCYTES % (AUTO) 14.3 % (13-45); MEAN CORPUSCULAR HEMOGLOBIN 35.6 pg (27.0-33.4); MEAN CORPUSCULAR HGB CONC 33.6 g/dL (32.0-36.0); MEAN CORPUSCULAR VOLUME 106 fl (80-97); MONOCYTES % (AUTO) 8.6 % (3-13); PLATELET COUNT 202 10^3/uL (150-450); RED BLOOD COUNT 3.46 10^6/uL (4.35-5.55); RED CELL DISTRIBUTION WIDTH 15.3 % (11.5-14.0); SEGMENTED NEUTROPHILS % (AUTO) 75.2 % (42-78); TOTAL CELLS COUNTED % (AUTO) 100 %; WHITE BLOOD COUNT 9.3 10^3/uL (4.0-10.5)
[2018-10-01 12:44] LABS: ANION GAP 8 (5-19); BLOOD UREA NITROGEN 8 mg/dL (7-20); CALCIUM 8.1 mg/dL (8.4-10.2); CARBON DIOXIDE 31 mmol/L (22-30); CHLORIDE 97 mmol/L (98-107); GLUCOSE 111 mg/dL (75-110); POTASSIUM 3.6 mmol/L (3.6-5.0); SODIUM 135.7 mmol/L (137-145)
[2018-10-01] MEDS: HYDROCODONE/ACETAMINOPHEN 5-325 MG TABLET PO PRN (20:00)
[2018-10-02] MEDS: ACETAMINOPHEN 1,000 MG/100 ML RTUPB IV SCH ×2 (00:02→06:28)
[2018-10-02] MEDS: DEXTROSE 5%-LACTATED RINGERS 1,000 ML IV PRN ×2 (00:02→06:29)
[2018-10-02] MEDS: HYDROCODONE/ACETAMINOPHEN 5-325 MG TABLET PO PRN ×5 (00:02→21:27)
[2018-10-02] MEDS: KETOROLAC TROMETHAMINE INJ/PF 30 MG/1 ML SDV IV PRN ×3 (06:39→21:27)
[2018-10-02] MEDS ORDERED: DEXTROSE 5%-LACTATED RINGERS 1,000 ML IV PRN (07:50)
--- NOTE | 2018-10-02 07:56 | PDOC PROGRESS REPORT ---
Subjective Progress Note for:: 10/02/18 Subjective:: C/o incisional pain, passing stools and flatus,tolerating clears well Reason For Visit: COLOSTOMY TAKE DOWN AND REVERSAL Physical Exam Vital Signs: Temp Pulse Resp BP Pulse Ox 98.3 F 73 18 153/93 H 95 10/01/18 19:00 10/01/18 19:00 10/01/18 19:00 10/01/18 19:00 10/02/18 04:19 Pulse Oximeter Continuous Start: 09/29/18 13: 15 Freq: RTQ4 Status: Active Protocol: Document 10/02/18 04:19 [facility] (Rec: 10/02/18 04:19 [facility] [id number]) Pulse Oximetry Assessment Oxygen Saturation (92-100) 95 Oxygen Delivery Method Room Air Fraction of Inspired Oxygen (FIO2) 21 Equipment Usage Equipment in Use Continuous SpO2 Machine # [id number] Intake & Output 10/01/18 10/02/18 10/03/18 06:59 06:59 07:59 Intake Total 2860 3718 100 Output Total 550 1600 120 Balance 2310 2118 -20 Weight 128 kg 121.1 kg General appearance: PRESENT: no acute distress Respiratory exam: PRESENT: clear to auscultation blair Cardiovascular exam: PRESENT: RRR GI/Abdominal exam: PRESENT: distended, soft, other - incisions (laparotomy/old colostomy site) c/d/i Results Laboratory Results: 10/01/18 11:56 10/01/18 11:56 10/01/18 10/01/18 11:56 11:56 WBC 9.3 RBC 3.46 L Hgb 12.3 L Hct 36.6 L MCV 106 H MCH 35.6 H MCHC 33.6 RDW 15.3 H Plt Count 202 Seg Neutrophils % 75.2 Lymphocytes % 14.3 Monocytes % 8.6 Eosinophils % 1.2 Basophils % 0.7 Absolute Neutrophils 7.0 Absolute Lymphocytes 1.3 Absolute Monocytes 0.8 Absolute Eosinophils 0.1 Absolute Basophils 0.1 Sodium 135.7 L Potassium 3.6 Chloride 97 L Carbon Dioxide 31 H Anion Gap 8 BUN 8 Creatinine 0.93 Est GFR ( Amer) > 60 Est GFR (Non-Af Amer) > 60 Glucose 111 H Calcium 8.1 L Impressions: Chest X-Ray 09/24/18 00:00 IMPRESSION: NO SIGNIFICANT RADIOGRAPHIC FINDING IN THE CHEST. Assessment & Plan - Diagnosis (1) Status post colostomy takedown Is this a current diagnosis for this admission?: Yes - Plan Summary Plan Summary: A/ POD#3 aFTER COLOSTOMY TAKEDOWN VSS, AF FLATUS AND STOOLS ARE PRESENT TOLERATING LEARS WELL Ambulating Abdomen soft, wounds celan NAE drains > 30 mL each, serosanguinous fluid K 3.6 CBC within normal parameters P/ Decrease IVF 100 mL/hr Full liquid det Replace K Stop IV narcotics Subcutanous heparin for DVT p Check labs in AMrophylaxis [place]/IV Toradol for pain
[2018-10-02] MEDS: POTASSI CL 20 MEQ/50 ML RIDER 20 MEQ/50 ML RTUPB IV SCH ×2 (08:24→10:24)
[2018-10-02] MEDS: HEPARIN SOD (PORCINE) 5,000 UNIT/ML 1 ML SYRINGE SUBCUT SCH ×2 (10:25→21:27)
[2018-10-02] MEDS ORDERED: HYDRALAZINE HCL INJ/PF 20 MG/1 ML SDV ONE (12:31)
[2018-10-02] MEDS ORDERED: HYDRALAZINE HCL INJ/PF 20 MG/1 ML SDV IV PRN (12:31)
[2018-10-02] MEDS ORDERED: AMLODIPINE BESYLATE 5 MG TABLET PO SCH (13:00)
--- NOTE | 2018-10-02 15:10 | PDOC CONSULTATION ---
Consultation Consult Date: 10/02/18 Attending physician:: ROBERTO BARCENAS Consult reason:: elevated BP History of Present Illness Admission Date/PCP: 09/29/18 05:40 KELLIE SHELL PA-C Patient complains of: elevated BP History of Present Illness: PIPE RESENDIZ IV is a 47 year old male with history of diverticulitis s/p colostomy 2 years ago who was admitted to the hospital for colostomy take down on 09/29/18. Patient tolerated procedure well. He has been noted to have elevated BPs since admission. At home he is taking Norvasc however this was not restarted during current admission. Patient states that his blood pressures have been "high" at home however he is unsure what the readings were. He denies symptoms associated with BPs and specifically denies headache, lightheadness, dizziness, vision changes, CP, SOB. He was admitted one month ago for PNA and since that times has not been smoking. He has lost weight since his surgery and tried to exercise. Hospitalist service was consulted for BP management. Past Medical History Cardiac Medical History: Reports: Hypertension Denies: Coronary Artery Disease, Myocardial Infarction Pulmonary Medical History: Denies: Asthma, Bronchitis, Chronic Obstructive Pulmonary Disease (COPD), Pneumonia Neurological Medical History: Reports: Seizures - x1 at age 19 Endocrine Medical History: Denies: Diabetes Mellitus Type 1, Diabetes Mellitus Type 2 GI Medical History: Reports: Diverticulitis, Hiatal Hernia Musculoskeltal Medical History: Reports: Arthritis - DJD Psychiatric Medical History: Denies: Dementia, Depression Hematology: Denies: Anemia Past Surgical History Past Surgical History: Reports: Colostomy, Orthopedic Surgery - Left hip replaced, Other - Colonoscopy Social History Information Source: Parent Smoking Status: Former Smoker - In last month Frequency of Alcohol Use: Occasional Hx Recreational Drug Use: No Drugs: Marijuana Hx Prescription Drug Abuse: No Family History Family History: Reviewed & Not Pertinent, Other - Crohn's disease. Colon cancer. Parental Family History Reviewed: No Children Family History Reviewed: NA Sibling(s) Family History Reviewed.: NA Medication/Allergy Home Medications: Amlodipine Besylate [Norvasc 5 mg Tablet] 5 mg PO DAILY 09/24/18 Allergies/Adverse Reactions: hydromorphone [From Dilaudid] Allergy (Verified 10/01/18 19:49) tramadol [From Ultram] Allergy (Verified 09/29/18 06:14) tramadol HCl [From Ultram] Allergy (Verified 10/01/18 19:48) Review of Systems All systems: reviewed and no additional remarkable complaints except as stated Physical Exam Vital Signs: Temp Pulse Resp BP Pulse Ox 97.7 F 73 19 198/110 H 96 10/02/18 12:00 10/02/18 12:00 10/02/18 12:00 10/02/18 12:00 10/02/18 12:00 Pulse Oximeter Continuous Start: 09/29/18 13:15 Freq: RTQ4 Status: Active Protocol: Document 10/02/18 11:45 [facility] (Rec: 10/02/18 14:12 [facility] [id number]) Pulse Oximetry Assessment Oxygen Saturation (92-100) 97 Oxygen Delivery Method Nasal Cannula Fraction of Inspired Oxygen (FIO2) 21 Equipment Usage Equipment in Use Continuous SpO2 Machine # 13 Intake & Output 10/01/18 10/02/18 10/03/18 06:59 06:59 07:59 Intake Total 2860 3718 150 Output Total 550 1600 120 Balance 2310 2118 30 Weight 128 kg 121.1 kg General appearance: PRESENT: no acute distress, cooperative, obese, other - Sitting up in bedside chair Head exam: PRESENT: atraumatic, normocephalic Eye exam: PRESENT: EOMI, PERRLA Mouth exam: PRESENT: moist Respiratory exam: PRESENT: unlabored. ABSENT: tachypnea Cardiovascular exam: PRESENT: +S1, +S2. ABSENT: tachycardia GI/Abdominal exam: PRESENT: distended, soft, tenderness Extremities exam: PRESENT: +1 edema. ABSENT: tenderness Neurological exam: PRESENT: alert, awake, CN II-XII grossly intact Psychiatric exam: PRESENT: appropriate affect, normal mood Skin exam: PRESENT: dry, intact Results Laboratory Results: 10/01/18 11:56 10/01/18 11:56 Impressions: Chest X-Ray 09/24/18 00:00 IMPRESSION: NO SIGNIFICANT RADIOGRAPHIC FINDING IN THE CHEST. Assessment & Plan - Diagnosis (1) Essential (primary) hypertension Is this a current diagnosis for this admission?: Yes Plan: Reason for consult. Patient has a history of HTN and takes Norvasc 5mg at home - Re-started Norvasc - Ordered PRN hydralazine for SBP>170 - If BP remains elevated tomorrow, will increase Norvasc or add 2nd agent - Encouraged weight loss, healthy diet, exercise (2) Status post colostomy takedown Is this a current diagnosis for this admission?: Yes Plan: POD #3 - Tolerating procedure well - Tolerating full liquid diet - Passing flatus and moving bowels - D/c planning per surgical team - Time Time Spent: 30 to 50 Minutes Medications reviewed and adjusted accordingly: Yes Anticipated discharge: Home
[2018-10-03] MEDS: HYDROCODONE/ACETAMINOPHEN 5-325 MG TABLET PO PRN ×4 (03:37→20:32)
[2018-10-03] MEDS: KETOROLAC TROMETHAMINE INJ/PF 30 MG/1 ML SDV IV PRN ×3 (06:09→20:32)
[2018-10-03 07:35] LABS: ABSOLUTE BASOPHILS # (AUTO) 0.1 10^3/uL (0.0-0.2); ABSOLUTE EOSINOPHILS # (AUTO) 0.2 10^3/uL (0.0-0.6); ABSOLUTE LYMPHOCYTES (AUTO) 1.2 10^3/uL (0.5-4.7); ABSOLUTE MONOCYTES (AUTO) 0.7 10^3/uL (0.1-1.4); ABSOLUTE NEUT (AUTO) 7.9 10^3/uL (1.7-8.2); BASOPHILS % (AUTO) 0.6 % (0-2); EOSINOPHILS % (AUTO) 2.3 % (0-6); HEMATOCRIT 37.5 % (37.9-51.0); HEMOGLOBIN 12.9 g/dL (13.5-17.0); LYMPHOCYTES % (AUTO) 11.8 % (13-45); MEAN CORPUSCULAR HEMOGLOBIN 35.5 pg (27.0-33.4); MEAN CORPUSCULAR HGB CONC 34.4 g/dL (32.0-36.0); MEAN CORPUSCULAR VOLUME 103 fl (80-97); MONOCYTES % (AUTO) 7.3 % (3-13); PLATELET COUNT 208 10^3/uL (150-450); RED BLOOD COUNT 3.63 10^6/uL (4.35-5.55); RED CELL DISTRIBUTION WIDTH 15.7 % (11.5-14.0); TOTAL CELLS COUNTED % (AUTO) 100 %; WHITE BLOOD COUNT 10.1 10^3/uL (4.0-10.5)
[2018-10-03 08:00] LABS: ANION GAP 9 (5-19); BLOOD UREA NITROGEN 6 mg/dL (7-20); CALCIUM 8.4 mg/dL (8.4-10.2); CARBON DIOXIDE 27 mmol/L (22-30); CHLORIDE 98 mmol/L (98-107); GLUCOSE 85 mg/dL (75-110); POTASSIUM 3.7 mmol/L (3.6-5.0); SODIUM 134.1 mmol/L (137-145)
--- NOTE | 2018-10-03 08:18 | PDOC PROGRESS REPORT ---
Subjective Progress Note for:: 10/03/18 Subjective:: feels well, passing stool\ only taking min po full liquids. Reason For Visit: COLOSTOMY TAKE DOWN AND REVERSAL Physical Exam Vital Signs: Temp Pulse Resp BP Pulse Ox 98 F 75 18 159/85 H 96 10/03/18 00:00 10/03/18 00:00 10/03/18 00:00 10/03/18 00:00 10/03/18 04:00 Pulse Oximeter Continuous Start: 09/29/18 13:15 Freq: RTQ4 Status: Active Protocol: Document 10/03/18 04:00 [facility] (Rec: 10/03/18 04:11 [facility] [id number]) Pulse Oximetry Assessment Oxygen Saturation (92-100) 96 Oxygen Delivery Method Room Air Fraction of Inspired Oxygen (FIO2) 21 Equipment Usage Equipment in Use Continuous SpO2 Machine # 13 Intake & Output 10/02/18 10/03/18 10/04/18 05:59 06:59 06:59 Intake Total Output Total Balance Weight General appearance: PRESENT: no acute distress Head exam: PRESENT: normocephalic Eye exam: PRESENT: EOMI Mouth exam: PRESENT: moist Neck exam: PRESENT: full ROM Respiratory exam: PRESENT: clear to auscultation blair Cardiovascular exam: PRESENT: RRR GI/Abdominal exam: PRESENT: soft, other - wound clean, dry, domenic intact Extremities exam: PRESENT: full ROM Musculoskeletal exam: PRESENT: full ROM Neurological exam: PRESENT: alert, awake, oriented to person, oriented to place, oriented to time, oriented to situation Skin exam: PRESENT: dry Results Laboratory Results: 10/03/18 07:05 10/03/18 07:05 WBC 10.1 RBC 3.63 L Hgb 12.9 L Hct 37.5 L MCV 103 H MCH 35.5 H MCHC 34.4 RDW 15.7 H Plt Count 208 Seg Neutrophils % 78.0 Lymphocytes % 11.8 L Monocytes % 7.3 Eosinophils % 2.3 Basophils % 0.6 Absolute Neutrophils 7.9 Absolute Lymphocytes 1.2 Absolute Monocytes 0.7 Absolute Eosinophils 0.2 Absolute Basophils 0.1 Impressions: Chest X-Ray 09/24/18 00:00 IMPRESSION: NO SIGNIFICANT RADIOGRAPHIC FINDING IN THE CHEST. Status: Image reviewed by me Assessment & Plan - Inpatient Certification Medical Necessity: Need For IV Fluids, Need for Pain Control - Plan Summary Plan Summary: afeb vss, sl hypertensive, started back on home bp meds yesterday feels well, no passing stool and flatus min appetite, wants only full liquids for now krunal's rt side serous approx 290 yesterday left 20 plan- will cont with full liquids prob dc krunal tomorrow increase activity home tomorrow or tu.
[2018-10-03 09:04] LABS: FOLATE 4.26 ng/mL (>2.76)
--- NOTE | 2018-10-03 09:45 | PDOC PROGRESS REPORT ---
Subjective Progress Note for:: 10/03/18 Subjective:: Doing well overnight. No complaints other than mild abdominal pain. Had bowel movement and continues to pass gas. Ambulatory. BP's remain high and received 1X dose of Hydralazine. No symptomatic from elevated BP. Reason For Visit: COLOSTOMY TAKE DOWN AND REVERSAL Physical Exam Vital Signs: Temp Pulse Resp BP Pulse Ox 98.6 F 80 18 184/98 H 95 10/03/18 09:00 10/03/18 09:00 10/03/18 09:00 10/03/18 09:00 10/03/18 09:00 Pulse Oximeter Continuous Start: 09/29/18 13:15 Freq: RTQ4 Status: Active Protocol: Document 10/03/18 04:00 [facility] (Rec: 10/03/18 04:11 [facility] [id number]) Pulse Oximetry Assessment Oxygen Saturation (92-100) 96 Oxygen Delivery Method Room Air Fraction of Inspired Oxygen (FIO2) 21 Equipment Usage Equipment in Use Continuous SpO2 Machine # 13 Intake & Output 10/02/18 10/03/18 10/04/18 05:59 06:59 06:59 Intake Total Output Total Balance Weight General appearance: PRESENT: no acute distress, cooperative, morbidly obese Mouth exam: PRESENT: moist Respiratory exam: PRESENT: unlabored. ABSENT: tachypnea Cardiovascular exam: PRESENT: +S1, +S2. ABSENT: tachycardia GI/Abdominal exam: PRESENT: normal bowel sounds, soft, tenderness Extremities exam: PRESENT: +1 edema Neurological exam: PRESENT: alert, awake, CN II-XII grossly intact Psychiatric exam: PRESENT: appropriate affect, normal mood Skin exam: PRESENT: dry, intact Results Laboratory Results: 10/03/18 07:05 10/03/18 07:05 10/03/18 10/03/18 07:05 07:05 WBC 10.1 RBC 3.63 L Hgb 12.9 L Hct 37.5 L MCV 103 H MCH 35.5 H MCHC 34.4 RDW 15.7 H Plt Count 208 Seg Neutrophils % 78.0 Lymphocytes % 11.8 L Monocytes % 7.3 Eosinophils % 2.3 Basophils % 0.6 Absolute Neutrophils 7.9 Absolute Lymphocytes 1.2 Absolute Monocytes 0.7 Absolute Eosinophils 0.2 Absolute Basophils 0.1 Sodium 134.1 L Potassium 3.7 Chloride 98 Carbon Dioxide 27 Anion Gap 9 BUN 6 L Creatinine 0.85 Est GFR ( Amer) > 60 Est GFR (Non-Af Amer) > 60 Glucose 85 Calcium 8.4 Vitamin B12 380.0 Folate 4.26 Impressions: Chest X-Ray 09/24/18 00:00 IMPRESSION: NO SIGNIFICANT RADIOGRAPHIC FINDING IN THE CHEST. Assessment & Plan - Diagnosis (1) Essential (primary) hypertension Is this a current diagnosis for this admission?: Yes Plan: Reason for consult. Patient has a history of HTN and takes Norvasc 5mg at home - Increased home Norvasc from 5mg to 10mg on 10/03 - Continue PRN hydralazine for SBP>170 - Optimize pain control - Continue to monitor BP, if remains elevated on 10/04, consider adding 2nd agent - Encouraged weight loss, healthy diet, exercise (2) Status post colostomy takedown Is this a current diagnosis for this admission?: Yes Plan: POD #4 - Tolerating procedure well - Tolerating current diet; Passing flatus and moving bowels - NAE drain likely to be removed on 10/04 - D/c planning per surgical team - Time Time Spent with patient: Less than 15 minutes Anticipated discharge: Home
[2018-10-03] MEDS: HEPARIN SOD (PORCINE) 5,000 UNIT/ML 1 ML SYRINGE SUBCUT SCH ×2 (09:57→21:01)
[2018-10-03] MEDS ORDERED: AMLODIPINE BESYLATE 5 MG TABLET PO SCH (10:00)
[2018-10-03] MEDS ORDERED: AMLODIPINE BESYLATE 10 MG TABLET PO SCH (10:00)
[2018-10-03] MEDS ORDERED: ONDANSETRON HCL INJ/PF 4 MG/2 ML SDV ONE (10:44)
[2018-10-03] MEDS ORDERED: METOPROLOL TARTRATE PF/INJ 5 MG/5 ML SDV IV ONE (10:46)
[2018-10-03] MEDS ORDERED: DIPHENHYDRAMINE HCL 50 MG/ML VIAL ONE (10:48)
[2018-10-03] MEDS ORDERED: LORAZEPAM INJ 2 MG/1 ML VIAL ONE (10:50)
--- NOTE | 2018-10-03 11:35 | Progress Note ---
Provider Note Provider Note: Patient received 10mg Norvasc this AM. Noted to be lighthead, dizzy, nauseous, and tingling in hands/lips. Patient states that he received higher dose of Norvasc in the past and same symptoms happened. This was not communicated to be during initial consultation on 10/02. Vitals signs were stable, except for elevated BP (SBP in 170s). Management - IV Zofran - IV Benadryl 25mg * 1 dose - IV Ativan 2mg * 1 dose - IV Lopressor 5mg * 1 dose Patient had improvement in symptoms. Rapid response was NOT called Will reduce Norvasc back to 5mg. Has tolerated for years. Will follow BP and add 2nd agent based on upcoming reads. PLease note that patient has had reactions to multiple BP medications in the past.
[2018-10-03] MEDS: METOPROLOL TARTRATE 25 MG TABLET PO SCH (21:03)
[2018-10-04] MEDS: HYDROCODONE/ACETAMINOPHEN 5-325 MG TABLET PO PRN ×3 (00:45→13:00)
[2018-10-04] MEDS: KETOROLAC TROMETHAMINE INJ/PF 30 MG/1 ML SDV IV PRN (03:33)
[2018-10-04 09:35] LABS: ABSOLUTE BASOPHILS # (AUTO) 0.1 10^3/uL (0.0-0.2); ABSOLUTE EOSINOPHILS # (AUTO) 0.3 10^3/uL (0.0-0.6); ABSOLUTE LYMPHOCYTES (AUTO) 1.2 10^3/uL (0.5-4.7); ABSOLUTE MONOCYTES (AUTO) 0.8 10^3/uL (0.1-1.4); ABSOLUTE NEUT (AUTO) 9.3 10^3/uL (1.7-8.2); BASOPHILS % (AUTO) 0.6 % (0-2); EOSINOPHILS % (AUTO) 2.3 % (0-6); HEMATOCRIT 37.7 % (37.9-51.0); HEMOGLOBIN 12.7 g/dL (13.5-17.0); MEAN CORPUSCULAR HGB CONC 33.7 g/dL (32.0-36.0); MEAN CORPUSCULAR VOLUME 104 fl (80-97); MONOCYTES % (AUTO) 6.9 % (3-13); PLATELET COUNT 251 10^3/uL (150-450); RED BLOOD COUNT 3.63 10^6/uL (4.35-5.55); RED CELL DISTRIBUTION WIDTH 15.6 % (11.5-14.0); SEGMENTED NEUTROPHILS % (AUTO) 80.2 % (42-78); TOTAL CELLS COUNTED % (AUTO) 100 %; WHITE BLOOD COUNT 11.5 10^3/uL (4.0-10.5)
[2018-10-04] MEDS: METOPROLOL TARTRATE 25 MG TABLET PO SCH (09:50)
[2018-10-04 09:58] LABS: ANION GAP 11 (5-19); BLOOD UREA NITROGEN 8 mg/dL (7-20); CALCIUM 8.4 mg/dL (8.4-10.2); CARBON DIOXIDE 26 mmol/L (22-30); CHLORIDE 96 mmol/L (98-107); GLUCOSE 127 mg/dL (75-110); POTASSIUM 3.4 mmol/L (3.6-5.0)
[2018-10-04] MEDS ORDERED: AMLODIPINE BESYLATE 5 MG TABLET PO SCH (10:00)
[2018-10-04] MEDS ORDERED: AMLODIPINE BESYLATE 10 MG TABLET PO SCH (10:00)
[2018-10-04] MEDS: HEPARIN SOD (PORCINE) 5,000 UNIT/ML 1 ML SYRINGE SUBCUT SCH (10:45)
[2018-10-04 12:48] VITALS: BP 145/86
--- NOTE | 2018-10-04 14:11 | PDOC PROGRESS REPORT ---
Subjective Progress Note for:: 10/04/18 Subjective:: This is a 47 yr old male with a PMH of hypertension, diverticulitis S/P colostomy 2 years ago who was admitted under surgery for colostomy take down. Hospitalist service was consulted for co management of his hypertension. He did have intolerance/allergy to amlodipine and was given amlodipine yesterday. This was subsequently switched to metoprolol which have adequately controlled his blood pressures. No other acute issues. He continues to improve. Blood pressures at goal. Hospitalist service will sign off today. Please reconsult if any other acute medical issue arises. Reason For Visit: COLOSTOMY TAKE DOWN AND REVERSAL Physical Exam Vital Signs: Temp Pulse Resp BP Pulse Ox 98.2 F 88 20 145/86 H 97 10/04/18 12:37 10/04/18 12:37 10/04/18 12:37 10/04/18 12:37 10/04/18 12:37 Pulse Oximeter Continuous Start: 09/29/18 13:15 Freq: RTQ4 Status: Complete Protocol: Document 10/03/18 16:00 [facility] (Rec: 10/03/18 18:18 [facility] [id number]) Pulse Oximetry Assessment Oxygen Saturation (92-100) 96 Oxygen Delivery Method Room Air Fraction of Inspired Oxygen (FIO2) 21 Equipment Usage Equipment in Use Continuous SpO2 Machine # 13 Intake & Output 10/03/18 10/04/18 10/05/18 06:59 06:59 06:59 Intake Total 1190 Output Total 1740 60 Balance -550 -60 Weight 256 lb 6.362 oz General appearance: PRESENT: no acute distress, well-developed, well-nourished Head exam: PRESENT: atraumatic, normocephalic Eye exam: PRESENT: conjunctiva pink, EOMI, PERRLA. ABSENT: scleral icterus Ear exam: PRESENT: normal external ear exam Mouth exam: PRESENT: moist, tongue midline Neck exam: ABSENT: carotid bruit, JVD, lymphadenopathy, thyromegaly Respiratory exam: PRESENT: clear to auscultation blair. ABSENT: rales, rhonchi, wheezes Cardiovascular exam: PRESENT: RRR. ABSENT: diastolic murmur, rubs, systolic murmur Pulses: PRESENT: normal dorsalis pedis pul GI/Abdominal exam: PRESENT: normal bowel sounds, soft. ABSENT: distended, guarding, mass, organolmegaly, rebound, tenderness Rectal exam: PRESENT: deferred Neurological exam: PRESENT: alert, awake, oriented to person, oriented to place, oriented to time, oriented to situation, CN II-XII grossly intact. ABSENT: motor sensory deficit Results Laboratory Results: 10/04/18 08:40 10/04/18 08:40 10/04/18 10/04/18 08:40 08:40 WBC 11.5 H RBC 3.63 L Hgb 12.7 L Hct 37.7 L MCV 104 H MCH 35.0 H MCHC 33.7 RDW 15.6 H Plt Count 251 Seg Neutrophils % 80.2 H Lymphocytes % 10.0 L Monocytes % 6.9 Eosinophils % 2.3 Basophils % 0.6 Absolute Neutrophils 9.3 H Absolute Lymphocytes 1.2 Absolute Monocytes 0.8 Absolute Eosinophils 0.3 Absolute Basophils 0.1 Sodium 133.0 L Potassium 3.4 L Chloride 96 L Carbon Dioxide 26 Anion Gap 11 BUN 8 Creatinine 1.03 Est GFR ( Amer) > 60 Est GFR (Non-Af Amer) > 60 Glucose 127 H Calcium 8.4 Impressions: Chest X-Ray 09/24/18 00:00 IMPRESSION: NO SIGNIFICANT RADIOGRAPHIC FINDING IN THE CHEST. Assessment & Plan - Diagnosis (1) Status post colostomy takedown Is this a current diagnosis for this admission?: Yes Plan: Primary service managing. (2) Hypertension Qualifiers: Hypertension type: essential hypertension Qualified Code(s): I10 - Essential (primary) hypertension Is this a current diagnosis for this admission?: Yes Plan: Amlodipine was added to his allergy list yesterday and this was switched to metoprolol. Recommend discharging patient on metoprolol at home for his HTN. - Time Time Spent with patient: 15-24 minutes
--- NOTE | 2018-10-05 05:33 | DISCHARGE SUMMARY E ---
Discharge Summary NAME: PIPE RESENDIZ IV : 1970 AGE: 47Y ADMITTED: 09/29/2018 DISCHARGED: 10/04/2018 REASON FOR ADMISSION: Colostomy takedown. SUMMARY OF HOSPITALIZATION: The patient is a 47-year-old white male who was brought to ambulatory surgery for colostomy takedown. The procedure was performed by Dr. Cowan on 09/29/2018. The patient tolerated the procedure well without complications. Postoperatively, his Sierra catheter was removed and he voided without difficulty. His diet was slowly advanced and he tolerated this well. By the 5th postoperative day, his drains were removed and his incision was healing satisfactorily. His pain was managed. He was felt to be an appropriate candidate for discharge home. FINAL DIAGNOSES: 1. Colostomy takedown, Dr. Cowan. 2. History of complicated diverticulitis with colostomy and parastomal hernia. DISPOSITION: The patient was discharged home to the care of the family. Followup with Dr. Cowan in 1 week for staple removal. Given dressing changes for his midline incision and a prescription for pain medication. DICTATING PHYSICIAN: ROBERTO COWAN M.D. [id number] PHY#: [id number] ID: [id number] JOB#: [id number] ACCT: [id number] cc:ROBERTO COWAN M.D. >
== END 2018-10-04 14:16 | disposition home or self-care (01) | DRG 331 ==
LOC: EDSTATUS 07:30 → INOR 09-29 05:40 → 4S 09-29 12:53
PROVIDERS: ADMIT Surgery; ATTEND Surgery
PROC: 0DSL0ZZ Reposition Transverse Colon, Open Approach (ICD-10-PCS; 2018-09-29)
PROC: 0DN80ZZ Release Small Intestine, Open Approach (ICD-10-PCS; 2018-09-29)
PROC: 0DNU0ZZ Release Omentum, Open Approach (ICD-10-PCS; 2018-09-29)
PROC: 0WQF0ZZ Repair Abdominal Wall, Open Approach (ICD-10-PCS; 2018-09-29)
PROC: 0DNL0ZZ Release Transverse Colon, Open Approach (ICD-10-PCS; 2018-09-29)
PROC: 0W9G0ZZ Drainage of Peritoneal Cavity, Open Approach (ICD-10-PCS; 2018-09-29)
PROC: 0DJD8ZZ Inspection of Lower Intestinal Tract, Via Natural or Artificial Opening Endoscopic (ICD-10-PCS; 2018-09-29)
PROC: 0D1L0ZP Bypass Transverse Colon to Rectum, Open Approach (ICD-10-PCS; principal; 2018-09-29 07:30)
DX: Z43.3 Encounter for attention to colostomy (principal); K66.0 Peritoneal adhesions (postprocedural) (postinfection); I10 Essential (primary) hypertension; K43.5 Parastomal hernia without obstruction or gangrene; E66.01 Morbid (severe) obesity due to excess calories; Z88.5 Allergy status to narcotic agent; Z90.49 Acquired absence of other specified parts of digestive tract; Z87.891 Personal history of nicotine dependence; M19.90 Unspecified osteoarthritis, unspecified site; Z96.642 Presence of left artificial hip joint; Z79.899 Other long term (current) drug therapy; Z83.79 Family history of other diseases of the digestive system
CPT/HCPCS: 36415; 71046; 80048; 82607; 82746; 82962; 840; 84132; 85025; 85027; 94762; 94799; C9290; J0131; J0295; J0330; J0360; J1100; J1170; J1200; J1644; J1885; J2060; J2250; J2270; J2310; J2370; J2405; J2704; J3010; J3480; J3490; J7120; J7620

== ENCOUNTER 2018-10-04 21:50 | Emergency (ER) | payer MEDICAID ==
[2018-10-04 22:33] LABS: INTERNATIONAL RATION (INR) 1.02; PROTHROMBIN TIME 13.9 SEC (11.4-15.4)
[2018-10-04 22:34] LABS: PARTIAL THROMBOPLASTIN TIME 31.9 SEC (23.5-35.8)
[2018-10-04 22:42] LABS: ANION GAP 12 (5-19); BLOOD UREA NITROGEN 11 mg/dL (7-20); CALCIUM 8.5 mg/dL (8.4-10.2); CARBON DIOXIDE 25 mmol/L (22-30); CHLORIDE 95 mmol/L (98-107); GLUCOSE 94 mg/dL (75-110); POTASSIUM 3.8 mmol/L (3.6-5.0); SODIUM 131.9 mmol/L (137-145)
[2018-10-04] MEDS ORDERED: NORMAL SALINE 1000 ML 1,000 ML IV ONE (22:47)
[2018-10-04 23:14] LABS: ABSOLUTE BASOPHILS # (AUTO) 0.1 10^3/uL (0.0-0.2); ABSOLUTE EOSINOPHILS # (AUTO) 0.2 10^3/uL (0.0-0.6); ABSOLUTE LYMPHOCYTES (AUTO) 1.5 10^3/uL (0.5-4.7); ABSOLUTE MONOCYTES (AUTO) 1.2 10^3/uL (0.1-1.4); ABSOLUTE NEUT (AUTO) 11.9 10^3/uL (1.7-8.2); BASOPHILS % (AUTO) 0.6 % (0-2); EOSINOPHILS % (AUTO) 1.1 % (0-6); HEMATOCRIT 36.8 % (37.9-51.0); HEMOGLOBIN 12.6 g/dL (13.5-17.0); LYMPHOCYTES % (AUTO) 10.4 % (13-45); MEAN CORPUSCULAR HEMOGLOBIN 35.5 pg (27.0-33.4); MEAN CORPUSCULAR HGB CONC 34.3 g/dL (32.0-36.0); MEAN CORPUSCULAR VOLUME 103 fl (80-97); MONOCYTES % (AUTO) 8.1 % (3-13); PLATELET COUNT 326 10^3/uL (150-450); RED BLOOD COUNT 3.56 10^6/uL (4.35-5.55); RED CELL DISTRIBUTION WIDTH 15.2 % (11.5-14.0); SEGMENTED NEUTROPHILS % (AUTO) 79.8 % (42-78); TOTAL CELLS COUNTED % (AUTO) 100 %; WHITE BLOOD COUNT 14.8 10^3/uL (4.0-10.5)
[2018-10-04] MEDS ORDERED: LIDOCAINE 1% INJ (10 MG/ML) 10 ML MDV INJ ONE (23:22)
[2018-10-04] MEDS ORDERED: LIDOCAINE 1% INJ-PF (10 MG/ML) 30 ML SDV ONE (23:24)
--- NOTE | 2018-10-05 00:09 | ER Document Report ---
ED General - General Chief Complaint: Post op bleeding Stated Complaint: POST OP BLEEDING Time Seen by Provider: 10/04/18 22:07 Primary Care Provider: KELLIE SHELL PA-C [Primary Care Provider] - Follow up as needed TRAVEL OUTSIDE OF THE [place] IN LAST 30 DAYS: No - HPI Notes: Patient presents emergency department for evaluation of postoperative bleeding. He had ostomy takedown and multiple hernia repairs. He was actually discharged from the hospital earlier today. He had 2 drains earlier removed as well. He states that he went home and had bleeding from 1 of the drain sites in his left abdomen. He saturated multiple towels. They state the bathroom was "covered in blood." According to the patient his abdomen is much more bloated and he feels more tender. The pain medication that he took prior to arrival significantly helped his pain. He states he is currently on the blood thinners that they had prescribed for him in the hospital. He denies any chest pain. He does have chronic dizziness, he states it does not seem to be worse than normal. - Related Data Allergies/Adverse Reactions: hydromorphone [From Dilaudid] Allergy (Verified 10/01/18 19:49) tramadol [From Ultram] Allergy (Verified 09/29/18 06:14) tramadol HCl [From Ultram] Allergy (Verified 10/01/18 19:48) amlodipine [From Norvasc] Adverse Reaction (Mild, Verified 10/03/18 11:38) Past Medical History - General Information source: Patient, Relative - Social History Smoking Status: Never Smoker Chew tobacco use (# tins/day): No Frequency of alcohol use: None Drug Abuse: None Family History: Reviewed & Not Pertinent, Other - Crohn's disease. Colon cancer. Patient has suicidal ideation: No Patient has homicidal ideation: No - Past Medical History Cardiac Medical History: Reports: Hx Hypertension Denies: Hx Coronary Artery Disease, Hx Heart Attack Pulmonary Medical History: Denies: Hx Asthma, Hx Bronchitis, Hx COPD, Hx Pneumonia Neurological Medical History: Reports: Hx Seizures - x1 at age 19. Denies: Hx Cerebrovascular Accident Endocrine Medical History: Denies: Hx Diabetes Mellitus Type 1, Hx Diabetes Mellitus Type 2 Renal/ Medical History: Denies: Hx Peritoneal Dialysis GI Medical History: Reports: Hx Diverticulitis, Hx Hiatal Hernia Musculoskeletal Medical History: Reports Hx Arthritis - DJD Psychiatric Medical History: Denies: Hx Dementia, Hx Depression Traumatic Medical History: Past Surgical History: Reports: Hx Abdominal Surgery - partial resection of colon; September 2016, colostomy, Hx Bowel Surgery - COLOSTOMY, Hx Colostomy, Hx Orthopedic Surgery - Left hip replaced, Other - Colonoscopy - Immunizations Hx Diphtheria, Pertussis, Tetanus Vaccination: - UNSURE Review of Systems - Review of Systems Constitutional: No symptoms reported EENT: No symptoms reported Cardiovascular: No symptoms reported Respiratory: No symptoms reported Gastrointestinal: See HPI Genitourinary: No symptoms reported Male Genitourinary: No symptoms reported Musculoskeletal: No symptoms reported Skin: See HPI Hematologic/Lymphatic: See HPI Neurological/Psychological: No symptoms reported Physical Exam - Vital signs Vitals: Temp Pulse Resp BP Pulse Ox 98.5 F 108 H 20 134/83 H 98 10/04/18 21:57 10/04/18 21:57 10/04/18 21:57 10/04/18 21:57 10/04/18 21:57 Interpretation: Normal Notes: Mild tachycardia and hypertension, otherwise unremarkable - Notes Notes: Vital signs reviewed, please refer to chart. Patient is normocephalic, atraumatic. Pupils equal round, reactive to light. Neck is supple without meningismus. Heart is regular rate and rhythm. Lungs are clear to auscultation bilaterally. Abdomen is soft. Midline domenic intact. There are 2 small, 1 cm wounds to the right and left lower abdomen, consistent with recent NAE drain sites. The wound on the left is actively bleeding bright red blood. It seems to be superficial. There is ecchymotic region to the upper abdomen consistent with recent Lovenox injections. There is global tenderness to the abdomen but no peritoneal signs. Extremities without cyanosis, clubbing. Peripheral pulses are equal. Skin is warm and dry. Patient is awake, alert, neurological exam is nonfocal. Course - Re-evaluation Re-evalutation: 10/05/18 00:06 Patient presents to the emergency department for evaluation of postoperative bleeding. He was concerned that his abdomen was more bloated and that he had lost a significant amount of blood. Because of these reasons I did order blood work and CT scan of the abdomen and pelvis. Dr. Cowan was consulted and came to the emergency department. He asked that the CT scan not be performed. States he knows the patient well and feels comfortable that there is no intra- abdominal pathology contributing to this. Certainly given the fact that he is several days postop, it is likely this is simply just soft tissue bleeding. The patient had good hemostasis with [address] Cowan. We will discharge him to home. He is to follow-up with his surgeon, return to the ED with worsening or new concerning symptoms. - Vital Signs Vital signs: Temp Pulse Resp BP Pulse Ox 98.5 F 108 H 20 134/83 H 98 10/04/18 21:57 10/04/18 21:57 10/04/18 21:57 10/04/18 21:57 10/04/18 21:57 - Laboratory Result Diagrams: 10/04/18 22:10 10/04/18 22:10 Laboratory results interpreted by me: 10/04/18 10/04/18 22:10 22:10 WBC 14.8 H RBC 3.56 L Hgb 12.6 L Hct 36.8 L MCV 103 H MCH 35.5 H RDW 15.2 H Seg Neutrophils % 79.8 H Lymphocytes % 10.4 L Absolute Neutrophils 11.9 H Sodium 131.9 L Chloride 95 L Creatinine 1.30 H Est GFR (Non-Af Amer) 59 L 10/05/18 00:09 Hemoglobin stable. Discharge - Discharge Clinical Impression: Postoperative bleeding from incision Condition: Stable Disposition: HOME, SELF-CARE Instructions: Care of Stapled Wounds ([facility]) Additional Instructions: Continue wound care and binder as instructed by Dr. Cowan. Follow-up with him as scheduled. Return to the emergency department with worsening or new concerning symptoms of any sort. Referrals: KELLIE SHELL PA-C [Primary Care Provider] - Follow up as needed
[2018-10-05 00:33] VITALS: BP 110/63
--- NOTE | 2018-10-05 04:53 | OPERATIVE REPORT E ---
Operative Report NAME: PIPE RESENDIZ IV : 1970 AGE: 47Y DATE OF SURGERY: 10/04/2018 ROOM: PREOPERATIVE DIAGNOSIS: STATUS POST COLOSTOMY TAKEDOWN WITH BLEEDING FROM LEFT LOWER QUADRANT COLOSTOMY DRAINAGE SITE. POSTOPERATIVE DIAGNOSIS: STATUS POST COLOSTOMY TAKEDOWN WITH BLEEDING FROM LEFT LOWER QUADRANT COLOSTOMY DRAINAGE SITE. OPERATION: Closure of drain hole. SURGEON: ROBERTO COWAN M.D. ANESTHESIA: 1% plain lidocaine COMPLICATIONS: None. ESTIMATED BLOOD LOSS: 25-30 mL DRAINS: None. PROCEDURE: The patient was seen in the emergency department after having gone home earlier in the day, discharged by Dr. Cowan following a 4-day hospitalization for colostomy takedown. The patient had his drains removed earlier today. On the ride home he developed bleeding from the left lower quadrant drain site, which was actually draining the colostomy takedown site. The bleeding persisted. He is now in the emergency department, where he had clots all over his clothes. The principal problem was bleeding from the drain hole. The left drain hole site was prepped with alcohol, anesthetized with 1% plain lidocaine, and stitched with 2 interrupted 4-0 Ethilon sutures. The bleeding abated. There was no evidence of hematoma or clot coming from the actual colostomy takedown site. The rest of the abdominal exam is benign. The patient tolerated the procedure well. PLAN: The patient will be discharged home to follow up with Dr. Cowan as previously scheduled. DICTATING PHYSICIAN: ROBERTO COWAN M.D. [id number] PHY#: [id number] ID: [id number] JOB#: [id number] ACCT: [id number] cc:ROBERTO COWAN M.D. > MTDD
== END 2018-10-05 00:37 | disposition home or self-care (01) ==
LOC: ER 21:50
DX: L76.22 Postprocedural hemorrhage of skin and subcutaneous tissue following other procedure (principal); Y83.4 Other reconstructive surgery as the cause of abnormal reaction of the patient, or of later complication, without mention of misadventure at the time of the procedure; I10 Essential (primary) hypertension; Z96.642 Presence of left artificial hip joint; Z88.6 Allergy status to analgesic agent; Z79.02 Long term (current) use of antithrombotics/antiplatelets
CPT/HCPCS: 99283; 96360; 36415; 87040; 85025; 85610; 85730; 80048; 12001; J7030

== ENCOUNTER 2020-04-10 23:33 | Emergency (ER) | payer SELFPAY ==
[2020-04-10] MEDS ORDERED: ONDANSETRON HCL INJ/PF 4 MG/2 ML SDV IM ONE (23:38)
[2020-04-10] MEDS ORDERED: NORMAL SALINE 1000 ML 1,000 ML IV ONE (23:39)
[2020-04-10] MEDS ORDERED: HYDROCODONE/ACETAMINOPHEN 5-325 MG TABLET PO ONE (23:40)
--- NOTE | 2020-04-10 23:46 | ER Document Report ---
ED Medical Screen (RME) - General Chief Complaint: Abdominal Pain Stated Complaint: ABDOMINAL PAIN Time Seen by Provider: 04/10/20 23:35 Primary Care Provider: KELLIE SHELL PA-C [Primary Care Provider] - Follow up as needed Notes: Patient is a 49-year-old male presents emergency department with a chief complaint of abdominal pain and vomiting. Patient states that he has had his abdominal pain for the past 2 weeks. States that he has been vomiting. Patient has a history of diverticulitis sigmoid colon surgeries in the past. He has history of a colostomy with colon resection. Patient urinated on himself in the waiting room. Exam: Tender generalized abdomen. I have greeted and performed a rapid initial assessment of this patient. A comprehensive ED assessment and evaluation of the patient, analysis of test results and completion of medical decision making process will be conducted by an additional ED providers. TRAVEL OUTSIDE OF THE [place] IN LAST 30 DAYS: No - Related Data Allergies/Adverse Reactions: hydromorphone [From Dilaudid] Allergy (Verified 10/01/18 19:49) tramadol [From Ultram] Allergy (Verified 09/29/18 06:14) tramadol HCl [From Ultram] Allergy (Verified 10/01/18 19:48) amlodipine [From Norvasc] Adverse Reaction (Mild, Verified 10/03/18 11:38) Past Medical History - Past Medical History Cardiac Medical History: Reports: Hx Hypertension Denies: Hx Coronary Artery Disease, Hx Heart Attack Pulmonary Medical History: Denies: Hx Asthma, Hx Bronchitis, Hx COPD, Hx Pneumonia Neurological Medical History: Reports: Hx Seizures - x1 at age 19. Denies: Hx Cerebrovascular Accident, Hx Parkinson's Disease Endocrine Medical History: Denies: Hx Diabetes Mellitus Type 1, Hx Diabetes Mellitus Type 2 Renal/ Medical History: Denies: Hx Peritoneal Dialysis GI Medical History: Reports: Hx Diverticulitis, Hx Hiatal Hernia Musculoskeltal Medical History: Reports Hx Arthritis - DJD Psychiatric Medical History: Denies: Hx Dementia, Hx Depression Traumatic Medical History: Past Surgical History: Reports: Hx Abdominal Surgery - partial resection of colon; September 2016, colostomy, Hx Bowel Surgery - COLOSTOMY, Hx Colostomy, Hx Orthopedic Surgery - Left hip replaced, Other - Colonoscopy - Immunizations Hx Diphtheria, Pertussis, Tetanus Vaccination: - UNSURE Doctor's Discharge - Discharge Referrals: KELLIE SHELL PA-C [Primary Care Provider] - Follow up as needed
[2020-04-11 00:35] LABS: APPEARANCE,URINE CLEAR; BILIRUBIN,URINE NEGATIVE (NEGATIVE); COLOR,URINE YELLOW; GLUCOSE, URINE NEGATIVE (NEGATIVE); KETONES,URINE NEGATIVE (NEGATIVE); LEUKOCYTE ESTERASE,URINE NEGATIVE (NEGATIVE); NITRITE,URINE NEGATIVE (NEGATIVE); PROTEIN,URINE >=500 mg/dL (NEGATIVE); URINE SPECIFIC GRAVITY 1.011; UROBILINOGEN,URINE NEGATIVE mg/dL (<2.0)
[2020-04-11 00:39] LABS: ABSOLUTE BASOPHILS # (AUTO) 0.1 10^3/uL (0.0-0.2); ABSOLUTE EOSINOPHILS # (AUTO) 0.2 10^3/uL (0.0-0.6); ABSOLUTE LYMPHOCYTES (AUTO) 1.4 10^3/uL (0.5-4.7); ABSOLUTE MONOCYTES (AUTO) 0.5 10^3/uL (0.1-1.4); BASOPHILS % (AUTO) 2.3 % (0-2); EOSINOPHILS % (AUTO) 3.3 % (0-6); HEMATOCRIT 38.1 % (37.9-51.0); HEMOGLOBIN 13.4 g/dL (13.5-17.0); LYMPHOCYTES % (AUTO) 22.1 % (13-45); MEAN CORPUSCULAR HEMOGLOBIN 35.3 pg (27.0-33.4); MEAN CORPUSCULAR HGB CONC 35.1 g/dL (32.0-36.0); MEAN CORPUSCULAR VOLUME 101 fl (80-97); MONOCYTES % (AUTO) 8.6 % (3-13); PLATELET COUNT 146 10^3/uL (150-450); RED BLOOD COUNT 3.79 10^6/uL (4.35-5.55); RED CELL DISTRIBUTION WIDTH 15.6 % (11.5-14.0); SEGMENTED NEUTROPHILS % (AUTO) 63.7 % (42-78); TOTAL CELLS COUNTED % (AUTO) 100 %; WHITE BLOOD COUNT 6.3 10^3/uL (4.0-10.5)
[2020-04-11 00:48] LABS: ALBUMIN 4.4 g/dL (3.5-5.0); ALKALINE PHOSPHATASE 110 U/L (38-126); ANION GAP 11 (5-19); ASPARTATE AMINO TRANSFERASE 96 U/L (17-59); BILIRUBIN,DIRECT 0.4 mg/dL (0.0-0.4); BILIRUBIN,TOTAL 0.4 mg/dL (0.2-1.3); BLOOD UREA NITROGEN 12 mg/dL (7-20); CALCIUM 9.4 mg/dL (8.4-10.2); CARBON DIOXIDE 29 mmol/L (22-30); CHLORIDE 97 mmol/L (98-107); GLUCOSE 102 mg/dL (75-110); POTASSIUM 3.9 mmol/L (3.6-5.0); TOTAL PROTEIN 7.7 g/dL (6.3-8.2)
[2020-04-11] MEDS ORDERED: MORPHINE SULFATE 10 MG/ML INJ IV ONE ×2 (02:36→07:50)
--- NOTE | 2020-04-11 02:38 | ER Document Report ---
Doctor's Note Notes: 04/11/20 02:37 I was notified by nursing that patient was having significant amount of abdominal pain. He had been ordered [place] earlier, but this order timed out. I did review his chart. He has a history of pancreatitis. He is a modest elevation in his lipase at this time. He already has an IV, and IV contrasted scan is ordered. I did order IV morphine to be administered. He has tolerated this well in the past. I did not examine patient, but again I did review his chart.
[2020-04-11] MEDS ORDERED: ONDANSETRON HCL INJ/PF 4 MG/2 ML SDV IV ONE ×2 (02:56→08:00)
--- NOTE | 2020-04-11 04:48 | ER Document Report ---
ED GI/ - General Chief Complaint: Abdominal Pain Stated Complaint: ABDOMINAL PAIN Time Seen by Provider: 04/10/20 23:35 Primary Care Provider: ROBERTO BARCENAS MD [ACTIVE STAFF] - Follow up as needed Mode of Arrival: Ambulatory Information source: Patient Notes: Patient is a 49-year-old male presents emergency department chief complaint of abdominal pain. Patient reports history of diverticulitis with colon resection. He states he had a colostomy for 3 years. He states the colostomy was reversed about 4 years ago. All of this was done here at [facility]. He states he always has abdominal pain but the pain has become worse over the last month. Over the last few days he states he has had nausea with vomiting. He denies any blood in his vomit. He denies any diarrhea. He states he has passing stools without difficulty. He is concerned he may have a hernia. He reports he drinks about 6-7 beers on the weekends only. Denies any history of pancreatitis. TRAVEL OUTSIDE OF THE [place] IN LAST 30 DAYS: No - Related Data Allergies/Adverse Reactions: hydromorphone [From Dilaudid] Allergy (Verified 10/01/18 19:49) tramadol [From Ultram] Allergy (Verified 09/29/18 06:14) tramadol HCl [From Ultram] Allergy (Verified 10/01/18 19:48) amlodipine [From Norvasc] Adverse Reaction (Mild, Verified 10/03/18 11:38) Past Medical History - General Information source: Patient - Social History Smoking Status: Unknown if Ever Smoked Family History: Reviewed & Not Pertinent, Other - Crohn's disease. Colon cancer. - Past Medical History Cardiac Medical History: Reports: Hx Hypertension Denies: Hx Coronary Artery Disease, Hx Heart Attack Pulmonary Medical History: Denies: Hx Asthma, Hx Bronchitis, Hx COPD, Hx Pneumonia Neurological Medical History: Reports: Hx Seizures - x1 at age 19. Denies: Hx Cerebrovascular Accident, Hx Parkinson's Disease Endocrine Medical History: Denies: Hx Diabetes Mellitus Type 1, Hx Diabetes Mellitus Type 2 Renal/ Medical History: Denies: Hx Peritoneal Dialysis GI Medical History: Reports: Hx Diverticulitis, Hx Hiatal Hernia Musculoskeletal Medical History: Reports Hx Arthritis - DJD Psychiatric Medical History: Denies: Hx Dementia, Hx Depression Traumatic Medical History: Past Surgical History: Reports: Hx Abdominal Surgery - partial resection of colon; September 2016, colostomy, Hx Bowel Surgery - COLOSTOMY, Hx Colostomy, Hx Orthopedic Surgery - Left hip replaced, Other - Colonoscopy - Immunizations Hx Diphtheria, Pertussis, Tetanus Vaccination: - UNSURE Review of Systems - Review of Systems Constitutional: Chills EENT: No symptoms reported Cardiovascular: No symptoms reported Respiratory: No symptoms reported Gastrointestinal: Abdominal pain, Nausea, Vomiting Genitourinary: No symptoms reported Male Genitourinary: No symptoms reported Musculoskeletal: No symptoms reported Skin: No symptoms reported Hematologic/Lymphatic: No symptoms reported Neurological/Psychological: No symptoms reported Physical Exam - Vital signs Vitals: Temp Pulse Resp BP Pulse Ox 99.2 F 110 H 24 H 155/100 H 94 04/10/20 23:44 04/10/20 23:44 04/10/20 23:44 04/10/20 23:44 04/10/20 23:44 - Notes Notes: PHYSICAL EXAMINATION: GENERAL: Well-appearing, well-nourished and in no acute distress. HEAD: Atraumatic, normocephalic. EYES: Pupils equal round and reactive to light, extraocular movements intact, sclera anicteric, conjunctiva are normal. ENT: Nares patent, oropharynx clear without exudates. Moist mucous membranes. NECK: Normal range of motion, supple without lymphadenopathy LUNGS: Breath sounds clear to auscultation bilaterally and equal. No wheezes rales or rhonchi. HEART: Regular rate and rhythm without murmurs ABDOMEN: Mildly distended abdomen with tenderness to the right lower quadrant and periumbilical area. No guarding, no rebound. Palpable mass near the periumbilical area. Musculoskeletal: Normal range of motion, no pitting or edema. No cyanosis. NEUROLOGICAL: Cranial nerves grossly intact. Normal speech. Normal sensory, motor exams PSYCH: Normal mood, normal affect. SKIN: Warm, Dry, normal turgor, no rashes or lesions noted. Course - Re-evaluation Re-evalutation: 04/11/20 04:47 At the time of my initial evaluation patient has already had labs drawn, he is drinking oral contrast and he has had IV Zofran and IV morphine. He is alert, oriented, no acute distress noted. He states his pain is tolerable and is a 2/5 at this time. He reports significant intra-abdominal surgical history as outlined in my HPI. He will be sent for CT scan. He does have elevated blood pressure today, he states he stopped taking his blood pressure medicine several years ago, he states that at the time the doctor told him he did not need it anymore. 04/11/20 05:18 We are currently awaiting CT results. Patient has a normal white blood count, elevated lipase to the upper 600s. He continues to report that his pain is well controlled. We will disposition patient as soon as CT results are in. 04/11/20 07:27 CT shows no acute intra-abdominal pathology. Patient continues to have generalized tenderness to palpation, increased tenderness in the right lower quadrant. Will consult surgery prior to disposition due to patient's surgical history. Spoke with Dr. Claudio, general surgeon security installation technician, discussed patient and patient's test results, patient will be seen in the office on outpatient basis, patient will call today to schedule an appointment. - Vital Signs Vital signs: Temp Pulse Resp BP Pulse Ox 97.9 F 97 16 201/92 H 96 04/11/20 07:59 04/11/20 07:59 04/11/20 07:59 04/11/20 07:59 04/11/20 07:59 - Laboratory Result Diagrams: 04/11/20 00:13 04/11/20 00:13 Laboratory results interpreted by me: 04/11/20 04/11/20 04/11/20 00:13 00:13 00:13 RBC 3.79 L Hgb 13.4 L MCV 101 H MCH 35.3 H RDW 15.6 H Plt Count 146 L Baso % (Auto) 2.3 H Chloride 97 L Creatinine 1.50 H Est GFR (MDRD) Non-Af 50 L AST 96 H Lipase 699.1 H Urine Protein >=500 H Urine Blood SMALL H Discharge - Discharge Clinical Impression: Abdominal pain Qualifiers: Abdominal location: generalized Qualified Code(s): R10.84 - Generalized abdominal pain Condition: Stable Disposition: HOME, SELF-CARE Additional Instructions: Please call the [facility] to schedule a follow-up appointment. Return to the emergency department any new or worsening symptoms. Forms: Elevated Blood Pressure Referrals: ROBERTO BARCENAS MD [ACTIVE STAFF] - Follow up as needed
--- NOTE | 2020-04-11 06:03 | RADIOLOGY REPORT (SQ) ---
EXAM DESCRIPTION: CT ABDOMEN PELVIS WITH IV CONTRAST COMPLETED DATE/TME: 04/11/2020 00:00 CLINICAL HISTORY: 49 years, Male, abdominal pain; hx of diverticulitis COMPARISON: 05/31/2018 CT TECHNIQUE: 814 Images stored on PACS. All CT scanners at this facility use dose modulation, iterative reconstruction, and/or weight based dosing when appropriate to reduce radiation dose to as low as reasonably achievable (ALARA). [facility]: Dose Right [facility]: CareDose [facility]: Dose Right [facility]: Teradose 4D [facility]: [employer] LIMITATIONS: None. FINDINGS: The visualized lung bases are unremarkable. Osseous structures are grossly intact. Diffuse fatty infiltrative change to the liver. The gallbladder is present. The spleen, adrenal glands, pancreas, kidneys are unremarkable. Oral contrast was also utilized. There is no evidence for bowel obstruction. However, there are multiple anterior abdominal wall hernias, some of which contain loops of bowel. No CT evidence for strangulation or incarceration at this time. Postsurgical change left hip. No free air or free fluid. Chronic changes to the left hip joint, with fluid in the hip joint... IMPRESSION: Negative for acute intra-abdominal/pelvic process. Multiple anterior abdominal wall hernias, some of which contain bowel. No CT evidence for incarceration or associated inflammation. Fatty infiltrative change to the liver. Chronic appearing changes to the right hip. Fluid associated with the right hip joint. TECHNICAL DOCUMENTATION: Quality ID # 436: Final reports with documentation of one or more dose reduction techniques (e.g., Automated exposure control, adjustment of the mA and/or kV according to patient size, use of iterative reconstruction technique) copyright 2011 [employer]- All Rights Reserved
[2020-04-11 08:00] VITALS: BP 201/92
== END 2020-04-11 08:37 | disposition home or self-care (01) ==
LOC: ER 23:33
DX: R10.84 Generalized abdominal pain (principal); K43.9 Ventral hernia without obstruction or gangrene; R68.83 Chills (without fever); R14.0 Abdominal distension (gaseous); R10.817 Generalized abdominal tenderness; I10 Essential (primary) hypertension; Z93.3 Colostomy status; Z90.49 Acquired absence of other specified parts of digestive tract; Z87.19 Personal history of other diseases of the digestive system; R11.2 Nausea with vomiting, unspecified; Z88.6 Allergy status to analgesic agent; Z88.5 Allergy status to narcotic agent
CPT/HCPCS: 96376; 99285; 96361; 96374; 96375; 36415; 83690; 85025; 80053; 81001; 74177; J2270; J2405; J7030

== ENCOUNTER 2020-04-24 11:18 | Emergency (ER) | payer SELFPAY ==
[2020-04-24 12:47] LABS: ABSOLUTE BASOPHILS # (AUTO) 0.1 10^3/uL (0.0-0.2); ABSOLUTE EOSINOPHILS # (AUTO) 0.1 10^3/uL (0.0-0.6); ABSOLUTE LYMPHOCYTES (AUTO) 0.9 10^3/uL (0.5-4.7); ABSOLUTE MONOCYTES (AUTO) 0.5 10^3/uL (0.1-1.4); BASOPHILS % (AUTO) 2.2 % (0-2); HEMATOCRIT 37.7 % (37.9-51.0); HEMOGLOBIN 13.2 g/dL (13.5-17.0); LYMPHOCYTES % (AUTO) 15.5 % (13-45); MEAN CORPUSCULAR HEMOGLOBIN 34.8 pg (27.0-33.4); MEAN CORPUSCULAR HGB CONC 34.9 g/dL (32.0-36.0); MEAN CORPUSCULAR VOLUME 100 fl (80-97); PLATELET COUNT 151 10^3/uL (150-450); RED BLOOD COUNT 3.79 10^6/uL (4.35-5.55); RED CELL DISTRIBUTION WIDTH 16.3 % (11.5-14.0); SEGMENTED NEUTROPHILS % (AUTO) 71.3 % (42-78); TOTAL CELLS COUNTED % (AUTO) 100 %; WHITE BLOOD COUNT 5.6 10^3/uL (4.0-10.5)
[2020-04-24 12:59] LABS: ALBUMIN 4.4 g/dL (3.5-5.0); ALKALINE PHOSPHATASE 121 U/L (38-126); ANION GAP 12 (5-19); ASPARTATE AMINO TRANSFERASE 112 U/L (17-59); BILIRUBIN,DIRECT 0.4 mg/dL (0.0-0.4); BILIRUBIN,TOTAL 0.7 mg/dL (0.2-1.3); BLOOD UREA NITROGEN 12 mg/dL (7-20); CARBON DIOXIDE 29 mmol/L (22-30); CHLORIDE 95 mmol/L (98-107); CREATINE KINASE 228 U/L (55-170); GLUCOSE 113 mg/dL (75-110); POTASSIUM 3.7 mmol/L (3.6-5.0); TOTAL PROTEIN 7.7 g/dL (6.3-8.2)
--- NOTE | 2020-04-24 13:00 | ER Document Report ---
ED GI/ - General Chief Complaint: Abdominal Pain Stated Complaint: ABDOMINAL PAIN,VOMITING,DIARRHEA Time Seen by Provider: 04/24/20 12:41 Primary Care Provider: TAMIR DAS DO [NO LOCAL MD] - Follow up tomorrow (You need to call soon as possible for an outpatient follow-up appointment.) Mode of Arrival: Ambulatory Information source: Patient Notes: 49-year-old male past medical history significant for hypertension not currently on medications, diverticulitis, pancreatitis presents to the emergency room with persistent ongoing abdominal pain that he has had for several months. Patient states he had had a follow-up appointment with general surgery Dr. Cowan today complaining of worsening pain blood pressure was noted to be elevated in the office and he was referred to the emergency room. Patient was told his blood pressure was 277/115 in the office. Patient admits to not taking any blood pressure medication for over a year as he did not like the way it made him feel. Currently without a primary care physician as he states his physician has retired. He denies any chest pain, shortness of breath, no difficulty breathing. He is complaining of severe abdominal pain with nausea. Denies any fevers. No urinary symptoms. Normal bowel movements. TRAVEL OUTSIDE OF THE [place] IN LAST 30 DAYS: No - Related Data Allergies/Adverse Reactions: hydromorphone [From Dilaudid] Allergy (Verified 10/01/18 19:49) tramadol [From Ultram] Allergy (Verified 09/29/18 06:14) tramadol HCl [From Ultram] Allergy (Verified 10/01/18 19:48) amlodipine [From Norvasc] Adverse Reaction (Mild, Verified 10/03/18 11:38) Past Medical History - General Information source: Patient - Social History Smoking Status: Current Some Day Smoker Frequency of alcohol use: Occasional Drug Abuse: None Family History: Reviewed & Not Pertinent, Other - Crohn's disease. Colon cancer. Patient has homicidal ideation: No - Past Medical History Cardiac Medical History: Reports: Hx Hypertension Denies: Hx Coronary Artery Disease, Hx Heart Attack Pulmonary Medical History: Denies: Hx Asthma, Hx Bronchitis, Hx COPD, Hx Pneumonia Neurological Medical History: Reports: Hx Seizures - x1 at age 19. Denies: Hx Cerebrovascular Accident, Hx Parkinson's Disease Endocrine Medical History: Denies: Hx Diabetes Mellitus Type 1, Hx Diabetes Mellitus Type 2 Renal/ Medical History: Denies: Hx Peritoneal Dialysis GI Medical History: Reports: Hx Diverticulitis, Hx Hiatal Hernia Musculoskeletal Medical History: Reports Hx Arthritis - DJD Psychiatric Medical History: Denies: Hx Dementia, Hx Depression Traumatic Medical History: Past Surgical History: Reports: Hx Abdominal Surgery - partial resection of colon; September 2016, colostomy, Hx Bowel Surgery - COLOSTOMY, Hx Colostomy, Hx Orthopedic Surgery - Left hip replaced, Other - Colonoscopy - Immunizations Hx Diphtheria, Pertussis, Tetanus Vaccination: - UNSURE Review of Systems - Review of Systems Constitutional: No symptoms reported Cardiovascular: No symptoms reported. denies: Chest pain Respiratory: No symptoms reported. denies: Short of breath Gastrointestinal: Abdominal pain, Nausea. denies: Diarrhea, Vomiting Genitourinary: No symptoms reported Musculoskeletal: No symptoms reported Skin: No symptoms reported Neurological/Psychological: No symptoms reported -: Yes All other systems reviewed and negative Physical Exam - Vital signs Vitals: Temp Pulse Resp BP Pulse Ox 98.0 F 93 20 227/115 H 97 04/24/20 11:58 04/24/20 11:58 04/24/20 11:58 04/24/20 11:58 04/24/20 11:58 - General General appearance: Appears well, Alert In distress: Moderate - Respiratory Respiratory status: No respiratory distress Chest status: Nontender Breath sounds: Normal Chest palpation: Normal - Cardiovascular Rhythm: Regular Heart sounds: Normal auscultation Murmur: No - Abdominal Inspection: Normal Distension: No distension Bowel sounds: Normal Tenderness: Tender - Generalized tenderness on palpation. No guarding, no rebound. Positive bowel sounds x4. Organomegaly: No organomegaly - Back Back: Normal, Nontender. No: CVA tenderness - Neurological Neuro grossly intact: Yes Cognition: Normal Orientation: AAOx4 [place] Coma Scale Eye Opening: Spontaneous [place] Coma Scale Verbal: Oriented [place] Coma Scale Motor: Obeys Commands [place] Coma Scale Total: 15 Speech: Normal Motor strength normal: LUE, RUE, LLE, RLE Sensory: Normal - Skin Skin Temperature: Warm Skin Moisture: Dry Skin Color: Normal Course - Re-evaluation Re-evalutation: 04/24/20 15:01 Patient is resting comfortably denies any pain at this time. Minimal pain on exam. Blood pressures improved but is still elevated. Patient states he stopped taking his blood pressure medication over a year ago as he did not like the side effects. Reviewed initial lab and CAT scan results with patient. Will give IV hydralazine reevaluate blood pressure. Urine still pending. 04/24/20 16:12 Patient complaining of returning pain. He is able to tolerate p.o. fluids without difficulty. All test results were reviewed the patient. Patient with known hypertension not currently taking any medications. He denies any chest pain, shortness of breath, no difficulty breathing. Will re-medicate and reevaluate. 04/24/20 16:39 Patient is resting comfortably states he is feeling better. Blood pressure remains elevated however patient is noncompliant with his blood pressure medica tions. He is pain-free on exam. He was counseled on the importance of an outpatient follow-up appointment with a primary care physician for management of his hypertension. Patient is requesting nausea medication. He is also to follow-up with Dr. Cowan for his chronic abdominal pain. Patient was given strict return to the emergency room guidelines. Return for any new or worsening symptoms. All questions were answered. Patient verbalized understanding and agrees with plan of care. 04/24/20 17:53 - Vital Signs Vital signs: Temp Pulse Resp BP Pulse Ox 98.0 F 93 17 199/115 H 99 04/24/20 11:58 04/24/20 11:58 04/24/20 15:31 04/24/20 15:20 04/24/20 15:31 - Laboratory Result Diagrams: 04/24/20 12:11 04/24/20 12:11 Laboratory results interpreted by me: 04/24/20 04/24/20 04/24/20 12:11 12:11 14:55 RBC 3.79 L Hgb 13.2 L Hct 37.7 L MCV 100 H MCH 34.8 H RDW 16.3 H Baso % (Auto) 2.2 H Sodium 136.4 L Chloride 95 L Glucose 113 H AST 112 H Creatine Kinase 228 H Lipase 423.0 H Urine Protein 100 H Urine Blood SMALL H - Diagnostic Test Radiology reviewed: Reports reviewed - EKG Interpretation by Ar EKG shows normal: Sinus rhythm Rate: Normal Additional EKG results interpreted by me: 04/24/20 15:19 EKG was interpreted by ER physician Dr. Watson No acute STEMI Normal sinus rhythm Rate of 84 Borderline left axis deviation : Borderline T wave abnormalities Discharge - Discharge Clinical Impression: Chronic abdominal pain, Nausea Hypertension Qualifiers: Hypertension type: unspecified Qualified Code(s): I10 - Essential (primary) hypertension Condition: Stable Disposition: HOME, SELF-CARE Instructions: Abdominal Pain ([facility]), Antinausea Medication ([facility]), High Blood Pressure, Requiring Treatment ([facility]) Additional Instructions: Zofran as needed for nausea. Outpatient follow-up with general surgery for your chronic abdominal pain. It is imperative that you establish with a primary care physician for management of your hypertension. Return to the emergency room for any new or worsening symptoms. Prescriptions: Metoprolol Tartrate [Lopressor 25 mg Tablet] 25 mg PO DAILY #30 tab Ondansetron [Zofran Odt 4 mg Tablet] 1 tab PO Q4H PRN #12 tab.rapdis PRN Reason: For Nausea/Vomiting Forms: Elevated Blood Pressure Referrals: TAMIR DAS DO [NO LOCAL MD] - Follow up tomorrow (You need to call soon as p ossible for an outpatient follow-up appointment.)
[2020-04-24] MEDS ORDERED: MORPHINE SULFATE 10 MG/ML INJ IV ONE ×2 (13:03→16:13)
[2020-04-24] MEDS ORDERED: ONDANSETRON HCL INJ/PF 4 MG/2 ML SDV IV ONE ×2 (13:03→16:29)
[2020-04-24 13:29] LABS: CREATINE KINASE MB 1.87 ng/mL (<4.55); TROPONIN I 0.017 ng/mL
--- NOTE | 2020-04-24 14:46 | RADIOLOGY REPORT (SQ) ---
EXAM DESCRIPTION: CT ABD/PELVIS WITH IV ONLY IMAGES COMPLETED DATE/TIME: 04/24/2020 2:22 pm REASON FOR STUDY: abdominal pain COMPARISON: 04/11/2020 TECHNIQUE: CT scan of the abdomen and pelvis performed using helical scanning technique with dynamic intravenous contrast injection. No oral contrast. Images reviewed with lung, soft tissue, and bone windows. Reconstructed coronal and sagittal MPR images reviewed. Delayed images for evaluation of the urinary system also acquired. All images stored on PACS. All CT scanners at this facility use dose modulation, iterative reconstruction, and/or weight based d osing when appropriate to reduce radiation dose to as low as reasonably achievable (ALARA). [facility]: Dose Right [facility]: CareDose [facility]: Dose Right [facility]: Teradose 4D [facility]: [email or web address] CONTRAST TYPE AND DOSE: contrast/concentration: Isovue 350.00 mmol/ml; Total Contrast Delivered: 98. 0 ml; Total Saline Delivered: 68.0 ml RENAL FUNCTION: BUN 12; creatinine 1.15 RADIATION DOSE: CT Rad equipment meets quality standard of care and radiation dose reduction techniq ues were employed. CTDIvol: 17.6 - 20.2 mGy. DLP: 1999 mGy-cm.. LIMITATIONS: None. FINDINGS: LOWER CHEST: No significant findings. No nodules or infiltrates. LIVER: Hepatic steatosis. No focal mass. No intrahepatic biliary dilatation. SPLEEN: Normal size. No focal lesions. PANCREAS: No masses. No significant calcifications. No adjacent inflammation or peripancreatic fluid collections. Pancreatic duct not dilated. GALLBLADDER: No identified stones by CT criteria. No inflammatory changes to suggest cholecystitis. ADRENAL GLANDS: No significant masses or asymmetry. RIGHT KIDNEY AND URETER: No solid masses. No significant calcifications. No hydronephrosis or hyd roureter. LEFT KIDNEY AND URETER: No solid masses. No significant calcifications. No hydronephrosis or hydr oureter. AORTA AND VESSELS: No aneurysm. No dissection. Renal arteries, SMA, celiac without stenosis. RETROPERITONEUM: No retroperitoneal adenopathy, hemorrhage or masses. BOWEL AND PERITONEAL CAVITY: Sigmoid anastomosis without evidence of leak. No inflammatory changes. No mass. No obstruction. APPENDIX: Normal. PELVIS: No mass. No free fluid. Normal bladder. ABDOMINAL WALL: Re- demonstration of a right infraumbilical hernia measuring on the order of 6 x 8 cm and a right supraumbilical hernia measuring on the order of 6.3 x 3.5 cm ; each of these contain loo ps of bowel without evidence of incarceration. There are additional right and left paramedian fat co ntaining abdominal wall hernias. Each of these are stable in the study interval. BONES: Severe degenerative changes are seen of the right hip. The patient is status post left total hip arthroplasty. Mild degenerative changes are seen of the visualized spine. OTHER: No other significant finding. IMPRESSION: No evidence of acute intra-abdominal infectious/inflammatory process. Stable chronic an d incidental findings to include bowel containing abdominal wall hernias as detailed above. TECHNICAL DOCUMENTATION: JOB ID: [id number] Quality ID # [id number]: Final reports with documentation of one or more dose reduction techniques (e.g., Au tomated exposure control, adjustment of the mA and/or kV according to patient size, use of iterative reconstruction technique) 2010 [employer]- All Rights Reserved Reading location - IP/workstation name: [email or web address]
[2020-04-24] MEDS ORDERED: HYDRALAZINE HCL INJ/PF 20 MG/1 ML SDV IV ONE (14:57)
[2020-04-24 15:11] LABS: APPEARANCE,URINE CLEAR; BILIRUBIN,URINE NEGATIVE (NEGATIVE); COLOR,URINE STRAW; GLUCOSE, URINE NEGATIVE (NEGATIVE); KETONES,URINE NEGATIVE (NEGATIVE); LEUKOCYTE ESTERASE,URINE NEGATIVE (NEGATIVE); NITRITE,URINE NEGATIVE (NEGATIVE); PROTEIN,URINE 100 mg/dL (NEGATIVE); URINE SPECIFIC GRAVITY 1.012; UROBILINOGEN,URINE NEGATIVE mg/dL (<2.0)
[2020-04-24 15:52] VITALS: BP 199/115
--- NOTE | 2020-04-24 19:00 | EKG REPORT ---
SEVERITY:- BORDERLINE ECG - SINUS RHYTHM BORDERLINE LEFT AXIS DEVIATION BORDERLINE T ABNORMALITIES, ANT-LAT LEADS : Confirmed by: Misbah Underwood MD 24-Apr-2020 18:59:28
== END 2020-04-24 17:01 | disposition home or self-care (01) ==
LOC: ER 11:18
DX: G89.29 Other chronic pain (principal); R10.9 Unspecified abdominal pain; I10 Essential (primary) hypertension; R11.0 Nausea; R19.7 Diarrhea, unspecified; F17.200 Nicotine dependence, unspecified, uncomplicated; Z93.3 Colostomy status
CPT/HCPCS: 93005; 96376; 99285; 96374; 96375; 36415; 82553; 82550; 83690; 85025; 80053; 81001; 84484; 74177; 93010; J0360; J2270; J2405

== ENCOUNTER 2020-05-02 00:01 | Emergency (ER) | payer SELFPAY ==
[2020-05-02 04:21] LABS: ABSOLUTE BASOPHILS # (AUTO) 0.1 10^3/uL (0.0-0.2); ABSOLUTE EOSINOPHILS # (AUTO) 0.1 10^3/uL (0.0-0.6); ABSOLUTE LYMPHOCYTES (AUTO) 0.9 10^3/uL (0.5-4.7); ABSOLUTE MONOCYTES (AUTO) 0.6 10^3/uL (0.1-1.4); BASOPHILS % (AUTO) 2.2 % (0-2); EOSINOPHILS % (AUTO) 1.6 % (0-6); HEMATOCRIT 37.9 % (37.9-51.0); HEMOGLOBIN 13.2 g/dL (13.5-17.0); LYMPHOCYTES % (AUTO) 13.9 % (13-45); MEAN CORPUSCULAR HEMOGLOBIN 34.8 pg (27.0-33.4); MEAN CORPUSCULAR HGB CONC 34.8 g/dL (32.0-36.0); MEAN CORPUSCULAR VOLUME 100 fl (80-97); MONOCYTES % (AUTO) 8.6 % (3-13); PLATELET COUNT 131 10^3/uL (150-450); RED BLOOD COUNT 3.79 10^6/uL (4.35-5.55); RED CELL DISTRIBUTION WIDTH 16.3 % (11.5-14.0); SEGMENTED NEUTROPHILS % (AUTO) 73.7 % (42-78); TOTAL CELLS COUNTED % (AUTO) 100 %; WHITE BLOOD COUNT 6.8 10^3/uL (4.0-10.5)
[2020-05-02 04:43] LABS: ALBUMIN 4.6 g/dL (3.5-5.0); ALKALINE PHOSPHATASE 133 U/L (38-126); ANION GAP 17 (5-19); ASPARTATE AMINO TRANSFERASE 110 U/L (17-59); BILIRUBIN,DIRECT 0.5 mg/dL (0.0-0.4); BILIRUBIN,TOTAL 0.9 mg/dL (0.2-1.3); BLOOD UREA NITROGEN 15 mg/dL (7-20); CALCIUM 9.1 mg/dL (8.4-10.2); CARBON DIOXIDE 26 mmol/L (22-30); CHLORIDE 93 mmol/L (98-107); CREATINE KINASE 205 U/L (55-170); GLUCOSE 92 mg/dL (75-110); POTASSIUM 4.3 mmol/L (3.6-5.0); TOTAL PROTEIN 7.9 g/dL (6.3-8.2)
--- NOTE | 2020-05-02 04:44 | ER Document Report ---
ED General - General Chief Complaint: Headache Stated Complaint: HEADACHE Time Seen by Provider: 05/02/20 04:43 TRAVEL OUTSIDE OF THE [place] IN LAST 30 DAYS: No - HPI Notes: 49-year-old male presents with headache. Patient states that around 5 PM he was sitting outside and playing his guitar, he had onset of frontal headache, felt behind his eyes, described a pressure sensation as if it felt like his eyes were going to pop out. He states it is somewhat better currently. He states that he went inside to lie down and to calm himself down, he did take his blood pressure which was high. He states he has a history of high blood pressure but he does not take any medicines for it. He states he recently is was prescribed metoprolol however there is an issue getting it from the pharmacy. Patient also states he had a brief episode of a chest fluttering sensation, he is not really sure what time it occurred, however it occurred while he was laying down. It resolved spontaneously and has not recurred. He also reports chronic issues with his stomach, he states that he sees Dr. Cowan, however recently he had an appointment but his blood pressure was 227/119 so he was sent to the emergency department and was not seen. - Related Data Allergies/Adverse Reactions: hydromorphone [From Dilaudid] Allergy (Verified 10/01/18 19:49) tramadol [From Ultram] Allergy (Verified 09/29/18 06:14) tramadol HCl [From Ultram] Allergy (Verified 10/01/18 19:48) amlodipine [From Norvasc] Adverse Reaction (Mild, Verified 10/03/18 11:38) Past Medical History - General Information source: Patient - Social History Smoking Status: Current Every Day Smoker Family History: Reviewed & Not Pertinent, Other - Crohn's disease. Colon cancer. - Past Medical History Cardiac Medical History: Reports: Hx Hypertension Denies: Hx Coronary Artery Disease, Hx Heart Attack Pulmonary Medical History: Denies: Hx Asthma, Hx Bronchitis, Hx COPD, Hx Pneumonia Neurological Medical History: Reports: Hx Seizures - x1 at age 19. Denies: Hx Cerebrovascular Accident, Hx Parkinson's Disease Endocrine Medical History: Denies: Hx Diabetes Mellitus Type 1, Hx Diabetes Mellitus Type 2 Renal/ Medical History: Denies: Hx Peritoneal Dialysis GI Medical History: Reports: Hx Diverticulitis, Hx Hiatal Hernia Musculoskeletal Medical History: Reports Hx Arthritis - DJD Psychiatric Medical History: Denies: Hx Dementia, Hx Depression Traumatic Medical History: Past Surgical History: Reports: Hx Abdominal Surgery - partial resection of colon; September 2016, colostomy, Hx Bowel Surgery - COLOSTOMY, Hx Colostomy, Hx Orthopedic Surgery - Left hip replaced, Other - Colonoscopy - Immunizations Hx Diphtheria, Pertussis, Tetanus Vaccination: - UNSURE Review of Systems - Review of Systems Constitutional: denies: Fever EENT: denies: Blurred vision Cardiovascular: denies: Chest pain - Denies currently Respiratory: denies: Short of breath Gastrointestinal: Abdominal pain - Chronic Genitourinary: No symptoms reported Male Genitourinary: No symptoms reported Musculoskeletal: No symptoms reported Skin: No symptoms reported Hematologic/Lymphatic: No symptoms reported Neurological/Psychological: Headaches. denies: Weakness Physical Exam - Vital signs Vitals: Temp Pulse Resp BP Pulse Ox 98.6 F 96 16 189/106 H 96 05/02/20 00:13 05/02/20 00:13 05/02/20 00:13 05/02/20 00:13 05/02/20 00:13 - General General appearance: Appears well, Alert In distress: None - HEENT Head: Normocephalic, Atraumatic Extraocular movements intact: Yes Pupils: PERRL Neck: Normal - Respiratory Breath sounds: Normal - Cardiovascular Rhythm: Regular Heart sounds: Normal auscultation - Abdominal Inspection: Healed incision, Obese Bowel sounds: Normal Tenderness: Nontender - Extremities General lower extremity: No: Edema - Neurological Neuro grossly intact: Yes Cognition: Normal Orientation: AAOx4 Speech: Normal Cranial nerves: Normal Motor strength normal: LUE, RUE, LLE, RLE Additional motor exam normals: [employer] job titles Sensory: Normal - Psychological Associated symptoms: Normal affect - Skin Skin Temperature: Warm Course - Re-evaluation Re-evalutation: 49-year-old male here with frontal headache. He is neurologically intact, afebrile. He does have marked hypertension, has a history of this however he do es not take any medications, states that he does have a primary care doctor. Suspect that hypertension might be playing a role. Tension headache likely, low suspicion for SAH however will obtain CT head. Given his intact mentation, no evidence of hypertensive encephalopathy at this time. Will start with symptomatic control of Compazine, Benadryl and fluids. Very vague about his chest pain, brief episode, currently chest pain-free. EKG is similar to previous. 05/02/20 05:57 No leukocytosis or left shift. Hemoglobin at baseline. Elevated creatinine which does appear to be a trend for him. Troponin 0.013, lower than previous value. 05/02/20 06:01 Patient care to be turned over to Dr. Kulkarni. Pending head CT. Have written for lisinopril anticipation of discharge home. - Vital Signs Vital signs: Temp Pulse Resp BP Pulse Ox 98.2 F 92 12 212/135 H 98 05/02/20 01:01 05/02/20 03:00 05/02/20 04:01 05/02/20 05:21 05/02/20 05:21 - Laboratory Result Diagrams: 05/02/20 03:51 05/02/20 03:51 Laboratory results interpreted by me: 05/02/20 05/02/20 03:51 03:51 RBC 3.79 L Hgb 13.2 L MCV 100 H MCH 34.8 H RDW 16.3 H Plt Count 131 L Baso % (Auto) 2.2 H Sodium 135.7 L Chloride 93 L Creatinine 1.26 H Direct Bilirubin 0.5 H AST 110 H Alkaline Phosphatase 133 H Creatine Kinase 205 H - EKG Interpretation by Me Additional EKG results interpreted by me: EKG is interpreted by me. Sinus rhythm, rate 83. QRS 102, QTc within normal limits. There are some T wave abnormalities in multiple leads. EKG is grossly unchanged from previous dated 04/24/2020 Discharge - Discharge Clinical Impression: Frontal headache, Essential hypertension, Elevated serum creatinine Disposition: HOME, SELF-CARE Additional Instructions: You have been provided a prescription for lisinopril, this is for blood pressure, please get it filled. Please try taking this to the [facility] pharmacy at it is free there Prescriptions: Lisinopril 20 mg PO DAILY 180 Days #180 tablet
[2020-05-02] MEDS ORDERED: DIPHENHYDRAMINE HCL 50 MG/ML VIAL IV ONE (04:51)
[2020-05-02] MEDS ORDERED: PROCHLORPERAZINE EDISYLATE INJ 10 MG/2 ML VIAL IV ONE (04:51)
[2020-05-02] MEDS ORDERED: RINGERS SOLUTION,LACTATED 1,000 ML IV ONE (04:52)
[2020-05-02 04:56] LABS: CREATINE KINASE MB 2.96 ng/mL (<4.55); TROPONIN I 0.013 ng/mL
[2020-05-02] MEDS ORDERED: LISINOPRIL 10 MG TABLET PO ONE (05:33)
--- NOTE | 2020-05-02 07:20 | RADIOLOGY REPORT (SQ) ---
EXAM: CT Head Without Intravenous Contrast EXAM DATE/TIME: 05/02/2020 6:39 AM CLINICAL HISTORY: The patient is 49 years old and is Male; HTN, C/O headache TECHNIQUE: Axial computed tomography images of the head/brain without intravenous contrast. Sagittal and coronal reformatted images were created and reviewed. This CT exam was performed using one or more of the following dose reduction techniques: automated exposure control, adjustment of the mA and/or kV according to patient size, and/or use of iterative reconstruction technique. COMPARISON: CT brain from 09/18/2016 FINDINGS: BRAIN: Mild cerebral atrophy. No obvious signs of acute infarct. No evidence of intracranial mass. No acute hemorrhage. VENTRICLES: Unremarkable. No ventriculomegaly. BONES/JOINTS: Unremarkable. No acute fracture. SOFT TISSUES: Unremarkable. SINUSES: Unremarkable as visualized. No acute sinusitis. MASTOID AIR CELLS: Unremarkable as visualized. No mastoid effusion. IMPRESSION: No acute intracranial findings.
[2020-05-02] MEDS ORDERED: METOPROLOL TARTRATE PF/INJ 5 MG/5 ML SDV IV ONE (08:07)
--- NOTE | 2020-05-02 08:11 | ER Document Report ---
Doctor's Note Notes: 05/02/20 08:10 49-year-old male patient with untreated hypertension came in last night with a throbbing frontal headache. He had received medication through the evening to lower his blood pressure, he states the pounding headache is gone now. CT scan of the brain was unremarkable. Blood pressure still little elevated at 180/111. I will give him a 5 mg dose of metoprolol IV, he was previously given some oral lisinopril and a prescription for lisinopril. The discharge instructions that had been prepared for him in the event that his head CT scan was normal were printed out and provided to the patient.
[2020-05-02 09:04] VITALS: BP 196/103
--- NOTE | 2020-05-02 15:16 | EKG REPORT ---
SEVERITY:- OTHERWISE NORMAL ECG - SINUS RHYTHM BORDERLINE LEFT AXIS DEVIATION : Confirmed by: Mirtha Paniagua MD 02-May-2020 15:15:51
== END 2020-05-02 09:03 | disposition home or self-care (01) ==
LOC: ER 00:01
DX: R51.9 Headache, unspecified (principal); I10 Essential (primary) hypertension; R79.89 Other specified abnormal findings of blood chemistry; F17.200 Nicotine dependence, unspecified, uncomplicated; Z88.6 Allergy status to analgesic agent
CPT/HCPCS: 93005; 99285; 96361; 96374; 96375; 36415; 82553; 82550; 85025; 80053; 84484; 70450; 93010; J1200; J3490; J0780; J7120

== ENCOUNTER 2020-08-19 12:07 | Emergency (ER) | payer SELFPAY ==
[2020-08-19] MEDS ORDERED: ONDANSETRON HCL INJ/PF 4 MG/2 ML SDV IV ONE (12:35)
--- NOTE | 2020-08-19 12:35 | ER Document Report ---
ED Medical Screen (RME) - General Chief Complaint: Nausea/Vomiting Stated Complaint: LOSS OF TASTE/CHILLS/VOMITING/MUSCLE PAIN Time Seen by Provider: 08/19/20 12:27 Mode of Arrival: Wheelchair Information source: Patient Notes: HPI; 49-year-old male presents to the emergency room complaining of general body aches, cough, vomiting, decreased taste and smell for the past 2 to 3 days. Denies any ill contacts. No COVID-19 exposure. No previous COVID-19 testing. PE: Alert and oriented x3. Lungs: Scattered rhonchi no wheezes no rales. Heart: Tachycardic without murmurs, rubs, gallops. I have greeted and performed a rapid initial assessment of this patient. A comprehensive ED assessment and evaluation of the patient, analysis of test results and completion of the medical decision making process will be conducted by additional ED providers. I have specifically instructed the patient or family members with the patient to immediately return to any nursing staff should anything change in the patient's condition or with their chief complaint. TRAVEL OUTSIDE OF THE [place] IN LAST 30 DAYS: No - Related Data Allergies/Adverse Reactions: hydromorphone [From Dilaudid] Allergy (Verified 08/19/20 12:24) tramadol [From Ultram] Allergy (Verified 08/19/20 12:24) tramadol HCl [From Ultram] Allergy (Verified 08/19/20 12:24) amlodipine [From Norvasc] Adverse Reaction (Mild, Verified 08/19/20 12:24) Home Medications: ran out of BP meds, not taking any right now. Past Medical History - Social History Chew tobacco use (# tins/day): No Frequency of alcohol use: None Drug Abuse: None - Past Medical History Cardiac Medical History: Reports: Hx Hypertension Denies: Hx Coronary Artery Disease, Hx Heart Attack Pulmonary Medical History: Denies: Hx Asthma, Hx Bronchitis, Hx COPD, Hx Pneumonia Neurological Medical History: Reports: Hx Seizures - x1 at age 19. Denies: Hx Cerebrovascular Accident, Hx Parkinson's Disease Endocrine Medical History: Denies: Hx Diabetes Mellitus Type 1, Hx Diabetes Mellitus Type 2 Renal/ Medical History: Denies: Hx Peritoneal Dialysis GI Medical History: Reports: Hx Diverticulitis, Hx Hiatal Hernia Musculoskeltal Medical History: Reports Hx Arthritis - DJD Psychiatric Medical History: Denies: Hx Dementia, Hx Depression Traumatic Medical History: Past Surgical History: Reports: Hx Abdominal Surgery - partial resection of colon; September 2016, colostomy, Hx Bowel Surgery - COLOSTOMY, Hx Colostomy, Hx Orthopedic Surgery - Left hip replaced, Other - Colonoscopy - Immunizations Hx Diphtheria, Pertussis, Tetanus Vaccination: - UNSURE Physical Exam - Vital signs Vitals: Temp Pulse Resp BP Pulse Ox 97.4 F 110 H 20 111/60 100 08/19/20 12:17 08/19/20 12:17 08/19/20 12:17 08/19/20 12:17 08/19/20 12:17 Course - Vital Signs Vital signs: Temp Pulse Resp BP Pulse Ox 97.4 F 110 H 20 111/60 100 08/19/20 12:17 08/19/20 12:17 08/19/20 12:17 08/19/20 12:17 08/19/20 12:17
[2020-08-19] MEDS ORDERED: RINGERS SOLUTION,LACTATED 1,000 ML IV ONE (12:36)
--- NOTE | 2020-08-19 13:16 | RADIOLOGY REPORT (SQ) ---
EXAM DESCRIPTION: CHEST SINGLE VIEW IMAGES COMPLETED DATE/TIME: 08/19/2020 11:53 am REASON FOR STUDY: cough COMPARISON: None. EXAM PARAMETERS: NUMBER OF VIEWS: One view. TECHNIQUE: Single frontal radiographic view of the chest acquired. RADIATION DOSE: NA LIMITATIONS: None. FINDINGS: LUNGS AND PLEURA: No opacities, masses or pneumothorax. No pleural effusion. MEDIASTINUM AND HILAR STRUCTURES: No masses. Contour normal. HEART AND VASCULAR STRUCTURES: Heart normal in size. Normal vasculature. BONES: No acute findings. HARDWARE: None in the chest. OTHER: No other significant finding. IMPRESSION: NO ACUTE RADIOGRAPHIC FINDING IN THE CHEST. TECHNICAL DOCUMENTATION: JOB ID: [id number] 2010 [employer]- All Rights Reserved Reading location - IP/workstation name: [email or web address]
[2020-08-19] MEDS ORDERED: IPRATROPIUM/ALBUTEROL 0.5-2.5 MG/3 ML AMPUL NEB ONE (13:26)
[2020-08-19] MEDS ORDERED: MORPHINE SULFATE 10 MG/ML INJ IV ONE (13:26)
--- NOTE | 2020-08-19 13:28 | ER Document Report ---
ED GI/ - General Chief Complaint: Nausea/Vomiting Stated Complaint: LOSS OF TASTE/CHILLS/VOMITING/MUSCLE PAIN Time Seen by Provider: 08/19/20 12:27 Mode of Arrival: Wheelchair Notes: CHIEF COMPLAINT: Nausea vomiting cough diarrhea HPI: 49-year-old male complaining of 3 days of nausea with vomiting and diarrhea. Has developed a slight cough with some wheezing and shortness of breath. Has not been Covid tested recently. Patient states he has a history of diverticulitis with prior colectomy reversed 7 years ago now with multiple ventral abdominal hernias but not having specific abdominal pain. Patient reports that he was throwing up the other day and did have a fall onto the chest and upper abdomen, did not suffer any bruising from this and this was 2 to 3 days ago. Denies new abdominal pain. ROS: See HPI - all other systems were reviewed and are otherwise negative Constitutional: no fever Eyes: no drainage, no blurred vision ENT: no runny nose, no sore throat Cardiovascular: no chest pain Resp: no SOB, no cough GI: + vomiting, + diarrhea, no abdominal pain : no dysuria Integumentary: no rash Allergy: no hives Musculoskeletal: no extremity pain or swelling Neurological: no numbness/tingling, no weakness MEDICATIONS: I agree with the patient medications as charted by the RN. ALLERGIES: I agree with the allergies as charted by the RN. PAST MEDICAL HISTORY/PAST SURGICAL HISTORY: Reviewed and agree as charted by RN. SOCIAL HISTORY: Reviewed and agree as charted by RN. FAMILY HISTORY: No significant familial comorbid conditions directly related to patient complaint EXAM: Reviewed vital signs as charted by RN. CONSTITUTIONAL: Alert and oriented and responds appropriately to questions. Well-appearing; well-nourished HEAD: Normocephalic; atraumatic EYES: PERRL; Conjunctivae clear, sclerae non-icteric ENT: normal nose; no rhinorrhea; moist mucous membranes; pharynx without lesions noted, no uvula edema or deviation, no tonsillar hypertrophy, phonation normal NECK: Supple without meningismus; non-tender; no cervical lymphadenopathy, no masses CARD: RRR; no murmurs, no clicks, no rubs, no gallops; symmetric distal pulses RESP: Normal chest excursion without splinting or tachypnea; breath sounds noted to have slight wheezing on the right, no rhonchi, no rales, pulse oximetry 100% on room air not hypoxic ABD/GI: Obese, normal bowel sounds; non-distended; soft, no rebound, no guarding; multiple ventral hernias are noted, no bruising to the abdomen no specific tenderness on palpation BACK: The back appears normal and is non-tender to palpation, there is no CVA tenderness EXT: Normal ROM in all joints; non-tender to palpation; no cyanosis, no effusions, no edema SKIN: Normal color for age and race; warm; dry; good turgor; no acute lesions noted NEURO: Moves all extremities equally; Motor and sensory function intact PSYCH: The patient's mood and manner are appropriate. Grooming and personal hygiene are appropriate. MDM: 49-year-old male slight cough, nausea vomiting diarrhea over the last 2 to 3 days. Has no abdominal pain on palpation. Reports darkening of his urine. Initial screening labs placed by triage process. He is requesting pain medicine. Nausea is improving. The patient was evaluated during the global COVID-19 pandemic and that diagnosis was suspected/considered upon their initial presentation. Their evaluation, treatment and testing was consistent with current guidelines for patients who present with complaints or symptoms that may be related to COVID-19 TRAVEL OUTSIDE OF THE [place] IN LAST 30 DAYS: No - Related Data Allergies/Adverse Reactions: hydromorphone [From Dilaudid] Allergy (Verified 08/19/20 12:24) tramadol [From Ultram] Allergy (Verified 08/19/20 12:24) tramadol HCl [From Ultram] Allergy (Verified 08/19/20 12:24) amlodipine [From Norvasc] Adverse Reaction (Mild, Verified 08/19/20 12:24) Home Medications: ran out of BP meds, not taking any right now. Past Medical History - General Information source: Patient - Social History Smoking Status: Current Every Day Smoker Chew tobacco use (# tins/day): No Frequency of alcohol use: None Drug Abuse: None Family History: Reviewed & Not Pertinent, Other - Crohn's disease. Colon cancer. Patient has homicidal ideation: No - Past Medical History Cardiac Medical History: Reports: Hx Hypertension Denies: Hx Coronary Artery Disease, Hx Heart Attack Pulmonary Medical History: Denies: Hx Asthma, Hx Bronchitis, Hx COPD, Hx Pneumonia Neurological Medical History: Reports: Hx Seizures - x1 at age 19. Denies: Hx Cerebrovascular Accident, Hx Parkinson's Disease Endocrine Medical History: Denies: Hx Diabetes Mellitus Type 1, Hx Diabetes Mellitus Type 2 Renal/ Medical History: Denies: Hx Peritoneal Dialysis GI Medical History: Reports: Hx Diverticulitis, Hx Hiatal Hernia Musculoskeletal Medical History: Reports Hx Arthritis - DJD Psychiatric Medical History: Denies: Hx Dementia, Hx Depression Traumatic Medical History: Past Surgical History: Reports: Hx Abdominal Surgery - partial resection of colon; September 2016, colostomy, Hx Bowel Surgery - COLOSTOMY, Hx Colostomy, Hx Orthopedic Surgery - Left hip replaced, Other - Colonoscopy - Immunizations Hx Diphtheria, Pertussis, Tetanus Vaccination: - UNSURE Physical Exam - Vital signs Vitals: Temp Pulse Resp BP Pulse Ox 97.4 F 110 H 20 111/60 100 08/19/20 12:17 08/19/20 12:17 08/19/20 12:17 08/19/20 12:17 08/19/20 12:17 Course - Re-evaluation Re-evalutation: 08/19/20 18:48 Patient is tolerating oral fluids. Patient's nausea has improved. His CT imaging does not show acute findings that are actionable at this time. No obstruction. Will be self quarantining at home pending Covid result. Will prescribe patient Zofran for nausea. Patient was noted to be hyponatremia. Will follow up with PCP. - Vital Signs Vital signs: Temp Pulse Resp BP Pulse Ox 97.8 F 107 H 22 H 144/71 H 94 08/19/20 16:46 08/19/20 16:46 08/19/20 16:46 08/19/20 16:46 08/19/20 16:46 - Laboratory Results Result Diagrams: 08/19/20 12:55 08/19/20 12:55 Laboratory Results Interpreted: 08/19/20 08/19/20 08/19/20 12:55 12:55 12:55 WBC 11.3 H RBC 2.92 L Hgb 10.1 L Hct 30.6 L MCV 105 H MCH 34.8 H RDW 15.7 H Seg Neuts % (Manual) 90 H Band Neutrophils % 1 L Lymphocytes % (Manual) 4 L Abs Neuts (Manual) 10.3 H Sodium 125.0 L Potassium 3.3 L Chloride 84 L Carbon Dioxide 20 L Anion Gap 21 H Creatinine 1.87 H Est GFR ( Amer) 47 L Est GFR (MDRD) Non-Af 39 L Glucose 113 H Total Bilirubin 1.6 H Direct Bilirubin 1.2 H AST 73 H Alkaline Phosphatase 157 H Lipase 1254.4 H Urine Protein Urine Ketones Urine Blood Urine Bilirubin Urine Urobilinogen 08/19/20 14:30 WBC RBC Hgb Hct MCV MCH RDW Seg Neuts % (Manual) Band Neutrophils % Lymphocytes % (Manual) Abs Neuts (Manual) Sodium Potassium Chloride Carbon Dioxide Anion Gap Creatinine Est GFR ( Amer) Est GFR (MDRD) Non-Af Glucose Total Bilirubin Direct Bilirubin AST Alkaline Phosphatase Lipase Urine Protein >=500 H Urine Ketones 20 H Urine Blood SMALL H Urine Bilirubin SMALL H Urine Urobilinogen 4.0 H Critical Laboratory Results Reviewed: No Critical Results - Radiology Results Critical Radiology Results Reviewed: No Critical Results Discharge - Discharge Clinical Impression: Nausea vomiting and diarrhea, Dehydration, Person under investigation for COVID-19, Hyponatremia, Renal insufficiency Condition: Stable Disposition: HOME, SELF-CARE Instructions: COVID-19 Guidance for Persons Under Investigation, Intravenous (IV) Fluids ([facility]), Vomiting ([facility]) Additional Instructions: Take Zofran for any recurrent nausea or vomiting. Push fluids at home to hydrate. Follow-up with your primary care provider for reevaluation of symptoms return for recurrent vomiting. It was noted that your sodium level was slightly low today likely from her vomiting and diarrhea. You are considered a person under investigation for COVID-19 at this time, self quarantine at home pending your test results which may take 2 to 5 days. You should receive notification from the hospital about your test results Prescriptions: Ondansetron [Zofran Odt 4 mg Tablet] 1 - 2 tab PO Q4H PRN #15 tab.rapdis PRN Reason: For Nausea/Vomiting
[2020-08-19 13:37] LABS: HEMATOCRIT 30.6 % (37.9-51.0); HEMOGLOBIN 10.1 g/dL (13.5-17.0); MEAN CORPUSCULAR HEMOGLOBIN 34.8 pg (27.0-33.4); MEAN CORPUSCULAR HGB CONC 33.2 g/dL (32.0-36.0); MEAN CORPUSCULAR VOLUME 105 fl (80-97); PLATELET COUNT 158 10^3/uL (150-450); RED BLOOD COUNT 2.92 10^6/uL (4.35-5.55); RED CELL DISTRIBUTION WIDTH 15.7 % (11.5-14.0); WHITE BLOOD COUNT 11.3 10^3/uL (4.0-10.5)
[2020-08-19 13:43] LABS: ALKALINE PHOSPHATASE 157 U/L (38-126); ASPARTATE AMINO TRANSFERASE 73 U/L (17-59); BILIRUBIN,DIRECT 1.2 mg/dL (0.0-0.4); BILIRUBIN,TOTAL 1.6 mg/dL (0.2-1.3); BLOOD UREA NITROGEN 18 mg/dL (7-20); CALCIUM 8.6 mg/dL (8.4-10.2); CARBON DIOXIDE 20 mmol/L (22-30); GLUCOSE 113 mg/dL (75-110); POTASSIUM 3.3 mmol/L (3.6-5.0); TOTAL PROTEIN 7.5 g/dL (6.3-8.2)
[2020-08-19 13:48] LABS: CHLORIDE 84 mmol/L (98-107)
[2020-08-19 13:49] LABS: ANION GAP 21 (5-19)
[2020-08-19] MEDS ORDERED: NORMAL SALINE 1000 ML 1,000 ML IV ONE (13:58)
[2020-08-19 14:13] LABS: ABSOLUTE LYMPHOCYTES# (MANUAL) 0.5 10^3/uL (0.5-4.7); ABSOLUTE MONOCYTES # (MANUAL) 0.6 10^3/uL (0.1-1.4); ANISOCYTOSIS SLIGHT; BAND NEUTROPHILS % (MANUAL) 1 % (3-5); BASOPHILS % (MANUAL) 0 % (0-2); EOSINOPHILS % (MANUAL) 0 % (0-6); LYMPHOCYTES % (MANUAL) 4 % (13-45); MONOCYTES % (MANUAL) 5 % (3-13); NUCLEATED RED BLOOD CELLS 1 /100 WBC (0); SEGMENTED NEUTROPHILS % (MAN) 90 % (42-78); TOTAL CELLS COUNTED 100
[2020-08-19 14:14] LABS: PLATELET COMMENT ADEQUATE
[2020-08-19 15:05] LABS: APPEARANCE,URINE CLEAR; BILIRUBIN,URINE SMALL (NEGATIVE); COLOR,URINE AMBER; GLUCOSE, URINE NEGATIVE (NEGATIVE); KETONES,URINE 20 mg/dL (NEGATIVE); LEUKOCYTE ESTERASE,URINE NEGATIVE (NEGATIVE); NITRITE,URINE NEGATIVE (NEGATIVE); PROTEIN,URINE >=500 mg/dL (NEGATIVE); URINE SPECIFIC GRAVITY 1.017
--- NOTE | 2020-08-19 17:54 | RADIOLOGY REPORT (SQ) ---
EXAM DESCRIPTION: CT ABD/PELVIS WITH IV ORAL IMAGES COMPLETED DATE/TIME: 08/19/2020 4:22 pm REASON FOR STUDY: upper abd pain vomiting. COMPARISON: CT abdomen and pelvis 04/24/2020. TECHNIQUE: CT scan of the abdomen and pelvis performed using helical scanning technique with dynamic intravenous contrast injection. No oral contrast. Images reviewed with lung, soft tissue, and bone windows. Reconstructed coronal and sagittal MPR images reviewed. Delayed images for evaluation of the urinary system also acquired. All images stored on PACS. All CT scanners at this facility use dose modulation, iterative reconstruction, and/or weight based d osing when appropriate to reduce radiation dose to as low as reasonably achievable (ALARA). [facility]: Dose Right [facility]: CareDose [facility]: Dose Right [facility]: Teradose 4D [facility]: [employer] CONTRAST TYPE AND DOSE: contrast/concentration: Isovue 350.00 mmol/ml; Total Contrast Delivered: 80. 0 ml; Total Saline Delivered: 52.5 ml RENAL FUNCTION: GFR 39 today RADIATION DOSE: CT Rad equipment meets quality standard of care and radiation dose reduction techniq ues were employed. CTDIvol: 17.9 - 20.7 mGy. DLP: 2111 mGy-cm.. LIMITATIONS: None. FINDINGS: LOWER CHEST: No significant findings. No nodules or infiltrates. LIVER: Liver has normal size and contour. Severe diffuse hepatic steatosis. No focal hepatic mass. Hepatic and portal veins are patent. No biliary ductal dilation. SPLEEN: Normal size. No focal lesions. PANCREAS: No masses. No significant calcifications. No adjacent inflammation or peripancreatic fluid collections. Pancreatic duct not dilated. GALLBLADDER: No identified stones by CT criteria. No inflammatory changes to suggest cholecystitis. ADRENAL GLANDS: No significant masses or asymmetry. RIGHT KIDNEY AND URETER: No solid masses. No significant calcifications. No hydronephrosis or hyd roureter. LEFT KIDNEY AND URETER: No solid masses. No significant calcifications. No hydronephrosis or hydr oureter. AORTA AND VESSELS: No aneurysm. No dissection. Renal arteries, SMA, celiac without stenosis. RETROPERITONEUM: No retroperitoneal adenopathy, hemorrhage or masses. BOWEL AND PERITONEAL CAVITY: There are multiple ventral hernias containing colon and small bowel loop s. In the upper abdomen there is a ventral abdominal wall defect measuring 6.5 cm diameter containin g a portion of the transverse colon. No fluid in the hernia sac. Just inferior to this, there is an other ventral hernia containing loops of small bowel with abdominal wall defect measuring 5.9 cm. No dilated loops of bowel or fluid within the hernia sac. Inferior to this, there is an umbilical ritu ia with abdominal wall defect measuring 8.3 cm containing loops of small bowel, also demonstrating no bowel obstruction or fluid in the hernia sac. In the left anterior abdomen there is is a lateral he rnia containing omental fat with abdominal wall defect measuring 2.2 cm. At the inferior pelvis, the re is a ventral hernia containing loops of small bowel with abdominal wall defect measuring 3 cm. At this hernia sac there is a small amount of fluid within the sac. No dilated loop of small bowel or evidence of pneumatosis. There is a surgical anastomosis in the sigmoid colon. No evidence of bowel obstruction or bowel wall thickening. No mass. No significant inflammatory change. No ascites or pneumoperitoneum. APPENDIX: Normal. PELVIS: Bladder is decompressed. Prostate has normal size. No pelvic adenopathy or free fluid. ABDOMINAL WALL: Multiple ventral hernias as above. No subcutaneous fluid. 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 Collapse of the femoral head. There is a moderate right joint effusion. Left hip arthroplasty. No suspicio us bone lesions. OTHER: No other significant finding. IMPRESSION: 1. Multiple ventral hernias containing loops of small bowel and colon. No evidence of bowel obstruct ion. There is a small amount of fluid in the most inferior hernia sac which may be infectious or inf lammatory. This has a narrow neck. Enteric contrast has progressed distally. 2. Severe hepatic steatosis. 3. 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 TECHNICAL DOCUMENTATION: JOB ID: [id number] Quality ID # [id number]: Final reports with documentation of one or more dose reduction techniques (e.g., Au tomated exposure control, adjustment of the mA and/or kV according to patient size, use of iterative reconstruction technique) 2010 [employer]- All Rights Reserved Reading location - IP/workstation name: [email or web address]
[2020-08-19 20:33] VITALS: BP 148/65
== END 2020-08-19 20:32 | disposition home or self-care (01) ==
LOC: ER 12:07
DX: E86.0 Dehydration (principal); E87.1 Hypo-osmolality and hyponatremia; N28.9 Disorder of kidney and ureter, unspecified; R11.2 Nausea with vomiting, unspecified; M79.10 Myalgia, unspecified site; R05 Cough; F17.200 Nicotine dependence, unspecified, uncomplicated; I10 Essential (primary) hypertension; Z93.3 Colostomy status; Z20.822 Contact with and (suspected) exposure to COVID-19
CPT/HCPCS: 94640; 99285; 96361; 96374; 96375; 36415; 83690; 85025; 87635; 80053; 81001; 71045; 74177; J2270; J2405; J7030; J7120; C9803